=== PATIENT | male | born 1960 | race Caucasian/White ===

== ENCOUNTER → 2017-02-23 14:35 | Outpatient (POV) | payer BC, SELFPAY | PROVIDERS: Family Provider Nurse Practitioner Family; PCP Internal Medicine Adolescent Medicine; Referring Provider Nurse Practitioner Family | DX: Z00.00 Encounter for general adult medical examination without abnormal findings (principal) ==

== ENCOUNTER → 2017-03-12 10:58 | Outpatient (CLI) | payer BC, SELFPAY ==
--- NOTE | 2017-03-12 | XR_ITS ---
XR knee LT 3V HISTORY: Pain following injury ITS.REASON: INJURY OF LEFT KNEE, INITIAL ENCOUNTER, MEDIAL KNEE PAIN ORDERING PHYSICIAN: Clayton Garcia MD PATIENT AGE: 57 years COMPARISON: None FINDINGS: There is a moderate size suprapatellar effusion. This continuity is noted involving the anterior aspect of the mid patella consistent with patellar fracture. There is minimal distraction of the fracture fragments. IMPRESSION: Mildly distracted patellar fracture with moderate sized knee joint effusion. The fragments are distracted x 7 mm anteriorly.
== END ==
PROVIDERS: PCP Internal Medicine Adolescent Medicine; Visit Provider Internal Medicine Adolescent Medicine
DX: S89.92XA Unspecified injury of left lower leg, initial encounter (principal); M25.562 Pain in left knee
CPT/HCPCS: 73562

== ENCOUNTER → 2017-03-16 15:24 | Outpatient (CLI) | payer BC, SELFPAY ==
[2017-03-16 15:38] LABS: Basophils # 0.1 K/mm3 (0-0.2); Basophils % 0.5 % (0.1-2.0); Eosinophils # 0.2 K/mm3 (0.0-0.4); Eosinophils % 1.3 % (0.1-12.0); Hemoglobin 13.1 g/dL (14.1-18.0); Lymphocytes # 3.4 K/mm3 (0.7-4.5); Lymphocytes % 27.2 K/mm3 (10-50); Mean Corpuscular HGB Conc 33.4 g/dL (31.8-35.4); Mean Corpuscular Hemoglobin 31.2 pg (27.0-31.2); Mean Corpuscular Volume 93.2 fl (80-94); Mean Platelet Volume 9.8 fl (7.4-10.4); Monocytes # 0.8 K/mm3 (0.1-1.0); Neutrophils # 8.1 K/mm3 (1.8-7.8); Neutrophils % 65.1 % (37.0-80.0); Platelet Count 152 K/mm3 (142-424); Red Blood Count 4.19 M/mm3 (4.60-6.20); Red Cell Distribution Width 12.7 % (11.5-17.5); White Blood Count 12.5 K/mm3 (4.8-10.8)
[2017-03-16 17:49] LABS: Anion Gap 10.6 mEq/L (5-15); Blood Urea Nitrogen 14 mg/dL (7-18); Carbon Dioxide 32 mmol/L (21.0-32.0); Chloride 108 mmol/L (98-107); Estimated Glomerular Filt Rate 99 ml/min (>60); GFR (African American) 120 ML/MIN (>60); Glucose 155 mg/dL (74-106); Potassium 4.6 mmoL/L (3.5-5.1); Sodium 146 mmol/L (136-145)
== END ==
PROVIDERS: PCP Nurse Practitioner Family; Visit Provider Orthopaedic Surgery
DX: S82.002A Unspecified fracture of left patella, initial encounter for closed fracture (principal); S89.92XA Unspecified injury of left lower leg, initial encounter; Z01.818 Encounter for other preprocedural examination
CPT/HCPCS: 36415; 80048; 85025

== ENCOUNTER 2017-03-16 15:38 | Outpatient (RCR) | payer BC, SELFPAY | END 2017-03-16 15:45 | disposition home or self-care (01) | LOC: PT 15:38 | PROVIDERS: Family Provider Nurse Practitioner Family; PCP Nurse Practitioner Family; Visit Provider Orthopaedic Surgery | DX: S82.002A Unspecified fracture of left patella, initial encounter for closed fracture (principal) | CPT/HCPCS: 97760 ==

== ENCOUNTER 2017-03-21 07:42 | Observation (INO) | payer BC, SELFPAY ==
[2017-03-18 13:28] VITALS: BMI 24.2
[2017-03-21] VITALS (20 sets, daily range): BP systolic 128–162; BP diastolic 67–85; PULSE 77–93; RESP 12–20; TEMP 36.2–43; O2SAT 93–100; BMI 26.6
--- NOTE | 2017-03-21 08:18 | HMH.ANESCL ---
[facility] Anesthesia Checklist - Patient Identification Patient Identification: Arm Band - Structural Data Admitted From: Home Planned Operative Procedure/s: left patella fx Consent for Planned Operative Procedure(s) Verified: Yes Verified Documents: Surgical Consent, History and Physical - NPO Status Verified Time NPO: 00:00 - Additional verifications Anesthesia Reactions: No - Airway Assessment C-Spine Mobility Assessed: Yes TMJ Mobility Assessed: Yes Dentition: Edentulous - Neurological Assessment Level of Consciousness: Awake, Alert - Anesthesia Plan Anesthesia Risk discussed: Yes Anesthesia Plan: Verified ASA Class: III Anesthesia Type: MAC - Preoperative Comments Pre-Operative Comments: with fem/sciatic block [facility] Anesthesia HX Medical History: Reports:: Anxiety, Coronary Artery Disease, Diabetes Mellitus Type 2, Hyperlipidemia, Hypertension Denies:: Cancer, Diabetes Mellitus Type 1, Internal Pacemaker, MRSA Comment: faina Laterality Cases: Bilateral: Other Other Surgeries: Yes: Coronary Stent, Other. No: Pacemaker Amputation: No Fractures: Yes Comment: cabg, left elbow, spinal cord stimulator *Family Hx:: Coronary Artery Disease, Cancer, Anemia, Diabetes, Heart Attack, Hypertension, Stroke
[2017-03-21 08:49] LABS: POC Glucose,Bedside 187 mg/dL
--- NOTE | 2017-03-21 11:30 | HMH.ANESI ---
[facility] Anesthesia Record Part I Intake, IV Amount: 1,200 Estimated blood loss (mL): 50 Urine output (mL): 0 Blood Pressure: 147/79 SaO2: 95 Pulse Rate: 87 Respiratory Rate: 12 Temperature: 97.4 F Patient is:: Awake, Stable Stable to PACU at:: 11:30
--- NOTE | 2017-03-21 11:31 | HMH.ANESII ---
[facility] Anesthesia Record Part II Discharge Time: 12:00 Destination: floor PACU nurse assessment reviewed?: Yes Patient Condition:: Good Anesthesia Complications:: None
--- NOTE | 2017-03-21 11:48 | XR_ITS ---
XR knee LT 2V HISTORY: Follow-up surgery/ORIF patella ITS.REASON: ORIF Patella ORDERING PHYSICIAN: Tay Tapia MD PATIENT AGE: 57 years COMPARISON: 03/12/2017 FINDINGS: 2 images are submitted following ORIF of the patella. There are TWO longitudinal screws transversing through both segments of the patella along with a cerclage wire with good alignment of the bony fracture fragments and reduced distraction of the fracture fragments. Artifact is present from overlying cast. Soft tissue gas is also present. IMPRESSION: Status post ORIF patellar fracture with good alignment
--- NOTE | 2017-03-21 12:22 | XR_ITS ---
XR patella LT 2V CLINICAL INDICATION: ITS.REASON: LT PATELLA ORIF ORDERING PHYSICIAN: Tay Tapia MD PATIENT AGE: 57 years Fluoroscopy time: 1 minute and 31 seconds COMPARISON: Radiograph of 03/12/2017 FINDINGS: Fluoroscopy utilized along with multiple images from the C-arm showing interval ORIF of patellar fracture with placement of 2 screws and cerclage wire with good alignment of the fracture fragments and decreased distraction. IMPRESSION: Status post ORIF patellar fracture with good alignment
--- NOTE | 2017-03-21 13:31 | PC.NURSE ---
1130-REPORT RECEIVED FROM RAMAN BAHENA & CUCA LOCKHART
--- NOTE | 2017-03-21 13:36 | PC.NURSE ---
1140-PT ATTEMPTING TO VOID PER URINAL AT THIS TIME. PT DRINKING ICE WATER WITHOUT DIFFICULTY. IPC TO RLE.
--- NOTE | 2017-03-21 13:42 | PC.NURSE ---
1150-PT CONTINUES TO ATTEMPT TO VOID PER URINAL W/OUT SUCCESS. PT REPORTS HISTORY OF DIFFICULTY VOIDING. PT CONTINUES TO DRINK ICE WATER W/OUT DIFFICULTY. RADIOLOGY AT BEDSIDE.
--- NOTE | 2017-03-21 13:45 | PC.NURSE ---
1200-PT UNABLE TO VOID PER URINAL AT THIS TIME
--- NOTE | 2017-03-21 13:48 | PC.NURSE ---
1210-AWAITING MD TO PLACE 2ND FLOOR ADMISSION ORDERS AT THIS TIME
--- NOTE | 2017-03-21 13:51 | PC.NURSE ---
1212-DETAILED REPORT CALLED TO RAMAN CRUZ. PT UNABLE TO VOID PER URINAL BUT CONTINUES TO REPORT URGE. PT CONTINUES TO DRINK ICE WATER W/OUT DIFFICULTY. DENIES PAIN OR NAUSEA. BRISK CAP REFILL NOTED TO LLE W/GOOD PEDAL PULSES. PT STABLE. 1216-PT TRANSPORTED TO 2ND FLOOR ROOM 206 [facility] BED PER RAMAN DANIELS & ACOSTA,SOUND RECORDIST W/RAILS UP. PT LEFT IN CARE OF RAMAN CRUZ WITH BED LOCKED IN LOWEST POSITION. VSS. PT STABLE UPON DISCHARGE FROM PACU.
[2017-03-22] VITALS (7 sets, daily range): BP systolic 123–174; BP diastolic 72–86; PULSE 80–97; RESP 18–20; TEMP 36.7–37; O2SAT 92–99
--- NOTE | 2017-03-22 04:32 | PC.NURSE ---
PT HAS BEEN AWAKE MOST OF NIGHT. PT GIVEN DILAUDID TWICE AND 2 PERCOCETS TIMES 2. PT STATES PAIN MORE TOLERABLE THIS AM. PT VOIDING WITHOUT DIFFICULTY. LEFT LEG WITH BRACE IN PLACE.
--- NOTE | 2017-03-22 16:25 | HMH.ORTHPN ---
Subjective Date: 03/22/17 Time: 10:00 Interval history: Postop day #1. Patient seen approximately 10 AM and also again at approximately 1330. Initially, he had difficulties with pain control once the block wore off. Following Toradol and IV morphine, the patient's pain was markedly reduced. He initially voices desire to go home but after discussion with his , feels it would be best to wait another day he is still requiring some level of morphine for pain control. PN: Obj Ex Vital signs: Temp Pulse Resp BP Pulse Ox 98.5 F 80 18 161/82 98 03/22/17 15:39 03/22/17 15:39 03/22/17 15:39 03/22/17 15:39 03/22/17 15:39 - Additional findings Additional findings: Neurovascular status grossly intact both lower extremities. Bandages removed and wound inspected. It is clean and dry. No evidence DVT, cellulitis, other complications noted. Postoperative x-rays show components to be in good position and fracture reduction appropriate. Progress Note: A&P (1) Left patella fracture Status: Acute Assessment and plan: We will try to transition the patient to oral pain medications. Physical therapy will see this afternoon for gait training and use of the leg strap training. Anticipate discharge tomorrow morning. Current Visit: Yes
--- NOTE | 2017-03-22 16:44 | HMH.PTEV ---
Physical Therapy Evaluation Rehab PT IP Evaluation Start: 03/22/17 09:00 Freq: .once Status: Active Protocol: Document 03/22/17 16:39 PHORNE (Rec: 03/22/17 16:44 PHORNE [id number]) Subjective/History History History 57 yom adm to [facility] s/p left pat fx repair. Subjective Subjective Pt reports c/o discomfort in left LE Rehab PT IP Eval Objective Appearance Patient Behavior Appropriate Patient Orientation Person Place Time Difficulty following instructions none Speech Pattern Clear Appropriate Ambulation Patient Able to Ambulate Yes Ambulation Observation IP General Gait Pattern Observation Antalgic Gait Decrease Weight Bear (L) Decrease Stride Lngth (L) Ambulation Distance (feet) 3 Ambulation Assistive Device Rolling Walker Balance Ability to Arise Able, uses arms to help Sitting Balance Steady, safe Standing Balance Narrow stance w/o support Dynamic Sitting Balance Ability Good Dynamic Standing Balance Ability Good Transfers Bed Transfer Ability Supervision/Stand by Chair Transfer Ability Supervision/Stand by Sit to Stand Bed Transfer Ability Supervision/Stand by Sit to Stand Chair Transfer Ability Supervision/Stand by Pain Left Knee Pain Intensity 5 ROM LLE Abnormal ROM Comment not tested due t-scope locked in ext MMT LLE Abnormal MMT Grade not tested due to precautions after surgery Rehab PT IP prob,goals,plan Problems Date of Evaluation: 03/22/17 Rehab Potential Rehab Potential Good Discharge Plan PT Discharge Plan Pt is appropriate to return home once medically stable. G -code Required Yes Eval Complexity Eval Charge Codes 11819 - Moderate Complexity G Codes PT Current Status Mobility PT Current Status Modifier CJ-At least 20% but less than 40% impaired, limited or restricted PT Goal Status Mobility PT Goal Status Modifer CJ-At least 20% but less than 40% impaired, limited or restricted PHYSICIAN CERTIFICATION: I certify the specified therapy services for Darryn Ching are required, authorized, and reviewed every 30 days.
--- NOTE | 2017-03-22 20:35 | PC.NURSE ---
scud pump off at this time. family putting back on at this time
[2017-03-23] VITALS: BP 165/89; PULSE 81; RESP 20; TEMP 37.1; O2SAT 96
[2017-03-23 04:00] VITALS: BP 153/79; PULSE 79; RESP 17; TEMP 36.7; O2SAT 95
--- NOTE | 2017-03-23 04:26 | PC.NURSE ---
Pt has C/O pain in his left knee r/y previous surgical procedure, medicated per APR. Pt incisions CDI with no s/s of infection noted, no edema noted. Pt able to wiggle toes, toes and foot are pink and warm, cap refill >3, 2+ palpable tibial and pedal pulses. Lung sounds clear t/o auscultation, BS active in all 4 qauds, states he has not had BM since surgery but is passing flatus. Family at bedside. SCUD noted to rt leg. No acute distress noted. Will continue to monitor.
--- NOTE | 2017-03-23 07:34 | PC.NURSE ---
REPORT GIVEN TO Pedrito FERNANDEZ RN
[2017-03-23 08:00] VITALS: BP 163/95; PULSE 73; RESP 17; TEMP 36.6; O2SAT 96
--- NOTE | 2017-03-23 09:03 | P.OP_ITS ---
Date of procedure: 03/21/17 Pre-op Diagnosis:: Left patella fracture Post-op diagnosis:: same Procedure performed:: Open reduction internal fixation left patella fracture Surgeon:: Tay Tapia MD CLINICAL NURSING INTERN:: Other Anesthesia: regional Estimated blood loss (mL): 50 (This is an estimate based estimate based on hematoma evacuation) Operative findings:: The patient is a 57-year-old gentleman who has fallen and incurred a transverse comminuted fracture of his patella. There is mild to moderate displacement based on radiographs. Open reduction internal fixation is indicated to stabilize the patella and prevent further displacement. Is also indicated to improve functional outcome. Patient was taken to the operating room placed in supine position. Due to significant cardiac issues and the presence of an abdominal aortic aneurysm, anesthesia elected to proceed with original block. The patient received a femoral sciatic block initially and this was augmented by local anesthesia at the end of the case. Limb was exsanguinated and the tourniquet inflated to 325 torr. See anesthesia sheet for tourniquet time. Incision was made in the extensor mechanism and patella identified. We then made a medial parapatellar arthrotomy to allow a finger to be inserted in and palpate the fracture site. Comminution at the inferior pole was noted. We gently reduce this as best possible and held it with a tenaculum clamp. We then made 2 parallel splitting incisions in the quadriceps tendon to allow placement of guidewires. Threaded guidewires were placed and C-arm used to confirm optimal reduction of the fracture. Third wire was placed for stabilization. We then overdrilled 1 wire and measured and placed a 4.5 mm partially threaded cannulated screw. We then perform this on the second wire as well again placing a cannulated screw. We advanced the screws as far as possible. They appeared to be engaged in bone with the head and would advance no further. C arm was used to check and although it looked like we could perhaps advance another millimeter or so, the fact that we were getting good purchase and the screws were noted advance to not attempt further advancement and thus prevent screw stripping. We then placed a 20-gauge wire through the cannulated screws in a figure of 8 technique. We had ensured that the tips of the screw distally did not protrude through the patella to optimize the biomechanical construct. We then tightened the wire sequentially to further augment the construct. We again checked with C arm and found the reduction to be satisfactory. Digital palpation showed the articular cartilage to be essentially congruent. Slight comminution buckling were noted where the fracture disrupted the articular cartilage distally but this was not felt to be of major significance. We were able to flex and extend the knee to 45?, the limits of the test, without the fracture opening. I should mention that strict AO technique was used during this case to minimize soft tissue disruption. We had already evacuated the hematoma, irrigated again, and closed the extensor mechanism with Vicryl followed by closure of the splits in the tendon and closure of the subcutaneous fat. The skin itself was closed with Monocryl suture, Dermabond, Steri-Strips, and dressings were applied. The patient was placed in the knee immobilizer locked in extension and taken to the PACU in good condition. Condition: stable Disposition: PACU Complications:: None
--- NOTE | 2017-03-23 11:28 | HMH.DCTXFX ---
Discharge/Transfer - Discharge Disposition: Home, Self-Care Condition: Good - Plan of Care Resident has been informed of condition and prognosis?: Yes Mobility Status: other Goal of treatment:: Progressive wound healing Rehab Potential: Good I concur with the most recent H & P: Yes Date of most recent H & P: 03/21/17 Certification: I have reviewed and agree with this resident's plan of care.
--- NOTE | 2017-03-23 11:30 | HMH.DCSUM ---
General - General Admission date: 03/21/17 Discharge date: 03/23/17 Objective Vital signs: Temp Pulse Resp BP Pulse Ox 97.9 F 73 17 163/95 96 03/23/17 08:00 03/23/17 08:00 03/23/17 08:00 03/23/17 08:00 03/23/17 08:00 DS: Diagnosis - Discharge Diagnosis (1) Left patella fracture Status: Acute Meds Home Medications Medication Instructions Recorded Confirmed Type atorvastatin 40 mg tablet 40 mg PO QDAY 03/16/17 03/18/17 History clonazepam 0.5 mg tablet 0.5 mg PO BID tab 03/16/17 03/18/17 History clopidogrel 75 mg tablet 75 mg PO ONCE 03/16/17 03/21/17 History metoprolol succinate ER 100 mg 100 mg PO ONCE tab 03/16/17 03/18/17 History tablet,extended release 24 hr oxycodone-acetaminophen 10 mg-325 1 tab PO Q4-6H PRN 03/16/17 03/18/17 History mg tablet ramipril 10 mg capsule 10 mg PO QDAY 03/16/17 03/18/17 History sitagliptin 100 mg-metformin ER 1 tab PO QDAY 03/16/17 03/18/17 History 1,000 mg tablet,extended [id number] Aspirin [Adult Low Dose Aspirin EC] 81 mg PO DAILY 03/18/17 03/18/17 History Allergies Allergy/AdvReac Type Severity Reaction Status Date / Time propoxyphene Allergy Intermediate Verified 03/18/17 13:20 hydrocodone [From LORTAB] AdvReac Mild NA-NAUSEA/V Verified 03/18/17 13:20 OMITING Discharge Plan - Patient Discharge Instructions ACTIVITY: Limited activity, Other DIET: advance to your usual diet Additional Instructions: Use strap to assist in moving left leg. Keep brace ON and LOCKED when walking. Wear brace when sleeping. Do not wet wound until Tuesday. Call our office at [phone] if ANY questions or concerns Patient Instructions: DI for Patella Fracture, DI for Surgical Site Infection - Follow up Plan Disposition: Home, Self-Custodial Medications: Home Medications Medication Instructions Recorded Confirmed Type atorvastatin 40 mg tablet 40 mg PO QDAY 03/16/17 03/18/17 History clonazepam 0.5 mg tablet 0.5 mg PO BID tab 03/16/17 03/18/17 History clopidogrel 75 mg tablet 75 mg PO ONCE 03/16/17 03/21/17 History metoprolol succinate ER 100 mg 100 mg PO ONCE tab 03/16/17 03/18/17 History tablet,extended release 24 hr oxycodone-acetaminophen 10 mg-325 1 tab PO Q4-6H PRN 03/16/17 03/18/17 History mg tablet ramipril 10 mg capsule 10 mg PO QDAY 03/16/17 03/18/17 History sitagliptin 100 mg-metformin ER 1 tab PO QDAY 03/16/17 03/18/17 History 1,000 mg tablet,extended [id number] Aspirin [Adult Low Dose Aspirin EC] 81 mg PO DAILY 03/18/17 03/18/17 History Prescriptions/Medication Reconciliation: No Action atorvastatin 40 mg tablet 40 mg PO QDAY clopidogrel 75 mg tablet 75 mg PO ONCE clonazepam 0.5 mg tablet 0.5 mg PO BID tab oxycodone-acetaminophen 10 mg-325 mg tablet 1 tab PO Q4-6H PRN PRN Reason: pain metoprolol succinate ER 100 mg tablet,extended release 24 hr 100 mg PO ONCE tab sitagliptin 100 mg-metformin ER 1,000 mg tablet,extended [id number] 1 tab PO QDAY ramipril 10 mg capsule 10 mg PO QDAY Aspirin [Adult Low Dose Aspirin EC] 81 mg PO DAILY
--- NOTE | 2017-03-23 11:31 | HMH.ORTHPN ---
Subjective Date: 03/23/17 Time: 10:20 Principal diagnosis: Left patella fracture Interval history: Patient underwent open reduction internal fixation 21 March. He experienced some difficulty pain control initially but was transitioned to oral Percocet at time of discharge with excellent pain control. He was seen by physical therapy and instructed on use of the brace, use of the assistance of strap, and weightbearing as tolerated techniques in the locking brace. He was also instructed on avoiding quadriceps contraction during gait. We have given him instructions on how he may wet the wound this Tuesday in the shower. He is to wear the brace at night but may take it off during the day with the leg extended. He may be weightbearing as tolerated but should wear the brace AT ALL TIMES when he is ambulating. We have recommended continuing to optimize control of his diabetes and congratulated him on his smoking cessation. Plan on seeing him back in approximately 2 weeks with x-rays out of the brace. He is to continue his regular home medications and in addition we have given him a prescription for Percocet 1-2 p.o. every 4 hours as needed pain, #20, dose is 5/325 mg PN: Obj Ex Vital signs: Temp Pulse Resp BP Pulse Ox 97.9 F 73 17 163/95 96 03/23/17 08:00 03/23/17 08:00 03/23/17 08:00 03/23/17 08:00 03/23/17 08:00 - Additional findings Additional findings: Incision is clean and dry no evident cellulitis. 2+ effusion Progress Note: A&P (1) Left patella fracture Status: Acute Assessment and plan: Stable status post ORIF left patella. Home today with above directions Current Visit: Yes
== END 2017-03-23 11:35 | disposition home or self-care (01) ==
PROVIDERS: Admitting Provider Orthopaedic Surgery; Family Provider Nurse Practitioner Family; PCP Nurse Practitioner Family; Visit Provider Orthopaedic Surgery
PROC: (CPT 27524; principal; 2017-03-21 09:00)
DX: S82.035A Nondisplaced transverse fracture of left patella, initial encounter for closed fracture (principal); W19.XXXA Unspecified fall, initial encounter; E11.42 Type 2 diabetes mellitus with diabetic polyneuropathy; I10 Essential (primary) hypertension; Z95.5 Presence of coronary angioplasty implant and graft; I25.10 Atherosclerotic heart disease of native coronary artery without angina pectoris
CPT/HCPCS: 27524; 73560; 76001; 82962; 97162; C1713; C1769; G0378; J2270; J2704

== ENCOUNTER → 2017-04-05 13:43 | Outpatient (CLI) | payer BC, SELFPAY ==
--- NOTE | 2017-04-05 13:51 | XR_ITS ---
XR knee LT 2V HISTORY: Follow-up surgery ITS.REASON: post op ORIF LT patella ORDERING PHYSICIAN: Tay Tapia MD PATIENT AGE: 57 years COMPARISON: 03 21 17 FINDINGS: Remains good alignment of the patellar fracture with 2 Vertical screws within the patella and cerclage wire. The fracture line is still visible. There is mild soft tissue swelling in the infrapatellar region. Soft tissue gas has resolved IMPRESSION: Good alignment status post ORIF patellar fracture
== END ==
PROVIDERS: PCP Nurse Practitioner Family; Visit Provider Orthopaedic Surgery
DX: Z47.89 Encounter for other orthopedic aftercare (principal)
CPT/HCPCS: 73560

== ENCOUNTER → 2017-04-27 12:40 | Outpatient (CLI) | payer BC, SELFPAY ==
--- NOTE | 2017-04-27 12:44 | XR_ITS ---
XR knee LT 2V HISTORY: Follow-up knee surgery ITS.REASON: Post op LT knee ORIF ORDERING PHYSICIAN: Tay Tapia MD PATIENT AGE: 57 years COMPARISON: 04/05/2017 FINDINGS: No change status post ORIF patellar fracture with good alignment of the patellar fragments. 2. Longitudinal screws and a cerclage wire remain in place with good alignment of the fracture fragments. Fracture line is somewhat less visible consistent with healing. The remaining soft tissue swelling in the suprapatellar region IMPRESSION: Good alignment status post ORIF healing patellar fracture
== END ==
PROVIDERS: PCP Nurse Practitioner Family; Visit Provider Orthopaedic Surgery
DX: Z48.89 Encounter for other specified surgical aftercare (principal)
CPT/HCPCS: 73560

== ENCOUNTER → 2017-06-09 13:02 | Outpatient (CLI) | payer BC, SELFPAY ==
--- NOTE | 2017-06-09 13:07 | XR_ITS ---
XR knee LT 2V HISTORY: ITS.REASON: S/P LT PATELLA ORIF ORDERING PHYSICIAN: Tay Tapia MD PATIENT AGE: 57 years COMPARISON: 04/27/2017 FINDINGS: Status post ORIF patellar fracture with 2. Longitudinal screws and 2 cerclage wires present with good alignment of the fracture fragments and slight increased sclerosis of the fracture site suggesting healing. Soft tissue swelling is present along the suprapatellar region. IMPRESSION: Good alignment status post ORIF healing patellar fracture
== END ==
PROVIDERS: PCP Nurse Practitioner Family; Visit Provider Orthopaedic Surgery
DX: Z47.89 Encounter for other orthopedic aftercare (principal)
CPT/HCPCS: 73560

== ENCOUNTER → 2017-07-14 13:39 | Outpatient (CLI) | payer BC, SELFPAY ==
--- NOTE | 2017-07-14 13:49 | US_ITS ---
US Arterial Ankle Brachial Ind History: Leg pain, claudication, current smoker, rest pain ORDERING PHYSICIAN: Mitzi Mast PATIENT AGE: 57 years TECHNIQUE: Segmental pressures obtained of both right and left leg. These are compared to brachial blood pressure to yield index at each level sampled including summary PEPE. The data sheets from the procedure are available in PACS FINDINGS Rest study only performed today No prior studies available for comparison. Blood pressures reported are in millimeters mercury. RIGHT LEG PEPE = .9. RIGHT LEG TBI=.7 Brachial BP: 158 Thigh BP: 130 Calf BP: 139 Ankle PT: 147 Ankle DP : 166 Digit =116 LEFT LEG PEPE = 1.0 LEFT LEG TBI= 1.0 Brachial BPD: 152 Thigh BP: 149 Calf BP: 159 Ankle PT:154 Ankle DP: 153 Digit = 159 Pulses and waveforms: Normal IMPRESSION: The ABIs as reported above are within normal limits. Waveforms and pulses are also unremarkable. Right TBI is slightly low which may indicate small vessel disease
--- NOTE | 2017-07-14 14:12 | XR_ITS ---
EXAM: XR cervical spine 3V HISTORY: ITS.REASON: NECK PAIN ORDERING PHYSICIAN: Mitzi Mast PATIENT AGE: 57 years COMPARISON: None FINDINGS: There is slight reversal of the mid cervical lordosis which may be due to patient positioning or muscle spasm. Mild degenerative disc disease is present at C6-C7. Incidental carotid calcifications. IMPRESSION: Degenerative disc disease C6-C7 with reversal of lordosis which may be due to patient positioning or muscle spasm
== END ==
PROVIDERS: Family Provider Nurse Practitioner Family; PCP Nurse Practitioner Family; Visit Provider Nurse Practitioner Family
DX: M54.2 Cervicalgia (principal); I70.212 Atherosclerosis of native arteries of extremities with intermittent claudication, left leg
CPT/HCPCS: 72040; 93922

== ENCOUNTER → 2017-07-21 08:54 | Outpatient (CLI) | payer BC, SELFPAY ==
--- NOTE | 2017-07-21 08:57 | XR_ITS ---
XR knee LT 2V HISTORY: Follow-up surgery/patellar fracture ITS.REASON: S/P LT patella ORIF ORDERING PHYSICIAN: Tay Tapia MD PATIENT AGE: 57 years COMPARISON: 06/09/2017 FINDINGS: Status post ORIF patellar fracture. There are 2. Longitudinal screws and cerclage wire remains in place. Fracture line is less apparent consistent with healing. There remains good alignment. IMPRESSION: Good alignment status post ORIF healing patellar fracture
== END ==
PROVIDERS: PCP Nurse Practitioner Family; Visit Provider Orthopaedic Surgery
DX: Z47.89 Encounter for other orthopedic aftercare (principal)
CPT/HCPCS: 73560

== ENCOUNTER → 2018-01-20 09:08 | Outpatient (CLI) | payer BC, SELFPAY ==
--- NOTE | 2018-01-20 09:11 | XR_ITS ---
XR knee LT 2V HISTORY: Follow-up ORIF/fracture ITS.REASON: ap lateral ORDERING PHYSICIAN: Axel Alas MD PATIENT AGE: 57 years COMPARISON: 07/21/2017 FINDINGS: 2 Longitudinal screws remain in place within the patella with a cerclage wire also present. Patellar fracture line not readily apparent. There is minimal cortical offset of the posterior aspect of the fracture as before. IMPRESSION: No change in alignment status post ORIF patellar fracture
== END ==
PROVIDERS: PCP Nurse Practitioner Family; Visit Provider Orthopaedic Surgery
DX: Z47.89 Encounter for other orthopedic aftercare (principal)
CPT/HCPCS: 73560

== ENCOUNTER → 2018-02-02 10:40 | Outpatient (CLI) | payer BC, SELFPAY ==
--- NOTE | 2018-02-02 10:42 | XR_ITS ---
XR foot wt bearing LT 3V HISTORY: Left foot pain ITS.REASON: pain ORDERING PHYSICIAN: Kristen Khalil DPM PATIENT AGE: 57 years COMPARISON: None FINDINGS: No fracture or dislocation. No lytic or blastic change. There is normal mineralization.. The joint spaces are well-preserved. No significant degenerative/arthritic changes. No erosive changes evident. IMPRESSION: Negative, no acute finding
--- NOTE | 2018-02-02 10:42 | XR_ITS ---
XR foot wt bearing RT 3V HISTORY: Right foot pain ITS.REASON: pain ORDERING PHYSICIAN: Kristen Khalil DPM PATIENT AGE: 57 years COMPARISON: None FINDINGS: No fracture or dislocation. No lytic or blastic change. There is normal mineralization.. The joint spaces are well-preserved. No significant degenerative/arthritic changes. No erosive changes evident. IMPRESSION: Negative, no acute finding
== END ==
PROVIDERS: PCP Nurse Practitioner Family; Visit Provider Podiatrist
DX: M79.673 Pain in unspecified foot (principal)
CPT/HCPCS: 73630

== ENCOUNTER → 2018-09-26 14:57 | Outpatient (CLI) | payer BC, SELFPAY ==
--- NOTE | 2018-09-26 15:03 | XR_ITS ---
PROCEDURE: XR TIBIA FIBULA LT 2V CLINICAL INDICATION: BILAT LOW LEG PAIN COMPARISON: No exams were available for comparison TECHNIQUE: AP and lateral FINDINGS: There has been prior ORIF of the patella with screws and cerclage wire within the patella. The tibia and fibula have an unremarkable appearance. No fracture or dislocation. No abnormal angulation IMPRESSION: Negative left tib-fib Dictated by: Stephen Rios MD 09/26/2018 16:22 Signed by: <Electronically signed by Stephen Rios MD in [place]> 09/26/2018 16:22
--- NOTE | 2018-09-26 15:03 | XR_ITS ---
PROCEDURE: XR TIBIA FIBULA RT 2V CLINICAL INDICATION: BILAT LOW LEG PAIN COMPARISON: No exams were available for comparison TECHNIQUE: AP and lateral FINDINGS: No bony or joint abnormalities. Surgical clips are present at the proximal tibia medially IMPRESSION: Negative right tib fib Dictated by: Stephen Rios MD 09/26/2018 16:22 Signed by: <Electronically signed by Stephen Rios MD in [place]> 09/26/2018 16:22
== END ==
PROVIDERS: PCP Nurse Practitioner Family; Visit Provider Nurse Practitioner Family
DX: M79.662 Pain in left lower leg (principal); M79.661 Pain in right lower leg
CPT/HCPCS: 73590

== ENCOUNTER 2018-10-26 10:12 | Observation (INO) ==
--- NOTE | 2018-10-26 10:43 | Emergency Department Note ---
ED Disposition Clinical Impression: Cellulitis in diabetic foot, Lymphangitis, Diabetes mellitus Disposition: Admitted as Observation Condition on Discharge: Fair Instructions: DI for Skin Abscess Referrals: Sabiha Mendez APRN [Primary Care Provider] - Time of Disposition: 11:43 - Critical Care Critical Care Time: No Attestation: On 10/26/18, the high probability of a clinically significant, sudden or life threatening deterioration of the following system(s) required my full and direct attention, intervention and personal management. The time I documented below is in addition to time spent performing reported procedures but includes the follow ing listed in this critical care notation. Medical Decision Making - Medical Records Medical records reviewed: Yes: I reviewed the patient's medical records. - Sagar Inquiry Pt receiving controlled substance: No Sagar was queried for this patient: No Vital Signs: 10/26/18 10:20 10/26/18 11:06 Temperature 97.6 F Temperature Source Oral Pulse Rate [Right Brachial] 112 H 98 H Respiratory Rate 18 20 Blood Pressure [Right Arm] 150/91 H 146/87 H Blood Pressure Mean [Right Arm] 110 106 Blood Pressure Source [Right Arm] Automatic Cuff Automatic Cuff Blood Pressure Position [Right Arm] Sitting Sitting 02 Sat by Pulse Oximetry 98 97 Oxygen Delivery Method Room Air Room Air - Lab Data Lab results reviewed: Yes: I reviewed the patient's lab results. Lab Results 10/26/18 10:57: Sodium 140, Potassium 3.9, Chloride 101, Carbon Dioxide 30, Anion Gap 12.9, BUN 7, Creatinine 0.81, Estimated Creat Clear 114, Estimated GFR 97, Est GFR ( Amer) 118, Glucose 255 H, Calcium 9.4, Total Bilirubin 0.5, AST 19, ALT 39, Alkaline Phosphatase 149 H, C-Reactive Protein 1.8 H, Total Protein 7.7, Albumin 3.9, Globulin 3.8 H, Albumin/Globulin Ratio 1.0 L 10/26/18 11:08: WBC 10.5, RBC 4.73, Hgb 15.2, Hct 44.4, MCV 93.8, MCH 32.1 H, MCHC 34.2, RDW 12.8, Plt Count 104 L, MPV 8.3, Neut % (Auto) 72.4, Lymph % (Auto) 20.8, [place] % (Auto) 6.1, Eos % (Auto) 0.4, Baso % (Auto) 0.3, Neut # (Auto) 7.6, Lymph # (Auto) 2.2, [place] # (Auto) 0.6, Eos # (Auto) 0.1, Baso # (Auto) 0.0 Result diagrams: 10/26/18 11:08 10/26/18 10:57 Orders (Tests/Meds): ORDERS Category Date Time Status Foot XR right minimum 3 views [XR foot RT min 3V] Stat Exams 10/26/18 10:30 Taken XR foot LT min 3V Stat Exams 10/26/18 10:30 Taken Erythrocyte Sedimentation Rate Stat Lab 10/26/18 10:57 Received Lactic Acid Stat Lab 10/26/18 10:57 Received Blood Culture Stat Micro 10/26/18 11:16 Ordered - Physician Consults Physician Consulted: kori Reason -: Pt condition, Orthopedic Eval/Care Comment/Response: podiatry care Additional Consult: elias Reason -: Admission, Orthopedic Eval/Care Skin/Abscess/FB HPI - General Chief complaint: Skin/Abscess/Foreign Body Stated complaint: Water blisters on feet Time Seen by Provider: 10/26/18 10:40 Mode of Arrival: Family Vehicle Source of Information: Patient, Relative Limitations: No Limitations Description of Symptoms (Recalled from ER Triage Doc. by RN): c/o blisters on both feet x [address] Khalil to come to ED - History of Present Illness HPI narrative: sent from Dr. Khalil's office for likely admission. He 's got blisters to great toe on right foot, he's got a grossly swollen left great toe with epidermis absent/'dried blood. clear blisters to 2,3,4,5 toes distally. Lymphangitis noted to left leg. diabetes x 8 years, no particular trauma to cause this foot problem, his first of this kind. - Related Data Home Medications Medication Instructions Recorded Confirmed clonazepam 0.5 mg tablet 0.5 mg PO BID tab 03/16/17 10/26/18 clopidogrel 75 mg tablet 75 mg PO ONCE 03/16/17 10/26/18 metoprolol succinate ER 100 mg 100 mg PO ONCE tab 03/16/17 10/26/18 tablet,extended release 24 hr oxycodone-acetaminophen 10 mg-325 1 tab PO Q4-6H PRN 03/16/17 10/26/18 mg tablet ramipril 10 mg capsule 10 mg PO QDAY 03/16/17 10/26/18 sitagliptin 100 mg-metformin ER 1 tab PO QDAY 03/16/17 10/26/18 1,000 mg tablet,extended [id number] Aspirin [Adult Low Dose Aspirin EC] 81 mg PO DAILY 03/18/17 10/26/18 gabapentin 800 mg tablet 800 mg PO TID 02/02/18 10/26/18 Amitriptyline HCl [Elavil 25mg 25 mg PO HS 10/26/18 10/26/18 tablet] Pioglitazone HCl 30 mg PO DAILY 10/26/18 10/26/18 Quetiapine Fumarate 100 mg PO DAILY 10/26/18 10/26/18 Allergies Allergy/AdvReac Type Severity Reaction Status Date / Time propoxyphene Allergy Intermediate Verified 05/10/18 14:57 hydrocodone [From LORTAB] AdvReac Mild NA-NAUSEA/V Verified 05/10/18 14:57 OMITING [facility] History - Hepatitis A Screen Drug use history?: No High risk sexual behaviors?: No History of sexually transmitted infection?: No Currently employed?: No Childcare worker?: No Do you have indoor plumbing?: Yes Do you have electricity?: Yes Attestation statement:: This patient has been screened for Hepatitis A risk factors. I have reviewed the patient's past medical history: Yes Medical History: Reports:: Anxiety, Coronary Artery Disease, Diabetes Mellitus Type 2, Hyperlipidemia, Hypertension Denies:: Cancer, Diabetes Mellitus Type 1, Internal Pacemaker, Lung Disease, MRSA, Seizures Comment: faina Laterality Cases: Left: Arthroscopy Knee, Bilateral: Other Other Surgeries: Yes: Coronary Stent, Other. No: Pacemaker Amputation: No Fractures: Yes Comment: cabg, left elbow, spinal cord stimulator - Social History Smoking Status: Current every day smoker Tobacco Type: cigarettes # Packs/Day (cigarettes): 2 Alcohol Intake: never Alcohol Intake Frequency:: other Substance Use Type: denies use Occupational Status: employed Housing: house Household Members: spouse - Psychiatric History Pschychiatric History:: Reports:: Anxiety Family Hx:: Coronary Artery Disease, Cancer, Anemia, Diabetes, Heart Attack, Hypertension, Stroke ROS Obtained: Yes All systems reviewed & no additional complaints - Constitutional Constitutional: Denies fever(s) - ENT Ears, Nose, Mouth, and Throat: Denies sinus pain, Denies throat swelling - Cardiovascular Cardiovascular: Denies chest pain, Denies chest pain at rest, Denies dyspnea - Respiratory Respiratory: No chest congestion, No cough, No dyspnea, No dyspnea on exertion - Gastrointestinal Gastrointestingal: Denies: abdominal pain - Musculoskeletal Musculoskeletal: Reports joint stiffness, Reports joint swelling, Reports limited range of motion - Integumentary/Breasts Skin/Breast: Reports lesions, Reports skin pain, Reports skin swelling, Reports wounds, Reports breast skin changes - Neurologic Neurologic: Reports sensory deficit - Hematologic/Lymphatic Henatologic/Lymphatic: Denies easy bleeding, Denies easy bruising Physical Exam - General General appearance: alert, in distress, other (pain) - Head Head exam: atraumatic, normocephalic, normal inspection - Eye Eye exam: Present: normal appearance, PERRL, EOMI - ENT ENT exam: Present: normal exam, normal oropharynx, mucous membranes moist, TM's normal bilaterally, normal external ear exam - Neck Neck exam: Present: normal inspection, full ROM, trachea midline. Absent: meningismus, lymphadenopathy - Chest Chest inspection: Present: normal inspection, symmetric chest wall rise. Absent: tenderness - Respiratory Respiratory exam: Present: normal lung sounds bilaterally. Absent: respiratory distress - Cardiovascular Cardiovascular exam: Present: regular rate, normal rhythm. Absent: JVD - Extremities Exam Extremities exam: Present: tenderness, other (blistering and eschar, obvious cellulitis/lymphangiitis). Absent: normal capillary refill, calf tenderness - Neurological Exam Neurological exam: Present: alert, oriented X3, CN II-XII intact - Psychiatric Psychiatric exam: Present: normal affect, normal mood - Skin Skin exam: Present: warm, dry, erythema. Absent: intact, normal color
[2018-10-26 11:19] LABS: Basophils % 0.3 % (0.1-2.0); Eosinophils # 0.1 K/mm3 (0.0-0.4); Eosinophils % 0.4 % (0.1-12.0); Hematocrit 44.4 % (42.0-52.0); Hemoglobin 15.2 g/dL (14.1-18.0); Lymphocytes # 2.2 K/mm3 (0.7-4.5); Lymphocytes % 20.8 % (10-50); Mean Corpuscular HGB Conc 34.2 g/dL (31.8-35.4); Mean Corpuscular Volume 93.8 fl (80-94); Mean Platelet Volume 8.3 fl (7.4-10.4); Monocytes # 0.6 K/mm3 (0.1-1.0); Monocytes % 6.1 % (1.7-9.3); Neutrophils # 7.6 K/mm3 (1.8-7.8); Neutrophils % 72.4 % (37.0-80.0); Platelet Count 104 K/mm3 (142-424); Red Blood Count 4.73 M/mm3 (4.60-6.20); Red Cell Distribution Width 12.8 % (11.5-17.5); White Blood Count 10.5 K/mm3 (4.8-10.8)
[2018-10-26 11:26] LABS: Albumin Level 3.9 gm/dL (3.4-5.0); Anion Gap 12.9 mEq/L (5-15); Bilirubin,Total 0.5 mg/dL (0.2-1.0); C-Reactive Protein 1.8 mg/dL (0.0-0.9); Calcium 9.4 mg/dL (8.5-10.1); Globulin 3.8 gm/dl (1.3-3.2); Total Protein,Serum 7.7 gm/dL (6.4-8.2)
--- NOTE | 2018-10-26 12:38 | History & Physical Report ---
*Admission Date: 10/26/18 <Naty Yanez 10/26/18 12:42> *Chief complaint: foot ulcer, swollen, painful <Naty Yanez 10/26/18 12:42> *History of present illness: Mr. Ching is a 58-year-old male with a history of type 2 diabetes, hypertension, and coronary artery disease with CABG x3. He was a patient of Sabiha Mendez. He states 2 nights ago he went to a field day and when he got home and took off his shoes, he noticed that a scab fell off of his left great toe. He also noticed that he had blisters along all 4 of his other left toes and they were swollen. He also had a blister on his right great toe. He called and got an appt with Dr. Khalil for Tuesday. His left great toe became erythematous on the bottom of the toe and turned black, therefore he called Dr. Khalil's office. She advised him to go to the emergency room. He was seen in the ER and was admitted and Dr. Khalil was consulted. He will be started on antibiotics. <Naty Yanez 10/26/18 12:42> [facility] History I have reviewed the patient's past medical history: Yes <Naty Yanez 10/26/18 12:42> Medical History: Reports:: Anxiety, Coronary Artery Disease, Diabetes Mellitus Type 2, Hyperlipidemia, Hypertension Denies:: Cancer, Diabetes Mellitus Type 1, Internal Pacemaker, Lung Disease, MRSA, Seizures <Naty Yanez 10/26/18 12:42> *Have you ever received a pneumonia vaccine?: No <Naty Yanez 10/26/18 12:42> *Have you received a flu vaccine this season?: No <Naty Yanez 10/26/18 12:42> Laterality Cases: Left: Arthroscopy Knee, Bilateral: Other <Naty Yanez 10/26/18 12:42> Other Surgeries: Yes: CABG (x3), Coronary Stent, Other (back stimulator). No: Pacemaker <Naty Yanez 10/26/18 12:42> Amputation: No <Naty Yanez 10/26/18 12:42> Fractures: Yes <Naty Yanez 10/26/18 12:42> - *Social History Smoking Status: Current every day smoker <Joel Yaneza 10/26/18 12:42> Tobacco Type: cigarettes <Joel Yaneza 10/26/18 12:42> # Packs/Day (cigarettes): 2 <Joel Yaneza 10/26/18 12:42> Alcohol Intake: never <Naty Yanez 10/26/18 12:42> Alcohol Intake Frequency:: other <Naty Yanez 10/26/18 12:42> Substance Use Type: denies use <Joel Yaneza 10/26/18 12:42> *Occupational Status:: employed <Naty Yanez 10/26/18 12:42> Housing: house <Naty Yanez 10/26/18 12:42> Household Members: spouse <Naty Yanez 10/26/18 12:42> *Travel in the last 8 weeks: None <Naty Yanez 10/26/18 12:42> - Psychiatric History Pschychiatric History:: Reports:: Anxiety <Joel Yaneza 10/26/18 12:42> Family Hx:: Coronary Artery Disease, Cancer, Anemia, Diabetes, Heart Attack, Hypertension, Stroke <Naty Yanez 10/26/18 12:42> Review of Systems - Constitutional Denies chills, Denies fever(s), Denies weakness <Naty Yanez 10/26/18 12:42> - Eyes Denies blurry vision, Denies double vision <Naty Yanez 10/26/18 12:42> - ENT Denies nasal congestion, Denies sore throat, Denies dizziness <Naty Yanez 10/26/18 12:42> - *Cardiovascular Denies chest pain, Denies shortness of breath <Naty Yanez 10/26/18 12:42> - *Respiratory Denies chest congestion, Denies cough <Naty Yanez 10/26/18 12:42> - *Gastrointestinal Denies abdominal pain, Denies loose stools, Denies nausea, Denies vomiting <Naty Castaneda 10/26/18 12:42> - *Genitourinary Denies difficulty urinating, Denies painful urination <Naty Yanez - 10/26/18 12:42> - *Musculoskeletal Reports joint pain (left foot) <Naty Yanez - 10/26/18 12:42> - *Neurologic Denies headache(s), Denies dizziness, Denies weakness <Naty Yanez - 10/26/18 12:42> Meds Home Medications Medication Instructions Recorded Confirmed Type clonazepam 0.5 mg tablet 0.5 mg PO BID tab 03/16/17 10/26/18 History clopidogrel 75 mg tablet 75 mg PO ONCE 03/16/17 10/26/18 History metoprolol succinate ER 100 mg 100 mg PO ONCE tab 03/16/17 10/26/18 History tablet,extended release 24 hr oxycodone-acetaminophen 10 mg-325 1 tab PO Q4-6H PRN 03/16/17 10/26/18 History mg tablet ramipril 10 mg capsule 10 mg PO QDAY 03/16/17 10/26/18 History sitagliptin 100 mg-metformin ER 1 tab PO QDAY 03/16/17 10/26/18 History 1,000 mg tablet,extended [id number] Aspirin [Adult Low Dose Aspirin EC] 81 mg PO DAILY 03/18/17 10/26/18 History gabapentin 800 mg tablet 800 mg PO TID 02/02/18 10/26/18 History Amitriptyline HCl [Elavil 25mg 25 mg PO HS 10/26/18 10/26/18 History tablet] Pioglitazone HCl 30 mg PO DAILY 10/26/18 10/26/18 History Quetiapine Fumarate 100 mg PO DAILY 10/26/18 10/26/18 History <Erin Pickens - 10/26/18 14:54> Allergies Allergy/AdvReac Type Severity Reaction Status Date / Time propoxyphene Allergy Intermediate Verified 05/10/18 14:57 hydrocodone [From LORTAB] AdvReac Mild NA-NAUSEA/V Verified 05/10/18 14:57 OMITING <Erin Pickens - 10/26/18 14:54> Exam Vital signs and Labs for Last 24 Hours: Temp Pulse Resp BP Pulse Ox 98.4 F 110 H 21 140/90 99 10/26/18 13:52 10/26/18 13:52 10/26/18 13:52 10/26/18 13:52 10/26/18 14:05 Laboratory Results - last 24 hr 10/26/18 10:57: ESR 16 10/26/18 10:57: Sodium 140, Potassium 3.9, Chloride 101, Carbon Dioxide 30, Anion Gap 12.9, BUN 7, Creatinine 0.81, Estimated Creat Clear 114, Estimated GFR 97, Est GFR ( Amer) 118, Glucose 255 H, Calcium 9.4, Total Bilirubin 0.5, AST 19, ALT 39, Alkaline Phosphatase 149 H, C-Reactive Protein 1.8 H, Total Pro tein 7.7, Albumin 3.9, Globulin 3.8 H, Albumin/Globulin Ratio 1.0 L 10/26/18 10:57: Lactate 2.7 H 10/26/18 11:08: WBC 10.5, RBC 4.73, Hgb 15.2, Hct 44.4, MCV 93.8, MCH 32.1 H, MCHC 34.2, RDW 12.8, Plt Count 104 L, MPV 8.3, Neut % (Auto) 72.4, Lymph % (Auto) 20.8, [place] % (Auto) 6.1, Eos % (Auto) 0.4, Baso % (Auto) 0.3, Neut # (Auto) 7.6, Lymph # (Auto) 2.2, [place] # (Auto) 0.6, Eos # (Auto) 0.1, Baso # (Auto) 0.0 <Erin Pickens - 10/26/18 14:54> Temp Pulse Resp BP Pulse Ox 97.6 F 98 H 20 146/87 H 97 10/26/18 10:20 10/26/18 11:06 10/26/18 11:06 10/26/18 11:06 10/26/18 11:06 Laboratory Results - last 24 hr 10/26/18 10:57: ESR 16 10/26/18 10:57: Sodium 140, Potassium 3.9, Chloride 101, Carbon Dioxide 30, Anion Gap 12.9, BUN 7, Creatinine 0.81, Estimated Creat Clear 114, Estimated GFR 97, Est GFR ( Amer) 118, Glucose 255 H, Calcium 9.4, Total Bilirubin 0.5, AST 19, ALT 39, Alkaline Phosphatase 149 H, C-Reactive Protein 1.8 H, Total Protein 7.7, Albumin 3.9, Globulin 3.8 H, Albumin/Globulin Ratio 1.0 L 10/26/18 10:57: Lactate 2.7 H 10/26/18 11:08: WBC 10.5, RBC 4.73, Hgb 15.2, Hct 44.4, MCV 93.8, MCH 32.1 H, MCHC 34.2, RDW 12.8, Plt Count 104 L, MPV 8.3, Neut % (Auto) 72.4, Lymph % (Auto) 20.8, [place] % (Auto) 6.1, Eos % (Auto) 0.4, Baso % (Auto) 0.3, Neut # (Auto) 7.6, Lymph # (Auto) 2.2, [place] # (Auto) 0.6, Eos # (Auto) 0.1, Baso # (Auto) 0.0 <Naty Yanez 10/26/18 12:42> I & O for Last 24 hours: Intake & Output 10/24/18 10/25/18 10/26/18 10/27/18 11:59 11:59 11:59 11:59 Weight 184 lb 168 lb 2 oz <Erin Pickens 10/26/18 14:54> Intake & Output 10/24/18 10/25/18 10/26/18 10/27/18 11:59 11:59 11:59 11:59 Weight 184 lb <Naty Yanez 10/26/18 12:42> - Constitutional no acute distress <Naty Yanez 10/26/18 12:42> - *Routine HEENT Exam Head: Present: normocephalic <Naty Yanez 10/26/18 12:42> Eye: Present: EOMI, PERRL <Naty Yanez 10/26/18 12:42> ENT: Present: mucous membranes dry <Naty Yanez 10/26/18 12:42> - *Routine Neck Exam Present: supple. Absent: lymphadenopathy <Naty Yanez 10/26/18 12:42> - *Routine Respiratory Exam Present: CTA bilaterally <Naty Yanez 10/26/18 12:42> - *Routine Cardiovascular Exam Present: RRR <Naty Yanez 10/26/18 12:42> - *Routine Abdominal Exam Present: soft, normoactive bowel sounds. Absent: tenderness <Naty Yanez 10/26/18 12:42> - *Routine Extremities Exam Absent: cyanosis, clubbing, edema <Naty Yanez 10/26/18 12:42> - *Routine Skin Exam Absent: rash <Naty Yanez 10/26/18 12:42> Comments: left great toe with erythema and edema, the bottom of the toe is black, there are blisters on all of the other toes on the left foot and they are swollen as well, the right great toe is blistered and swollen, all toes are tender and painful to move <Naty Yanez 10/26/18 12:42> - *Routine Neurological Exam Present: alert, oriented X3 <Naty Yanez 10/26/18 12:42> - Detailed Eye Exam Eyelids: Left normal inspection <Naty Yanez 10/26/18 12:42> H&P: Result - Impressions X-rays of the feet - nothing acute <Naty Yanez 10/26/18 12:42> Assessment and Plan (1) Cellulitis in diabetic foot Current visit: Yes Status: Acute Category: Medical Code(s): E11.628 - Type 2 diabetes mellitus with other skin complications; L03.119 - Cellulitis of unspecified part of limb (2) Hypertension Current visit: Yes Status: Chronic Category: Medical Code(s): I10 - Essential (primary) hypertension (3) Hyperlipidemia Current visit: Yes Status: Chronic Category: Medical Code(s): E78.5 - Hyperlipidemia, unspecified (4) Coronary artery disease Current visit: Yes Status: Chronic Category: Medical Code(s): I25.10 - Atherosclerotic heart disease of [place] coronary artery without angina pectoris (5) Diabetes mellitus Current visit: Yes Status: Acute Category: Medical Code(s): E11.9 - Type 2 diabetes mellitus without complications (6) Elevated lactic acid level Current visit: Yes Status: Acute Category: Medical Code(s): R79.89 - Other specified abnormal findings of blood chemistry <Naty Yanez 10/26/18 12:34> (1) Cellulitis in diabetic foot Current visit: Yes Status: Acute Category: Medical Code(s): E11.628 - Type 2 diabetes mellitus with other skin complications; L03.119 - Cellulitis of unspecified part of limb (2) Hypertension Current visit: Yes Status: Chronic Category: Medical Code(s): I10 - Essential (primary) hypertension (3) Hyperlipidemia Current visit: Yes Status: Chronic Category: Medical Code(s): E78.5 - Hyperlipidemia, unspecified (4) Coronary artery disease Current visit: Yes Status: Chronic Category: Medical Code(s): I25.10 - Atherosclerotic heart disease of [place] coronary artery without angina pectoris (5) Diabetes mellitus Current visit: Yes Status: Acute Category: Medical Code(s): E11.9 - Type 2 diabetes mellitus without complications (6) Elevated lactic acid level Current visit: Yes Status: Acute Category: Medical Code(s): R79.89 - Other specified abnormal findings of blood chemistry (7) Blister of toe of left foot with infection Current visit: Yes Status: Acute Category: Medical Code(s): S90.425A - Blister (nonthermal), left lesser toe(s), initial encounter; L08.9 - Local infection of the skin and subcutaneous tissue, unspecified (8) Blister of toe of right foot with infection Current visit: Yes Status: Acute Category: Medical Code(s): S90.424A - Blister (nonthermal), right lesser toe(s), initial encounter; L08.9 - Local infection of the skin and subcutaneous tissue, unspecified (9) Ulcer of left great toe due to diabetes mellitus Current visit: Yes Status: Acute Category: Medical Code(s): E11.621 - Type 2 diabetes mellitus with foot ulcer; L97.529 - Non-pressure chronic ulcer of other part of left foot with unspecified severity <Erin Pickens - 10/26/18 14:54> - Assessment and plan all Dx Assessment and Plan for all problems:: Agree with above. On IV abx and will monitor overnight. Possible dc tomorrow. <Erin Pickens - 10/26/18 14:54> Patient will be admitted and started on antibiotics. Dr. Khalil has been consulted. <Naty Yanez - 10/26/18 12:42>
--- NOTE | 2018-10-26 13:01 | Consult Report ---
*Admission Date: 10/26/18 *Reason for consult:: B/L cellulitis, blisters *History of present illness: Mr. Ching is a 58-year-old male with a history of type 2 diabetes, hypertension, and coronary artery disease with CABG x3. He was a patient of Sabiha Mendez. He states 2 nights ago he went to a field day and when he got home and took off his shoes, he noticed that a scab fell off of his left great toe. He also noticed that he had blisters along all 4 of his other left toes and they were swollen. He also had a blister on his right great toe. Patient denies any history of ulceration, amputation or blistering. He denies wearing any different shoes just "did more activity than normal". He reports some pain to the great toes. Patient states when the scab fell off Tuesday he did not notice any drainage or purulence. Patient was scheduled 10/30/2018 outpatient to see me in the office but his called today concerned of worsening infection. Advised patient to go to the emergency room. He was seen and evaluated bedside in the ED as above. Patient denies nausea/vomiting, fever/chills, shortness of breath or chest pain. Review of Systems - Review of Systems Review of systems:: pertinent systems reviewed and negative unless documented below - Constitutional Denies chills, Denies fever(s) - Eyes Denies blurry vision - ENT Denies dizziness - *Cardiovascular Denies chest pain - *Respiratory Denies cough, Denies shortness of breath - *Gastrointestinal Denies abdominal pain, Denies nausea, Denies vomiting - *Genitourinary Denies difficulty urinating - *Musculoskeletal Denies limited joint movement - Integumentary/Breasts Reports skin ulcer, Reports wounds - *Neurologic Reports sensory deficit, Denies headache(s), Denies dizziness, Denies weakness [facility] History I have reviewed the patient's past medical history: Yes Medical History: Reports:: Anxiety, Coronary Artery Disease, Diabetes Mellitus Type 2, Hyperlipidemia, Hypertension Denies:: Cancer, Diabetes Mellitus Type 1, Internal Pacemaker, Lung Disease, MRSA, Seizures *Have you ever received a pneumonia vaccine?: No *Have you received a flu vaccine this season?: No Laterality Cases: Left: Arthroscopy Knee, Bilateral: Other Other Surgeries: Yes: CABG (x3), Coronary Stent, Other (back stimulator). No: Pacemaker Amputation: No Fractures: Yes - *Social History Smoking Status: Current every day smoker Tobacco Type: cigarettes # Packs/Day (cigarettes): 2 Alcohol Intake: never Alcohol Intake Frequency:: other Substance Use Type: denies use *Occupational Status:: employed Housing: house Household Members: spouse *Travel in the last 8 weeks: None - Psychiatric History Pschychiatric History:: Reports:: Anxiety Family Hx:: Coronary Artery Disease, Cancer, Anemia, Diabetes, Heart Attack, Hypertension, Stroke Meds Home Medications Medication Instructions Recorded Confirmed Type clonazepam 0.5 mg tablet 0.5 mg PO BID tab 03/16/17 10/26/18 History clopidogrel 75 mg tablet 75 mg PO ONCE 03/16/17 10/26/18 History metoprolol succinate ER 100 mg 100 mg PO ONCE tab 03/16/17 10/26/18 History tablet,extended release 24 hr oxycodone-acetaminophen 10 mg-325 1 tab PO Q4-6H PRN 03/16/17 10/26/18 History mg tablet ramipril 10 mg capsule 10 mg PO QDAY 03/16/17 10/26/18 History sitagliptin 100 mg-metformin ER 1 tab PO QDAY 03/16/17 10/26/18 History 1,000 mg tablet,extended [id number] Aspirin [Adult Low Dose Aspirin EC] 81 mg PO DAILY 03/18/17 10/26/18 History gabapentin 800 mg tablet 800 mg PO TID 02/02/18 10/26/18 History Amitriptyline HCl [Elavil 25mg 25 mg PO HS 10/26/18 10/26/18 History tablet] Pioglitazone HCl 30 mg PO DAILY 10/26/18 10/26/18 History Quetiapine Fumarate 100 mg PO DAILY 10/26/18 10/26/18 History Allergies Allergy/AdvReac Type Severity Reaction Status Date / Time propoxyphene Allergy Intermediate Verified 05/10/18 14:57 hydrocodone [From LORTAB] AdvReac Mild NA-NAUSEA/V Verified 05/10/18 14:57 OMITING Exam Vital signs and Labs for Last 24 Hours: Temp Pulse Resp BP Pulse Ox 97.6 F 98 H 20 146/87 H 97 10/26/18 10:20 10/26/18 11:06 10/26/18 11:06 10/26/18 11:06 10/26/18 11:06 Laboratory Results - last 24 hr 10/26/18 10:57: ESR 16 10/26/18 10:57: Sodium 140, Potassium 3.9, Chloride 101, Carbon Dioxide 30, Anion Gap 12.9, BUN 7, Creatinine 0.81, Estimated Creat Clear 114, Estimated GFR 97, Est GFR ( Amer) 118, Glucose 255 H, Calcium 9.4, Total Bilirubin 0.5, AST 19, ALT 39, Alkaline Phosphatase 149 H, C-Reactive Protein 1.8 H, Total Protein 7.7, Albumin 3.9, Globulin 3.8 H, Albumin/Globulin Ratio 1.0 L 10/26/18 10:57: Lactate 2.7 H 10/26/18 11:08: WBC 10.5, RBC 4.73, Hgb 15.2, Hct 44.4, MCV 93.8, MCH 32.1 H, MCHC 34.2, RDW 12.8, Plt Count 104 L, MPV 8.3, Neut % (Auto) 72.4, Lymph % (Auto) 20.8, [place] % (Auto) 6.1, Eos % (Auto) 0.4, Baso % (Auto) 0.3, Neut # (Aut o) 7.6, Lymph # (Auto) 2.2, [place] # (Auto) 0.6, Eos # (Auto) 0.1, Baso # (Auto) 0.0 I & O for Last 24 hours: Intake & Output 10/24/18 10/25/18 10/26/18 10/27/18 11:59 11:59 11:59 11:59 Weight 184 lb - Constitutional no acute distress - *Routine HEENT Exam Head: Present: normocephalic Eye: Present: PERRL - *Routine Neck Exam Present: supple - *Routine Respiratory Exam Absent: respiratory distress - *Routine Cardiovascular Exam Present: RRR - *Routine Abdominal Exam Present: soft. Absent: guarding - *Routine Rectal Exam Patient deferred: visual exam - *Routine Exam Patient deferred: penile exam - *Routine Extremities Exam Present: pulses intact. Absent: calf tenderness, amputation - *Routine Skin Exam Present: dry, wounds - *Routine Neurological Exam Present: alert, moving all extremities - Detailed Lower Extremity Exam Comments: Palpable pedal pulses. Capillary fill time difficult to discern secondary to blisters. No distal pedal hair growth noted. No calf or thigh pain noted. Motor function and strength within normal limits. Right foot: Blister noted to the tip of the right great toe. Post debridement with a 15 blade the blister was popped wound culture taken and blister was deroofed. Area was sharply debrided through skin and subcutaneous tissue. No deep opening or deep signs of infection noted. Periwound cellulitis localized. Post debridement wound base 100% granular and measured approximately 3.1 x 2.6 x 0.1 cm. Left foot: Blister noted to the tips of digits 25 and at the ball of the foot. 15 blade was used to pop all the blisters. Wound culture taken. All blisters were removed. The area was sharply debrided with a 15 blade through skin into subcutaneous tissue. No deep opening or deep signs of infection noted. P eriwound cellulitis with some ascending cellulitis noted striking up the dorsal foot to left ankle. The left great toe had a distal tip toe wound. No blister or fluid noted from the left great toe. Wound base 25% eschar with fibrotic slough covering the wound. Area was sharply brought up a 15 blade and curette through skin. Bio film and slough sharply debrided. Post debridement the left great toe measured approximately 3.4 x 2.8 x 0.2 cm, wound base 25% eschar intact, 75% dark red granular tissue. Post debridement with 15 blade the blisters were also removed and for localized to the tips of the toes. The ball of the foot blister measured approximately 3 x 2 x 0.2 cm. No opening to bone noted. Results - Labs Result Diagrams: 10/26/18 11:08 10/26/18 10:57 Labs: Abnormal lab results 10/26/18 10/26/18 10/26/18 Range/Units 10:57 10:57 11:08 MCH 32.1 H (27.0-31.2) pg Plt Count 104 L (142-424) K/mm3 Glucose 255 H (74-106) mg/dL Lactate 2.7 H (0.4-2.0) mmol/L Alkaline Phosphatase 149 H (46-116) U/L C-Reactive Protein 1.8 H (0.0-0.9) mg/dL Globulin 3.8 H (1.3-3.2) gm/dl Albumin/Globulin Ratio 1.0 L (1.1-1.8) H & H 10/26/18 Range/Units 11:08 Hgb 15.2 (14.1-18.0) g/dL Hct 44.4 (42.0-52.0) % All other labs normal. Assessment and Plan (1) Cellulitis in diabetic foot Current visit: Yes Status: Acute Category: Medical Code(s): E11.628 - Type 2 diabetes mellitus with other skin complications; L03.119 - Cellulitis of unspecified part of limb (2) Hypertension Current visit: Yes Status: Chronic Category: Medical Code(s): I10 - Essential (primary) hypertension (3) Hyperlipidemia Current visit: Yes Status: Chronic Category: Medical Code(s): E78.5 - Hyperlipidemia, unspecified (4) Coronary artery disease Current visit: Yes Status: Chronic Category: Medical Code(s): I25.10 - Atherosclerotic heart disease of [place] coronary artery without angina pectoris (5) Diabetes mellitus Current visit: Yes Status: Acute Category: Medical Code(s): E11.9 - Type 2 diabetes mellitus without complications (6) Elevated lactic acid level Current visit: Yes Status: Acute Category: Medical Code(s): R79.89 - Other specified abnormal findings of blood chemistry (7) Blister of toe of left foot with infection Current visit: Yes Status: Acute Category: Medical Code(s): S90.425A - Blister (nonthermal), left lesser toe(s), initial encounter; L08.9 - Local infection of the skin and subcutaneous tissue, unspecified (8) Blister of toe of right foot with infection Current visit: Yes Status: Acute Category: Medical Code(s): S90.424A - Blister (nonthermal), right lesser toe(s), initial encounter; L08.9 - Local infection of the skin and subcutaneous tissue, unspecified (9) Ulcer of left great toe due to diabetes mellitus Current visit: Yes Status: Acute Category: Medical Code(s): E11.621 - Type 2 diabetes mellitus with foot ulcer; L97.529 - Non-pressure chronic ulcer of other part of left foot with unspecified severity - Assessment and plan all Dx Assessment and Plan for all problems:: Infected Wound: right hallux, left 2-5 and left sub metatarsal blisters; left great toe DM ulcer: I discussed with the patient the importance of proper hygiene and maintaining a clean healthy wound bed to avoid the infection spreading. The wound was cleansed with betadine. Utilizing a 15 blade and currette, the wounds were sharply e xcisionally debrided through skin into sub q layer. Biofilm and fibrotic slough were debrided. The wound did not probe thru deep fascia and into the bone. There was positive serous blister drainage but no purulence noted. Wound culture obtained x 2 (bilaterally). Latasha-wound cellulitis noted. Non-palpable popliteal lymph nodes. Post-debridement: see physical exam section. Bilateral foot x-rays ordered 10/26/2018. X-rays evaluated by myself. Report noted. X-rays show no evidence of osteomyelitis or gas infection. 1. Dressing applied: betadine dry sterile dressing 2. Wound care instructions given: change dressing daily 3. PWB in post op shoe with DME assistance, avoid pressure to toes 4. Order infection panel: CBC, ESR, CRP, wound culture x 2. 5. IV antibiotics: Vanco, Zosyn 6. Called and discussed plan of care with Dr. Pastora walker, admitting physician. Recommend IV antibiotics today and tomorrow. Likely discharge home tomorrow on oral antibiotics if wounds appear stable. Currently no signs of deep infection or osteomyelitis that would warrant surgical intervention. The wounds x7 were debrided bedside as above, see physical exam and above). 7. If patient is discharged home tomorrow he will need dressing waste/materials exchange specialist the weekend with Betadine dry sterile dressing, will show patient tomorrow how to do dressing changes. He has a follow-up appointment outpatient with podiatry 10/30/2018 at 820. 8. Will need DME: post op shoe x2, walker 9. Plan to see patient tomorrow for dressing change prior to discharge
--- NOTE | 2018-10-26 14:46 | Pharmacy Consult Notes ---
- Pharmacy Consult Date: 10/26/18 Time: 14:44 Referring provider: DR. PLUNKETT Reason for Consult:: VANCOMYCIN DOSING Allergies and ADEs:: Allergies Allergy/AdvReac Type Severity Reaction Status Date / Time propoxyphene Allergy Intermediate Verified 05/10/18 14:57 hydrocodone [From LORTAB] AdvReac Mild NA-NAUSEA/V Verified 05/10/18 14:57 OMITING Home Medications:: Home Medications Medication Instructions Recorded Confirmed Type clonazepam 0.5 mg tablet 0.5 mg PO BID tab 03/16/17 10/26/18 History clopidogrel 75 mg tablet 75 mg PO ONCE 03/16/17 10/26/18 History metoprolol succinate ER 100 mg 100 mg PO ONCE tab 03/16/17 10/26/18 History tablet,extended release 24 hr oxycodone-acetaminophen 10 mg-325 1 tab PO Q4-6H PRN 03/16/17 10/26/18 History mg tablet ramipril 10 mg capsule 10 mg PO QDAY 03/16/17 10/26/18 History sitagliptin 100 mg-metformin ER 1 tab PO QDAY 03/16/17 10/26/18 History 1,000 mg tablet,extended [id number] Aspirin [Adult Low Dose Aspirin EC] 81 mg PO DAILY 03/18/17 10/26/18 History gabapentin 800 mg tablet 800 mg PO TID 02/02/18 10/26/18 History Amitriptyline HCl [Elavil 25mg 25 mg PO HS 10/26/18 10/26/18 History tablet] Pioglitazone HCl 30 mg PO DAILY 10/26/18 10/26/18 History Quetiapine Fumarate 100 mg PO DAILY 10/26/18 10/26/18 History Height: 1.75 m Weight: 76.26 kg Laboratory Results:: Laboratory Results - last 24 hr 10/26/18 10:57: ESR 16 10/26/18 10:57: Sodium 140, Potassium 3.9, Chloride 101, Carbon Dioxide 30, Anion Gap 12.9, BUN 7, Creatinine 0.81, Estimated Creat Clear 114, Estimated GFR 97, Est GFR ( Amer) 118, Glucose 255 H, Calcium 9.4, Total Bilirubin 0.5, AST 19, ALT 39, Alkaline Phosphatase 149 H, C-Reactive Protein 1.8 H, Total Protein 7.7, Albumin 3.9, Globulin 3.8 H, Albumin/Globulin Ratio 1.0 L 10/26/18 10:57: Lactate 2.7 H 10/26/18 11:08: WBC 10.5, RBC 4.73, Hgb 15.2, Hct 44.4, MCV 93.8, MCH 32.1 H, MCHC 34.2, RDW 12.8, Plt Count 104 L, MPV 8.3, Neut % (Auto) 72.4, Lymph % (Auto) 20.8, Power % (Auto) 6.1, Eos % (Auto) 0.4, Baso % (Auto) 0.3, Neut # (Auto) 7.6, Lymph # (Auto) 2.2, Power # (Auto) 0.6, Eos # (Auto) 0.1, Baso # (Auto) 0.0 Medical History: Reports:: Anxiety, Coronary Artery Disease, Diabetes Mellitus Type 2, Hyperlipidemia, Hypertension Denies:: Cancer, Diabetes Mellitus Type 1, Internal Pacemaker, Lung Disease, MRSA, Seizures Assessment and Plan (1) Cellulitis in diabetic foot Current visit: Yes Status: Acute Category: Medical Code(s): E11.628 - Type 2 diabetes mellitus with other skin complications; L03.119 - Cellulitis of unspecified part of limb (2) Hypertension Current visit: Yes Status: Chronic Category: Medical Code(s): I10 - Essential (primary) hypertension (3) Hyperlipidemia Current visit: Yes Status: Chronic Category: Medical Code(s): E78.5 - Hyperlipidemia, unspecified (4) Coronary artery disease Current visit: Yes Status: Chronic Category: Medical Code(s): I25.10 - Atherosclerotic heart disease of [place] coronary artery without angina pectoris (5) Diabetes mellitus Current visit: Yes Status: Acute Category: Medical Code(s): E11.9 - Type 2 diabetes mellitus without complications (6) Elevated lactic acid level Current visit: Yes Status: Acute Category: Medical Code(s): R79.89 - Other specified abnormal findings of blood chemistry (7) Blister of toe of left foot with infection Current visit: Yes Status: Acute Category: Medical Code(s): S90.425A - Blister (nonthermal), left lesser toe(s), initial encounter; L08.9 - Local infection of the skin and subcutaneous tissue, unspecified (8) Blister of toe of right foot with infection Current visit: Yes Status: Acute Category: Medical Code(s): S90.424A - Blister (nonthermal), right lesser toe(s), initial encounter; L08.9 - Local infection of the skin and subcutaneous tissue, unspecified (9) Ulcer of left great toe due to diabetes mellitus Current visit: Yes Status: Acute Category: Medical Code(s): E11.621 - Type 2 diabetes mellitus with foot ulcer; L97.529 - Non-pressure chronic ulcer of other part of left foot with unspecified severity - Assessment and plan all Dx Assessment and Plan for all problems:: BASED ON PATIENT'S FACTORS, RECOMMEND CONTINUING WITH VANCOMYCIN 1250 MG Q12H AT THIS TIME. PHARMACY WILL FOLLOW DAILY AND ADJUST APPROPRIATE.
--- NOTE | 2018-10-26 14:57 | Pharmacy Consult Notes ---
[facility] Pharmacy VTE Monitoring - Patient Demographics Admission date: 10/26/18 Report Date: 10/26/18 Time: 14:57 Allergies/Adverse Reactions: Patient Allergies propoxyphene Allergy (Intermediate, Verified 05/10/18 14:57) hydrocodone [From LORTAB] Adverse Reaction (Mild, Verified 05/10/18 14:57) NA-NAUSEA/VOMITING Height: 1.75 m Weight: 76.26 kg Patient Problems: Current Active Problems Cellulitis in diabetic foot (Acute) Lymphangitis (Acute) Diabetes mellitus (Acute) Hypertension (Chronic) Hyperlipidemia (Chronic) Coronary artery disease (Chronic) Elevated lactic acid level (Acute) Blister of toe of left foot with infection (Acute) Blister of toe of right foot with infection (Acute) Ulcer of left great toe due to diabetes mellitus (Acute) - VTE Risk Labs: VTE Related Lab Results Hgb 15.2 g/dL (14.1-18.0) 10/26/18 11:08 Hct 44.4 % (42.0-52.0) 10/26/18 11:08 Plt Count 104 K/mm3 (142-424) L 10/26/18 11:08 BUN 7 mg/dL (7-18) 10/26/18 10:57 Creatinine 0.81 mg/dL (0.70-1.30) 10/26/18 10:57 Estimated Creat Clear 114 mL/min (50-200) 10/26/18 10:57 Was VTE Risk Assessment Performed: Yes VTE Score: 2 VTE Risk Level: Very Low Risk Clinical Trial Participant: No - Prophylaxis VTE Prophylaxis Ordered?: Yes Types of VTE Prophylaxis: TEDS Knee High
[2018-10-27 06:45] LABS: Basophils % 0.2 % (0.1-2.0); Eosinophils # 0.1 K/mm3 (0.0-0.4); Hematocrit 38.8 % (42.0-52.0); Lymphocytes # 2.5 K/mm3 (0.7-4.5); Lymphocytes % 30.1 % (10-50); Mean Corpuscular HGB Conc 33.3 g/dL (31.8-35.4); Mean Platelet Volume 9.2 fl (7.4-10.4); Monocytes # 0.5 K/mm3 (0.1-1.0); Neutrophils # 5.1 K/mm3 (1.8-7.8); Neutrophils % 62.6 % (37.0-80.0); Platelet Count 80 K/mm3 (142-424); Red Blood Count 4.08 M/mm3 (4.60-6.20); Red Cell Distribution Width 12.7 % (11.5-17.5); White Blood Count 8.1 K/mm3 (4.8-10.8)
[2018-10-27 06:54] LABS: Anion Gap 10.9 mEq/L (5-15); Calcium 8.8 mg/dL (8.5-10.1)
[2018-10-27 07:08] LABS: Hemoglobin 13.1 g/dL (14.1-18.0)
--- NOTE | 2018-10-27 08:34 | Progress Note ---
<Naty Yanez - Last Filed: 10/27/18 08:31> Internal Medicine - PN: Subj *Date: 10/27/18 *Time: 08:31 Interval history: Patient states he did not rest well last night due to pain in his feet. They are still wrapped this morning. He denies any other pain and is tolerating breakfast. Exam Vital signs and Labs for Last 24 Hours: Temp Pulse Resp BP Pulse Ox 97.8 F 79 16 111/65 95 10/27/18 04:00 10/27/18 04:00 10/27/18 04:00 10/27/18 04:00 10/27/18 04:00 Laboratory Results - last 24 hr 10/26/18 10:57: ESR 16 10/26/18 10:57: Sodium 140, Potassium 3.9, Chloride 101, Carbon Dioxide 30, Anion Gap 12.9, BUN 7, Creatinine 0.81, Estimated Creat Clear 114, Estimated GFR 97, Est GFR ( Amer) 118, Glucose 255 H, Calcium 9.4, Total Bilirubin 0.5, AST 19, ALT 39, Alkaline Phosphatase 149 H, C-Reactive Protein 1.8 H, Total Protein 7.7, Albumin 3.9, Globulin 3.8 H, Albumin/Globulin Ratio 1.0 L 10/26/18 10:57: Lactate 2.7 H 10/26/18 11:08: WBC 10.5, RBC 4.73, Hgb 15.2, Hct 44.4, MCV 93.8, MCH 32.1 H, MCHC 34.2, RDW 12.8, Plt Count 104 L, MPV 8.3, Neut % (Auto) 72.4, Lymph % (Auto) 20.8, [place] % (Auto) 6.1, Eos % (Auto) 0.4, Baso % (Auto) 0.3, Neut # (Auto) 7.6, Lymph # (Auto) 2.2, [place] # (Auto) 0.6, Eos # (Auto) 0.1, Baso # (Auto) 0.0 10/26/18 15:21: Lactate 1.8 10/26/18 16:51: POC Glucose 290 H 10/26/18 20:22: POC Glucose 233 H 10/27/18 06:05: POC Glucose 235 H 10/27/18 06:30: WBC 8.1, RBC 4.08 L, Hgb 13.1 L D, Hct 38.8 L, MCV 95.0 H, MCH 31.7 H, MCHC 33.3, RDW 12.7, Plt Count 80 L, MPV 9.2, Neut % (Auto) 62.6, Lymph % (Auto) 30.1, [place] % (Auto) 6.0, Eos % (Auto) 1.0, Baso % (Auto) 0.2, Neut # (Auto) 5.1, Lymph # (Auto) 2.5, [place] # (Auto) 0.5, Eos # (Auto) 0.1, Baso # (Auto) 0.0 10/27/18 06:30: Sodium 142, Potassium 3.9, Chloride 106, Carbon Dioxide 29, Anion Gap 10.9, BUN 6 L, Creatinine 0.67 L, Estimated Creat Clear 126, Estimated GFR 121, Est GFR ( Amer) 146 D, Glucose 230 H, Calcium 8.8 I & O for Last 24 hours: Intake & Output 10/24/18 10/25/18 10/26/18 10/27/18 11:59 11:59 11:59 11:59 Intake Total 3733 / 3733 Balance 3733 / 3733 Weight 184 lb 167 lb 9 oz Microbiology Reports for the Last 24 Hours: Microbiology 10/26/18 13:00 Foot,Left - Wound Gram Stain - Final 10/26/18 13:00 Foot,Right - Wound Gram Stain - Final - Constitutional no acute distress - *Routine Respiratory Exam Present: CTA bilaterally - *Routine Cardiovascular Exam Present: RRR - *Routine Abdominal Exam Present: soft, normoactive bowel sounds. Absent: tenderness - *Routine Extremities Exam Absent: cyanosis, clubbing, edema - *Routine Skin Exam Present: warm. Absent: rash Comments: left foot wrapped, right toe with a debrided blister, breading machine tender to palpation - *Routine Neurological Exam Present: alert, oriented X3 Assessment and Plan (1) Cellulitis in diabetic foot Current visit: Yes Status: Acute Category: Medical Code(s): E11.628 - Type 2 diabetes mellitus with other skin complications; L03.119 - Cellulitis of unspecified part of limb (2) Hypertension Current visit: Yes Status: Chronic Category: Medical Code(s): I10 - Essential (primary) hypertension (3) Hyperlipidemia Current visit: Yes Status: Chronic Category: Medical Code(s): E78.5 - Hyperlipidemia, unspecified (4) Coronary artery disease Current visit: Yes Status: Chronic Category: Medical Code(s): I25.10 - Atherosclerotic heart disease of [place] coronary artery without angina pectoris (5) Diabetes mellitus Current visit: Yes Status: Acute Category: Medical Code(s): E11.9 - Type 2 diabetes mellitus without complications (6) Elevated lactic acid level Current visit: Yes Status: Acute Category: Medical Code(s): R79.89 - Other specified abnormal findings of blood chemistry (7) Blister of toe of left foot with infection Current visit: Yes Status: Acute Category: Medical Code(s): S90.425A - Blister (nonthermal), left lesser toe(s), initial encounter; L08.9 - Local infection of the skin and subcutaneous tissue, unspecified (8) Blister of toe of right foot with infection Current visit: Yes Status: Acute Category: Medical Code(s): S90.424A - Blister (nonthermal), right lesser toe(s), initial encounter; L08.9 - Local infection of the skin and subcutaneous tissue, unspecified (9) Ulcer of left great toe due to diabetes mellitus Current visit: Yes Status: Acute Category: Medical Code(s): E11.621 - Type 2 diabetes mellitus with foot ulcer; L97.529 - Non-pressure chronic ulcer of other part of left foot with unspecified severity - Assessment and plan all Dx Assessment and Plan for all problems:: Dr. Khalil to follow. Awaiting culture results. <Erin Pickens - Last Filed: 10/27/18 09:34> Internal Medicine - PN: Subj *Date: 10/27/18 *Time: 09:33 Exam Vital signs and Labs for Last 24 Hours: Temp Pulse Resp BP Pulse Ox 97.8 F 79 16 111/65 95 10/27/18 04:00 10/27/18 04:00 10/27/18 04:00 10/27/18 04:00 10/27/18 04:00 Laboratory Results - last 24 hr 10/26/18 10:57: ESR 16 10/26/18 10:57: Sodium 140, Potassium 3.9, Chloride 101, Carbon Dioxide 30, Anion Gap 12.9, BUN 7, Creatinine 0.81, Estimated Creat Clear 114, Estimated GFR 97, Est GFR ( Amer) 118, Glucose 255 H, Calcium 9.4, Total Bilirubin 0.5, AST 19, ALT 39, Alkaline Phosphatase 149 H, C-Reactive Protein 1.8 H, Total Protein 7.7, Albumin 3.9, Globulin 3.8 H, Albumin/Globulin Ratio 1.0 L 10/26/18 10:57: Lactate 2.7 H 10/26/18 11:08: WBC 10.5, RBC 4.73, Hgb 15.2, Hct 44.4, MCV 93.8, MCH 32.1 H, MCHC 34.2, RDW 12.8, Plt Count 104 L, MPV 8.3, Neut % (Auto) 72.4, Lymph % (Auto) 20.8, [place] % (Auto) 6.1, Eos % (Auto) 0.4, Baso % (Auto) 0.3, Neut # (Auto) 7.6, Lymph # (Auto) 2.2, [place] # (Auto) 0.6, Eos # (Auto) 0.1, Baso # (Auto) 0.0 10/26/18 15:21: Lactate 1.8 10/26/18 16:51: POC Glucose 290 H 10/26/18 20:22: POC Glucose 233 H 10/27/18 06:05: POC Glucose 235 H 10/27/18 06:30: WBC 8.1, RBC 4.08 L, Hgb 13.1 L D, Hct 38.8 L, MCV 95.0 H, MCH 31.7 H, MCHC 33.3, RDW 12.7, Plt Count 80 L, MPV 9.2, Neut % (Auto) 62.6, Lymph % (Auto) 30.1, [place] % (Auto) 6.0, Eos % (Auto) 1.0, Baso % (Auto) 0.2, Neut # (Auto) 5.1, Lymph # (Auto) 2.5, [place] # (Auto) 0.5, Eos # (Auto) 0.1, Baso # (Auto) 0.0 10/27/18 06:30: Sodium 142, Potassium 3.9, Chloride 106, Carbon Dioxide 29, Anion Gap 10.9, BUN 6 L, Creatinine 0.67 L, Estimated Creat Clear 126, Estimated GFR 121, Est GFR ( Amer) 146 D, Glucose 230 H, Calcium 8.8 I & O for Last 24 hours: Intake & Output 10/24/18 10/25/18 10/26/18 10/27/18 11:59 11:59 11:59 11:59 Intake Total 3733 / 3733 Balance 3733 / 3733 Weight 184 lb 167 lb 9 oz Microbiology Reports for the Last 24 Hours: Microbiology 10/26/18 13:00 Foot,Right - Wound Gram Stain - Final 10/26/18 13:00 Foot,Right - Wound Wound Culture - Preliminary 10/26/18 13:00 Foot,Left - Wound Gram Stain - Final Assessment and Plan (1) Cellulitis in diabetic foot Current visit: Yes Status: Acute Category: Medical Code(s): E11.628 - Type 2 diabetes mellitus with other skin complications; L03.119 - Cellulitis of unspecified part of limb (2) Hypertension Current visit: Yes Status: Chronic Category: Medical Code(s): I10 - Essential (primary) hypertension (3) Hyperlipidemia Current visit: Yes Status: Chronic Category: Medical Code(s): E78.5 - Hyperlipidemia, unspecified (4) Coronary artery disease Current visit: Yes Status: Chronic Category: Medical Code(s): I25.10 - Atherosclerotic heart disease of [place] coronary artery without angina pectoris (5) Diabetes mellitus Current visit: Yes Status: Acute Category: Medical Code(s): E11.9 - Type 2 diabetes mellitus without complications (6) Elevated lactic acid level Current visit: Yes Status: Acute Category: Medical Code(s): R79.89 - Other specified abnormal findings of blood chemistry (7) Blister of toe of left foot with infection Current visit: Yes Status: Acute Category: Medical Code(s): S90.425A - Blister (nonthermal), left lesser toe(s), initial encounter; L08.9 - Local infection of the skin and subcutaneous tissue, unspecified (8) Blister of toe of right foot with infection Current visit: Yes Status: Acute Category: Medical Code(s): S90.424A - Blister (nonthermal), right lesser toe(s), initial encounter; L08.9 - Local infection of the skin and subcutaneous tissue, unspecified (9) Ulcer of left great toe due to diabetes mellitus Current visit: Yes Status: Acute Category: Medical Code(s): E11.621 - Type 2 diabetes mellitus with foot ulcer; L97.529 - Non-pressure chronic ulcer of other part of left foot with unspecified severity - Assessment and plan all Dx Assessment and Plan for all problems:: wound culture negative, will f/u with blood cultures outpatient. Will dc today with Po clindamycin.
--- NOTE | 2018-10-27 10:11 | Consult Report ---
*Admission Date: 10/26/18 *Reason for consult:: consultation B/L cellulitis blisters *History of present illness: Mr. Ching is a 58-year-old male with a history of type 2 diabetes, hypertension, and coronary artery disease with CABG x3. He was a patient of Sabiha Mendez. He states 2 nights ago he went to a field day and when he got home and took off his shoes, he noticed that a scab fell off of his left great toe. He also noticed that he had blisters along all 4 of his other left toes and they were swollen. He also had a blister on his right great toe. Patient denies any history of ulceration, amputation or blistering. He denies wearing any different shoes just "did more activity than normal". He reports some pain to the great toes. Patient states when the scab fell off Tuesday night he did not notice any drainage or purulence. Patient was scheduled 10/30/2018 outpatient to see me in the office but his called today concerned of worsening infection. Advised patient to go to the emergency room. He was seen and evaluated bedside in the ED as above. Patient denies nausea/vomiting, fever/chills, shortness of breath or chest pain. Review of Systems - Review of Systems Review of systems:: pertinent systems reviewed and negative unless documented below - Integumentary/Breasts Comments: The paients has B/L cellulits blisters to BL great toes, and 2-5th toes and the ball of the left foot, blisters was deroofed yesterday and the skin underneath looks beefy red in color and no additional drainage was noted on the betadine dressing this am, the left great toe remains to be a more darker red in color with the skin intact, no drainage noted. New dressing was reapplied (betadine soaked 4x4, covered with dry 4x4 gauze, kerlix to cover and coban to secure the dressings) patient tolerated this well. The patient will also be called into his pharmacy Santyl or candida for the left great toe. - *Neurologic Denies dizziness, Denies weakness - Allergic/Immunologic Comments: The patient was resting upon entering the room, stating he had a rough night with the pain from his feet, the nurse was able to call and get his pain meds worked out that he could get them a little closer and was more comfortable after that. Patient's labs were much improved from yesterday's and has remained afebrile. The patient will also be called into his pharmacy Santyl or Silvadene cream to apply to the left great toe and just follow through with soaked betadine 4x4 gauze dressings on the other areas that we discussed. The Patient will go home some time today on oral antibiotics that his PCP will prescirbe and with post op shoes x 2 to wear while his feet is healing. He has follow up appointment with podiatry on Tuesday at 0820. [facility] History Medical History: Reports:: Anxiety, Coronary Artery Disease, Diabetes Mellitus Type 2, Hyperlipidemia, Hypertension Denies:: Cancer, Diabetes Mellitus Type 1, Internal Pacemaker, Lung Disease, MRSA, Seizures *Have you ever received a pneumonia vaccine?: No *Have you received a flu vaccine this season?: No Laterality Cases: Left: Arthroscopy Knee, Bilateral: Other Other Surgeries: Yes: CABG (x3), Coronary Stent, Other (back stimulator). No: Pacemaker Amputation: No Fractures: Yes - *Social History Educational Level: Attended High School Smoking Status: Current every day smoker Tobacco Type: cigarettes # Packs/Day (cigarettes): 30 Alcohol Intake: never Alcohol Intake Frequency:: other Substance Use Type: denies use *Occupational Status:: employed Housing: house Household Members: spouse *Travel in the last 8 weeks: None - Psychiatric History Pschychiatric History:: Reports:: Anxiety Family Hx:: Coronary Artery Disease, Cancer, Anemia, Diabetes, Heart Attack, Hypertension, Stroke Meds Home Medications Medication Instructions Recorded Confirmed Type clonazepam 0.5 mg tablet 0.5 mg PO BID tab 03/16/17 10/26/18 History clopidogrel 75 mg tablet 75 mg PO DAILY 03/16/17 10/26/18 History metoprolol succinate ER 100 mg 100 mg PO DAILY tab 03/16/17 10/26/18 History tablet,extended release 24 hr oxycodone-acetaminophen 10 mg-325 1 tab PO Q4-6H PRN 03/16/17 10/26/18 History mg tablet ramipril 10 mg capsule 10 mg PO DAILY 03/16/17 10/26/18 History sitagliptin 100 mg-metformin ER 1 tab PO DAILY 03/16/17 10/26/18 History 1,000 mg tablet,extended [id number] Aspirin [Adult Low Dose Aspirin EC] 81 mg PO DAILY 03/18/17 10/26/18 History Amitriptyline HCl [Elavil 25mg 25 mg PO HS 10/26/18 10/26/18 History tablet] Amlodipine Besylate [Amlodipine 5 mg PO DAILY 10/26/18 10/26/18 History 5mg tab] Gabapentin 800 mg PO QID 10/26/18 10/26/18 History Oxycodone HCl 10 mg PO Q6HP PRN 10/26/18 10/26/18 History Pioglitazone HCl 30 mg PO DAILY 10/26/18 10/26/18 History Quetiapine Fumarate 100 mg PO HS 10/26/18 10/26/18 History Acetaminophen [Tylenol 500mg 500 mg PO TID PRN #30 tab 10/27/18 Rx tablet] Clindamycin HCl [Clindamycin HCl 300 mg PO Q8 14 Days #52 cap 10/27/18 Rx 300mg Cap] Allergies Allergy/AdvReac Type Severity Reaction Status Date / Time propoxyphene Allergy Intermediate Verified 05/10/18 14:57 hydrocodone [From LORTAB] AdvReac Mild NA-NAUSEA/V Verified 05/10/18 14:57 OMITING Exam Vital signs and Labs for Last 24 Hours: Temp Pulse Resp BP Pulse Ox 97.8 F 79 16 111/65 95 10/27/18 04:00 10/27/18 04:00 10/27/18 04:00 10/27/18 04:00 10/27/18 04:00 Laboratory Results - last 24 hr 10/26/18 10:57: ESR 16 10/26/18 10:57: Sodium 140, Potassium 3.9, Chloride 101, Carbon Dioxide 30, Anion Gap 12.9, BUN 7, Creatinine 0.81, Estimated Creat Clear 114, Estimated GFR 97, Est GFR ( Amer) 118, Glucose 255 H, Calcium 9.4, Total Bilirubin 0.5, AST 19, ALT 39, Alkaline Phosphatase 149 H, C-Reactive Protein 1.8 H, Total Protein 7.7, Albumin 3.9, Globulin 3.8 H, Albumin/Globulin Ratio 1.0 L 10/26/18 10:57: Lactate 2.7 H 10/26/18 11:08: WBC 10.5, RBC 4.73, Hgb 15.2, Hct 44.4, MCV 93.8, MCH 32.1 H, MCHC 34.2, RDW 12.8, Plt Count 104 L, MPV 8.3, Neut % (Auto) 72.4, Lymph % (Auto) 20.8, [place] % (Auto) 6.1, Eos % (Auto) 0.4, Baso % (Auto) 0.3, Neut # (Auto) 7.6, Lymph # (Auto) 2.2, [place] # (Auto) 0.6, Eos # (Auto) 0.1, Baso # (Auto) 0.0 10/26/18 15:21: Lactate 1.8 10/26/18 16:51: POC Glucose 290 H 10/26/18 20:22: POC Glucose 233 H 10/27/18 06:05: POC Glucose 235 H 10/27/18 06:30: WBC 8.1, RBC 4.08 L, Hgb 13.1 L D, Hct 38.8 L, MCV 95.0 H, MCH 31.7 H, MCHC 33.3, RDW 12.7, Plt Count 80 L, MPV 9.2, Neut % (Auto) 62.6, Lymph % (Auto) 30.1, [place] % (Auto) 6.0, Eos % (Auto) 1.0, Baso % (Auto) 0.2, Neut # (Auto) 5.1, Lymph # (Auto) 2.5, [place] # (Auto) 0.5, Eos # (Auto) 0.1, Baso # (Auto) 0.0 10/27/18 06:30: Sodium 142, Potassium 3.9, Chloride 106, Carbon Dioxide 29, Anion Gap 10.9, BUN 6 L, Creatinine 0.67 L, Estimated Creat Clear 126, Estimated GFR 121, Est GFR ( Amer) 146 D, Glucose 230 H, Calcium 8.8 I & O for Last 24 hours: Intake & Output 10/24/18 10/25/18 10/26/18 10/27/18 23:59 23:59 23:59 23:59 Intake Total 1420 / 1420 2313 / 2313 Balance 1420 / 1420 3 / 2313 Weight 168 lb 2 oz 167 lb 9 oz Microbiology Reports for the Last 24 Hours: Microbiology 10/26/18 13:00 Foot,Right - Wound Gram Stain - Final 10/26/18 13:00 Foot,Right - Wound Wound Culture - Preliminary 10/26/18 13:00 Foot,Left - Wound Gram Stain - Final Results - Labs Result Diagrams: 10/27/18 06:30 10/27/18 06:30 Labs: Abnormal lab results 10/26/18 10/26/18 10/26/18 Range/Units 10:57 10:57 11:08 RBC (4.60-6.20) M/mm3 Hgb (14.1-18.0) g/dL Hct (42.0-52.0) % MCV (80-94) fl MCH 32.1 H (27.0-31.2) pg Plt Count 104 L (142-424) K/mm3 BUN (7-18) mg/dL Creatinine (0.70-1.30) mg/dL Glucose 255 H (74-106) mg/dL POC Glucose (70-110) Lactate 2.7 H (0.4-2.0) mmol/L Alkaline Phosphatase 149 H (46-116) U/L C-Reactive Protein 1.8 H (0.0-0.9) mg/dL Globulin 3.8 H (1.3-3.2) gm/dl Albumin/Globulin Ratio 1.0 L (1.1-1.8) 10/26/18 10/26/18 10/27/18 Range/Units 16:51 20:22 06:05 RBC (4.60-6.20) M/mm3 Hgb (14.1-18.0) g/dL Hct (42.0-52.0) % MCV (80-94) fl MCH (27.0-31.2) pg Plt Count (142-424) K/mm3 BUN (7-18) mg/dL Creatinine (0.70-1.30) mg/dL Glucose (74-106) mg/dL POC Glucose 290 H 233 H 235 H (70-110) Lactate (0.4-2.0) mmol/L Alkaline Phosphatase (46-116) U/L C-Reactive Protein (0.0-0.9) mg/dL Globulin (1.3-3.2) gm/dl Albumin/Globulin Ratio (1.1-1.8) 10/27/18 10/27/18 Range/Units 06:30 06:30 RBC 4.08 L (4.60-6.20) M/mm3 Hgb 13.1 L D (14.1-18.0) g/dL Hct 38.8 L (42.0-52.0) % MCV 95.0 H (80-94) fl MCH 31.7 H (27.0-31.2) pg Plt Count 80 L (142-424) K/mm3 BUN 6 L (7-18) mg/dL Creatinine 0.67 L (0.70-1.30) mg/dL Glucose 230 H (74-106) mg/dL POC Glucose (70-110) Lactate (0.4-2.0) mmol/L Alkaline Phosphatase (46-116) U/L C-Reactive Protein (0.0-0.9) mg/dL Globulin (1.3-3.2) gm/dl Albumin/Globulin Ratio (1.1-1.8) H & H 10/26/18 10/27/18 Range/Units 11:08 06:30 Hgb 15.2 13.1 L D (14.1-18.0) g/dL Hct 44.4 38.8 L (42.0-52.0) % All other labs normal. Assessment and Plan (1) Cellulitis in diabetic foot Current visit: Yes Status: Acute Category: Medical Code(s): E11.628 - Type 2 diabetes mellitus with other skin complications; L03.119 - Cellulitis of unspecified part of limb (2) Hypertension Current visit: Yes Status: Chronic Category: Medical Code(s): I10 - Essential (primary) hypertension (3) Hyperlipidemia Current visit: Yes Status: Chronic Category: Medical Code(s): E78.5 - Hyperlipidemia, unspecified (4) Coronary artery disease Current visit: Yes Status: Chronic Category: Medical Code(s): I25.10 - Atherosclerotic heart disease of [place] coronary artery without angina pectoris (5) Diabetes mellitus Current visit: Yes Status: Acute Category: Medical Code(s): E11.9 - Type 2 diabetes mellitus without complications (6) Elevated lactic acid level Current visit: Yes Status: Acute Category: Medical Code(s): R79.89 - Other specified abnormal findings of blood chemistry (7) Blister of toe of left foot with infection Current visit: Yes Status: Acute Category: Medical Code(s): S90.425A - Blister (nonthermal), left lesser toe(s), initial encounter; L08.9 - Local inf ection of the skin and subcutaneous tissue, unspecified (8) Blister of toe of right foot with infection Current visit: Yes Status: Acute Category: Medical Code(s): S90.424A - Bl ister (nonthermal), right lesser toe(s), initial encounter; L08.9 - Local infection of the skin and subcutaneous tissue, unspecified (9) Ulcer of left great toe due to diabetes mellitus Current visit: Yes Status: Acute Category: Medical Code(s): E11.621 - Type 2 diabetes mellitus with foot ulcer; L97.529 - Non-pressure chronic ulcer of other part of left foot with unspecified severity
--- NOTE | 2018-10-30 14:30 | Discharge Summary ---
General - General Admission date:: 10/26/18 Discharge date: 10/27/18 HPI HPI: Mr. Ching is a 58-year-old male with a history of type 2 diabetes, hypertension, and coronary artery disease with CABG x3. He was a patient of Sabiha Mendez. He states 2 nights ago he went to a field day and when he got home and took off his shoes, he noticed that a scab fell off of his left great toe. He also noticed that he had blisters along all 4 of his other left toes and they were swollen. He also had a blister on his right great toe. He called and got an appt with Dr. Khalil for Tuesday. His left great toe became erythematous on the bottom of the toe and turned black, therefore he called Dr. Khalil's office. She advised him to go to the emergency room. He was seen in the ER and was admitted and Dr. Khalil was consulted. He will be started on antibiotics. Hospital Course Hospital Course: The patient had x-rays of his feet showing nothing acute. He was admitted and Dr. Khalil was consulted. He was started on IV antibiotics. Dr. Khalil saw the patient and debrided the wounds. She applied a dressing and wound care instructions were given to the patient. He was to remain partial weightbearing in a postop shoe with DME assistance and avoid pressure on the toes. Dr. Khalil felt he would need IV antibiotics for a few days and then could be discharged on oral antibiotics. The patient did well on antibiotics. He continued with pain in both feet. His right foot wound cultures grew Staphylococcus sciuri and baciluus megaterium and his left foot wound culture grew pantoea agglomerans. His blood cultures showed no growth. He was discharged home on p.o. clindamycin and will follow-up with Dr. Khalil on Tuesday. Objective Vital signs: Temp Pulse Resp BP Pulse Ox 97.7 F 81 18 131/70 99 10/27/18 08:00 10/27/18 08:00 10/27/18 08:00 10/27/18 08:00 10/27/18 08:00 Narrative: - Constitutional no acute distress - *Routine HEENT Exam Head: Present: normocephalic Eye: Present: EOMI, PERRL ENT: Present: mucous membranes dry - *Routine Neck Exam Present: supple. Absent: lymphadenopathy - *Routine Respiratory Exam Present: CTA bilaterally - *Routine Cardiovascular Exam Present: RRR - *Routine Abdominal Exam Present: soft, normoactive bowel sounds. Absent: tenderness - *Routine Extremities Exam Absent: cyanosis, clubbing, edema - *Routine Skin Exam Absent: rash Comments: left great toe with erythema and edema, the bottom of the toe is black, there are blisters on all of the other toes on the left foot and they are swollen as well, the right great toe is blistered and swollen, all toes are tender and painful to move - *Routine Neurological Exam Present: alert, oriented X3 - Detailed Eye Exam Eyelids: Left normal inspection Results Labs on day of discharge: Preliminary micro results at discharge 10/26/18 13:00 Wound Culture - Preliminary Foot,Right - Wound Staphylococcus sciuri Baciluus megaterium 10/26/18 11:54 Blood Culture - Preliminary Blood NO GROWTH AFTER 48 HOURS 10/26/18 10:32 Blood Culture - Preliminary Blood NO GROWTH AFTER 48 HOURS DS: Diagnosis - Discharge Diagnosis (1) Cellulitis in diabetic foot Status: Acute (2) Hypertension Status: Chronic (3) Hyperlipidemia Status: Chronic (4) Coronary artery disease Status: Chronic (5) Diabetes mellitus Status: Acute (6) Elevated lactic acid level Status: Acute (7) Blister of toe of left foot with infection Status: Acute (8) Blister of toe of right foot with infection Status: Acute (9) Ulcer of left great toe due to diabetes mellitus Status: Acute Discharge Plan - Patient Discharge Instructions ACTIVITY: Ambulate as tolerated (with protective boots given to him at dischar ), Limited activity, No heavy lifting, Bed rest DIET: continue same diet Additional Instructions: advised to do wound care for both feet; instructions and teaching done by Dr. Khalil team and patient is in understanding of his wound care; will give him supplies prior to discharge. Patient Instructions: Diabetic Foot Ulcer, DI for Diabetic Foot Ulcer - Follow up Plan Follow up with: Kristen Khalil DPM [Staff Physician] - (already has appt with her on Tuesday at 840 am; encouraged to see her at this time) Erin Pickens MD [Staff Physician] - 2 days Disposition: Home, Self-Correction Medications: Home Medications Medication Instructions Recorded Confirmed Type clonazepam 0.5 mg tablet 0.5 mg PO BID tab 01/31/18 09/16/19 History clopidogrel 75 mg tablet 75 mg PO DAILY 03/16/17 10/30/18 History metoprolol succinate ER 100 mg 100 mg PO DAILY tab 03/16/17 10/30/18 History tablet,extended release 24 hr oxycodone-acetaminophen 10 mg-325 1 tab PO Q4-6H PRN 03/16/17 10/30/18 History mg tablet ramipril 10 mg capsule 10 mg PO DAILY 03/16/17 10/30/18 History sitagliptin 100 mg-metformin ER 1 tab PO DAILY 03/16/17 10/30/18 History 1,000 mg tablet,extended [id number] Aspirin [Adult Low Dose Aspirin EC] 81 mg PO DAILY 03/18/17 10/30/18 History Amitriptyline HCl [Elavil 25mg 25 mg PO HS 10/26/18 10/30/18 History tablet] Amlodipine Besylate [Amlodipine 5 mg PO DAILY 10/26/18 10/30/18 History 5mg tab] Gabapentin 800 mg PO QID 10/26/18 10/30/18 History Oxycodone HCl 10 mg PO Q6HP PRN 10/26/18 10/30/18 History Pioglitazone HCl 30 mg PO DAILY 10/26/18 10/30/18 History Quetiapine Fumarate 100 mg PO HS 10/26/18 10/30/18 History Acetaminophen [Tylenol 500mg 500 mg PO TID PRN #30 tab 10/27/18 10/30/18 Rx tablet] Clindamycin HCl [Clindamycin HCl 300 mg PO Q8 14 Days #52 cap 10/27/18 10/30/18 Rx 300mg Cap] collagenase clostridium 1 applic TOPICAL DAILY #90 g 10/30/18 10/30/18 Rx histolyticum 250 unit/gram topical ointment doxycycline monohydrate 100 mg 100 mg PO BID 14 Days #28 tab 10/30/18 10/30/18 Rx tablet Prescriptions/Medication Reconciliation: New Clindamycin HCl [Clindamycin HCl 300mg Cap] 300 mg PO Q8 14 Days #52 cap Acetaminophen [Tylenol 500mg tablet] 500 mg PO TID PRN #30 tab PRN Reason: Moderate To Severe Pain Continued clopidogrel 75 mg tablet 75 mg PO DAILY clonazepam 0.5 mg tablet 0.5 mg PO BID tab oxycodone-acetaminophen 10 mg-325 mg tablet 1 tab PO Q4-6H PRN PRN Reason: pain metoprolol succinate ER 100 mg tablet,extended release 24 hr 100 mg PO DAILY tab sitagliptin 100 mg-metformin ER 1,000 mg tablet,extended [id number] mp 1 tab PO DAILY ramipril 10 mg capsule 10 mg PO DAILY Amitriptyline HCl [Elavil 25mg tablet] 25 mg PO HS Pioglitazone HCl 30 mg PO DAILY Amlodipine Besylate [Amlodipine 5mg tab] 5 mg PO DAILY Oxycodone HCl 10 mg PO Q6HP PRN PRN Reason: PAIN Gabapentin 800 mg PO QID Aspirin [Adult Low Dose Aspirin EC] 81 mg PO DAILY Quetiapine Fumarate 100 mg PO HS No Action collagenase clostridium histolyticum 250 unit/gram topical ointment 1 applic TOPICAL DAILY #90 g doxycycline monohydrate 100 mg tablet 100 mg PO BID 14 Days #28 tab - Problem Reconciliation Problems Reviewed?: Yes
== END 2018-10-27 12:43 | disposition home or self-care (01) ==
LOC: 2ND 10:12 → ER 10:12 → 2ND 13:40
PROVIDERS: ADMIT Emergency Medicine; ATTEND Emergency Medicine
CPT/HCPCS: 11042; 36415; 73630; 80048; 80053; 82962; 83605; 85025; 85651; 86140; 87040; 87070; 87077; 87186; 87205; 90714; 96365; 96367; 99284; G0378; J2405; J2543; J3370

== ENCOUNTER → 2018-11-15 07:52 | Outpatient (CLI) | payer BC, SELFPAY ==
--- NOTE | 2018-11-15 07:54 | US_ITS ---
APPROVED REPORT Exam Type: Lower Extremity Segmental Pressures Psychiatric Aide Instructor: Vonnie Freitas RVT Indications Claudication: Bilaterally Non-healing Ulcer: Bilaterally Rest Pain: Bilaterally Current Smoker CAD Risk Factors Hypertension CAD Hyperlipidemia Cardiac Disease Diabetes Current Smoker Pressures/Indices Right Indices Left Indices Brachial 112.00 mmHg Brachial 113.00 mmHg Low Thigh 116.00 mmHg 1.03 Low Thigh 90.00 mmHg 0.80 Calf 102.00 mmHg 0.90 Calf 99.00 mmHg 0.88 Ankle(PT) 119.00 mmHg 1.05 Ankle(PT) 112.00 mmHg 0.99 Ankle(DP) 124.00 mmHg 1.10 Ankle(DP) 90.00 mmHg 0.80 Findings RT PEPE:1.05 LT EPPE:0.99 TOE PRESSURES WERE NOT OBTAINED BECAUSE PT HAS DRAINING BLISTERS ON TOES WITH DRESSINGS INTACT. NORMAL PULSES BILATERAL NORMAL WAVEFORMS BILATERAL Conclusion Normal appearing resting noninvasive lower extremity arterial study. Electronically signed by : Stephen Rios MD 11/20/2018 19:26:16
== END ==
PROVIDERS: PCP Emergency Medicine; Visit Provider Podiatrist
DX: R09.89 Other specified symptoms and signs involving the circulatory and respiratory systems (principal)
CPT/HCPCS: 93923

== ENCOUNTER 2019-01-10 09:30 | Outpatient (RCR) | payer BC, SELFPAY ==
--- NOTE | 2018-11-20 10:11 | HMH.PTOPWND ---
Rehab Outpt Wound Evaluation Rehab OP Wound Evaluation Start: 11/20/18 08:00 Freq: Status: Active Protocol: Document 11/20/18 09:54 ANGI (Rec: 11/20/18 10:11 PHOASHLI [id number]) Electronically Signed By Andrés Jon, PT 11/20/18 09:54 Subjective/History History History Pt is 58 yowm who presents with mutiple B foot ulcers due to cellulitis and DM-II x ~ 1 mo with insdious onset of symptoms. Left foot is considerably worse than right. He does reports he used a CBD cream ~ 2 days prior to the appearance of his ulcers, but he is unsure if this was the underlying cause. He was briefly hospitalized due to infection and is continuing oral abx. He reports his DM is being better controlled now and he continues to smoke, but has decreased his smoking frequency. He has PMH of Anxiety, CAD, DM-II, HL, HTN. 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 His has been dressing his wounds well per MD orders. Wound Eval Wound Left Lateral Distal Foot Wound Type Diabetic Foot Ulcer Wound Length (cm) 1.7 Wound Width (cm) 2.1 Wound Bed Appearance Beefy Red,Yellow Percentage Granulated (%) 80 Percentage of Slough (%) 20 Wound Margins Description Well Defined Surrounding Tissue Appearance [place] Drainage Amount Scant Wound Topical Solution/Irrigant Antibiotic Irrigant Primary Dressing Gauze Pad Comment betadine and gauze Wound Secondary Dressing Type Gauze Roll/Wrap,Adhering Gauze Roll Wound Debridement Method Sharps,Forceps,Gauze Wound Debridement Amount of Tissue Minimal Removed Dressing Change Patient Tolerance Tolerated Well Left Toe - 5th Digit Wound Type Diabetic Foot Ulcer Wound Length (cm) 1.0 Wound Width (cm) 1.0 Wound Bed Appearance Beefy Red,Yellow Percentage Granulated (%) 90 Percentage of Slough (%) 10 Wound Margins Description
--- NOTE | 2018-12-28 09:06 | HMH.RHREAS ---
Rehab Reassessment Rehab OP Re-assessment Start: 12/28/18 08:58 Freq: Status: Active Protocol: Document 12/28/18 09:04 ANGI (Rec: 12/28/18 09:06 ANGI [id number]) Electronically Signed By Andrés Jon, PT 12/28/18 09:04 Rehab Re-assessment Subjective Subjective Pt reports he feels good about his progress with the wounds on his feet. Objective Objective Notes Left great toe wound: L= 2.3 cm, W= 2.5 cm. Left plantar 5th MT wound: L= 0.5 cm, W= 0.5 cm Assessment Progress Assessment Progressing as Expected Assessment Notes All other left foot and right great toe wounds present fully healed this date. Patient goals met ST,2 Goals Not Met LT,2,3,4 Revised Goals none Plan Plan Continue per initial POC Frequency of Therapy 1 x/wk Duration of therapy 8 wks Time and Billing Re-Eval Time 15 Re-Eval Billing Units 1 PHYSICIAN CERTIFICATION: I certify the specified therapy services for Darryn Ching are required, authorized, and reviewed every 30 days.
== END 2019-01-10 09:35 | disposition home or self-care (01) ==
LOC: PT 09:30
PROVIDERS: PCP Emergency Medicine; Visit Provider Podiatrist
DX: L97.522 Non-pressure chronic ulcer of other part of left foot with fat layer exposed (principal); S90.424D Blister (nonthermal), right lesser toe(s), subsequent encounter; S90.425D Blister (nonthermal), left lesser toe(s), subsequent encounter; E11.621 Type 2 diabetes mellitus with foot ulcer
CPT/HCPCS: 97163; 97164; 97597; 97598

== ENCOUNTER → 2019-02-01 09:58 | Outpatient (CLI) | payer BC, SELFPAY ==
--- NOTE | 2019-02-01 10:09 | XR_ITS ---
PROCEDURE: XR FOOT WT BEARING LT 3V CLINICAL INDICATION: Great [place] Ulcer Soft tissue ulcer, diabetes COMPARISON: [id number] XR foot wt bearing RT 3V from 02/02/2018 [id number] XR foot wt bearing LT 3V from 02/02/2018 XR FOOT LT MIN 3V from 10/26/2018 XR FOOT RT MIN 3V from 10/26/2018 FINDINGS: There is overlying bandage artifact obscuring fine detail of the great toe. No obvious bony destructive process is evident. There is generalized osteopenia. There may be an old fracture of the distal aspect of the proximal phalanx of the great toe. Other findings:None. IMPRESSION: Generalized osteopenia. No obvious bony erosive process evident Dictated by: Stephen Rios MD 02/02/2019 05:15 Electronically signed by Stephen Rios MD in [place] 02/02/2019 05:15
[2019-02-01 10:43] LABS: Basophils # 0.1 K/mm3 (0-0.2); Basophils % 0.3 % (0.1-2.0); Eosinophils # 0.2 K/mm3 (0.0-0.4); Hematocrit 48.7 % (42.0-52.0); Hemoglobin 16.4 g/dL (14.1-18.0); Lymphocytes # 2.5 K/mm3 (0.7-4.5); Lymphocytes % 17.3 % (10-50); Mean Corpuscular HGB Conc 33.7 g/dL (31.8-35.4); Mean Corpuscular Hemoglobin 31.9 pg (27.0-31.2); Mean Corpuscular Volume 94.6 fl (80-94); Mean Platelet Volume 9.2 fl (7.4-10.4); Monocytes # 0.7 K/mm3 (0.1-1.0); Monocytes % 4.8 % (1.7-9.3); Neutrophils % 76.5 % (37.0-80.0); Platelet Count 147 K/mm3 (142-424); Red Blood Count 5.14 M/mm3 (4.60-6.20); Red Cell Distribution Width 12.8 % (11.5-17.5); White Blood Count 14.4 K/mm3 (4.8-10.8)
[2019-02-01 11:16] LABS: Erythrocyte Sedimentation Rate 11 mm/hr (0-20)
[2019-02-01 12:17] LABS: Alanine Aminotransferase 20 U/L (12-78); Albumin Level 4.1 gm/dL (3.4-5.0); Albumin/Globulin Ratio 1.1 (1.1-1.8); Alkaline Phosphatase 114 U/L (46-116); Anion Gap 13.3 mEq/L (5-15); Aspartate Amino Transferase 11 U/L (15-37); Bilirubin,Total 0.3 mg/dL (0.2-1.0); Blood Urea Nitrogen 15 mg/dL (7-18); Calcium 9.5 mg/dL (8.5-10.1); Carbon Dioxide 30 mmol/L (21.0-32.0); Chloride 103 mmol/L (98-107); Estimated Glomerular Filt Rate 99 ml/min (>60); GFR (African American) 119 ML/MIN (>60); Globulin 3.6 gm/dl (1.3-3.2); Glucose 125 mg/dL (74-106); Potassium 4.3 mmoL/L (3.5-5.1); Sodium 142 mmol/L (136-145); Total Protein,Serum 7.7 gm/dL (6.4-8.2)
[2019-02-01 12:25] LABS: C-Reactive Protein < 0.2 mg/dL (0.0-0.9)
[2019-02-01 12:27] LABS: Hemoglobin A1C 5.9 % (0.0-7.0)
== END ==
PROVIDERS: PCP Family Medicine; Visit Provider Podiatrist
DX: E11.621 Type 2 diabetes mellitus with foot ulcer (principal); L97.529 Non-pressure chronic ulcer of other part of left foot with unspecified severity; Z98.890 Other specified postprocedural states; Z79.84 Long term (current) use of oral hypoglycemic drugs
CPT/HCPCS: 36415; 73630; 80053; 83036; 85025; 85651; 86140

== ENCOUNTER 2020-01-08 14:59 | Observation (INO) | payer BC, MEDICARE, SELFPAY ==
[2020-01-08] VITALS (16 sets, daily range): BP systolic 94–129; BP diastolic 59–81; PULSE 69–82; RESP 12–18; TEMP 36.4–36.7; O2SAT 92–98; BMI 25.1
--- NOTE | 2020-01-08 | IR_ITS ---
APPROVED REPORT Patient Location: Emergent Clerk Of Works: ERIKA Antony RT (R) PROCEDURES Left heart catheterization Left ventriculogram Selective coronary angiogram Selective engagement of the left internal mammary artery Selective engagement of the saphenous vein graft to the right coronary artery Selective engagement of the saphenous vein graft to the dominant circumflex artery Drug-eluting stent deployment to the saphenous vein graft supplying the circumflex artery INDICATION Acute inferolateral ST elevation myocardial infarction, Coronary artery disease, History of coronary bypass surgery Informed consent was obtained prior to the procedure. COMPLICATIONS NONE Estimated Blood Loss: LESS THAN 10 MLS TECHNIQUE One percent lidocaine used to anesthetize the right groin. The right femoral artery was accessed via the Seldinger technique and a 5 [place] sheath was placed in the right femoral artery. A JL 4, JR4 catheter were used to perform left heart catheterization, left ventriculogram selective coronary angiography as well as selective engagement of 2 saphenous vein grafts the left internal mammary artery. At the end of the diagnostic procedure therapeutic heparin was administered giving a therapeutic ACT. An LCB guide catheter was placed in the acutely occluded saphenous vein graft supplying the circumflex artery. A Choice PT wire was placed distally and a 2.5 x 12 mm resolute sumanth stent was deployed at 24 shawn reducing the occlusion to 0%. MAR-3 flow was restored down the vein graft. After achieving excellent angiographic results an EBU guide catheter was then placed in the left main artery where additional angiographic pictures were taken. After additional pictures were taken it was decided to proceed with medical management therefore the apparatus was removed the groin was reprepped gloves were changed sheath was removed good hemostasis was achieved using Perclose device patient was transferred to the postop holding area in stable condition ANGIOGRAPHIC RESULTS The left main artery Has an ostial 30% and a distal 30% stenosis The left anterior descending artery Is widely patent as proximal segment and then occluded after a large multibranching septal heater operator system. A small to moderate sized first diagonal artery is patent with an ostial 30% stenosis The circumflex artery Is a dominant vessel and has proximal 50% stenosis which then supplies a moderate sized first obtuse marginal artery which has proximal 30% stenosis. Distal to the first obtuse marginal artery the circumflex artery is subtotally occluded The right coronary artery Ostially occluded The RENTERIA ventriculogram reveals Not performed The left ventricular end-diastolic pressure Not measured The left internal mammary artery is widely patent to the LAD The saphenous vein graft to the right coronary is ostially thrombosed The saphenous vein graft supplying the large circumflex artery was initially occluded however after the stent the vein graft was wide open with excellent MAR-3 flow down the graft into the [place] vessel. The [place] vessel filled the distal right coronary artery via [id number] collaterals IMPRESSION Acute ST elevation myocardial infarction as described above Successful stenting of the saphenous vein graft to the circumflex artery 100% occlusion reduced to 0% with 1 drug-eluting stent Patent TANNER to the LAD Thrombosed saphenous vein graft to the right coronary artery which appears chronic PLAN 1. Dual antiplatelet therapy 2. Standard therapy for ischemic heart disease 3. Monitor patient overnight and if hemodynamically stable he should be able to be discharged tomorrow morning 4. Cardiac rehabilit
[2020-01-08 14:45] LABS: Basophils # 0.2 K/mm3 (0-0.2); Basophils % 1.3 % (0.1-2.0); Eosinophils # 0.3 K/mm3 (0.0-0.4); Eosinophils % 2.5 % (0.1-12.0); Hematocrit 47.2 % (42.0-52.0); Hemoglobin 16.1 g/dL (14.1-18.0); Lymphocytes # 3.1 K/mm3 (0.7-4.5); Lymphocytes % 23.8 % (10-50); Mean Platelet Volume 10.7 fl (7.4-10.4); Monocytes # 0.7 K/mm3 (0.1-1.0); Monocytes % 5.3 % (1.7-9.3); Neutrophils # 8.8 K/mm3 (1.8-7.8); Platelet Count 108 K/mm3 (142-424); Red Blood Count 5.02 M/mm3 (4.60-6.20); Red Cell Distribution Width 15.8 % (11.5-17.5); White Blood Count 13.1 K/mm3 (4.8-10.8)
[2020-01-08 14:48] LABS: Chloride 100 mmol/L (98-107)
[2020-01-08 14:49] LABS: Potassium 3.9 mmoL/L (3.5-5.1); Sodium 140 mmol/L (136-145)
[2020-01-08 14:51] LABS: Blood Urea Nitrogen 13 mg/dl (9-20); Creatinine Clearance Estimated 85 mL/min (50-200); Estimated Glomerular Filt Rate 115 ml/min (>60); GFR (African American) 139 ML/MIN (>60)
[2020-01-08 14:52] LABS: Anion Gap 11.9 mEq/L (5-15); Calcium 9.5 mg/dl (8.4-10.2); Carbon Dioxide 32 mmol/L (22.0-30.0); Glucose 124 mg/dl (74-100)
[2020-01-08 15:08] LABS: Coronavirus 19 IgG Antibody Negative (Negative); Coronavirus 19 IgM Antibody Negative (Negative)
[2020-01-08 15:23] LABS: CATHL Activated Clotting Time 305 SEC (74-125)
--- NOTE | 2020-01-08 15:55 | HMH.PNCARD ---
Subjective Date: 01/08/20 Time: 15:56 Principal diagnosis: STEMI Interval history: 59-year-old white male with history of coronary bypass, diabetes mellitus and tobacco use presented to the office as a new patient to establish care. Patient relates recurrent intermittent exertional jaw pain that resolves with rest. Patient brought a lab value troponin from yesterday that was elevated. In light of the symptoms, abnormal EKG suggestive of inferolateral ST elevation [place] and abnormal troponin, patient was sent for urgent cardiac catheterization. He did have drug-eluting stent placement to the saphenous vein graft to the circumflex artery. Exam Vital signs and Labs for Last 24 Hours: Pulse Resp BP Pulse Ox 78 17 118/68 93 L 01/08/20 15:32 01/08/20 15:32 01/08/20 15:32 01/08/20 15:32 Laboratory Results - last 24 hr 01/08/20 14:35: WBC 13.1 H, RBC 5.02, Hgb 16.1, Hct 47.2, MCV 94.0, MCH 32.0 H, MCHC 34.0, RDW 15.8, Plt Count 108 L, MPV 10.7 H, Neut % (Auto) 67.0, Lymph % (Auto) 23.8, [place] % (Auto) 5.3, Eos % (Auto) 2.5, Baso % (Auto) 1.3, Neut # (Auto) 8.8 H, Lymph # (Auto) 3.1, [place] # (Auto) 0.7, Eos # (Auto) 0.3, Baso # (Auto) 0.2 01/08/20 14:35: Sodium 140, Potassium 3.9, Chloride 100, Carbon Dioxide 32 H, Anion Gap 11.9, BUN 13, Creatinine 0.70, Estimated Creat Clear 85, Estimated GFR 115, Est GFR ( Amer) 139, Glucose 124 H, Calcium 9.5 01/08/20 14:35: SARS-CoV-2 IgG Ab (Rapid) Negative, SARS-CoV-2 IgM Ab (Rapid) Negative 01/08/20 15:57: Activated Clotting Time 305 H* I & O for Last 24 hours: Intake & Output 01/06/20 01/07/20 01/08/20 01/09/20 11:59 11:59 11:59 11:59 Weight 170 lb - Constitutional no acute distress - *Routine HEENT Exam Head: Present: normocephalic Eye: Present: EOMI, PERRL ENT: Present: mucous membranes moist - *Routine Neck Exam Present: supple. Absent: lymphadenopathy - *Routine Respiratory Exam Present: CTA bilaterally - *Routine Cardiovascular Exam Present: RRR - *Routine Abdominal Exam Present: soft, normoactive bowel sounds. Absent: tenderness - *Routine Extremities Exam Absent: cyanosis, clubbing, edema - *Routine Skin Exam Present: warm. Absent: rash - *Routine Neurological Exam Present: alert, oriented X3 Progress Note: A&P (1) STEMI (ST elevation myocardial infarction) Status: Acute (2) Diabetes mellitus Status: Acute (3) Coronary artery disease Status: Chronic (4) Hyperlipidemia Status: Chronic (5) Hypertension Status: Chronic Assessment and Plan for All Diagnoses:: 1. Admit to Dr. Valenzuela and to monitor for arrhythmias. 2. Continue home meds including DAPT with ASA and plavix. Hold metformin. 3. Echo in AM. 4. Possibly home tomorrow if stable.
--- NOTE | 2020-01-08 16:43 | HMH.HP ---
*Admission Date: 01/08/20 <Saba Wright - 01/08/20 17:07> *Chief complaint: jaw pain; STEMI <Saba Wright - 01/08/20 17:07> *History of present illness: Mr. Ching is a 59-year-old male patient with a history of hypertension, hyperlipidemia, diabetes mellitus, ASCVD, chronic back pain, and GERD who presented to the office of Dr. Jaquez, cardiology, after experiencing bilateral jaw pain. The following is documented by JOSÉ MANUEL Duggan cardiology: 59-year-old white male with history of coronary bypass, diabetes mellitus and tobacco use presented to the office as a new patient to establish care. Patient relates recurrent intermittent exertional jaw pain that resolves with rest. Patient brought a lab value troponin from yesterday that was elevated. In light of the symptoms, abnormal EKG suggestive of inferolateral ST elevation AR and abnormal troponin, patient was sent for urgent cardiac catheterization. He did have drug-eluting stent placement to the saphenous vein graft to the circumflex artery. Patient relates that he did see cardiology in [facility] and was not pleased with the results. Thus he presented to Dr. Jaquez's office the following day for a second opinion. He describes having jaw pain after climbing stairs and bilateral jaw pain sometimes awakening him from sleep. He denies being short of breath, palpitations, and nausea. With this assessment patient has returned from the [employer] and is somewhat drowsy. He continues to deny chest pain and his jaws do not hurt at present. He states his breathing is fine. The following are the cath results with plan of care: IMPRESSION Acute ST elevation myocardial infarction as described above Successful stenting of the saphenous vein graft to the circumflex artery 100% occlusion reduced to 0% with 1 drug-eluting stent Patent TANNER to the LAD Thrombosed saphenous vein graft to the right coronary artery which appears chronic PLAN 1. Dual antiplatelet therapy 2. Standard therapy for ischemic heart disease 3. Monitor patient overnight and if hemodynamically stable he should be able to be discharged tomorrow morning 4. Cardiac rehabilitation 5. Echocardiogram in the morning <Saba Wright - 01/08/20 17:07> [facility] History Medical History: Reports:: Anxiety, Coronary Artery Disease, Diabetes Mellitus Type 2, Gastroesophageal Reflux Disease(GERD), Hyperlipidemia, Hypertension, Myocardial Infarction Denies:: Cancer, Diabetes Mellitus Type 1, Internal Pacemaker, Lung Disease, MRSA, Seizures <Saba Wright 01/08/20 17:07> *Have you ever received a pneumonia vaccine?: No <Saba Wright 01/08/20 17:07> *Have you received a flu vaccine this season?: No <Saba Wright 01/08/20 17:07> Other Medical History: Reports: Arthritis <Saba Wright 01/08/20 17:07> Comment:: He has severe diabetic cardiomyopathy for which he takes gabapentin. He does continue to smoke about a pack a day. He states his blood sugars have been good with his current medications of metformin, Farxiga, and Trulicity. <Saba Wright 01/08/20 17:07> Laterality Cases: Left: Arthroscopy Knee, Bilateral: Other <Saba Wright 01/08/20 17:07> Other Surgeries: Yes: CABG (x3), Coronary Stent, Other. No: Pacemaker <Saba Wright 01/08/20 17:07> Amputation: No <Saba Wright 01/08/20 17:07> Fractures: Yes <Saba Wright 01/08/20 17:07> - *Social History Smoking Status: Current every day smoker <Saba Wright 01/08/20 17:07> Tobacco Type: cigarettes <Saba Wright 01/08/20 17:07> # Packs/Day (cigarettes): 1 <Saba Wright 01/08/20 17:07> Alcohol Intake: never <Saba Wright 01/08/20 17:07> Alcohol Intake Frequency:: other <Saba Wright 01/08/20 17:07> Substance Use Type: denies use <Saba Wright 01/08/20 17:07> *Occupational Status:: employed <Saba Wright 01/08/20 17:07> Housing: house <AdrianaSaba 01/08/20 17:07> Household Members: spouse <Wright,Saba 01/08/20 17
[2020-01-08 18:37] LABS: POC Glucose,Bedside 101 (70-110)
--- NOTE | 2020-01-08 20:43 | PC.NURSE ---
Pt up to floor from medical lab technologist @ 1545. Remains on room air. No complaints voiced. (R) fem cath site w/ tegaderm and gauze in place, no drainage noted, soft to palpation. +2 pulses noted to extremities. Pt able to get up @ 1715. Was ambulated w/ standby assist of staff, pt tolerated well. Voided w/o difficulty. present at bedside. Call morgan w/in reach.
[2020-01-08 20:46] LABS: POC Glucose,Bedside 208 (70-110)
[2020-01-09] VITALS: BP 92/53; PULSE 80; PULSE 83; RESP 16; TEMP 37.2; O2SAT 92
[2020-01-09 02:00] VITALS: BP 95/55; PULSE 79; RESP 18; O2SAT 90
[2020-01-09 04:00] VITALS: BP 95/55; PULSE 70; PULSE 79; RESP 16; TEMP 36.8; O2SAT 94
--- NOTE | 2020-01-09 04:20 | PC.NURSE ---
Pt has rested well this shift. Denies any soa or CP. (R) femoral cath site, C/D/I. No hematoma noted. BP and HR has remained stable. Pt is NSR on telemetry. Pt was placed on O2 2L while sleeping due to desatting in mid to upper 80s. Pt is currently 94% on 2L O2 NC. Pt asked if he has ever been diagnosed with sleep apnea. Pt responded, no . Medication administered per apr. Call light within reach. Will continue to monitor.
[2020-01-09 05:00] VITALS: BMI 25.2
[2020-01-09 05:55] VITALS: BP 107/64; PULSE 73; RESP 16; O2SAT 94
[2020-01-09 06:09] LABS: POC Glucose,Bedside 125 (70-110)
--- NOTE | 2020-01-09 07:27 | P.CONPHA_ITS ---
[facility] Pharmacy VTE Monitoring - Patient Demographics Admission date: 01/08/20 Report Date: 01/09/20 Time: 07:27 Allergies/Adverse Reactions: Patient Allergies propoxyphene Allergy (Intermediate, Verified 01/08/20 13:46) hydrocodone [From LORTAB] Adverse Reaction (Mild, Verified 01/08/20 13:46) NA-NAUSEA/VOMITING Height: 1.75 m Weight: 77.309 kg Patient Problems: Current Active Problems Diabetes mellitus (Acute) Hypertension (Chronic) Hyperlipidemia (Chronic) Coronary artery disease (Chronic) Tobacco use disorder (Chronic) GERD (gastroesophageal reflux disease) (Chronic) Chronic back pain (Chronic) Anxiety disorder (Acute) History of abdominal aortic aneurysm (AAA) (Acute) Hx of solitary pulmonary nodule (Acute) STEMI (ST elevation myocardial infarction) (Acute) - VTE Risk Labs: VTE Related Lab Results Hgb 16.1 g/dL (14.1-18.0) 01/08/20 14:35 Hct 47.2 % (42.0-52.0) 01/08/20 14:35 Plt Count 108 K/mm3 (142-424) L 01/08/20 14:35 BUN 13 mg/dl (9-20) 01/08/20 14:35 Creatinine 0.70 mg/dl (0.66-1.25) 01/08/20 14:35 Estimated Creat Clear 85 mL/min (50-200) 01/08/20 14:35 Was VTE Risk Assessment Performed: Yes VTE Score: 3 VTE Risk Level: Low Risk Clinical Trial Participant: No - Prophylaxis VTE Prophylaxis Ordered?: Yes Types of VTE Prophylaxis: TEDS Knee High
[2020-01-09 08:00] VITALS: BP 106/68; PULSE 70; PULSE 72; RESP 18; TEMP 36.9; O2SAT 93
--- NOTE | 2020-01-09 08:05 | HMH.PHAINT ---
Medication reconciliation completed using pharmacy claims data and patient/spouse interview.
--- NOTE | 2020-01-09 08:13 | HMH.ACPN2 ---
<Trinidad Colindres - Last Filed: 01/09/20 08:13> Internal Medicine - PN: Subj *Date: 01/09/20 *Time: 08:13 Interval history: Patient has rested well overnight. He denies any pain, chest pain, jaw pain, or SOB this morning. Exam Vital signs and Labs for Last 24 Hours: Temp Pulse Resp BP Pulse Ox 98.2 F 73 16 107/64 L 94 L 01/09/20 04:00 01/09/20 05:55 01/09/20 05:55 01/09/20 05:55 01/09/20 05:55 Laboratory Results - last 24 hr 01/08/20 14:35: WBC 13.1 H, RBC 5.02, Hgb 16.1, Hct 47.2, MCV 94.0, MCH 32.0 H, MCHC 34.0, RDW 15.8, Plt Count 108 L, MPV 10.7 H, Neut % (Auto) 67.0, Lymph % (Auto) 23.8, [place] % (Auto) 5.3, Eos % (Auto) 2.5, Baso % (Auto) 1.3, Neut # (Auto) 8.8 H, Lymph # (Auto) 3.1, [place] # (Auto) 0.7, Eos # (Auto) 0.3, Baso # (Auto) 0.2 01/08/20 14:35: Sodium 140, Potassium 3.9, Chloride 100, Carbon Dioxide 32 H, Anion Gap 11.9, BUN 13, Creatinine 0.70, Estimated Creat Clear 85, Estimated GFR 115, Est GFR ( Amer) 139, Glucose 124 H, Calcium 9.5 01/08/20 14:35: SARS-CoV-2 IgG Ab (Rapid) Negative, SARS-CoV-2 IgM Ab (Rapid) Negative 01/08/20 15:57: Activated Clotting Time 305 H* 01/08/20 17:41: POC Glucose 101 01/08/20 20:14: POC Glucose 208 H 01/09/20 05:54: POC Glucose 125 H I & O for Last 24 hours: Intake & Output 01/06/20 01/07/20 01/08/20 01/09/20 11:59 11:59 11:59 11:59 Intake Total 480 / 480 Output Total 350 / 350 Balance 130 / 130 Weight 170 lb 7 oz - Constitutional no acute distress Comments: arouses easily from sleep - *Routine HEENT Exam Head: Present: normocephalic, atraumatic ENT: Present: mucous membranes moist - *Routine Respiratory Exam Present: CTA bilaterally. Absent: rhonchi, wheezes - *Routine Cardiovascular Exam Present: RRR - *Routine Abdominal Exam Present: soft, normoactive bowel sounds. Absent: tenderness, distended, guarding, rigid, mass - *Routine Extremities Exam Present: full ROM, pulses intact. Absent: edema, calf tenderness - *Routine Neurological Exam Present: alert, oriented X3, moving all extremities, normal speech Assessment and Plan (1) STEMI (ST elevation myocardial infarction) Status: Acute Qualifiers: Involved coronary artery: unspecified coronary artery Qualified Code(s): I21.3 - ST elevation (STEMI) myocardial infarction of unspecified site Category: Medical Code(s): I21.3 - ST elevation (STEMI) myocardial infarction of unspecified site (2) Diabetes mellitus Status: Acute Qualifiers: Diabetes mellitus type: type 2 Diabetes mellitus correction insulin use: without termite exterminator helper use Diabetes mellitus complication status: with neurologic complications Diabetes mellitus complication detail: with polyneuropathy Qualified Code(s): E11.42 - Type 2 diabetes mellitus with diabetic polyneuropathy Category: Medical Code(s): E11.9 - Type 2 diabetes mellitus without complications (3) Coronary artery disease Status: Chronic Qualifiers: Coronary Disease-Associated Artery/Lesion type: [place] artery [place] vs. transplanted heart: [place] heart Associated angina: with other forms of angina Qualified Code(s): I25.118 - Atherosclerotic heart disease of [place] coronary artery with other forms of angina pectoris Category: Medical Code(s): I25.10 - Atherosclerotic heart disease of [place] coronary artery without angina pectoris (4) Hyperlipidemia Status: Chronic Qualifiers: Hyperlipidemia type: unspecified Qualified Code(s): E78.5 - Hyperlipidemia, unspecified Category: Medical Code(s): E78.5 - Hyperlipidemia, unspecified (5) Hypertension Status: Chronic Qualifiers: Hypertension type: essential hypertension Qualified Code(s): I10 - Essential (primary) hypertension Category: Medical Code(s): I10 - Essential (primary) hypertension (6) Tobacco use disorder Status: Chronic Category: Medical Code(s): F17.200 - Nicotine dependence, unspecified, uncompl
--- NOTE | 2020-01-09 09:12 | HMH.PNCARD ---
Subjective Date: 01/09/20 Time: 09:00 Principal diagnosis: STEMI Interval history: This is a 59-year-old white gentleman who presented to cardiology office yesterday and was having exertional jaw pain. He did have an elevated troponin and an EKG suggestive of an inferior lateral ST elevation myocardial infarction. He was taken to the cardiac catheterization laboratory and underwent stent placement to the saphenous vein graft to the circumflex artery. He tolerated the procedure well. This morning he denies any chest pain, pressure, shortness of breath or edema. He denies any fever, chills, nausea, vomiting, diarrhea, PND or orthopnea. He states that he is feeling much better. Exam Vital signs and Labs for Last 24 Hours: Temp Pulse Resp BP Pulse Ox 98.2 F 73 16 107/64 L 94 L 01/09/20 04:00 01/09/20 05:55 01/09/20 05:55 01/09/20 05:55 01/09/20 05:55 Laboratory Results - last 24 hr 01/08/20 14:35: WBC 13.1 H, RBC 5.02, Hgb 16.1, Hct 47.2, MCV 94.0, MCH 32.0 H, MCHC 34.0, RDW 15.8, Plt Count 108 L, MPV 10.7 H, Neut % (Auto) 67.0, Lymph % (Auto) 23.8, [place] % (Auto) 5.3, Eos % (Auto) 2.5, Baso % (Auto) 1.3, Neut # (Auto) 8.8 H, Lymph # (Auto) 3.1, [place] # (Auto) 0.7, Eos # (Auto) 0.3, Baso # (Auto) 0.2 01/08/20 14:35: Sodium 140, Potassium 3.9, Chloride 100, Carbon Dioxide 32 H, Anion Gap 11.9, BUN 13, Creatinine 0.70, Estimated Creat Clear 85, Estimated GFR 115, Est GFR ( Amer) 139, Glucose 124 H, Calcium 9.5 01/08/20 14:35: SARS-CoV-2 IgG Ab (Rapid) Negative, SARS-CoV-2 IgM Ab (Rapid) Negative 01/08/20 15:57: Activated Clotting Time 305 H* 01/08/20 17:41: POC Glucose 101 01/08/20 20:14: POC Glucose 208 H 01/09/20 05:54: POC Glucose 125 H I & O for Last 24 hours: Intake & Output 01/06/20 01/07/20 01/08/20 01/09/20 23:59 23:59 23:59 23:59 Intake Total 480 / 480 Output Total 350 / 350 Balance 130 / 130 Weight 170 lb 5 oz 170 lb 7 oz Narrative: Telemetry strip is sinus rhythm with a rate of 76. Preliminary echocardiogram shows a normal ejection fraction with mild to moderate MR. - Constitutional no acute distress, average body habitus - *Routine HEENT Exam Head: Present: normocephalic, atraumatic Eye: Present: EOMI, PERRL ENT: Present: mucous membranes moist - *Routine Neck Exam Present: supple, full ROM. Absent: JVD, carotid bruit, lymphadenopathy - *Routine Respiratory Exam Present: CTA bilaterally - *Routine Cardiovascular Exam Present: RRR, Normal S1, Normal S2. Absent: murmur - *Routine Abdominal Exam Present: soft, normoactive bowel sounds. Absent: tenderness, distended - *Routine Extremities Exam Present: full ROM, pulses intact, normal capillary refill. Absent: cyanosis, clubbing, edema - *Routine Skin Exam Present: intact, warm. Absent: erythema, rash - *Routine Neurological Exam Present: alert, oriented X3, CN II-XII intact. Absent: sensory deficit, motor deficit Progress Note: A&P (1) STEMI (ST elevation myocardial infarction) Status: Acute (2) Diabetes mellitus Status: Acute (3) Coronary artery disease Status: Chronic (4) Hyperlipidemia Status: Chronic (5) Hypertension Status: Chronic (6) Tobacco use disorder Status: Chronic (7) GERD (gastroesophageal reflux disease) Status: Chronic (8) Chronic back pain Status: Chronic (9) Anxiety disorder Status: Acute (10) History of abdominal aortic aneurysm (AAA) Status: Acute (11) Hx of solitary pulmonary nodule Status: Acute Assessment and Plan for All Diagnoses:: Plan: 1. The patient was admitted to the hospital from the cardiology clinic secondary to an inferior lateral ST elevation myocardial infarction. The patient underwent stenting to the saphenous vein graft to the circumflex artery. He tolerated the procedure well. He will be on Plavix and aspirin for dual antiplatelet therapy. 2. Blood pressure is well controlled. 3. LDL goal is less than
--- NOTE | 2020-01-09 09:26 | PC.NURSE ---
Pt and educated on cost of medications as he is admitted medicare obs. Both want to proceed with taking all meds adn verbalized understanding of cost.
[2020-01-09 10:00] VITALS: BP 115/66; PULSE 74; RESP 16; O2SAT 91
--- NOTE | 2020-01-09 10:18 | HMH.PHACLD ---
Darryn Ching has received discharge medication counseling on the following medications: NEW MEDICATIONS: CRESTJ LUIS CONTINUE MEDICATIONS: ASPIRIN, PLAVIX, METOPROLOL, RAMIPRIL
--- NOTE | 2020-01-09 20:18 | HMH.DCSUM ---
General - General Admission date:: 01/08/20 <Cesar Valenzuela - 01/27/20 10:31> 01/08/20 <Saba Wright - 01/09/20 20:37> Discharge date: 01/09/20 <Saba Wright - 01/09/20 20:37> HPI HPI: Mr. Ching is a 59-year-old male patient with a history of hypertension, hyperlipidemia, diabetes mellitus, ASCVD, chronic back pain, and GERD who presented to the office of Dr. Jaquez, cardiology, after experiencing bilateral jaw pain. The following was documented by JOSÉ MANUEL Duggan cardiology: 59-year-old white male with history of coronary bypass, diabetes mellitus and tobacco use presented to the office as a new patient to establish care. Patient related recurrent intermittent exertional jaw pain that resolved with rest. Patient brought a lab value troponin from yesterday that was elevated. In light of the symptoms, abnormal EKG suggestive of inferolateral ST elevation [place] and abnormal troponin, patient was sent for urgent cardiac catheterization. He did have drug-eluting stent placement to the saphenous vein graft to the circumflex artery. Patient related that he did see cardiology in [facility] and was not pleased with the results. Thus he presented to Dr. Jaquez's office the following day for a second opinion. He described having jaw pain after climbing stairs and bilateral jaw pain sometimes awakening him from sleep. He denied being short of breath, palpitations, and nausea. With this assessment patient had returned from the [employer] and was somewhat drowsy. He continued to deny chest pain and his jaws did not hurt. He stated his breathing is fine. The following were the cath results with plan of care: IMPRESSION Acute ST elevation myocardial infarction as described above Successful stenting of the saphenous vein graft to the circumflex artery 100% occlusion reduced to 0% with 1 drug-eluting stent Patent TANNER to the LAD Thrombosed saphenous vein graft to the right coronary artery which appears chronic PLAN 1. Dual antiplatelet therapy 2. Standard therapy for ischemic heart disease 3. Monitor patient overnight and if hemodynamically stable he should be able to be discharged tomorrow morning 4. Cardiac rehabilitation 5. Echocardiogram in the morning <Saba Wright - 01/09/20 20:37> Hospital Course Hospital Course: The patient was admitted to the hospital from the cardiology clinic secondary to an inferior lateral ST elevation myocardial infarction. The patient underwent stenting to the saphenous vein graft to the circumflex artery. He tolerated the procedure well. He was started on dual antiplatelet therapy with Plavix and ASA. He was also on Metoproo and ramipril. He was on siding scalin insulin and other home meds. Cardioogy followed the patient with the following plan: 1.. Blood pressure to be well controlled. 2. LDL goal less than 55. To be started on Crestor 5 mg daily as he was not on a statin. 3. The patient was on appropriate post TX medications with metoprolol and ramipril. 4. The patient is diabetic and will need aggressive control of his diabetes. Will defer management of this to his primary care provider. 5. Tobacco cessation was highly advised and counseled. 6. Preliminary ejection fraction was greater than 55% on echocardiogram with mild to moderate MR. The official read was pending at discharge. 7. The patient was stable for discharge home today 01/09/2020 from a cardiac standpoint. He will need to follow-up in outpatient cardiology clinic in 1 week. The patient denied chest and jaw pain, and SOB. He was discharged on 01/09/2020. Meds as per reconciliation sheet. He was to followup with Dr. Valenzuela on 01/22/2020 <Saba Wright - 01/09/20 20:37> Objective Vital signs: Temp Pulse Resp BP Pulse Ox 98.4 F 74 16 115/66 91 L 01/09/20 08:00 01/09/20 10:00 01/09/20 10:00 01/09/20 10:00 01/09/20 10:00 <Cesar Valenzuela - 01/27/20 10:31> Tem
== END 2020-01-09 10:45 | disposition home or self-care (01) ==
LOC: 2ND 15:00
PROVIDERS: Internal Medicine; Admitting Provider Family Medicine; PCP Family Medicine; Visit Provider Family Medicine
DX: I21.19 ST elevation (STEMI) myocardial infarction involving other coronary artery of inferior wall (principal); I25.118 Atherosclerotic heart disease of native coronary artery with other forms of angina pectoris; E11.42 Type 2 diabetes mellitus with diabetic polyneuropathy; Z95.5 Presence of coronary angioplasty implant and graft; Z95.1 Presence of aortocoronary bypass graft; I42.8 Other cardiomyopathies; I10 Essential (primary) hypertension; I25.2 Old myocardial infarction; Z79.82 Long term (current) use of aspirin; Z79.01 Long term (current) use of anticoagulants; Z79.84 Long term (current) use of oral hypoglycemic drugs; Z72.0 Tobacco use
CPT/HCPCS: 80048; 82962; 85025; 85347; 86328; 92937; 93306; 93459; 99152; 99153; C1725; C1760; C1769; C1876; C1894; C9604; G0378; J1644; J2405; Q9967

== ENCOUNTER → 2020-01-15 14:04 | Outpatient (CLI) | payer BC, MEDICARE, SELFPAY ==
[2020-01-15 14:43] LABS: Hematocrit 50.6 % (42.0-52.0); Hemoglobin 17.4 g/dL (14.1-18.0)
[2020-01-15 15:31] LABS: Troponin I < 0.01 ng/ml (0.00-0.034)
[2020-01-15 15:56] LABS: Blood Urea Nitrogen 14 mg/dl (9-20); Estimated Glomerular Filt Rate 115 ml/min (>60); GFR (African American) 139 ML/MIN (>60)
== END ==
PROVIDERS: Visit Provider Physician Assistant
DX: R07.9 Chest pain, unspecified (principal)
CPT/HCPCS: 36415; 82565; 84484; 84520; 85014; 85018

== ENCOUNTER → 2020-02-26 07:10 | Outpatient (CLI) | payer BC, SELFPAY ==
--- NOTE | 2020-02-26 07:15 | US_ITS ---
PROCEDURE: US ABD. AORTA SCREENING CLINICAL INDICATION: AAA Follow-up aneurysm COMPARISON: CT ABDPELW/O CT ABD PELVIS W/O CONTRAST from 03/09/2016 FINDINGS: There is mild fusiform dilatation of the mid abdominal aorta measuring to 2.9 cm in AP dimension. Atheromatous plaque is present within the abdominal aorta. This the proximal common iliacs are approximately 1 cm. IMPRESSION: Mild fusiform dilatation of the abdominal aorta at 2.9 cm with moderate amount of atheromatous plaque Dictated by: Stephen Rios MD 02/26/2020 20:12 Stephen Rios MD in [place] 02/26/2020 20:12
--- NOTE | 2020-02-26 07:15 | CT_ITS ---
PROCEDURE: CT LUNG SCREENING CLINICAL INDICATION: H/O NICOTINE DEPENDENCE current smoker 40 pack year smoking history cad no prior ldls COMPARISON: CT CHW CT CHEST W/ CONTRAST from 12/30/2015 TECHNIQUE: The exam was performed on a GE Light Speed [address] scanner using 2.90 mGy CTDI. A low dose helical CT CHEST was performed on a multi-detector scanner. All CT scans at the facility use one or more dose reduction, viz: automated exposure control, ma/kV adjustment per patient size (including targeted exams where dose is matched to indication, i.e. head), or iterative reconstruction technique. The LDCT was performed in a facility that meets the criteria for the screening program. Data regarding this exam was submitted to ACR which is an approved registry. The order for this exam indicates that it came as a result of a lung cancer screening counseling shard decision-making visit that included all the elements required of such a visit including smoking cessation. The radiologist interpreting this exam meets the CMS criteria for the LDCT lung cancer screening program. The exam is reported using the Lung-RADS classification scale and reported to the ACR registry. NOTE: This study was performed for the specific purposes of lung cancer screening and is not an alternative to diagnostic chest CT. RADIATION DOSE: CTDI vol(CT dose Index-volume) = 2.90mG DLP (Dose Length Product) = 115.94 mGcm FINDINGS: COPD changes with paraseptal emphysema. There are 2 stable nodular densities in the right upper lobe posteriorly at 4 and mm. No new nodules are evident. OTHER FINDINGS: Coronary artery disease with coronary artery calcification and/or stents. Stable left adrenal nodule. There is a epidural stimulator device in the upper lumbar region IMPRESSION: Lung-RADS Category 2 Benign Appearance or Behavior Follow-up: Continue annual screening with LDCT in 12 months Dictated by: Stephen Rios MD 03/02/2020 08:02 Stephen Rios MD in [place] 03/02/2020 08:02
== END ==
PROVIDERS: PCP Family Medicine; Visit Provider Family Medicine
DX: I71.4 Abdominal aortic aneurysm, without rupture (principal); Z87.891 Personal history of nicotine dependence; Z12.2 Encounter for screening for malignant neoplasm of respiratory organs
CPT/HCPCS: 71271; 76705

== ENCOUNTER → 2020-03-03 12:20 | Outpatient (CLI) | payer BC, SELFPAY ==
[2020-03-03 12:52] LABS: Basophils # 0.1 K/mm3 (0-0.2); Basophils % 1.1 % (0.1-2.0); Eosinophils # 0.3 K/mm3 (0.0-0.4); Eosinophils % 2.5 % (0.1-12.0); Hematocrit 52.7 % (42.0-52.0); Hemoglobin 17.2 g/dL (14.1-18.0); Lymphocytes # 3.9 K/mm3 (0.7-4.5); Lymphocytes % 31.1 % (10-50); Mean Corpuscular HGB Conc 32.7 g/dL (31.8-35.4); Mean Corpuscular Hemoglobin 32.2 pg (27.0-31.2); Mean Corpuscular Volume 98.6 fl (80-94); Mean Platelet Volume 12.4 fl (7.4-10.4); Monocytes # 0.7 K/mm3 (0.1-1.0); Monocytes % 5.4 % (1.7-9.3); Neutrophils # 7.5 K/mm3 (1.8-7.8); Platelet Count 102 K/mm3 (142-424); Red Blood Count 5.34 M/mm3 (4.60-6.20); Red Cell Distribution Width 13.7 % (11.5-17.5); White Blood Count 12.5 K/mm3 (4.8-10.8)
[2020-03-03 13:23] LABS: Alanine Aminotransferase 8 U/L (12-78); Albumin Level 5.1 g/dl (3.5-5.0); Albumin/Globulin Ratio 1.6 (1.1-1.8); Alkaline Phosphatase 99 U/L (38-126); Anion Gap 15.6 mEq/L (5-15); Aspartate Amino Transferase 17 U/L (17-59); Bilirubin,Total 0.4 mg/dl (0.2-1.3); Blood Urea Nitrogen 12 mg/dl (9-20); Calcium 10.4 mg/dl (8.4-10.2); Carbon Dioxide 32 mmol/L (22.0-30.0); Chloride 99 mmol/L (98-107); Estimated Glomerular Filt Rate 98 ml/min (>60); GFR (African American) 119 ML/MIN (>60); Globulin 3.2 g/dL (1.3-3.2); Glucose 111 mg/dl (74-100); Potassium 4.6 mmoL/L (3.5-5.1); Sodium 142 mmol/L (136-145); Total Protein,Serum 8.3 g/dl (6.3-8.2)
[2020-03-03 13:55] LABS: Thyroid Stimulating Hormone 1.41 uIU/mL (0.465-4.68)
[2020-03-03 14:19] LABS: Ferritin 33.7 ng/ml (17.9-464)
[2020-03-03 15:42] LABS: Erythrocyte Sedimentation Rate 13 mm/hr (0-20)
[2020-03-05 13:33] LABS: Sjogren's Anti-SS-A <0.2 AI (0.0-0.9); Sjogren's Anti-SS-B <0.2 AI (0.0-0.9)
[2020-03-05 17:01] LABS: Angiotensin Converting Enzyme 22 U/L (14-82)
== END ==
PROVIDERS: Visit Provider Specialist
DX: G62.9 Polyneuropathy, unspecified (principal)
CPT/HCPCS: 36415; 80053; 82164; 82390; 82728; 82746; 84443; 85025; 85651; 86235

== ENCOUNTER → 2020-04-07 09:54 | Outpatient (CLI) | payer BC, SELFPAY ==
[2020-04-07 11:37] LABS: Vitamin B12 983 pg/mL (239-931)
== END ==
PROVIDERS: Visit Provider Nurse Practitioner Family
DX: G62.9 Polyneuropathy, unspecified (principal)
CPT/HCPCS: 36415; 82607

== ENCOUNTER → 2020-04-10 10:17 | Outpatient (CLI) | payer BC, SELFPAY ==
[2020-04-10 10:46] LABS: Hemoglobin A1C 5.5 % (4.0-6.0)
[2020-04-11 18:28] LABS: Albumin 3.7 g/dL (2.9-4.4); Alpha-1-Globulin 0.2 g/dL (0.0-0.4); Gamma Globulin 0.8 g/dL (0.4-1.8); Protein, Total 6.9 g/dL (6.0-8.5)
== END ==
PROVIDERS: Visit Provider Nurse Practitioner Family
DX: R73.9 Hyperglycemia, unspecified (principal); G62.9 Polyneuropathy, unspecified; M54.9 Dorsalgia, unspecified; G89.29 Other chronic pain
CPT/HCPCS: 36415; 83036; 84155; 84165; 86334

== ENCOUNTER → 2020-05-19 11:01 | Outpatient (POV) | payer BC, SELFPAY ==
[2020-05-19 11:21] VITALS: BP 141/78; PULSE 74; RESP 18; O2SAT 98; BMI 25.2
--- NOTE | 2020-05-19 12:47 | HMH.PMCON ---
Assessment and Plan (1) Peripheral neuropathy Status: Chronic Category: Medical Code(s): G62.9 - Polyneuropathy, unspecified (2) Chronic back pain Status: Chronic Qualifiers: Back pain location: back pain in unspecified location Back pain laterality: unspecified Qualified Code(s): M54.9 - Dorsalgia, unspecified; G89.29 - Other chronic pain Category: Medical Code(s): M54.9 - Dorsalgia, unspecified; G89.29 - Other chronic pain - Assessment and plan all Dx Assessment and Plan for all problems:: Patient tried and failed most modalities of treatment that I can provide including medications, neuro stimulation, nerve blocks. Patient and I discussed utilizing an external TNS/IFC unit I will have him met by the patient service representative here so he can try this prior to deciding if it is something that would be beneficial for him. I will follow-up with him after this reassess his symptoms at that time. Dr. Quan has reviewed this note and agrees with this plan of care. This note was dictated using voice recognition software and may contain errors or omissions HPI - Data of Consult Consult date: 05/19/20 Requesting Physician: Mechelle Killian APRN Primary Care Provider: Cesar Valenzuela MD - Consult Narrative Reason for consult: Bilateral foot neuropathy History of present illness: Mr. Ching is a 60 year old male who presents today for consultation. Patient was seen in our office back in 2016 and sent for a surgical consultation by Dr. Blankenship however he did not follow-up afterwards. Patient did receive injection therapy from our office with no relief. Since then he was seen by Dr. Hernandez at the pain center. He was given oxycodone and gabapentin he states that this was not beneficial. He was discharged due to marijuana use. Patient had a neurostimulator placed by Dr. Owen. Patient states that it does not work he states that even during the trial it was not beneficial for him. He has not been reprogrammed for a year and is uninterested in being reprogrammed at this time. Patient is tried and failed most medications including gabapentin, Lyrica, narcotic medications, antidepressants. Patient has also tried and failed compounding cream. CC: Mechelle Killian APRN [facility] History I have reviewed the patient's past medical history: Yes Medical History: Reports:: Anxiety, Cardiomyopathy, Coronary Artery Disease, Diabetes Mellitus Type 2, Gastroesophageal Reflux Disease(GERD), Hyperlipidemia, Hypertension, Kidney Stones, Myocardial Infarction, Ulcer Denies:: Cancer, Diabetes Mellitus Type 1, Internal Pacemaker, Lung Disease, MRSA, Seizures *Have you ever received a pneumonia vaccine?: Yes *Have you received a flu vaccine this season?: Yes Other Medical History: Reports: Arthritis Laterality Cases: Left: Arthroscopy Knee, Bilateral: Other Other Surgeries: Yes: CABG, Cardiac Catheterization, Cardiac Surgery, Coronary Stent, Other. No: Pacemaker Amputation: No Fractures: Yes - *Social History Smoking Status: Current every day smoker Tobacco Type: cigarettes # Packs/Day (cigarettes): 1 Alcohol Intake: never Alcohol Intake Frequency:: other Substance Use Type: denies use *Occupational Status:: retired Housing: house Household Members: other *Travel in the last 8 weeks: None - Psychiatric History Pschychiatric History:: Reports:: Anxiety Family Hx:: Unable to obtain Review of Systems - Review of Systems ROS General: no recent weight change, no fever, no sleep disturbances Respiratory: no cough, no shortness of air, no recurring pulmonary infections Cardiovascular/Peripheral Vascular: No chest pain, No palpitations, no edema, no shortness of breath. Gastrointestinal: no new onset incontinence, normal bowel movements reported Genitourinary: no new onset incontinence Musculoskeletal: Back pain foot pain Psychiatric: normal mood/ affect, Neurological: [denies new onset weakness in extremities], [denies n
== END ==
PROVIDERS: PCP Family Medicine; Visit Provider Clinical Nurse Specialist Family Health
DX: G62.9 Polyneuropathy, unspecified (principal); M54.9 Dorsalgia, unspecified
CPT/HCPCS: 99202; G0463

== ENCOUNTER → 2020-05-30 10:57 | Outpatient (CLI) | payer BC, SELFPAY ==
--- NOTE | 2020-05-30 11:02 | XR_ITS ---
PROCEDURE: XR RIBS RT MIN 3V W CXR1V CLINICAL INDICATION: CHEST PAIN Right rib pain COMPARISON: CR CXR CHEST(2 VIEWS-NOT PORTABLE) from 02/11/[address] CHEST W/ CONTRAST from 12/30/2015 CR CXR CHEST(2 VIEWS-NOT PORTABLE) from 03/09/2016 FINDINGS: Frontal view of the chest shows no acute finding. There is some hyperinflation with areas of vascular attenuation suspicious for COPD. No acute rib fracture apparent. Old fractures noted of the left 7th and 8th rib. No evidence of pneumothorax. There is an epidural stimulator device present with the cephalad portion of the leads at the L1 level. There has been a prior CABG. IMPRESSION: No acute findings. Dictated by: Stephen Rios MD 05/30/2020 11:54 Stephen Rios MD in [place] 05/30/2020 11:54
== END ==
PROVIDERS: PCP Family Medicine; Visit Provider Family Medicine
DX: R07.89 Other chest pain (principal)
CPT/HCPCS: 71101

== ENCOUNTER → 2020-07-29 12:47 | Outpatient (CLI) | payer BC, SELFPAY ==
[2020-07-29 14:25] LABS: Chloride 101 mmol/L (98-107); Potassium 4.6 mmoL/L (3.5-5.1); Sodium 142 mmol/L (136-145)
[2020-07-29 14:28] LABS: Blood Urea Nitrogen 12 mg/dl (9-20); Estimated Glomerular Filt Rate 114 ml/min (>60); GFR (African American) 138 ML/MIN (>60)
[2020-07-29 14:29] LABS: Anion Gap 15.6 mEq/L (5-15); Calcium 9.7 mg/dl (8.4-10.2); Carbon Dioxide 30 mmol/L (22.0-30.0); Glucose 108 mg/dl (74-100)
== END ==
PROVIDERS: Visit Provider Nurse Practitioner Family
DX: R10.11 Right upper quadrant pain (principal)
CPT/HCPCS: 36415; 80048

== ENCOUNTER → 2020-11-25 13:48 | Outpatient (CLI) | payer BC, SELFPAY ==
[2020-11-25 14:18] LABS: Basophils # 0.1 K/mm3 (0-0.2); Basophils % 0.8 % (0.1-2.0); Eosinophils # 0.2 K/mm3 (0.0-0.4); Hematocrit 47.5 % (42.0-52.0); Hemoglobin 16.2 g/dL (14.1-18.0); Lymphocytes # 3.4 K/mm3 (0.7-4.5); Lymphocytes % 29.9 % (10-50); Mean Corpuscular HGB Conc 34.1 g/dL (31.8-35.4); Mean Corpuscular Hemoglobin 32.7 pg (27.0-31.2); Mean Corpuscular Volume 95.8 fl (80-94); Mean Platelet Volume 8.8 fl (7.4-10.4); Monocytes # 0.8 K/mm3 (0.1-1.0); Monocytes % 6.5 % (1.7-9.3); Neutrophils % 60.7 % (37.0-80.0); Platelet Count 158 K/mm3 (142-424); Red Blood Count 4.96 M/mm3 (4.60-6.20); Red Cell Distribution Width 12.6 % (11.5-17.5); White Blood Count 11.5 K/mm3 (4.8-10.8)
[2020-11-25 23:39] LABS: Anion Gap 14.9 mEq/L (5-15); Blood Urea Nitrogen 10 mg/dl (9-20); Calcium 9.6 mg/dl (8.4-10.2); Carbon Dioxide 29 mmol/L (22.0-30.0); Chloride 100 mmol/L (98-107); Estimated Glomerular Filt Rate 137 ml/min (>60); GFR (African American) 165 ML/MIN (>60); Glucose 175 mg/dl (74-100); Potassium 4.9 mmoL/L (3.5-5.1); Sodium 139 mmol/L (136-145)
== END ==
PROVIDERS: Visit Provider Urology
DX: Z01.812 Encounter for preprocedural laboratory examination (principal); Z11.52 Encounter for screening for COVID-19; I20.8 Other forms of angina pectoris; I10 Essential (primary) hypertension; E11.9 Type 2 diabetes mellitus without complications; E78.5 Hyperlipidemia, unspecified; R91.1 Solitary pulmonary nodule; F17.200 Nicotine dependence, unspecified, uncomplicated; Z95.1 Presence of aortocoronary bypass graft; Z79.84 Long term (current) use of oral hypoglycemic drugs
CPT/HCPCS: 80048; 85025; C9803; U0003; U0005

== ENCOUNTER 2020-11-26 08:57 | Day surgery (SDC) | payer BC, SELFPAY ==
[2020-11-26] VITALS (14 sets, daily range): BP systolic 117–160; BP diastolic 53–93; PULSE 56–65; RESP 16–20; O2SAT 95–98; BMI 23.3
--- NOTE | 2020-11-26 07:16 | IR_ITS ---
APPROVED REPORT Patient Location: Outpatient PROCEDURES Left heart catheterization Left ventriculogram Selective coronary angiogram Selective engagement of the left internal mammary artery to the LAD Selective engagement of saphenous vein graft to the distal circumflex artery Drug-eluting stent deployment to the ostial saphenous vein graft supplying the distal circumflex artery INDICATION Coronary disease, Accelerated angina pectoris, History of coronary bypass surgery, Informed consent was obtained prior to the procedure. COMPLICATIONS NONE Estimated Blood Loss: LESS THAN 10 ML TECHNIQUE One percent lidocaine used to anesthetize the right groin. The right femoral artery was accessed via the Seldinger technique and a 5 [place] sheath was placed in the right femoral artery. A JL 4, JR4 catheter were used to perform left heart catheterization, left ventriculogram selective coronary angiography as well as selective engagement of the 1 vein graft. The saphenous vein graft to the right coronary was noted to be ostially occluded from a previous diagnostic catheterization therefore the patient was not subjected to additional contrast and radiation. At the end the diagnostic angiogram therapeutic heparin was administered giving a therapeutic ACT and the 5 [place] sheath was exchanged for a 6 [place] sheath. An LCB guide catheter was placed in the saphenous vein graft and a Choice PT extra-support wire was placed distally. A 3 mm x 12 mm resolute [place] stent was deployed at 24 shawn reducing the severe stenosis to 0%. MAR-3 flow was present before and after the procedure. At the end of the procedure the apparatus was removed the groin was reprepped gloves were changed sheath was removed and hemostasis was achieved using Perclose device patient was transferred to the postop holding area stable condition ANGIOGRAPHIC RESULTS The left main artery Has an ostial 30% stenosis The left anterior descending artery Is proximally patent and then occluded at mid segment. The circumflex artery Appears to be a dominant vessel and has proximal 50% stenosis which supplies a small to moderate sized obtuse marginal artery. Distal to the obtuse marginal artery the circumflex artery is occluded The right coronary artery Ostially occluded The RENTERIA ventriculogram reveals Preserved ejection fraction of 50% with mild inferior wall hypokinesis The left ventricular end-diastolic pressure 10 mmHg Left internal mammary artery is widely patent to the LAD Saphenous vein graft to the circumflex artery has an ostial 70% stenosis with proximally patent stents with mild atheromatous and in-stent restenosis plaque nothing greater than 20%. Distally a 30 to 40% stenosis is present in the vein graft prior to the anastomosis with the sokaogon circumflex artery. IMPRESSION Coronary disease as described above Successful stenting of the saphenous vein graft to the circumflex artery severe disease reduced to 0% with 1 drug-eluting stent Ejection fraction 50% with regional wall motion abnormality Normal left ventricular end-diastolic pressure PLAN 1. Dual antiplatelet therapy 2. LDL less than 55 3. Cardiac rehabilitation 4. Avoidance of tobacco products Electronically signed by : Mo Jaquez MD 11/26/2020 12:26:37
[2020-11-26 13:16] LABS: CATHL Activated Clotting Time 325 SEC (74-125)
--- NOTE | 2020-11-26 14:22 | HMH.PHACLD ---
Darryn Ching has received discharge medication counseling on the following medications: -PLAVIX -ASA -METOPROLOL -RAMIPRIL -METFORMIN - HOLD UNTIL TUESDAY. PATIENT ALSO ASKED ME ABOUT ATORVASTATIN. I STATED THAT HE DISCUSSED WITH HIS PROVIDERS THAT HE COULDN'T TOLERATE IT DUE TO 'FRANCES HORSES IN MY CALVES . I TOLD PT THAT THIS WAS NOT RESTARTED.
== END 2020-11-26 15:11 ==
PROVIDERS: PCP Family Medicine; Visit Provider Internal Medicine
DX: I25.110 Atherosclerotic heart disease of native coronary artery with unstable angina pectoris (principal); I10 Essential (primary) hypertension; E11.9 Type 2 diabetes mellitus without complications; I25.82 Chronic total occlusion of coronary artery; I42.9 Cardiomyopathy, unspecified; I25.2 Old myocardial infarction; Z95.1 Presence of aortocoronary bypass graft; I25.83 Coronary atherosclerosis due to lipid rich plaque; F17.210 Nicotine dependence, cigarettes, uncomplicated; R91.1 Solitary pulmonary nodule; Z79.01 Long term (current) use of anticoagulants; E78.5 Hyperlipidemia, unspecified; Z79.899 Other long term (current) drug therapy; Z79.84 Long term (current) use of oral hypoglycemic drugs
CPT/HCPCS: 85347; 92937; 93459; 99152; C1725; C1760; C1769; C1876; C1894; C9604; J1644; Q9967

== ENCOUNTER → 2020-12-02 09:56 | Outpatient (CLI) | payer BC, SELFPAY ==
[2020-12-02 11:01] LABS: Alanine Aminotransferase 11 U/L (12-78); Albumin Level 4.1 g/dl (3.5-5.0); Alkaline Phosphatase 81 U/L (38-126); Aspartate Amino Transferase 17 U/L (17-59); Bilirubin,Direct 0.3 mg/dl (0.0-0.4); Bilirubin,Total 0.3 mg/dl (0.2-1.3); Chol/HDL Ratio 6.9 (1-3.5); Cholesterol 158 mg/dl (140-200); HDL Cholesterol 23 mg/dl (40-60); Total Protein,Serum 6.8 g/dl (6.3-8.2); Triglycerides 175 mg/dl (30-150); VLDL Cholesterol 35 mg/dL (0-40)
[2020-12-02 11:12] LABS: Direct LDL Cholesterol 105.46 mg/dL (100-129)
== END ==
PROVIDERS: Visit Provider Physician Assistant
DX: I10 Essential (primary) hypertension (principal); E78.5 Hyperlipidemia, unspecified
CPT/HCPCS: 36415; 80061; 80076

== ENCOUNTER 2021-05-22 12:12 | Inpatient (IN) | payer BC, MEDICARE, SELFPAY ==
[2021-05-22] VITALS (23 sets, daily range): BP systolic 109–153; BP diastolic 62–85; PULSE 70–90; RESP 13–20; TEMP 36.5–36.8; O2SAT 94–98; BMI 23.6; BMI 226.0
--- NOTE | 2021-05-22 12:11 | ECG_ITS ---
APPROVED REPORT Exam: Resting ECG HR:86 bpm ECG Measurements Heart Rate 86 AXES OR 188 P 76 QRSd 92 QRS 81 QT 354 T 79 QTc 397 Conclusion SINUS RHYTHM MODERATE ST DEPRESSION [0.05+ mV ST DEPRESSION] ABNORMAL ECG UNCONFIRMED REPORT Electronically signed by : Clayton Garcia MD 05/22/2021 14:49:24
--- NOTE | 2021-05-22 12:14 | PC.NURSE ---
STEMI ALERT CALLED
--- NOTE | 2021-05-22 12:18 | XR_ITS ---
FINAL REPORT TECHNIQUE: Single view chest CLINICAL HISTORY: CHEST PAIN FINDINGS: A single view of the chest was obtained. The heart and mediastinum are within normal limits. Patient is status post median sternotomy. The lungs are clear. There is no pneumothorax. Osseous structures are unremarkable. IMPRESSION: No acute cardiopulmonary process. Reviewed, Interpreted and Dictated by Davon Root III, MD Transcribed by Lis Billy Authenticated by Davon Root III, MD on 05/22/2021 12:46:35 PM [facility]
--- NOTE | 2021-05-22 12:20 | HMH.EDCP ---
ED Disposition Clinical Impression: Chest pain Qualifiers: Chest pain type: chest pain due to myocardial ischemia STEMI (ST elevation myocardial infarction) Qualifiers: Involved coronary artery: other inferior wall coronary artery Qualified Code(s): I21.19 - ST elevation (STEMI) myocardial infarction involving other coronary artery of inferior wall Disposition: Admitted as Observation Condition on Discharge: Serious - Critical Care Critical Care Time: No Attestation: On , the high probability of a clinically significant, sudden or life threatening deterioration of the following system(s) required my full and direct attention, intervention and personal management. The time I documented below is in addition to time spent performing reported procedures but includes the following listed in this critical care notation. Medical Decision Making - Medical Records Medical records reviewed: Yes: I reviewed the patient's medical records. - Sagar Inquiry Pt receiving controlled substance: No Vital Signs: 05/22/21 12:16 05/22/21 12:40 05/22/21 12:55 Temperature 98 F Temperature Source Oral Pulse Rate 87 Pulse Rate [Radial] 85 70 79 Respiratory Rate 16 18 18 Blood Pressure 116/73 Blood Pressure [Right Arm] 146/70 H 143/70 H 148/75 H Blood Pressure Mean 89 Blood Pressure Mean [Right Arm] 95 94 99 Blood Pressure Source [Right Arm] Automatic Cuff Automatic Cuff Blood Pressure Position [Right Arm] Sitting Sitting Sitting 02 Sat by Pulse Oximetry 98 98 98 Oxygen Delivery Method Room Air Room Air Room Air 05/22/21 13:09 Temperature 98 F Temperature Source Oral Pulse Rate 71 Pulse Rate [Radial] Respiratory Rate 16 Blood Pressure 116/73 Blood Pressure [Right Arm] Blood Pressure Mean Blood Pressure Mean [Right Arm] Blood Pressure Source [Right Arm] Blood Pressure Position [Right Arm] 02 Sat by Pulse Oximetry Oxygen Delivery Method Room Air - Lab Data Lab results reviewed: Yes: I reviewed the patient's lab results. Lab Results 05/22/21 12:16: WBC 13.2 H, RBC 4.94, Hgb 16.4, Hct 47.3, MCV 95.7 H, MCH 33.1 H, MCHC 34.6, RDW 13.2, Plt Count 101 L, MPV 9.3, Neut % (Auto) 73.6, Lymph % (Auto) 17.6, [place] % (Auto) 6.3, Eos % (Auto) 1.0, Baso % (Auto) 1.6, Neut # (Auto) 9.7 H, Lymph # (Auto) 2.3, [place] # (Auto) 0.8, Eos # (Auto) 0.1, Baso # (Auto) 0.2 05/22/21 12:16: Sodium 140, Potassium 4.5, Chloride 101, Carbon Dioxide 31 H, Anion Gap 12.5, BUN 15, Creatinine 0.80, Estimated Creat Clear 78, Estimated GFR 98, Est GFR ( Amer) 118, Glucose 121 H, Calcium 9.5, Troponin I < 0.01 Result diagrams: 05/22/21 12:16 05/22/21 12:16 Orders (Tests/Meds): ED MEDICATIONS Generic Name Dose Route Start Last Admin Trade Name Freq PRN Reason Stop Dose Admin Aspirin 81 mg 05/23/21 09:00 Aspirin 81mg Chewable Tablet PO 06/22/21 08:59 DAILY CHANTE Clopidogrel Bisulfate 75 mg 05/22/21 09:00 05/22/21 13:28 Clopidogrel 75mg Tab PO 06/21/21 08:59 75 mg DAILY CHANTE Administration Fentanyl Citrate 25 mcg 05/22/21 12:23 Fentanyl 250mcg/5ml Vial IV 05/23/21 12:23 Q3MINP PRN Moderate to Severe Pain Fentanyl Citrate 50 mcg 05/22/21 12:23 Fentanyl 250mcg/5ml Vial IV 05/23/21 12:23 Q3MINP PRN Moderate to Severe Pain Fentanyl Citrate 25 mcg 05/22/21 12:23 05/22/21 13:16 Fentanyl 100mcg/2ml Vial IV 05/23/21 12:23 125 mcg Q3MINP PRN Administration Moderate to Severe Pain Fentanyl Citrate 50 mcg 05/22/21 12:23 Fentanyl 100mcg/2ml Vial IV 05/23/21 12:23 Q3MINP PRN Moderate to Severe Pain Flumazenil 0.2 mg 05/22/21 12:23 Flumazenil 0.1mg/Ml 5ml Vial IV 05/22/21 23:00 NEEDED PRN Sedation Heparin Sodium (Porcine) 10,000 unit 05/22/21 12:23 05/22/21 13:16 Heparin 1,000 Units/Ml 10ml Vial (Slope Hoist Operator) IV 05/22/21 16:23 7,000 unit NEEDED PRN Administration Emergency Box Master Barber Sodium Chloride 1,000 mls
[2021-05-22 12:25] LABS: Basophils # 0.2 K/mm3 (0-0.2); Basophils % 1.6 % (0.1-2.0); Eosinophils # 0.1 K/mm3 (0.0-0.4); Hematocrit 47.3 % (42.0-52.0); Hemoglobin 16.4 g/dL (14.1-18.0); Lymphocytes # 2.3 K/mm3 (0.7-4.5); Lymphocytes % 17.6 % (10-50); Mean Corpuscular HGB Conc 34.6 g/dL (31.8-35.4); Mean Corpuscular Hemoglobin 33.1 pg (27.0-31.2); Mean Corpuscular Volume 95.7 fl (80-94); Mean Platelet Volume 9.3 fl (7.4-10.4); Monocytes # 0.8 K/mm3 (0.1-1.0); Monocytes % 6.3 % (1.7-9.3); Neutrophils # 9.7 K/mm3 (1.8-7.8); Neutrophils % 73.6 % (37.0-80.0); Platelet Count 101 K/mm3 (142-424); Red Blood Count 4.94 M/mm3 (4.60-6.20); Red Cell Distribution Width 13.2 % (11.5-17.5); White Blood Count 13.2 K/mm3 (4.8-10.8)
--- NOTE | 2021-05-22 12:27 | PC.NURSE ---
Spoke with PattiRN in dental laboratory technician apprentice. She advised they had someone on the table at this time stenting them and would call us when they were ready for the patient to come up. Pt is prepped and ready for dental laboratory technician apprentice at this time. Clothing removed, consent signed, STEMI report filled out, groin prepped, 18G in the left AC established per myself. Pt has pads placed and on zoll monitor at this time.
[2021-05-22 12:35] LABS: Anion Gap 12.5 mEq/L (5-15); Blood Urea Nitrogen 15 mg/dl (9-20); Calcium 9.5 mg/dl (8.4-10.2); Carbon Dioxide 31 mmol/L (22.0-30.0); Chloride 101 mmol/L (98-107); Creatinine Clearance Estimated 78 mL/min (50-200); Estimated Glomerular Filt Rate 98 ml/min (>60); GFR (African American) 118 ML/MIN (>60); Glucose 121 mg/dl (74-100); Potassium 4.5 mmoL/L (3.5-5.1); Sodium 140 mmol/L (136-145)
--- NOTE | 2021-05-22 12:35 | PC.NURSE ---
speaking with Dr. Valenzuela
--- NOTE | 2021-05-22 12:36 | PC.NURSE ---
on the phone with
--- NOTE | 2021-05-22 12:47 | PC.NURSE ---
TO PROPOSITION PLAYER PER STRETCHER
[2021-05-22 12:53] LABS: Troponin I < 0.01 ng/ml (0.00-0.034)
--- NOTE | 2021-05-22 12:57 | PC.NURSE ---
notified care management of pt, spoke with balwinder
--- NOTE | 2021-05-22 13:00 | PC.NURSE ---
1256 bed assignment requested, room 213. all staff notified
--- NOTE | 2021-05-22 13:44 | HMH.PHAVTE ---
[facility] Pharmacy VTE Monitoring - Patient Demographics Admission date: 05/22/21 Report Date: 05/22/21 Time: 13:44 Allergies/Adverse Reactions: Patient Allergies propoxyphene Allergy (Intermediate, Verified 05/22/21 11:27) atorvastatin [From Lipitor] Adverse Reaction (Severe, Verified 05/22/21 11:27) rosuvastatin [From Crestor] Adverse Reaction (Severe, Verified 05/22/21 11:27) hydrocodone [From LORTAB] Adverse Reaction (Mild, Verified 05/22/21 11:27) NA-NAUSEA/VOMITING Height: 1.75 m Weight: 72.575 kg Patient Problems: Current Active Problems Chest pain (Acute) STEMI (ST elevation myocardial infarction) (Acute) - VTE Risk Labs: VTE Related Lab Results Hgb 16.4 g/dL (14.1-18.0) 05/22/21 12:16 Hct 47.3 % (42.0-52.0) 05/22/21 12:16 Plt Count 101 K/mm3 (142-424) L 05/22/21 12:16 BUN 15 mg/dl (9-20) 05/22/21 12:16 Creatinine 0.80 mg/dl (0.66-1.25) 05/22/21 12:16 Estimated Creat Clear 78 mL/min (50-200) 05/22/21 12:16 - Prophylaxis VTE Prophylaxis Ordered?: Yes Types of VTE Prophylaxis: TEDS Knee High Location of Applied Device: Bilateral Lower Extremeties
--- NOTE | 2021-05-22 13:49 | HMH.PHAINT ---
MEDICATION RECONCILIATION COMPLETED ON PATIENT USING EXTERNAL FILL HISTORY FROM PHARMACY AND LIST FORM CARDIOLOGY OFFICE. -JANINE AAMYAD
--- NOTE | 2021-05-22 14:19 | HMH.PNCARD ---
Subjective Date: 05/22/21 Time: 14:19 Principal diagnosis: STEMI Interval history: Patient was seen in the office today. Office note as noted below: 3 mo fu, having chest pain. Having cp & pressure with activity & at rest, currently having pain right now. SOB with activity Denies dizziness & lightheadedness Swelling in feet Denies numbness Denies fatigue Characteristics of symptom or complaint:?cp Location:?upper rt side of chest Duration:?15-20 min off and on since last night Intensity:?8/10 Radiation:?No Aggravating or associated factors:?none Relieving factors:?none Associated Symptoms:?none CAD is present. VISHNU to?saphenous vein graft to the circumflex, 03/2020. Hx of CABG in 2007. VISHNU in 2016. STEMI and VISHNU to SVG to Cx 12/2019. DAPT with ASA and Plavix. HTN-BP elevate. Pt wt up 2 lbs ECHO in 12/2019 showed EF of 55%. HLD-LDL goal is < 55. Managed by PCP. On Repatha injections. DM is present. controlled per PCP. Tobacco user. Tobacco cessation advised and counseled. Lung nodules present. Repeat CT due 02/2021. Managed by PCP. EKG changes, with ST elevation inferior leads compared to old ECG. Continues to have anginal symptoms while in office today these started last night. Would recommend cardiac catheterization today suspect non-STEMI/STEMI. Plan: Transfer to emergency room for evaluation of angina This document was scribed by Viviane Lopez RN for Vinh Noe MD. Exam Vital signs and Labs for Last 24 Hours: Temp Pulse Resp BP Pulse Ox 98 F 78 18 123/74 95 05/22/21 13:09 05/22/21 13:55 05/22/21 13:55 05/22/21 13:55 05/22/21 13:55 Laboratory Results - last 24 hr 05/22/21 12:16: WBC 13.2 H, RBC 4.94, Hgb 16.4, Hct 47.3, MCV 95.7 H, MCH 33.1 H, MCHC 34.6, RDW 13.2, Plt Count 101 L, MPV 9.3, Neut % (Auto) 73.6, Lymph % (Auto) 17.6, [place] % (Auto) 6.3, Eos % (Auto) 1.0, Baso % (Auto) 1.6, Neut # (Auto) 9.7 H, Lymph # (Auto) 2.3, [place] # (Auto) 0.8, Eos # (Auto) 0.1, Baso # (Auto) 0.2 05/22/21 12:16: Sodium 140, Potassium 4.5, Chloride 101, Carbon Dioxide 31 H, Anion Gap 12.5, BUN 15, Creatinine 0.80, Estimated Creat Clear 78, Estimated GFR 98, Est GFR ( Amer) 118, Glucose 121 H, Calcium 9.5, Troponin I < 0.01 I & O for Last 24 hours: Intake & Output 05/20/21 05/21/21 05/22/21 05/23/21 11:59 11:59 11:59 11:59 Weight 160 lb - Constitutional no acute distress - *Routine Respiratory Exam Present: CTA bilaterally - *Routine Cardiovascular Exam Present: RRR - *Routine Extremities Exam Absent: cyanosis, clubbing, edema - *Routine Neurological Exam Present: alert, oriented X3 Progress Note: A&P (1) Acute ST elevation myocardial infarction (STEMI) of inferior wall Status: Acute (2) History of abdominal aortic aneurysm (AAA) Status: Chronic (3) Hx of CABG Status: Chronic (4) Hyperlipidemia Status: Chronic (5) Hypertension Status: Chronic (6) Tobacco use disorder Status: Chronic Assessment and Plan for All Diagnoses:: 1. Patient was taken from the ER to the Filling Machine Set Up Mechanic with further evaluation recommendations pending.
[2021-05-22 14:29] LABS: CATHL Activated Clotting Time 373 SEC (74-125)
--- NOTE | 2021-05-22 16:00 | PC.NURSE ---
1600 noted dressing to right groin with blood soaked guaze, dressing changed, pharmacy laboratory technician aware and sandbag applied, no hematoma noted. pt resting with eyes closed.
--- NOTE | 2021-05-22 16:30 | PC.NURSE ---
1630 marcin mcgee on floor making rounds and was informed that pt dressing changed as previous dressing was saturated, sandbag placed, and pt complaints of chest and back pain, everardo at pt's bedside and assessed groin site, spoke to family at bedside, everardo stated he will put orders in for morphine.
--- NOTE | 2021-05-22 16:36 | HMH.HP ---
*Admission Date: 05/22/21 <Naty Yanez 05/22/21 16:44> *Chief complaint: chest pain <Naty Yanez 05/22/21 16:44> *History of present illness: The patient presented to the emergency department complaining of right-sided chest pain that began 11:00 last night. It has been constant. He was seen by his administrative services manager in the office today and underwent an ECG. The ECG showed ST elevations inferiorly consistent with myocardial infarction. The patient was immediately sent to the emergency department where repeat EKG was performed. It also showed ST elevations inferiorly without any reciprocal changes. Mr. Do, the cardiology physician assistant softball coach, was in the emergency department at this time. He activated the Licensed Master Social Worker and the patient has already gone to cardiac catheterization. After the patient has left the emergency department, his troponin came back undetectable. Over the last the patient is undergoing cardiac catheterization at this time. Will be admitted to Dr. Valenzuela service. (above as per ER physician) The patient does continue with pain across his chest. It is not as bad as it was this am. <Naty Yanez 05/22/21 16:44> [facility] History I have reviewed the patient's past medical history: Yes <Naty Yanez 05/22/21 16:44> Medical History: Reports:: Anxiety, Cardiomyopathy, Coronary Artery Disease, Diabetes Mellitus Type 2, Gastroesophageal Reflux Disease(GERD), Hyperlipidemia, Hypertension, Kidney Stones, MRSA, Myocardial Infarction, Ulcer Denies:: Cancer, Diabetes Mellitus Type 1, Internal Pacemaker, Lung Disease, Seizures <Naty Yanez 05/22/21 16:44> *Have you ever received a pneumonia vaccine?: No <Naty Yanez 05/22/21 16:44> *Have you received a flu vaccine this season?: No <Naty Yanez 05/22/21 16:44> Other Medical History: Reports: Arthritis <Naty Yanez 05/22/21 16:44> Laterality Cases: Left: Arthroscopy Knee, Bilateral: Other <Naty Yanez 05/22/21 16:44> Other Surgeries: Yes: CABG, Cardiac Catheterization, Cardiac Surgery, Coronary Stent, Other. No: Pacemaker <Naty Yanez 05/22/21 16:44> Amputation: No <Naty Yanez 05/22/21 16:44> Fractures: Yes <SylvainzaneNaty 05/22/21 16:44> - *Social History Last grade of school completed: GED <BeauNaty 05/22/21 16:44> Smoking Status: Current every day smoker <Naty Yanez 05/22/21 16:44> Tobacco Type: cigarettes <Naty Yanez 05/22/21 16:44> # Packs/Day (cigarettes): 1 <Naty Yanez 05/22/21 16:44> Alcohol Intake: never <Naty Yanez 05/22/21 16:44> Alcohol Intake Frequency:: other <Naty Yanez 05/22/21 16:44> Substance Use Type: denies use <Naty Yanez 05/22/21 16:44> *Occupational Status:: employed <Naty Yanez 05/22/21 16:44> Housing: house <Naty Yanez 05/22/21 16:44> Household Members: spouse <SylvainzaneNaty 05/22/21 16:44> *Travel in the last 8 weeks: None <Naty Yanez 05/22/21 16:44> - Psychiatric History Pschychiatric History:: Reports:: Anxiety <Naty Yanez 05/22/21 16:44> Family Hx:: Cancer, Coronary Artery Disease <Naty Yanez 05/22/21 16:44> Review of Systems - Constitutional Denies chills, Denies fever(s) <Naty Yanez 05/22/21 16:44> - Eyes Denies blurry vision, Denies double vision <Naty Yanez 05/22/21 16:44> - ENT Denies nasal congestion, Denies sore throat <Naty Yanez 05/22/21 16:44> - *Cardiovascular Reports chest pain, Reports shortness of breath, Denies leg swelling <Naty Yanez 05/22/21 16:44> - *Respiratory Denies chest congestion, Denies cough <Naty Yanez 05/22/21 16:44> - *Gastrointestinal Denies abdominal pain, Denies loose stools, Denies nausea, Denies vomiting <Naty Yanez 05/22/21 16:44> - *Genitourinary Denies difficulty urinating, Denies painful urination <Naty Yanez 05/22/21 16:44> - *Musculoskeletal Reports back pain, Denies joint pain <Naty Yanez 05/22/21 16:44> - *Neur
[2021-05-23] VITALS: BP 109/69; PULSE 84; PULSE 90; RESP 16; TEMP 36.9; O2SAT 96
[2021-05-23 04:00] VITALS: BP 117/68; PULSE 80; PULSE 81; RESP 18; TEMP 36.6; O2SAT 94
[2021-05-23 05:00] VITALS: BMI 22.7
[2021-05-23 08:00] VITALS: BP 113/71; PULSE 76; RESP 16; TEMP 36.7; O2SAT 92
--- NOTE | 2021-05-23 09:01 | HMH.ACPN2 ---
Internal Medicine - PN: Subj *Date: 05/23/21 *Time: 09:01 Interval history: Rested well last night. No complaints of chest pain this morning. He is eager to go home. Exam Vital signs and Labs for Last 24 Hours: Temp Pulse Resp BP Pulse Ox 98.1 F 76 16 113/71 92 L 05/23/21 08:00 05/23/21 08:00 05/23/21 08:00 05/23/21 08:00 05/23/21 08:00 Laboratory Results - last 24 hr 05/22/21 12:16: WBC 13.2 H, RBC 4.94, Hgb 16.4, Hct 47.3, MCV 95.7 H, MCH 33.1 H, MCHC 34.6, RDW 13.2, Plt Count 101 L, MPV 9.3, Neut % (Auto) 73.6, Lymph % (Auto) 17.6, [place] % (Auto) 6.3, Eos % (Auto) 1.0, Baso % (Auto) 1.6, Neut # (Auto) 9.7 H, Lymph # (Auto) 2.3, [place] # (Auto) 0.8, Eos # (Auto) 0.1, Baso # (Auto) 0.2 05/22/21 12:16: Sodium 140, Potassium 4.5, Chloride 101, Carbon Dioxide 31 H, Anion Gap 12.5, BUN 15, Creatinine 0.80, Estimated Creat Clear 78, Estimated GFR 98, Est GFR ( Amer) 118, Glucose 121 H, Calcium 9.5, Troponin I < 0.01 05/22/21 13:03: Activated Clotting Time 373 H* I & O for Last 24 hours: Intake & Output 05/20/21 05/21/21 05/22/21 05/23/21 11:59 11:59 11:59 11:59 Intake Total 480 / 480 Output Total 750 / 750 Balance -270 / -270 Weight 153 lb 12.8 oz Narrative: He is sitting up in bed and is alert and oriented. Color is normal. Lungs are clear to auscultation. Heart is regular with no ectopy. Extremities show no edema. library monitor shows normal sinus rhythm. Assessment and Plan (1) Acute ST elevation myocardial infarction (STEMI) of inferior wall Status: Acute Category: Medical Code(s): I21.19 - ST elevation (STEMI) myocardial infarction involving other coronary artery of inferior wall (2) History of abdominal aortic aneurysm (AAA) Status: Chronic Category: Medical Code(s): Z86.79 - Personal history of other diseases of the circulatory system (3) Hx of CABG Status: Chronic Category: Surgical Code(s): Z95.1 - Presence of aortocoronary bypass graft (4) Hyperlipidemia Status: Chronic Qualifiers: Hyperlipidemia type: mixed hyperlipidemia Qualified Code(s): E78.2 - Mixed hyperlipidemia Category: Medical Code(s): E78.5 - Hyperlipidemia, unspecified (5) Hypertension Status: Chronic Qualifiers: Hypertension type: essential hypertension Qualified Code(s): I10 - Essential (primary) hypertension Category: Medical Code(s): I10 - Essential (primary) hypertension (6) Tobacco use disorder Status: Chronic Category: Medical Code(s): F17.200 - Nicotine dependence, unspecified, uncomplicated (7) Anxiety disorder Status: Chronic Category: Medical Code(s): F41.9 - Anxiety disorder, unspecified (8) Coronary artery disease Status: Chronic Qualifiers: Coronary Disease-Associated Artery/Lesion type: [place] artery [place] vs. transplanted heart: [place] heart Associated angina: without angina Qualified Code(s): I25.10 - Atherosclerotic heart disease of [place] coronary artery without angina pectoris Category: Medical Code(s): I25.10 - Atherosclerotic heart disease of [place] coronary artery without angina pectoris (9) Diabetes mellitus Status: Chronic Qualifiers: Diabetes mellitus type: type 2 Diabetes mellitus adjunct faculty for medical terminology insulin use: without skilled nursing use Diabetes mellitus complication status: with neurologic complications Diabetes mellitus complication detail: with polyneuropathy Qualified Code(s): E11.42 - Type 2 diabetes mellitus with diabetic polyneuropathy Category: Medical Code(s): E11.9 - Type 2 diabetes mellitus without complications (10) GERD (gastroesophageal reflux disease) Status: Chronic Qualifiers: Esophagitis presence: esophagitis presence not specified Qualified Code(s): K21.9 - Gastro-esophageal reflux disease without esophagitis Category: Medical Code(s): K21.9 - Gastro-esophageal reflux disease without esophagitis (11) Peripheral neuropathy Status: C
--- NOTE | 2021-05-23 10:25 | HMH.PHACLD ---
Addendum entered and electronically signed by Flaco Pinto PharmD 05/23/21 10:31: DISCUSSED WITH PATIENT HOLDING METFORMIN DUE TO CONTRAST IN PROCEDURE UNTIL TUESDAY. Original Note: Darryn Ching has received discharge medication counseling on the following medications: PATIENT IS CURRENTLY TAKING ASPIRIN EC 81 MG DAILY, METOPROLOL SUCCINATE 100 MG DAILY, CLOPIDOGREL 75 MG DAILY, AND RAMIPRIL 10 MG DAILY. UNABLE TO TOLERATE MULTIPLE STATINS.
--- NOTE | 2021-05-25 13:26 | HMH.DCSUM ---
General - General Admission date:: 05/22/21 <Cesar Valenzuela - 06/02/21 08:42> 05/22/21 <Naty Yanez - 05/25/21 13:29> Discharge date: 05/23/21 <Naty Yanez - 05/25/21 13:29> HPI HPI: The patient presented to the emergency department complaining of right-sided chest pain that began 11:00 last night. It has been constant. He was seen by his frame sample and pattern supervisor in the office today and underwent an ECG. The ECG showed ST elevations inferiorly consistent with myocardial infarction. The patient was immediately sent to the emergency department where repeat EKG was performed. It also showed ST elevations inferiorly without any reciprocal changes. Mr. Do, the cardiology physician clerical dentist assistant, was in the emergency department at this time. He activated the Parts Clerk and the patient has already gone to cardiac catheterization. After the patient has left the emergency department, his troponin came back undetectable. Over the last the patient is undergoing cardiac catheterization at this time. Will be admitted to Dr. Valenzuela service. (above as per ER physician) The patient does continue with pain across his chest. It is not as bad as it was this am. <Naty Yanez - 05/25/21 13:29> Hospital Course Hospital Course: The patient was taken to the Parts Clerk and received an additional stent to the saphenous vein graft to the circumflex artery. Cardiology wanted the patient continued on home medications and monitor overnight. By 05/23/21, he had no further chest pain and was anxious to go home. He was stable for discharge and will follow up with cardiology in 1 week. <Naty Yanez - 05/25/21 13:29> Objective Vital signs: Temp Pulse Resp BP Pulse Ox 98.1 F 76 16 113/71 92 L 05/23/21 08:00 05/23/21 08:00 05/23/21 08:00 05/23/21 08:00 05/23/21 08:00 <Cesar Valenzuela - 06/02/21 08:42> Temp Pulse Resp BP Pulse Ox 98.1 F 76 16 113/71 92 L 05/23/21 08:00 05/23/21 08:00 05/23/21 08:00 05/23/21 08:00 05/23/21 08:00 <Naty Yanez - 05/25/21 13:29> Narrative: - Constitutional no acute distress - *Routine HEENT Exam Head: Present: normocephalic Eye: Present: EOMI, PERRL ENT: Present: mucous membranes moist - *Routine Neck Exam Present: supple. Absent: lymphadenopathy - *Routine Respiratory Exam Present: CTA bilaterally - *Routine Cardiovascular Exam Present: RRR Comments: scar from previous CABG, tender across entire chest to palpation - *Routine Abdominal Exam Present: soft, normoactive bowel sounds, tenderness (epigastric area) - *Routine Rectal Exam Rectal:: deferred - *Routine Genitalia Exam Genitalia:: deferred - *Routine Extremities Exam Absent: cyanosis, clubbing, edema - *Routine Skin Exam Present: warm. Absent: rash - *Routine Neurological Exam Present: alert, oriented X3 <Naty Yanez - 05/25/21 13:29> DS: Diagnosis - Discharge Diagnosis (1) Acute ST elevation myocardial infarction (STEMI) of inferior wall Status: Acute (2) History of abdominal aortic aneurysm (AAA) Status: Chronic (3) Hx of CABG Status: Chronic (4) Hyperlipidemia Status: Chronic (5) Hypertension Status: Chronic (6) Tobacco use disorder Status: Chronic (7) Anxiety disorder Status: Chronic (8) Coronary artery disease Status: Chronic (9) Diabetes mellitus Status: Chronic (10) GERD (gastroesophageal reflux disease) Status: Chronic (11) Peripheral neuropathy Status: Chronic (12) Status post coronary artery stent placement Status: Acute <Naty Yanez - 05/25/21 13:26> (1) Acute ST elevation myocardial infarction (STEMI) of inferior wall Status: Acute (2) History of abdominal aortic aneurysm (AAA) Status: Chronic (3) Hx of CABG Status: Chronic (4) Hyperlipidemia Status: Chronic (5) Hypertension Status: Chronic (6) Tobacco u
--- NOTE | 2021-05-26 16:19 | CARE MANAGER ---
Unable to reach patient via phone to discuss post discharge status.
== END 2021-05-23 09:56 | disposition home or self-care (01) | DRG 247 ==
LOC: ER 12:41 → 2ND 13:04
PROVIDERS: Internal Medicine; Admitting Provider Family Medicine; Emergency Provider Emergency Medicine; Visit Provider Family Medicine
PROC: 027035Z Dilation of Coronary Artery, One Artery with Two Drug-eluting Intraluminal Devices, Percutaneous Approach (ICD-10-PCS; principal; 2021-05-22 12:30)
DX: I21.19 ST elevation (STEMI) myocardial infarction involving other coronary artery of inferior wall (principal); I42.9 Cardiomyopathy, unspecified; Z95.5 Presence of coronary angioplasty implant and graft; Z95.1 Presence of aortocoronary bypass graft; F17.210 Nicotine dependence, cigarettes, uncomplicated; E11.42 Type 2 diabetes mellitus with diabetic polyneuropathy; F41.9 Anxiety disorder, unspecified; I25.10 Atherosclerotic heart disease of native coronary artery without angina pectoris; K21.9 Gastro-esophageal reflux disease without esophagitis; E78.5 Hyperlipidemia, unspecified; E11.69 Type 2 diabetes mellitus with other specified complication; Z79.84 Long term (current) use of oral hypoglycemic drugs; M19.90 Unspecified osteoarthritis, unspecified site; E78.2 Mixed hyperlipidemia
CPT/HCPCS: 71045; 80048; 84484; 85025; 85347; 92941; 93005; 93459; 99152; 99285; C1725; C1760; C1769; C1876; C1894; C9606; J1644; Q9967

== ENCOUNTER → 2021-06-02 08:51 | Outpatient (CLI) | payer BC, SELFPAY ==
[2021-06-02 09:51] LABS: Blood Urea Nitrogen 11 mg/dl (9-20); Estimated Glomerular Filt Rate 98 ml/min (>60); GFR (African American) 118 ML/MIN (>60)
[2021-06-02 09:58] LABS: Hematocrit 47.8 % (42.0-52.0)
== END ==
PROVIDERS: Visit Provider Family Medicine
DX: I21.19 ST elevation (STEMI) myocardial infarction involving other coronary artery of inferior wall (principal)
CPT/HCPCS: 36415; 82565; 84520; 85014; 85018

== ENCOUNTER → 2021-06-08 08:09 | Outpatient (CLI) | payer BC, SELFPAY ==
--- NOTE | 2021-06-08 | CA_ITS ---
APPROVED REPORT EXAM: Comprehensive 2D, Doppler, and color-flow Echocardiogram Jack Prizer: Tamara Hudson, RCS, RVS Ht: 5 ft 9 in Wt: 160lbs BSA: 1.88 BP: 124/74 mmHg Indications: CDA, CABG, STENT, ABN EKG, DM, HTN, HLD, SOB, RECENT NV 2D Dimensions IVSd 1.15 cm LVEF (Visual) 68.30 % PWd 1.04 cm LA Volume 23.60 mL LVDd 3.77 cm LA Volume Index 12.60 mL/m2 (M/F) 16-34 LVDs 2.37 cm Aortic Root 2.98 cm Left Atrium 2.50 cm LVOT 2.08 cm (M/F) 1.5-2.5 M-Mode Dimensions RVDd 2.46 cm (0.9-2.6) LA Diam 3.05 cm (1.9-4.0) LVDd 4.31 cm (3.5-5.7) Ao Diam 3.32 cm (2.0-3.7) LVDs 2.99 cm (3.5-5.7) IVSd 1.13 cm (0.6-1.1) PWd 1.13 cm (0.6-1.1) EF (Teich) 58.40% EPSs 1.18 cm FS 30.60% EDV (Teich) 83.50 mL TAPSE 1.32 (<1.7) ESV (Teich) 34.70 mL LV Diastology E Decel Time 283.00 (160-240 msec) E/A Ratio 0.99 MED E' 8.40 (< 7 cm/sec) MED A' 12.10 cm/s E'/MED E' Ratio 7.60 (>14) LAT E' 11.30 (<10 cm/sec) LAT A' 10.90 cm/s E/LAT E' Ratio 5.65 (>14) Aortic Valve LVOT Max 75.00 (70-110 cm/s) LVOT VTI 19.80 cm AoV Peak Norman. 98.00 (50-130 cm/s) AO Peak GR. 3.90 mmHg AO Mean GR. 1.90 (<5 mmHg) AO VTI 20.41 (18-25 cm) CURLY (VTI) 3.30 (2.5-4.5 cm2) Mitral Valve MV A Velocity 64.00 (40-130 cm/s) E/A Ratio 0.99 MV Decel. Time 283.00 (160-240 ms) Pulmonary Valve PV Peak Velocity 84.00 (50-150 cm/s) Tricuspid Valve TR P. Velocity 239.00 cm/s RAP Estimate 10.00 mmHg RVSP 32.90 mmHg Left Ventricle Left atrium is mildly enlarged, left ventricle is normal size, mild concentric left ventricular hypertrophy, estimated ejection fraction 55% with no regional wall motion abnormality, grade 1 diastolic dysfunction seen without tissue Doppler evidence of raise left atrial pressure. Right Ventricle Right atrium and right ventricle are normal size and contractility. Aortic Valve Aortic valve is minimally thickened and calcified without aortic stenosis or aortic insufficiency. Mitral Valve Mitral valve is grossly normal, there is mild mitral regurgitation. Tricuspid Valve Tricuspid grossly normal, there is mild tricuspid regurgitation, calculated right ventricular systolic pressure 31 mmHg. Pulmonic Valve Pulmonic valve is poorly visualized. Great Vessels Aortic root is normal size. Inferior vena cava is poorly visualized. Pericardium No significant pericardial effusion noted. Conclusion 1. Mildly enlarged left atrium, normal left ventricular size, mild concentric left ventricular hypertrophy, estimated ejection fraction 55% with no regional wall motion abnormality, grade 1 diastolic dysfunction seen without tissue Doppler evidence of raise left atrial pressure. 2. Mild mitral and tricuspid regurgitation. Calculated right ventricular systolic pressure is 31 mmHg. 3. No significant pericardial effusion. 4. Inferior vena cava is poorly visualized. Electronically signed by : Laz Noe MD 06/08/2021 21:01:26
== END ==
PROVIDERS: PCP Family Medicine; Visit Provider Physician Assistant
DX: I25.10 Atherosclerotic heart disease of native coronary artery without angina pectoris (principal); I10 Essential (primary) hypertension; R94.31 Abnormal electrocardiogram [ECG] [EKG]; Z95.1 Presence of aortocoronary bypass graft; R06.09 Other forms of dyspnea
CPT/HCPCS: 93306

== ENCOUNTER → 2021-09-03 09:18 | Outpatient (CLI) | payer BC, SELFPAY ==
--- NOTE | 2021-09-03 09:40 | US_ITS ---
FINAL REPORT CLINICAL HISTORY: claudication, Smoker, HTN,, CAD,DM FINDINGS: ANKLE-BRACHIAL PRESSURE INDICES Pressure indices are as follows: RIGHT LOWER EXTREMITY: Ankle-brachial pressure index: 1.0 Comments: Normal LEFT LOWER EXTREMITY: Ankle-brachial pressure index: 1.0 Comments: Normal CONCLUSION: No evidence of significant obstructive peripheral vascular disease of the lower extremities Reviewed, Interpreted and Dictated by Davon Root III, MD Transcribed by Yudy Robledo Authenticated and [facility]
== END ==
PROVIDERS: PCP Internal Medicine Cardiovascular Disease; Visit Provider Nurse Practitioner Family
DX: I70.213 Atherosclerosis of native arteries of extremities with intermittent claudication, bilateral legs (principal); I25.10 Atherosclerotic heart disease of native coronary artery without angina pectoris; I10 Essential (primary) hypertension; Z72.0 Tobacco use
CPT/HCPCS: 93923

== ENCOUNTER → 2021-09-16 13:55 | Outpatient (CLI) | payer BC, SELFPAY ==
--- NOTE | 2021-09-16 13:58 | XR_ITS ---
FINAL REPORT CLINICAL HISTORY: knee pain FINDINGS: RIGHT KNEE 4 views of the right knee obtained. There are postoperative changes of the patella with 2 screws in the wire present. There is no acute fracture or dislocation. There is mild degenerative change. There is anterior soft tissue swelling. IMPRESSION: Postoperative and degenerative change with anterior soft tissue swelling. Reviewed, Interpreted and Dictated by Davon Root III, MD Transcribed by Yudy Robledo Authenticated and [facility]
== END ==
PROVIDERS: PCP Family Medicine; Visit Provider Orthopaedic Surgery
DX: M25.562 Pain in left knee (principal)
CPT/HCPCS: 73564

== ENCOUNTER → 2022-04-05 10:12 | Outpatient (CLI) | payer BC, SELFPAY ==
[2022-04-05 11:46] LABS: Anion Gap 8.9 mEq/L (5-15); Blood Urea Nitrogen 15 mg/dl (9-20); Calcium 9.4 mg/dl (8.4-10.2); Carbon Dioxide 32 mmol/L (22.0-30.0); Chloride 104 mmol/L (98-107); Estimated Glomerular Filt Rate 97 ml/min (>60); GFR (African American) 118 ML/MIN (>60); Glucose 138 mg/dl (74-100); Potassium 4.9 mmoL/L (3.5-5.1); Sodium 140 mmol/L (136-145)
== END ==
PROVIDERS: PCP Family Medicine; Visit Provider Nurse Practitioner Family
DX: I25.10 Atherosclerotic heart disease of native coronary artery without angina pectoris (principal); I10 Essential (primary) hypertension; E78.2 Mixed hyperlipidemia; R91.1 Solitary pulmonary nodule; Z86.79 Personal history of other diseases of the circulatory system; Z87.898 Personal history of other specified conditions; Z95.1 Presence of aortocoronary bypass graft
CPT/HCPCS: 36415; 80048

== ENCOUNTER → 2022-04-09 13:05 | Outpatient (CLI) | payer BC, SELFPAY ==
--- NOTE | 2022-04-09 13:07 | CA_ITS ---
APPROVED REPORT EXAM: Comprehensive 2D, Doppler, and color-flow Echocardiogram Sales And Management Trainee: Vonnie Freitas RVT Ht: 5 ft 9 in Wt: 164lbs BSA: 1.90 BP: 140/78 mmHg Indications: SOA,EDEMA,CAD,CABG,DM,SMOKER,HTN,HLD 2D Dimensions LVOT 2.22 cm (M/F) 1.5-2.5 LA Volume 13.40 mL LA Volume Index 7.05 mL/m2 (M/F) 16-34 M-Mode Dimensions RVDd 1.88 cm (0.9-2.6) LA Diam 3.43 cm (1.9-4.0) LVDd 4.65 cm (3.5-5.7) Ao Diam 3.14 cm (2.0-3.7) LVDs 3.20 cm (3.5-5.7) IVSd 0.64 cm (0.6-1.1) PWd 0.78 cm (0.6-1.1) EF (Teich) 58.90% FS 31.20% EDV (Teich) 99.80 mL TAPSE 1.31 (<1.7) ESV (Teich) 41.00 mL LV Diastology E Decel Time 230.00 (160-240 msec) E/A Ratio 1.0 MED E' 5.00 (< 7 cm/sec) E'/MED E' Ratio 14.94 (>14) LAT E' 5.80 (<10 cm/sec) E/LAT E' Ratio 12.88 (>14) Aortic Valve AO Peak GR. 3.00 mmHg Mitral Valve MV E Max Norman. 75.00 (40-130 cm/s) MV A Velocity 73.00 (40-130 cm/s) E/A Ratio 1.03 MV Decel. Time 230.00 (160-240 ms) MV PHT 67.00 ms Pulmonary Valve PV Peak Velocity 81.00 (50-150 cm/s) Tricuspid Valve TR P. Velocity 252.00 cm/s RAP Estimate 10.00 mmHg RVSP 35.40 mmHg Left Ventricle Left atrium is mildly enlarged, left ventricle is normal size mild concentric left ventricular hypertrophy, estimated ejection fraction 50%, there is moderate hypokinesis involving the basal septum and inferior basal wall. Grade 1 diastolic dysfunction seen without tissue Doppler evidence of raise left atrial pressure. Right Ventricle Right atrium and right ventricular normal size and contractility. Aortic Valve Aortic valve is minimally thickened and fibrosed there is no aortic stenosis or aortic insufficiency. Mitral Valve Mitral valve is grossly normal, there is trace mitral regurgitation. Tricuspid Valve Tricuspid valve grossly normal, there is trace tricuspid regurgitation, tricuspid regurgitation jet plus is inadequate for calculation of the right ventricular systolic pressure. Pulmonic Valve Pulmonic valve is poorly visualized. Great Vessels Aortic root is normal size. Inferior vena cava is normal size with normal inspiratory collapse. Pericardium No significant pericardial effusion noted. Conclusion 1. Mild biatrial enlargement, normal left ventricular size, estimated ejection fraction 50% with segmental wall motion abnormality described above, grade 1 diastolic dysfunction seen without tissue Doppler evidence of raise left atrial pressure. 2. Mildly enlarged right ventricle with normal contractility. 3. Trace mitral and tricuspid regurgitation. 4. No significant pericardial effusion noted. 5. Inferior vena cava is normal size with normal inspiratory collapse. Electronically signed by : Laz Noe MD 04/09/2022 16:01:12
== END ==
PROVIDERS: PCP Family Medicine; Visit Provider Nurse Practitioner Family
DX: I25.10 Atherosclerotic heart disease of native coronary artery without angina pectoris (principal); I10 Essential (primary) hypertension; E78.2 Mixed hyperlipidemia; R91.1 Solitary pulmonary nodule; Z86.79 Personal history of other diseases of the circulatory system; Z87.898 Personal history of other specified conditions; Z95.1 Presence of aortocoronary bypass graft
CPT/HCPCS: 93306

== ENCOUNTER → 2022-05-21 12:00 | Outpatient (CLI) | payer BC, SELFPAY ==
--- NOTE | 2022-05-21 12:03 | CT_ITS ---
FINAL REPORT CLINICAL HISTORY: SCREENING Smoker x 50 yrs, 1/2 ppd. C/o tightness and occasional CP. COMPARISON: 02/26/2020 FINDINGS: Low-Dose Chest CT Axial images were obtained from the lung apex to the mid abdomen by computed tomography. Low-dose protocol was utilized. CTDI vol (mGy): 2.90 DLP (mGy-cm): 113.85 There is no axillary adenopathy. There is no hilar or mediastinal adenopathy. The heart is proper size. There are moderate vascular calcifications in the aortic arch. There is no pericardial or pleural effusion. Lung window images demonstrate a pleural based focus in the posterior right upper lobe measuring approximate 3 mm on image 22 of series 4. There is a small nodule in the posterior right upper lobe measuring approximately 4 mm on image 21 series 4, stable. There is also a stable 3 mm pleural based focus in the posterior left upper lobe. There is paraseptal and centrilobular emphysema. Limited images of the upper abdomen demonstrates a 1.7 cm low-attenuation focus in the left adrenal gland. The mean attenuation value is 2 Hounsfield units, consistent with an adenoma. IMPRESSION: Stable nodules as above. Lung RADS category 2. Recommend 12 month follow-up low-dose chest CT. Reviewed, Interpreted and Dictated by Gilberto Rod MD Transcribed by Yudy Robledo Authenticated and [facility]
== END ==
PROVIDERS: PCP Family Medicine; Visit Provider Family Medicine
DX: Z87.891 Personal history of nicotine dependence (principal); Z12.2 Encounter for screening for malignant neoplasm of respiratory organs
CPT/HCPCS: 71271

== ENCOUNTER → 2022-07-15 14:49 | Outpatient (CLI) | payer BC, SELFPAY ==
--- NOTE | 2022-07-15 14:53 | XR_ITS ---
FINAL REPORT CLINICAL HISTORY: SPNDYLOSIS WITHOUT MYELOPATHY FINDINGS: Seven views of the cervical spine were obtained. There is no acute fracture or subluxation. There is mild disc space narrowing at C6-7. There is no instability with flexion or extension. Neural foramen are adequately patent. IMPRESSION: Mild disc space narrowing at C6-7. No instability with flexion or extension. Reviewed, Interpreted and Dictated by Gilberto Rod MD Transcribed by Lis Billy Authenticated and [facility]
== END ==
PROVIDERS: PCP Family Medicine; Visit Provider Physical Medicine & Rehabilitation
DX: M47.812 Spondylosis without myelopathy or radiculopathy, cervical region (principal)
CPT/HCPCS: 72052

== ENCOUNTER 2022-07-26 13:19 | Inpatient (IN) | payer BC, MEDICARE, SELFPAY ==
[2022-07-26] VITALS (19 sets, daily range): BP systolic 105–167; BP diastolic 63–115; PULSE 78–98; RESP 16–18; TEMP 36.9; O2SAT 93–98; BMI 24.9; BMI 25.4
--- NOTE | 2022-07-26 13:17 | ECG_ITS ---
APPROVED REPORT Exam: Resting ECG HR:96 bpm ECG Measurements Heart Rate 96 AXES LA 169 P 85 QRSd 93 QRS 101 QT 340 T 55 QTc 393 Conclusion SINUS RHYTHM RIGHT AXIS DEVIATION [QRS AXIS > 100] POSSIBLE INFERIOR MYOCARDIAL INFARCTION , PROBABLY OLD [30 ms Q WAVE IN II/aVF] ABNORMAL ECG UNCONFIRMED REPORT Electronically signed by : Clayton Garcia MD 07/27/2022 20:11:06
--- NOTE | 2022-07-26 13:27 | XR_ITS ---
FINAL REPORT CLINICAL HISTORY: JAW AND LEFT ARM PAIN COMPARISON: 05/22/2021 FINDINGS: A single portable view of the chest was obtained. The heart size and pulmonary vascularity are within normal limits. There are postoperative changes from median sternotomy. No acute pulmonary abnormality is identified. The bony thorax is intact. IMPRESSION: No active cardiopulmonary disease. Reviewed, Interpreted and Dictated by Davon Root III, MD Transcribed by Eloisa Hernández Authenticated and [facility]
[2022-07-26 13:41] LABS: Basophils # 0.1 K/mm3 (0-0.2); Basophils % 0.4 % (0.1-2.0); Eosinophils # 0.2 K/mm3 (0.0-0.4); Eosinophils % 1.7 % (0.1-12.0); Hematocrit 50.8 % (42.0-52.0); Hemoglobin 16.7 g/dL (14.1-18.0); Lymphocytes # 2.9 K/mm3 (0.7-4.5); Lymphocytes % 21.1 % (10-50); Mean Corpuscular HGB Conc 32.9 g/dL (31.8-35.4); Mean Corpuscular Hemoglobin 31.7 pg (27.0-31.2); Mean Corpuscular Volume 96.3 fl (80-94); Monocytes # 0.9 K/mm3 (0.1-1.0); Monocytes % 6.3 % (1.7-9.3); Neutrophils # 9.8 K/mm3 (1.8-7.8); Neutrophils % 70.4 % (37.0-80.0); Platelet Count 105 K/mm3 (142-424); Red Blood Count 5.28 M/mm3 (4.60-6.20); Red Cell Distribution Width 12.9 % (11.5-17.5); White Blood Count 13.9 K/mm3 (4.8-10.8)
[2022-07-26 13:51] LABS: Chloride 97 mmol/L (98-107); Potassium 4.4 mmoL/L (3.5-5.1); Sodium 140 mmol/L (136-145)
[2022-07-26 13:54] LABS: Alanine Aminotransferase 26 U/L (12-78); Albumin Level 4.8 g/dl (3.5-5.0); Albumin/Globulin Ratio 1.3 (1.1-1.8); Alkaline Phosphatase 99 U/L (38-126); Anion Gap 16.4 mEq/L (5-15); Aspartate Amino Transferase 40 U/L (17-59); Bilirubin,Total 0.5 mg/dl (0.2-1.3); Blood Urea Nitrogen 13 mg/dl (9-20); Carbon Dioxide 31 mmol/L (22.0-30.0); Creatinine Clearance Estimated 81 mL/min (50-200); Estimated Glomerular Filt Rate 97 ml/min (>60); GFR (African American) 118 ML/MIN (>60); Globulin 3.6 g/dL (1.3-3.2); Total Protein,Serum 8.4 g/dl (6.3-8.2)
[2022-07-26 13:55] LABS: Calcium 9.6 mg/dl (8.4-10.2); Glucose 168 mg/dl (74-100)
[2022-07-26 14:10] LABS: Troponin I 1.75 ng/ml (0.00-0.034)
--- NOTE | 2022-07-26 14:11 | PC.NURSE ---
notified ER of critical troponin
--- NOTE | 2022-07-26 14:12 | PC.NURSE ---
PT AND FAMILY UPDATED AT THIS TIME. PT C/O JAW PAIN
--- NOTE | 2022-07-26 14:16 | PC.NURSE ---
spoke with marcin clinton cardiology gave verbal orders for metoprolol tartrate 25 mg po and 1/2 nitro paste
--- NOTE | 2022-07-26 14:17 | PC.NURSE ---
ED MD AT BEDSIDE
--- NOTE | 2022-07-26 14:20 | IR_ITS ---
APPROVED REPORT Patient Location: Inpatient Mule Packer: ERIKA Antony RT (R) PROCEDURES Left heart catheterization Left ventriculogram Selective coronary angiogram Left internal mammary angiography Selective engagement of saphenous vein graft circumflex artery Drug-eluting stent deployment to the saphenous vein graft supplying the circumflex artery INDICATION Acute non-ST elevation myocardial infarction, Coronary artery disease, History of coronary bypass surgery Informed consent was obtained prior to the procedure. COMPLICATIONS NONE Estimated Blood Loss: LESS THAN 10 ML TECHNIQUE One percent lidocaine used to anesthetize the right groin. The right femoral artery was accessed via the Seldinger technique and a 5 Khmer sheath was placed in the right femoral artery. A JL 4, JR4 catheter were used to perform left heart catheterization, left ventriculogram selective coronary angiography as well as selective engagement of the solitary vein graft and the left internal mammary artery. At the end the procedure the 5 Khmer sheath was exchanged for 6 Khmer sheath and therapeutic heparin was administered giving a therapeutic ACT. An LCB catheter was used to intubate the saphenous vein graft to the circumflex artery and a Choice PT extra-support wire was placed distally. A 3 mm x 22 mm Law[place] frontier stent was deployed at 18 shawn reducing the critical stenosis to 0%. MAR I flow improved to MAR-3 flow immediately. There was an additional proximal stenosis therefore 3 mm x 38 mm Law[place] frontier stent was placed proximal to this and was not overlapping the stent and then deployed at 18 shawn. Excellent angiograph results were obtained. At the end of the procedure the apparatus was removed the groin was reprepped closure change sheath was removed and hemostasis was achieved using Perclose device patient was transferred to the postop putting in stable condition ANGIOGRAPHIC RESULTS The left main artery Normal The left anterior descending artery Has a proximal 10 to 20% stenosis and then occluded after a massively large multiple bifurcating septal collar sewer. The circumflex artery Is a large dominant vessel and has proximal 70 to 80% stenosis and then gives rise to a moderate first obtuse marginal artery which has a proximal 70 to 80% stenosis. The circumflex artery is then occluded distal to the first obtuse marginal artery The right coronary artery Nondominant proximally clear The RENTERIA ventriculogram reveals Normal 65% The left ventricular end-diastolic pressure 10 mmHg TANNER to LAD widely patent Saphenous vein graft to circumflex artery is subtotally occluded with a large thrombus in the distal portion. Following stenting there was excellent inline flow to the large trifurcating dominant circumflex artery IMPRESSION Acute non-ST elevation myocardial infarction involving a large subtotally occluded saphenous vein graft supplying a large dominant trifurcating circumflex artery system Successful stenting of the mid and distal saphenous vein graft supplying the circumflex artery critical disease reduced to 0% with 2 noncontiguous drug-eluting stents Patent TANNER to LAD Normal ejection fraction Normal left ventricular end-diastolic pressure PLAN 1. Dual antiplatelet therapy 2. Avoidance of tobacco product 3. Risk factor modification 4. Cardiac rehabilitation 5. LDL less than 55 to be achieved with high intensity statin Electronically signed by : Mo Jaquez MD 07/26/2022 15:49:03
--- NOTE | 2022-07-26 14:22 | PC.NURSE ---
per marcin clinton states has notified medical lab technologist of pt, states they will come get pt as soon as they are available.
--- NOTE | 2022-07-26 14:25 | PC.NURSE ---
MARKIE AT BEDSIDE
[2022-07-26 14:40] LABS: Coronavirus 19, PCR Not Detected (NotDetected); Influenza A, PCR Not Detected (NotDetected); Influenza B, PCR Not Detected (NotDetected)
--- NOTE | 2022-07-26 14:48 | EXP.CARD.CON ---
History of Present Illness History of Present Illness Consult date: 07/26/22 Consult reason: chest pain Chief complaint: Jaw and left arm pain Additional Medical History:: 1. CAD A. CABG, 2003 B. Last left heart catheterization, 05/22/2021 secondary to STEMI with subsequent VISHNU to SVG to dominant circumflex. Patent TANNER to LAD with preserved LV EF and normal LVEDP ANGIOGRAPHIC RESULTS The left main artery Normal The left anterior descending artery Has proximal 20% stenosis and then occluded at mid segment. The circumflex artery Is a dominant vessel and has a proximal eccentric 60 to 70% stenosis which supplies a first obtuse marginal artery which has 50 to 60% proximal stenosis.? Distal to the first obtuse marginal artery the dominant circumflex artery is subtotally occluded The right coronary artery Nondominant and ostially occluded.? The distal segment fills via [id number] collaterals The RENTERIA ventriculogram reveals Preserved 60% The left ventricular end-diastolic pressure 10 mmHg TANNER graft to LAD is widely patent Saphenous vein graft to the dominant circumflex artery has an ostial 99% stenosis.? The saphenous vein graft anastomoses into a second obtuse marginal artery and backfills to additional OM vessels IMPRESSION Acute ST elevation myocardial infarction with successful stenting of a critically diseased saphenous vein graft supplying the dominant circumflex artery Patent TANNER to LAD Preserved ejection fraction Normal left ventricular end-diastolic pressure PLAN 1. Dual antiplatelet therapy 2. Cardiac rehabilitation 3. LDL less than 55 achieved with high intensity statin 4. Supportive care for next 48 hours 5. Standard therapy for ischemic heart disease Electronically signed by : Mo Jaquez MD? 05/22/2021 13:19:37 2. Continued tobacco use 3. Diabetes mellitus 4. Hyperlipidemia 5. Hypertension History of present illness: 62-year-old white male with history of coronary bypass in 2003 and subsequent stenting since then presented to the emergency department with 2 to 3-day history of intermittent left jaw and arm pain. Symptoms began this morning and would not mio. Came to the emergency department for evaluation and noted to have elevated troponin consistent with NSTEMI. He continues to take aspirin and Plavix and did take his metoprolol routine dose last evening. Patient rates his discomfort at about a 7 out of 10. I have given him nitroglycerin ointment along with 5 mg IV metoprolol and oral metoprolol 25 mg x 1. He does continue to smoke Diabetes is noted with recent hemoglobin A1c less than 6 per [facility] Disclaimer: The information contained in this section may have been updated after the patient was seen, as this information can be updated by other users. Medical History Anxiety disorder Coronary artery disease Diabetes mellitus Edema Elevated troponin GERD (gastroesophageal reflux disease) History of abdominal aortic aneurysm (AAA) Hx of solitary pulmonary nodule Hyperlipidemia Hypertension Ischemic ulcer of toe of left foot with fat layer exposed Jaw pain Lung nodule Osteoarthritis of feet, bilateral Peripheral neuropathy Recent ST elevation myocardial infarction (STEMI) STEMI (ST elevation myocardial infarction) Tobacco use disorder Surgical History Hx of CABG Status post coronary artery stent placement Family History Coronary artery disease Cancer Social History (Updated 07/26/22 @ 16:42 by Sandy Blum, RN) Smoking Status: Current every day smoker tobacco type: cigarettes packs per day: 1 second hand exposure: Yes alcohol intake: never substance use type: denies use current occupational status: employed Travel in the last 8 weeks: Inside the [place] household members: spouse housing: house current o
--- NOTE | 2022-07-26 14:52 | HMH.EDGENADL ---
Discharge Plan Disposition Patient Disposition: Admitted Condition: Fair Chief Complaint: Chest Pain Prescriptions Prescriptions: No Action clonazepam 0.5 mg tablet 0.5 mg PO DAILY dulaglutide 0.75 mg/0.5 mL pen injector 0.75 mg SQ WEEKLY Qty: 2 dapagliflozin propanediol 10 mg tablet 10 mg PO DAILY Qty: 30 famotidine 40 mg tablet 40 mg PO DAILY Label Comments: TAKE 1 TABLET 1 TIME EACH DAY gabapentin 400 mg capsule 400 mg PO TID oxycodone-acetaminophen 7.5-325 mg tablet 1 tab PO Q8H PRN Label Comments: TAKE 1 TABLET EVERY 8 HOURS NEEDED hydrochlorothiazide 12.5 mg tablet 12.5 mg PO DAILY PRN (Reason: edema) Qty: 30 5RF cholecalciferol (vitamin D3) 50 mcg (2,000 unit) capsule 50 mcg PO DAILY Centrum Silver Men 300-600-300 mcg tablet 1 tab PO DAILY metoprolol succinate 100 mg tablet extended release 24 hr 100 mg PO DAILY Qty: 90 2RF ramipril 10 mg capsule 10 mg PO DAILY Qty: 90 4RF clopidogrel 75 mg tablet 75 mg PO DAILY Qty: 90 3RF aspirin 81 MG tablet,delayed release (DR/EC) 81 mg PO DAILY quetiapine 100 MG tablet 100 mg PO HS metformin 1,000 MG tablet 1,000 mg PO BIDWMEAL Referrals Follow up/Referrals: Cesar Valenzuela MD [Primary Care Provider] - See instructions Discharge ED Provider: Huber Cowan General Adult HPI General Chief complaint: Chest Pain Stated complaint: CP Time Seen by Provider: 07/26/22 14:00 Mode of Arrival: Ambulatory Limitations: No Limitations Description of Symptoms (Recalled from ER Triage Doc. by RN): PT WITH 3-4 DAY C/O INTERMITTENT JAW PAIN THAT RADIATES TO LEFT ARM. PT REPORTS INCREASED SHORTNESS OF BREATH History of Present Illness HPI narrative: This is a 62-year-old male with a history of prior PCI with stent who presents emergency room with 3 days of intermittent left jaw pain that radiates down the left arm. Pain is described as pressure heaviness accompanied by shortness of breath there is no nausea vomiting or diaphoresis. Patient says the pain is similar to what he had prior to his [facility]. Patient did not take any medications at home for the pain. Related Data Home Medications Medication Instructions Recorded Confirmed clonazepam 0.5 mg tablet 0.5 mg PO DAILY Anxiety 03/16/17 07/15/22 aspirin 81 mg tablet,delayed 81 mg PO DAILY HEART HEALTH 03/18/17 07/15/22 release dapagliflozin propanediol 10 mg 10 mg PO DAILY Diabetes #30 tabs 11/06/18 07/15/22 tablet dulaglutide 0.75 mg/0.5 mL 0.75 mg SQ WEEKLY Diabetes #2 mL 11/06/18 07/15/22 subcutaneous pen injector famotidine 40 mg tablet 40 mg PO DAILY GERD 04/09/19 07/15/22 cholecalciferol (vitamin D3) 50 50 mcg PO DAILY Supplement 03/03/21 07/15/22 mcg (2,000 unit) capsule fyilrdzu-nxw-occwe acid 300 1 tab PO DAILY Supplement 03/03/21 07/15/22 mcg-lycopene 600 mcg-lutein 300 mcg tablet (Centrum Silver Men) metformin 1,000 mg tablet 1,000 mg PO BIDWMEAL Diabetes 05/22/21 07/15/22 quetiapine 100 mg tablet 100 mg PO HS MOOD 05/22/21 07/15/22 gabapentin 400 mg capsule 400 mg PO TID 07/15/22 07/15/22 oxycodone-acetaminophen 7.5 mg-325 1 tab PO Q8H PRN 07/15/22 07/15/22 mg tablet Previous Rx's Medication Instructions Recorded metoprolol succinate 100 mg 100 mg PO DAILY Hypertension #90 04/01/22 tablet,extended release 24 hr tabs clopidogrel 75 mg tablet 75 mg PO DAILY [facility] 05/05/22 #90 tabs ramipril 10 mg capsule 10 mg PO DAILY #90 caps 05/05/22 hydrochlorothiazide 12.5 mg tablet 12.5 mg PO DAILY PRN edema #30 tabs 07/15/22 Allergies Allergy/AdvReac Type Severity Reaction Status Date / Time propoxyphene Allergy Intermediate Verified 07/15/22 14:20 atorvastatin [From Lipitor] AdvReac Severe Verified 07/15/22 14:20 rosuvastatin [From Crestor] AdvReac Severe Verified 07/15/22 14:20 hydrocodone [From LORTAB] AdvReac Mild NA-NAUSEA/V Verified 07/15/22 14:20 OMITING
--- NOTE | 2022-07-26 14:57 | ECG_ITS ---
APPROVED REPORT Exam: Resting ECG HR:89 bpm ECG Measurements Heart Rate 89 AXES PA 156 P 90 QRSd 98 QRS 104 QT 368 T 58 QTc 415 Conclusion SINUS RHYTHM RIGHT AXIS DEVIATION [QRS AXIS > 100] PROBABLE INFERIOR MYOCARDIAL INFARCTION , PROBABLY OLD [35 ms Q WAVE IN II/aVF] ABNORMAL ECG UNCONFIRMED REPORT Electronically signed by : Clayton Garcia MD 07/27/2022 20:10:30
[2022-07-26 16:00] LABS: CATHL Activated Clotting Time 280 SEC (74-125)
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
[2022-07-26 20:34] LABS: POC Glucose,Bedside 170 (70-110)
[2022-07-27] VITALS: PULSE 80
[2022-07-27 04:00] VITALS: BP 110/71; PULSE 82; RESP 20; TEMP 36.6; O2SAT 95; BMI 25.5
[2022-07-27 06:04] LABS: POC Glucose,Bedside 165 (70-110)
[2022-07-27 08:00] VITALS: BP 123/67; PULSE 84; PULSE 89; RESP 20; TEMP 36.7; O2SAT 97
--- NOTE | 2022-07-27 09:01 | EXP.ACUTE.PN ---
Subjective *Date: 07/27/22 *Time: 09:01 Interval history: Patient feels better this morning, no chest pain. Just had Echo. Medical Exam Vital signs and Labs for Last 24 Hours: Vital Signs Temp Pulse Pulse Resp BP BP Pulse Ox 07/27/22 08:00 98.1 F 89 20 123/67 97 07/27/22 04:00 97.8 F 82 20 110/71 95 07/27/22 00:00 80 07/26/22 20:00 80 07/26/22 23:00 80 18 119/67 96 07/26/22 22:00 86 16 124/77 95 07/26/22 21:00 83 16 135/71 95 07/26/22 20:00 82 18 139/77 96 07/26/22 19:00 80 18 127/73 95 07/26/22 18:30 82 18 105/68 L 97 07/26/22 18:00 81 18 118/63 93 L 07/26/22 17:30 83 18 125/73 96 07/26/22 17:00 78 18 118/67 94 L 07/26/22 16:45 85 18 118/72 94 L 07/26/22 16:30 84 18 157/84 H 95 07/26/22 16:00 92 H 18 157/81 H 98 07/26/22 15:55 94 H 18 157/91 H 98 07/26/22 16:15 86 18 138/75 95 07/26/22 15:50 88 18 167/106 H 98 07/26/22 15:45 87 92 H 18 161/100 H 98 07/26/22 14:31 92 H 18 138/115 H 07/26/22 14:00 88 145/74 H 95 07/26/22 13:20 98.4 F 98 H 18 149/98 H 97 Intake and Output 07/26/22 07/27/22 07/27/22 23:59 07:59 15:59 Output Total 900 / 900 300 / 300 Balance -900 / -900 -300 / -300 Output: Output, Urine Amount 900 / 900 300 / 300 Other: Number of Unmeasured Voids 1 0 Weight 171 lb 6 oz 172 lb 8 oz Patient Weight 07/27/22 23:59 Weight 172 lb 8 oz Laboratory Results - last 24 hr 07/26/22 13:20: WBC 13.9 H, RBC 5.28, Hgb 16.7, Hct 50.8, MCV 96.3 H, MCH 31.7 H, MCHC 32.9, RDW 12.9, Plt Count 105 L, MPV 9.0, Neut % (Auto) 70.4, Lymph % (Auto) 21.1, [place] % (Auto) 6.3, Eos % (Auto) 1.7, Baso % (Auto) 0.4, Neut # (Auto) 9.8 H, Lymph # (Auto) 2.9, [place] # (Auto) 0.9, Eos # (Auto) 0.2, Baso # (Auto) 0.1 07/26/22 13:20: Sodium 140, Potassium 4.4, Chloride 97 L, Carbon Dioxide 31 H, Anion Gap 16.4 H, BUN 13, Creatinine 0.80, Estimated Creat Clear 81, Estimated GFR 97, Est GFR ( Amer) 118, Glucose 168 H, Calcium 9.6, Total Bilirubin 0.5, AST 40, ALT 26, Alkaline Phosphatase 99, Troponin I 1.75 H, Total Protein 8.4 H, Albumin 4.8, Globulin 3.6 H, Albumin/Globulin Ratio 1.3 07/26/22 14:35: SARS-CoV-2 (PCR) Not detected, Influenza A Untype (PCR) Not detected, Influenza Type B (PCR) Not detected 07/26/22 15:21: Activated Clotting Time 280 H* 07/26/22 20:26: POC Glucose 170 H 07/27/22 05:53: POC Glucose 165 H I & O for Labs for Last 24 Hours: Intake & Output 07/24/22 07/25/22 07/26/22 07/27/22 23:59 23:59 23:59 23:59 Output Total 900 / 900 300 / 300 Balance -900 / -900 -300 / -300 Weight 171 lb 6 oz 172 lb 8 oz Constitutional: Present no acute distress Respiratory: Present normal respiratory effort Cardiac: Present Reg Rate and Rhythm GI: Present normal bowel sounds; Absent tenderness Extremities: Present normal inspection and full ROM Skin: Present intact; Absent erythema Neuro: Present Grossly Intact and moves all extremities Assessment and Plan *Assessment and plan (1) NSTEMI (non-ST elevated myocardial infarction): Status: Acute Category: Medical Code(s): I21.4 - Non-ST elevation (NSTEMI) myocardial infarction (2) Diabetes mellitus: Status: Chronic Qualifiers: Diabetes mellitus complication detail: with polyneuropathy Diabetes mellitus complication status: with neurologic complications Diabetes mellitus technician terminal and repeater insulin use: without technician terminal and repeater use Diabetes mellitus type: type 2 Qualified Code(s): E11.42 - Type 2 diabetes mellitus with diabetic polyneuropathy Category: Medical Code(s): E11.9 - Type 2 diabetes mellitus without complications (3) Tobacco use disorder: Status: Chronic Category: Medical Code(s): F17.200 - Nicotine dependence, unspecified, uncomplicated (4) Hypertension: Status: Chronic Qualifiers:
--- NOTE | 2022-07-27 09:08 | HMH.PHAINT1 ---
Pharmacy Intervention Comments: MEDICATION RECONCILIATION COMPLETED ON PATIENT USING EXTERNAL FILL HISTORY FROM PHARMACY AND SREE REPORT. -BRANDEN IVEY, JANINED
--- NOTE | 2022-07-27 09:48 | EXP.CARD.PN ---
Subjective Subjective Date: 07/27/22 Time: 09:00 Principal diagnosis: angina, CAD, non-STEMI Interval history: This is a 62-year-old white gentleman who presented to the emergency department with complaints of jaw pain and left arm pain. The patient was found to have an elevated troponin consistent with a non-STEMI. He underwent left cardiac catheterization yesterday and had 2 stents placed to the saphenous vein graft to the circumflex artery. The patient tolerated the procedure well and will be on Plavix and aspirin for dual antiplatelet therapy. This morning he denies any chest pain or pressure. He denies any shortness of breath or edema. He denies any fever, chills, nausea, vomiting, diarrhea, PND or orthopnea. Exam Data for Last 24 hours Vital signs and Labs for Last 24 Hours: Temp Pulse Resp BP Pulse Ox 98.1 F 89 20 123/67 97 07/27/22 08:00 07/27/22 08:00 07/27/22 08:00 07/27/22 08:00 07/27/22 08:00 Laboratory Results - last 24 hr 07/26/22 13:20: WBC 13.9 H, RBC 5.28, Hgb 16.7, Hct 50.8, MCV 96.3 H, MCH 31.7 H, MCHC 32.9, RDW 12.9, Plt Count 105 L, MPV 9.0, Neut % (Auto) 70.4, Lymph % (Auto) 21.1, [place] % (Auto) 6.3, Eos % (Auto) 1.7, Baso % (Auto) 0.4, Neut # (Auto) 9.8 H, Lymph # (Auto) 2.9, [place] # (Auto) 0.9, Eos # (Auto) 0.2, Baso # (Auto) 0.1 07/26/22 13:20: Sodium 140, Potassium 4.4, Chloride 97 L, Carbon Dioxide 31 H, Anion Gap 16.4 H, BUN 13, Creatinine 0.80, Estimated Creat Clear 81, Estimated GFR 97, Est GFR ( Amer) 118, Glucose 168 H, Calcium 9.6, Total Bilirubin 0.5, AST 40, ALT 26, Alkaline Phosphatase 99, Troponin I 1.75 H, Total Protein 8.4 H, Albumin 4.8, Globulin 3.6 H, Albumin/Globulin Ratio 1.3 07/26/22 14:35: SARS-CoV-2 (PCR) Not detected, Influenza A Untype (PCR) Not detected, Influenza Type B (PCR) Not detected 07/26/22 15:21: Activated Clotting Time 280 H* 07/26/22 20:26: POC Glucose 170 H 07/27/22 05:53: POC Glucose 165 H I & O for Last 24 hours: Intake & Output 07/24/22 07/25/22 07/26/22 07/27/22 23:59 23:59 23:59 23:59 Output Total 900 / 900 300 / 300 Balance -900 / -900 -300 / -300 Weight 171 lb 6 oz 172 lb 8 oz Constitutional Constitutional: no acute distress and average body habitus *Routine HEENT Exam Head: Present normocephalic and atraumatic ENT: Present mucous membranes moist *Routine Neck Exam Neck: Present supple, full ROM and normal carotid upstroke; Absent JVD, carotid bruit or lymphadenopathy *Routine Respiratory Exam Respiratory: Present CTA bilaterally, normal respiratory effort, able to speak in complete sentences and symmetric chest movement *Routine Cardiovascular Exam Cardiovascular: Present RRR, Normal S1 and Normal S2; Absent murmur or gallop *Routine Abdominal Exam Abdominal: Present soft and normoactive bowel sounds; Absent tenderness, distended or organomegaly *Routine Extremities Exam Extremities: Present full ROM, pulses intact and normal capillary refill; Absent cyanosis, clubbing or edema *Routine Skin Exam Skin: Present intact and warm; Absent erythema *Routine Neurological Exam Neurological: Present alert, oriented X3 and CN II-XII intact; Absent sensory deficit or motor deficit Routine Psychiatric Exam Psychiatric: Present normal affect Progress Note: A&P Assessment and plan (1) NSTEMI (non-ST elevated myocardial infarction): Status: Acute (2) Coronary artery disease: Status: Chronic (3) Diabetes mellitus: Status: Chronic (4) Tobacco use disorder: Status: Chronic (5) Hypertension: Status: Chronic (6) Hyperlipidemia: Status: Chronic (7) Status post coronary artery stent placement: Status: Acute (8) Hx of CABG: Status: Chronic (9) Jaw pain: Status: Acute (10) Type 2 diabetes mellitus: Status: Acute Assessment and Plan Assessment and Plan for All Diagnoses:: Plan: 1. This is a 58-year-old gentleman who presented to the emergency department with jaw pain and ar
[2022-07-27 11:13] LABS: POC Glucose,Bedside 185 (70-110)
[2022-07-27 12:00] VITALS: BP 130/68; PULSE 83; RESP 18; TEMP 36.8; O2SAT 94
--- NOTE | 2022-07-27 13:47 | HMH.PHAINT1 ---
Pharmacy Intervention Comments: Discharge medication counseling completed. Patient was starting ezetimibe 10mg once daily. Said GI related side effects like stomach upset and/or diarrhea were possible. Verified that [facility]. Patient verbalized understanding and had no questions.
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
--- NOTE | 2022-07-28 14:57 | CARE MANAGER ---
Called and spoke with patient's today regarding patient's recent discharge. She stated that patient is doing well, has started new medication and they are aware of scheduled f/u appts.
--- NOTE | 2022-07-29 14:20 | P.CONPHA_ITS ---
[facility] [employer] [facility] Discharge Med Pollution Control Technician: Darryn Ching has received discharge medication counseling on the following medications: ASPIRIN 81 MG DAILY CLOPIDOGREL 75 MG DAILY ZETIA 10 MG DAILY (ALLERGY TO STATINS) METOPROLOL SUCCINATE 100 MG DAILY RAMIPRIL 10 MG DAILY
== END 2022-07-27 15:22 | disposition home or self-care (01) | DRG 247 ==
LOC: ER 14:49 → CATHLAB 15:10 → 2ND 16:27
PROVIDERS: Internal Medicine; Admitting Provider Family Medicine; Emergency Provider Emergency Medicine; PCP Family Medicine; Visit Provider Family Medicine
PROC: 027034Z Dilation of Coronary Artery, One Artery with Drug-eluting Intraluminal Device, Percutaneous Approach (ICD-10-PCS; principal; 2022-07-26 15:00)
DX: I21.4 Non-ST elevation (NSTEMI) myocardial infarction (principal); Z79.84 Long term (current) use of oral hypoglycemic drugs; Z95.5 Presence of coronary angioplasty implant and graft; I25.10 Atherosclerotic heart disease of native coronary artery without angina pectoris; I10 Essential (primary) hypertension; M19.072 Primary osteoarthritis, left ankle and foot; M19.071 Primary osteoarthritis, right ankle and foot; E78.5 Hyperlipidemia, unspecified; M54.9 Dorsalgia, unspecified; G89.29 Other chronic pain; I25.2 Old myocardial infarction; Z95.1 Presence of aortocoronary bypass graft; F17.210 Nicotine dependence, cigarettes, uncomplicated; E11.42 Type 2 diabetes mellitus with diabetic polyneuropathy
CPT/HCPCS: 71045; 80053; 82962; 84484; 85025; 85347; 87636; 93005; 93306; 99152; 99285; C1725; C1760; C1769; C1874; C1876; C1894; C9803; J1644; Q9967; U0003; U0005

== ENCOUNTER → 2022-08-04 10:33 | Outpatient (CLI) | payer BC, MEDICARE, SELFPAY ==
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
== END ==
PROVIDERS: PCP Family Medicine; Visit Provider Internal Medicine
DX: I97.630 Postprocedural hematoma of a circulatory system organ or structure following a cardiac catheterization (principal)
CPT/HCPCS: 93926

== ENCOUNTER 2023-05-19 09:41 | Outpatient (CLI) | payer BC, MEDICARE, SELFPAY ==
--- NOTE | 2023-05-19 09:44 | XR_ITS ---
FINAL REPORT CLINICAL HISTORY: RT ANKLE PAIN COMPARISON: None FINDINGS: RIGHT ANKLE: Three views of the right ankle were obtained. There is no acute fracture or dislocation. There is mild degenerative change. There is no soft tissue abnormality. IMPRESSION: Mild degenerative change without acute bony abnormality. Reviewed, Interpreted and Dictated by Davon Root III, MD Transcribed by Eloisa Hernández Authenticated and [facility]
--- NOTE | 2023-05-19 09:44 | XR_ITS ---
FINAL REPORT CLINICAL HISTORY: LT ANKLE PAIN COMPARISON: None FINDINGS: LEFT ANKLE: Three views of the left ankle were obtained. There is no acute fracture or dislocation. There is mild degenerative change. There is no soft tissue abnormality. IMPRESSION: Mild degenerative change without acute bony abnormality. Reviewed, Interpreted and Dictated by Davon Root III, MD Transcribed by Eloisa Hernández Authenticated and [facility]
== END 2023-05-19 23:59 ==
LOC: RAD 09:42
PROVIDERS: PCP Family Medicine; Visit Provider Family Medicine
DX: M25.572 Pain in left ankle and joints of left foot (principal); M25.571 Pain in right ankle and joints of right foot
CPT/HCPCS: 73610

== ENCOUNTER 2023-06-04 21:01 | Inpatient (IN) | payer BC, MEDICARE, SELFPAY ==
[2023-06-04 21:02] VITALS: BP 162/92; PULSE 99; RESP 16; TEMP 36.8; O2SAT 98; BMI 25.5
--- NOTE | 2023-06-04 21:29 | PC.NURSE ---
patricia babin at bedside for blood cx
--- NOTE | 2023-06-04 21:34 | CT_ITS ---
PROCEDURE INFORMATION: Exam: CT Right Lower Extremity With Contrast, Foot Exam date and time: 06/04/2023 10:07 PM Age: 63 years old Clinical indication: Pain; Swelling, leg or foot; Toes; Right; Additional info: Concern for osteomyelitis R great toe TECHNIQUE: Imaging protocol: CT of the right lower extremity with intravenous contrast was performed. Exam focused on the foot. Radiation optimization: All CT scans at this facility use at least one of these dose optimization techniques: automated exposure control; mA and/or kV adjustment per patient size (includes targeted exams where dose is matched to clinical indication); or iterative reconstruction. Contrast material: ISOVUE; Contrast volume: 120 ml; Contrast route: IV; COMPARISON: 1. CR XR FOOT RT MIN 3V 10/26/2018 10:32 AM 2. CR [id number] XR foot wt bearing RT 3V 02/02/2018 10:46 AM 3. CR XR ANKLE RT MIN 3V 05/19/2023 9:47 AM FINDINGS: Bones/joints: There is diffuse osseous demineralization. Mild soft tissue swelling is noted about the 1st interphalangeal joint without CT evidence for active osteomyelitis. There is diffuse degenerative disease of the visualized osseous structures. Soft tissues: See Bones/joints finding. IMPRESSION: 1. Mild soft tissue swelling is noted about the 1st interphalangeal joint without CT evidence for active osteomyelitis. 2. If clinical concern persists, MRI would be suggested.
[2023-06-04 21:35] LABS: Basophils # 0.2 K/mm3 (0-0.2); Basophils % 0.8 % (0.1-2.0); Eosinophils # 0.1 K/mm3 (0.0-0.4); Eosinophils % 0.5 % (0.1-12.0); Hematocrit 49.5 % (42.0-52.0); Hemoglobin 16.1 g/dL (14.1-18.0); Lymphocytes # 1.9 K/mm3 (0.7-4.5); Lymphocytes % 10.1 % (10-50); Mean Corpuscular HGB Conc 32.6 g/dL (31.8-35.4); Mean Corpuscular Hemoglobin 32.1 pg (27.0-31.2); Mean Corpuscular Volume 98.7 fl (80-94); Mean Platelet Volume 9.3 fl (7.4-10.4); Monocytes # 0.8 K/mm3 (0.1-1.0); Monocytes % 4.2 % (1.7-9.3); Neutrophils # 16.2 K/mm3 (1.8-7.8); Neutrophils % 84.4 % (37.0-80.0); Platelet Count 111 K/mm3 (142-424); Red Blood Count 5.02 M/mm3 (4.60-6.20); Red Cell Distribution Width 13.4 % (11.5-17.5); White Blood Count 19.1 K/mm3 (4.8-10.8)
[2023-06-04 21:36] LABS: MANUAL DIFFERENTIAL MANUAL DIFFERENTIAL (MANUAL DIFF)
[2023-06-04 21:37] LABS: Chloride 99 mmol/L (98-107); Potassium 4.1 mmoL/L (3.5-5.1); Sodium 139 mmol/L (136-145)
[2023-06-04 21:39] LABS: Alanine Aminotransferase 42 U/L (12-78); Aspartate Amino Transferase 38 U/L (17-59); Blood Urea Nitrogen 13 mg/dl (9-20); Creatinine Clearance Estimated 82 mL/min (50-200); Estimated Glomerular Filt Rate 85 ml/min (>60); GFR (African American) 102 ML/MIN (>60)
[2023-06-04 21:40] LABS: Albumin Level 4.5 g/dl (3.5-5.0); Albumin/Globulin Ratio 1.6 (1.1-1.8); Alkaline Phosphatase 113 U/L (38-126); Anion Gap 14.1 mEq/L (5-15); Bilirubin,Total 0.8 mg/dl (0.2-1.3); Calcium 9.9 mg/dl (8.4-10.2); Carbon Dioxide 30 mmol/L (22.0-30.0); Globulin 2.9 g/dL (1.3-3.2); Glucose 213 mg/dl (74-100); Total Protein,Serum 7.4 g/dl (6.3-8.2)
[2023-06-04 21:41] LABS: Lactic Acid 2.5 mmol/L (0.7-2.1)
[2023-06-04 21:45] VITALS: BP 135/75; PULSE 98; O2SAT 97
[2023-06-04 21:45] LABS: C-Reactive Protein 38.2 mg/L (0-4)
--- NOTE | 2023-06-04 21:51 | PC.NURSE ---
2 sets blood cultures drawn and sent to lab.
[2023-06-04 21:52] LABS: Lymphocytes % 16 % (10-50); Monocytes % 1 % (2-9); Neutrophils % 83 % (42-76); Platelet Estimate Slight Decrease; Total Cells Counted 100
[2023-06-04 21:53] LABS: RBC Morphology Normal
[2023-06-04] MEDS: VANCOMYCIN CONSULT REQUEST 1 EACH NOTAPPLIC ×2 (21:55→23:46)
[2023-06-04] MEDS: PIPERACILLIN/TAZO 4.5 GM in 0.9 % SODIUM CHLORIDE 100 ML IV (21:55)
[2023-06-04 22:00] VITALS: BP 145/77; PULSE 94; O2SAT 97
--- NOTE | 2023-06-04 22:07 | ED_ITS ---
Discharge Plan Disposition Patient Disposition: Admitted Chief Complaint: Skin/Abscess/Foreign Body Prescriptions Prescriptions: No Action clonazepam 0.5 mg tablet 0.5 mg PO DAILY Rx Instructions: TAKE 1 TABLET IN THE MORNING AND 2 TABLETS IN THE EVENING dulaglutide 0.75 mg/0.5 mL pen injector 1.5 mg SQ WEEKLY Qty: 2 dapagliflozin propanediol 10 mg tablet 10 mg PO DAILY Qty: 30 famotidine 40 mg tablet 40 mg PO DAILY Patient Comments: TAKE 1 TABLET 1 TIME EACH DAY cholecalciferol (vitamin D3) 50 mcg (2,000 unit) capsule 50 mcg PO DAILY Centrum Silver Men 300-600-300 mcg tablet 1 tab PO DAILY metoprolol succinate 100 mg tablet extended release 24 hr 100 mg PO DAILY Qty: 90 2RF clopidogrel 75 mg tablet 75 mg PO DAILY Qty: 90 0RF aspirin 81 MG tablet,delayed release (DR/EC) 81 mg PO DAILY ramipril 10 mg capsule 10 mg PO DAILY clonazepam 0.5 mg tablet 1 mg PO HS Patient Comments: TAKE 1 TABLET IN THE MORNING, AND TAKE 2 TABLETS IN THE EVENING. gabapentin 800 mg tablet 800 mg PO BID Patient Comments: TAKE 1 TABLET 3 TIMES EACH DAY oxycodone 10 mg tablet 10 mg PO Q6HP PRN (Reason: Moderate Pain (Scale Score 5-6)) Patient Comments: TAKE 1 TABLET EVERY 6 HOURS NEEDED ezetimibe [Zetia] 10 mg tablet 10 mg PO DAILY Qty: 30 0RF quetiapine 100 MG tablet 100 mg PO HS metformin 1,000 MG tablet 1,000 mg PO DAILY Referrals Follow up/Referrals: Cesar Valenzuela MD [Primary Care Provider] - See instructions Clinical Impressions Clinical Impression: Diabetic foot ulcer, Diabetic foot infection Instructions Patient Instructions: DI for Skin Abscess Discharge ED Provider: Tee Hughes General Adult HPI General Chief complaint: Skin/Abscess/Foreign Body Stated complaint: foot ulcer, red streaks Time Seen by Provider: 06/04/23 21:03 Mode of Arrival: Ambulatory Source of Information: Patient Limitations: No Limitations Description of Symptoms (Recalled from ER Triage Doc. by RN): Pt reports on tuesday blister pop up on rt great toe. pt has diabetes and history of bilateral foot uclers History of Present Illness HPI narrative: 63-year-old male history of diabetes, hypertension, hyperlipidemia, COPD presenting with swelling and pain right great toe. Started yesterday, has gotten progressively worse. No fevers or chills, nausea or vomiting, or any other concerns. Moderately painful, throbbing, does not radiate. Had history of diabetic wounds on his bilateral feet previously, has never needed amputations. Please note that above description of symptoms, in this electronic medical record under categorization of recalled from ER triage doctor by RN are reflective of an initial nursing assessment, however, is not reflective of my full history and physical exam that was personally taken and clarified. Consequentially, this preceding description of symptoms, which may include the patient's categorized chief complaint in the EMR, do not reflect my personal clinical impression, and the ultimate description of history of present illness and patient stated complaints should be deferred to this section of the note. Unless stated otherwise or congruent with this section of the note, additional signs, symptoms, or incongruence should be interpreted as inaccurate with my clinical impression. Related Data Home Medications Medication Instructions Recorded Confirmed clonazepam 0.5 mg tablet 0.5 mg PO DAILY Anxiety 03/16/17 06/04/23 aspirin 81 mg tablet,delayed 81 mg PO DAILY HEART HEALTH 03/18/17 06/04/23 release dapagliflozin propanediol 10 mg 10 mg PO DAILY Diabetes #30 tabs 11/06/18 06/04/23 tablet dulaglutide 0.75 mg/0.5 mL 1.5 mg SQ WEEKLY Diabetes #2 mL 11/06/18 06/04/23 subcutaneous pen injector famotidine 40 mg tablet 40 mg PO DAILY Acid reflux 04/09/19 06/04/23 cholecalciferol (vitamin D3) 50 50 mcg PO DAILY Supplement 03/03/21 06/04/23 mcg (2,000 unit) capsule [id number] 300 mcg-K 60 1 tab PO DAILY Supplement 03/03/21 06/04/23 mcg-lycop 600 mcg-lutein 300 mcg tablet (Centrum Silver Men) metformin 1,000 mg tablet 1,000 mg PO DAILY Diabetes 05/22/21 06/04/23 quetiapine 100 mg tablet 100 mg PO HS MOOD 05/22/21 06/04/23 ramipril 10 mg capsule 10 mg PO DAILY Hypertension 07/26/22 06/04/23 clonazepam 0.5 mg tablet 1 mg PO HS Anxiety 07/27/22 06/04/23 gabapentin 800 mg tablet 800 mg PO BID Pain 07/27/22 06/04/23 oxycodone 10 mg tablet 10 mg PO Q6HP PRN Moderate Pain 07/27/22 06/04/23 (Scale Score 5-6) Previous Rx's Medication Instructions Recorded ezetimibe 10 mg tablet (Zetia) 10 mg PO DAILY #30 tabs 07/27/22 metoprolol succinate 100 mg 100 mg PO DAILY Hypertension #90 01/11/23 tablet,extended release 24 hr tabs clopidogrel 75 mg tablet 75 mg PO DAILY PLATELET INHIBITOR 05/04/23 #90 tabs Allergies Allergy/AdvReac Type Severity Reaction Status Date / Time propoxyphene Allergy Intermediate Verified 05/19/23 08:56 atorvastatin [From Lipitor] AdvReac Severe Verified 05/19/23 08:56 rosuvastatin [From Crestor] AdvReac Severe Verified 05/19/23 08:56 hydrocodone [From LORTAB] AdvReac Mild NA-NAUSEA/V Verified 05/19/23 08:56 OMITING PFSH PFSH Disclaimer: The information contained in this section may have been updated after the patient was seen, as this information can be updated by other users. Medical History Ulcer of right second toe Skin ulcer of right great toe Callus of foot Edema Dizziness Claudication Edema Diabetic foot Callus of foot Acute ST elevation myocardial infarction (STEMI) of inferior wall STEMI (ST elevation myocardial infarction) Chest pain Peripheral neuropathy Recent ST elevation myocardial infarction (STEMI) Hx of solitary pulmonary nodule History of abdominal aortic aneurysm (AAA) Anxiety disorder Chronic back pain GERD (gastroesophageal reflux disease) Tobacco use disorder Unstable angina STEMI (ST elevation myocardial infarction) Lung nodule Jaw pain Elevated troponin Overweight (BMI 25.0-29.9) Burn of multiple fingers Foot pain Acquired hammertoes of both feet Pre-ulcerative calluses Small vessel arterial disease due to type 2 diabetes mellitus Osteoarthritis of feet, bilateral Ischemic ulcer of toe of left foot with fat layer exposed Onychodystrophy Ulcer of left great toe due to diabetes mellitus Blister of toe of right foot with infection Blister of toe of left foot with infection Elevated lactic acid level Coronary artery disease Hyperlipidemia Hypertension Diabetes mellitus Lymphangitis Cellulitis in diabetic foot Left patella fracture Knee Injury Surgical History Status post coronary artery stent placement Hx of CABG Family History Other Cancer Coronary artery disease Social History Smoking Status: Current every day smoker tobacco type: cigarettes packs per day: 1 second hand exposure: Yes alcohol intake: never substance use type: denies use current occupational status: employed Travel in the last 8 weeks: Inside the [place] household members: spouse housing: house current occupation: self employed current occupational exposures/hazards: No caffeine: Yes ROS Obtained: Yes All systems reviewed & no additional complaints except as documented Physical Exam General General appearance: alert and in no apparent distress Head Head exam: atraumatic and normocephalic Eye Eye exam: Present normal appearance, PERRL and EOMI ENT ENT exam: Present mucous membranes moist Neck Neck exam: Present normal inspection, full ROM and trachea midline Respiratory Respiratory exam: Absent respiratory distress, wheezes, stridor, accessory muscle use or prolonged expiratory phase Cardiovascular Cardiovascular exam: Present normal rhythm Abdominal Exam Abdominal exam: Present soft; Absent distention, tenderness, guarding, rebound or rigidity Extremities Exam Extremities exam: Present other (Tenderness, edema, purulence and fluctuance about right great toe concerning for abscess, cellulitis, osteomyelitis, etc.); Absent edema Neurological Exam Neurological exam: Present alert, oriented X3, CN II-XII intact and normal gait; Absent motor sensory deficit Skin Skin exam: Present warm and dry; Absent diaphoresis or erythema Medical Decision Making Medical Records Medical records reviewed: Yes I reviewed the patient's medical records. Sagar Inquiry Pt receiving controlled substance: No Sagar was queried for this patient: No Vital Signs: 06/04/23 21:02 06/04/23 21:45 Temperature 98.3 F Temperature Source Oral Pulse Rate 98 H Pulse Rate [Right] 99 H Respiratory Rate 16 Blood Pressure 135/75 Blood Pressure [Right Arm] 162/92 H Blood Pressure Mean 98 Blood Pressure Mean [Right Arm] 115 02 Sat by Pulse Oximetry 98 97 Lab Data Lab Results 06/04/23 21:21: WBC 19.1 H, RBC 5.02, Hgb 16.1, Hct 49.5, MCV 98.7 H, MCH 32.1 H , MCHC 32.6, RDW 13.4, Plt Count 111 L, MPV 9.3, Neut % (Auto) 84.4 H, Lymph % (Auto) 10.1, [place] % (Auto) 4.2, Eos % (Auto) 0.5, Baso % (Auto) 0.8, Neut # (Auto) 16.2 H, Lymph # (Auto) 1.9, [place] # (Auto) 0.8, Eos # (Auto) 0.1, Baso # (Auto) 0.2, Total Counted 100, Neutrophils % (Manual) 83 H, Lymphocytes % (Manual) 16, Monocytes % (Manual) 1 L, Platelet Estimate Slight decrease, RBC Morphology Normal, ESR 11, Sodium 139, Potassium 4.1, Chloride 99, Carbon Dioxide 30, Anion Gap 14.1, BUN 13, Creatinine 0.90, Estimated Creat Clear 82, Estimated GFR 85, Est GFR ( Amer) 102, Glucose 213 H, Lactate 2.5 H, Calcium 9.9, Total Bilirubin 0.8, AST 38, ALT 42, Alkaline Phosphatase 113, C- Reactive Protein 38.2 H, Total Protein 7.4, Albumin 4.5, Globulin 2.9, Albumin/Globulin Ratio 1.6 06/04/23 21:21 06/04/23 21:21 Orders (Tests/Meds): ED MEDICATIONS Generic Name Dose Route Start Last Admin Trade Name Freq PRN Reason Stop Dose Admin Piperacillin Sod/Tazobactam 100 mls @ 200 mls/hr 06/04/23 22:00 06/04/23 21:55 Sod 4.5 gm/ Sodium Chloride IV 06/14/23 21:59 200 mls/hr Q6H CHANTE Administration Vancomycin HCl 2,000 mg/ 250 mls @ 125 mls/hr 06/04/23 22:00 06/04/23 22:14 Sodium Chloride IV 06/04/23 23:59 125 mls/hr ONCE ONE Administration Miscellaneous 1 each 06/04/23 22:00 06/04/23 21:55 Vancomycin Consult Request NOTAPPLIC 07/04/23 21:59 1 each CONSULT PHARMACY CHANTE Administration Sodium Chloride 10 ml 06/04/23 22:23 06/04/23 22:26 Sodium Chloride 0.9% 10ml Syr (Rad Only) IV 07/04/23 22:22 10 ml NEEDED PRN Administration Maintain IV Site Discontinued Medications Generic Name Dose Route Start Last Admin Trade Name Freq PRN Reason Stop Dose Admin Iopamidol 120 ml 06/04/23 22:23 06/04/23 22:26 Iopamidol-370 (76%);100ml Bottle IV 06/04/23 22:24 120 ml ONCE ONE Administration Sodium Chloride 50 ml 06/04/23 22:23 06/04/23 22:26 0.9 % Sodium Chloride 50 Ml Vial IV 06/04/23 22:24 50 ml ONCE ONE Administration ORDERS Category Date Time Status CT foot RT w con Stat Cat Scan 06/04/23 21:34 Completed CRP [C-Reactive Protein] Stat Lab 06/04/23 21:21 Completed Complete Blood Count Auto Diff Stat Lab 06/04/23 21:21 Completed Comprehensive Metabolic Panel Stat Lab 06/04/23 21:21 Completed ESR [Erythrocyte Sedimentation Rate] Stat Lab 06/04/23 21:21 Completed Lactic Acid Stat Lab 06/04/23 21:21 Completed Blood Culture Stat Micro 06/04/23 21:45 Received Wound Culture and Gram Stain Stat Micro 06/04/23 21:21 Received Medical Decision Narrative: 63-year-old male history of diabetes, hypertension, hyperlipidemia, COPD presenting with swelling and pain right great toe. Started yesterday, has gotten progressively worse. No fevers or chills, nausea or vomiting, or any other concerns. Moderately painful, throbbing, does not radiate. Had history of diabetic wounds on his bilateral feet previously, has never needed amputations. History was obtained via conversation with patient and with family. On arrival, patient hemodynamically stable, alert, oriented x4, appropriate, GCS 15, moving all extremities spontaneously, pupils equal and reactive to light. Full physical exam performed and significant for necrotic appearing medial aspect right great toe. Blistered, appears necrotic, purulent with surrounding erythema. Differential includes cellulitis, abscess, osteomyelitis, deep space infection, among others. Patient was given vancomycin, Zosyn for symptomatic management and correction of underlying abnormalities. Workup independently interpreted and significant for leukocytosis 19,000 with neutrophilia. Patient has nonactionable chemistry. Lactate 2.5, CRP elevated at 38.2. CT of the foot with contrast demonstrated no obvious osteomyelitis, but he does have soft tissue swelling. see radiology read for full review of final results. Given patient presentation, workup, history, this most likely represents diabetic foot wound with rapid worsening. Dr. Montelongo was contacted and case was discussed at length, patient be admitted for antibiotics, possible podiatry consultation. Because patient high risk for clinical decompensation, deemed appropriate for inpatient admission. Results were relayed to patient who voiced understanding and patient was agreeable to inpatient admission and management. Patient was admitted to the hospital for further definitive management. Critical Care Critical Care Time Critical Care Time: No
--- NOTE | 2023-06-04 22:11 | PC.NURSE ---
pt to radiology
[2023-06-04] MEDS: VANCOMYCIN HCL 2,000 MG in 0.9 % SODIUM CHLORIDE 250 ML 125 MG IV (22:14)
--- NOTE | 2023-06-04 22:20 | PC.NURSE ---
back from radiology
[2023-06-04] MEDS: SODIUM CHLORIDE 0.9% 10ML SYR (RAD ONLY) 10 ML IV (22:26)
[2023-06-04] MEDS: IOPAMIDOL-370 (76%);100ML BOTTLE 120 ML IV (22:26)
[2023-06-04] MEDS: 0.9 % SODIUM CHLORIDE 50 ML VIAL IV (22:26)
[2023-06-04 22:29] LABS: Erythrocyte Sedimentation Rate 11 mm/hr (0-20)
[2023-06-04 22:30] VITALS: BP 128/62; PULSE 95; O2SAT 95
[2023-06-04 23:00] VITALS: BP 125/63; PULSE 85; O2SAT 95
--- NOTE | 2023-06-04 23:18 | PC.NURSE ---
Dr. Reginald patricio for ED doc
--- NOTE | 2023-06-04 23:22 | PC.NURSE ---
ED doctor on phone with Dr. Montelongo
--- NOTE | 2023-06-04 23:24 | PC.NURSE ---
notified visiting housekeeper of admission
[2023-06-04 23:30] VITALS: BP 126/64; PULSE 95; RESP 16; TEMP 36.8; O2SAT 97
--- NOTE | 2023-06-04 23:31 | PC.NURSE ---
rounded on pt at this time, pt voices no needs. at bedside.
[2023-06-05] MEDS: humaLOG 100 UNITS/ML 3ML VIAL (SSI) SQ ×3 (00:27→20:29)
[2023-06-05 00:30] VITALS: BP 126/64; PULSE 85; RESP 18; TEMP 37; O2SAT 99; BMI 24.6
--- NOTE | 2023-06-05 00:46 | PC.NURSE ---
diabetic foot ulcer visualized to the right great toe (weeping serosanguineous fluid), left sole of 5th toe, and wound to the left great toe - all wound areas are outlined.
[2023-06-05 00:52] LABS: POC Glucose,Bedside 246 (70-110)
[2023-06-05 01:31] LABS: Reflex Lactic Add Lactic Reflex
[2023-06-05] MEDS: TRAMADOL 50MG TABLET 50 MG PO ×3 (01:48→20:24)
[2023-06-05] MEDS: ACETAMINOPHEN 325MG TAB 650 MG PO (01:48)
[2023-06-05 02:01] LABS: Lactic Acid Follow Up (RFLX 1) 3.3 mmol/L (0.7-2.1)
[2023-06-05 03:52] LABS: Reflex Lactic (2 hrs) Add Lactic Reflex
[2023-06-05 04:00] VITALS: BP 99/52; PULSE 65; RESP 16; TEMP 36.5; O2SAT 94; BMI 24.6
[2023-06-05 04:33] LABS: Lactic Acid Follow up (RFLX 2) 1.9 mmol/L (0.7-2.1)
[2023-06-05] MEDS: PIPERACILLIN/TAZO 4.5 GM in 0.9 % SODIUM CHLORIDE 100 ML IV ×4 (05:04→22:51)
[2023-06-05 06:19] LABS: POC Glucose,Bedside 114 (70-110)
[2023-06-05 07:35] VITALS: BP 120/65; PULSE 69; RESP 16; TEMP 36.4; O2SAT 95
--- NOTE | 2023-06-05 08:14 | P.CONPHA_ITS ---
Pharmacy Consult Date: 06/05/23 Time: 08:14 Referring provider: DR MARTINS Reason for Consult:: VANCOMYCIN DOSING CONSULT Allergies Allergy/AdvReac Type Severity Reaction Status Date / Time propoxyphene Allergy Intermediate Verified 05/19/23 08:56 atorvastatin [From Lipitor] AdvReac Severe Verified 05/19/23 08:56 rosuvastatin [From Crestor] AdvReac Severe Verified 05/19/23 08:56 hydrocodone [From LORTAB] AdvReac Mild NA-NAUSEA/V Verified 05/19/23 08:56 OMITING Home Medications Medication Instructions Recorded Confirmed Type clonazepam 0.5 mg tablet 0.5 mg PO DAILY Anxiety 03/16/17 06/04/23 History aspirin 81 mg tablet,delayed 81 mg PO DAILY HEART HEALTH 03/18/17 06/04/23 History release dapagliflozin propanediol 10 mg 10 mg PO DAILY Diabetes #30 tabs 11/06/18 06/04/23 History tablet dulaglutide 0.75 mg/0.5 mL 1.5 mg SQ WEEKLY Diabetes #2 mL 11/06/18 06/04/23 History subcutaneous pen injector famotidine 40 mg tablet 40 mg PO DAILY Acid reflux 04/09/19 06/04/23 History cholecalciferol (vitamin D3) 50 50 mcg PO DAILY Supplement 03/03/21 06/04/23 History mcg (2,000 unit) capsule [id number] 300 mcg-K 60 1 tab PO DAILY Supplement 03/03/21 06/04/23 History mcg-lycop 600 mcg-lutein 300 mcg tablet (Centrum Silver Men) metformin 1,000 mg tablet 1,000 mg PO DAILY Diabetes 05/22/21 06/04/23 History quetiapine 100 mg tablet 100 mg PO HS MOOD 05/22/21 06/04/23 History ramipril 10 mg capsule 10 mg PO DAILY Hypertension 07/26/22 06/04/23 History clonazepam 0.5 mg tablet 1 mg PO HS Anxiety 07/27/22 06/04/23 History ezetimibe 10 mg tablet (Zetia) 10 mg PO DAILY #30 tabs 07/27/22 06/04/23 Rx gabapentin 800 mg tablet 800 mg PO BID Pain 07/27/22 06/04/23 History oxycodone 10 mg tablet 10 mg PO Q6HP PRN Moderate Pain 07/27/22 06/04/23 History (Scale Score 5-6) metoprolol succinate 100 mg 100 mg PO DAILY Hypertension #90 01/11/23 06/04/23 Rx tablet,extended release 24 hr tabs clopidogrel 75 mg tablet 75 mg PO DAILY PLATELET INHIBITOR 05/04/23 06/04/23 Rx #90 tabs New Prescriptions to Start Prescriptions: Height: 1.75 m Weight: 75.568 kg Laboratory Results:: Laboratory Results - last 24 hr 06/04/23 21:21: WBC 19.1 H, RBC 5.02, Hgb 16.1, Hct 49.5, MCV 98.7 H, MCH 32.1 H , MCHC 32.6, RDW 13.4, Plt Count 111 L, MPV 9.3, Neut % (Auto) 84.4 H, Lymph % (Auto) 10.1, [place] % (Auto) 4.2, Eos % (Auto) 0.5, Baso % (Auto) 0.8, Neut # (Auto) 16.2 H, Lymph # (Auto) 1.9, [place] # (Auto) 0.8, Eos # (Auto) 0.1, Baso # (Auto) 0.2, Total Counted 100, Neutrophils % (Manual) 83 H, Lymphocytes % (Manual) 16, Monocytes % (Manual) 1 L, Platelet Estimate Slight decrease, RBC Morphology Normal, ESR 11, Sodium 139, Potassium 4.1, Chloride 99, Carbon Dioxide 30, Anion Gap 14.1, BUN 13, Creatinine 0.90, Estimated Creat Clear 82, Estimated GFR 85, Est GFR ( Amer) 102, Glucose 213 H, Lactate 2.5 H, Calcium 9.9, Total Bilirubin 0.8, AST 38, ALT 42, Alkaline Phosphatase 113, C- Reactive Protein 38.2 H, Total Protein 7.4, Albumin 4.5, Globulin 2.9, Albumin/Globulin Ratio 1.6 06/05/23 00:19: POC Glucose 246 H 06/05/23 01:45: Lactate 3.3 H 06/05/23 04:15: Lactate 1.9 06/05/23 05:04: POC Glucose 114 H Medical History: Medical History (Updated 06/04/23 @ 23:33 by Tee Hughes MD) Ulcer of right second toe Skin ulcer of right great toe Callus of foot Edema Dizziness Claudication Edema Diabetic foot Callus of foot Acute ST elevation myocardial infarction (STEMI) of inferior wall STEMI (ST elevation myocardial infarction) Chest pain Peripheral neuropathy Recent ST elevation myocardial infarction (STEMI) Hx of solitary pulmonary nodule History of abdominal aortic aneurysm (AAA) Anxiety disorder Chronic back pain GERD (gastroesophageal reflux disease) Tobacco use disorder Unstable angina STEMI (ST elevation myocardial infarction) Lung nodule Jaw pain Elevated troponin Overweight (BMI 25.0-29.9) Burn of multiple fingers Foot pain Acquired hammertoes of both feet Pre-ulcerative calluses Small vessel arterial disease due to type 2 diabetes mellitus Osteoarthritis of feet, bilateral Ischemic ulcer of toe of left foot with fat layer exposed Onychodystrophy Ulcer of left great toe due to diabetes mellitus Blister of toe of right foot with infection Blister of toe of left foot with infection Elevated lactic acid level Coronary artery disease Hyperlipidemia Hypertension Diabetes mellitus Lymphangitis Cellulitis in diabetic foot Left patella fracture Knee Injury Assessment and Plan Assessment and plan all Dx Assessment and Plan for all problems:: Pharmacokinetic dosing service Objective: Age: 63 yo Serum creatinine: 0.9 mg/dL Height: 68.9 Inches Weight (kg): 75.568 Diagnosis: DIABETIC FOOT ULCER/INFECTION Assessment: IBW (kg): 70.47 Dosing wt(kg): 75.568 Estimated Creatinine clearance (ml/min): 81.6 CRCL method: Cockcroft and Gault using ibw(default). Drug selected: Vancomycin Loading dose (mg): 2000 MG Vd (liters): 52.9 (factor used: 0.7 L/kg) Jostin (hr-1): 0.072 Half life (hrs): 9.63 CLvanco=?? 3.809 L/hr Recommended dose: 1500 mg Interval: 18 hrs Infusion time (hrs): 2.0 Predicted peak (mcg/mL): 36.4 Predicted trough (mcg/mL): 11.50 Total body weight is being used for vancomycin dosing. Recommendations: Give Vancomycin 1500 mg q 18 hrs with an expected Cpeak of 36.4 mcg/ml and an expected Ctrough of 11.50 mcg/ml TO START 06/05/23 AT 16:00, LOADING DOSE OF VANCOMYCIN 2000 MG IV GIVEN IN THE ED 06/04/23 AT 22:14. AUC 0-24 /[place] Data: [place] 0.5 mcg/mL:?? AUC/[place]:? 1050.1 [place] 1.0 mcg/mL:?? AUC/[place]:? 525.1 --------- [place] 1.5 mcg/mL:?? AUC/[place]:? 350.0 [place] 2.0 mcg/mL:?? AUC/[place]:? 262.5 Thank you for the consult
--- NOTE | 2023-06-05 08:28 | HMH.PHAINT1 ---
Pharmacy Intervention Comments: MEDICATION RECONCILIATION COMPLETE USING LIST FROM MOST RECENT MD OFFICE VISIT, EXTERNAL PHARMACY FILL HISTORY AND SREE REPORT.
--- NOTE | 2023-06-05 09:15 | EXP.HP ---
History of Present Illness *Admission Date: 06/05/23 *Reason for visit:: infected toe *History of present illness: 63-year-old white male with diabetes, cardiovascular disease, peripheral vascular disease. He presented in the emergency room with complaints of infection in his right great toe which became apparent Bon[place], 2 days ago. He is a patient Dr. Cruz and saw him 2 weeks ago. He has also seen Dr. Khalil recently. She follows him for his diabetic foot problems. He has had ulcerations calluses and onychogryphosis. In the ER he did not complain of fever, nausea or vomiting, or any other concerns. He described his toe as moderately painful, throbbing. Had history of diabetic wounds on his bilateral feet previously, has not required amputations. In the emergency room the patient was hemodynamically stable, alert, oriented x4, appropriate, GCS 15, moving all extremities spontaneously, pupils equal and reactive to light. Full physical exam performed and significant for necrotic appearing medial aspect right great toe. Blistered, appears necrotic, purulent with surrounding erythema. Differential includes osteomyelitis but it did not appear on evaluation to be the case. Patient was given vancomycin, Zosyn for symptomatic management and correction of underlying abnormalities. Workup significant for leukocytosis 19,000 with neutrophilia. Patient has nonactionable chemistry. Lactate 2.5, CRP elevated at 38.2. CT of the foot with contrast demonstrated no obvious osteomyelitis, but he does have soft tissue swelling. see radiology read for full review of final results. Given patient presentation, workup, history, this most likely represents diabetic foot wound with rapid worsening. Patient was admitted to the hospital for further definitive management. [facility] Disclaimer: The information contained in this section may have been updated after the patient was seen, as this information can be updated by other users. Medical History Ulcer of right second toe Skin ulcer of right great toe Callus of foot Edema Dizziness Claudication Edema Diabetic foot Callus of foot Acute ST elevation myocardial infarction (STEMI) of inferior wall STEMI (ST elevation myocardial infarction) Chest pain Peripheral neuropathy Recent ST elevation myocardial infarction (STEMI) Hx of solitary pulmonary nodule History of abdominal aortic aneurysm (AAA) Anxiety disorder Chronic back pain GERD (gastroesophageal reflux disease) Tobacco use disorder Unstable angina STEMI (ST elevation myocardial infarction) Lung nodule Jaw pain Elevated troponin Overweight (BMI 25.0-29.9) Burn of multiple fingers Foot pain Acquired hammertoes of both feet Pre-ulcerative calluses Small vessel arterial disease due to type 2 diabetes mellitus Osteoarthritis of feet, bilateral Ischemic ulcer of toe of left foot with fat layer exposed Onychodystrophy Ulcer of left great toe due to diabetes mellitus Blister of toe of right foot with infection Blister of toe of left foot with infection Elevated lactic acid level Coronary artery disease Hyperlipidemia Hypertension Diabetes mellitus Lymphangitis Cellulitis in diabetic foot Left patella fracture Knee Injury Surgical History Status post coronary artery stent placement Hx of CABG Family History Other Cancer Coronary artery disease Social History (Updated 06/05/23 @ 00:37 by Roney Powell RN) Smoking Status: Current every day smoker tobacco type: cigarettes packs per day: 1 second hand exposure: Yes alcohol intake: never substance use type: denies use current occupational status: employed Travel in the last 8 weeks: Inside the [place] household members: spouse housing: house current occupation: self employed current occupational exposures/hazards: No caffeine: Yes Review of Systems Review of Systems Review of systems:: pertinent systems reviewed and negative unless documented below Constitutional Constitutional: Reports system reviewed and no additional complaints, except as documented and Denies fever(s) Eyes Eyes: Reports system reviewed and no additional complaints, except as documented ENT Ears, Nose, Mouth, and Throat: Reports system reviewed and no additional complaints, except as documented *Cardiovascular Cardiovascular: Reports system reviewed and no additional complaints, except as documented (History of coronary artery bypass graft at age 46), Denies chest pain with activity, Denies claudication, Denies dyspnea and Denies leg edema *Respiratory Respiratory: Reports system reviewed and no additional complaints, except as documented, Denies chest congestion, Denies cough and Denies dyspnea *Gastrointestinal Gastrointestinal: Reports system reviewed and no additional complaints, except as documented, Denies abdominal pain and Denies change in bowel habits *Genitourinary Genitourinary: Reports system reviewed and no additional complaints, except as documented *Musculoskeletal Musculoskeletal: Reports system reviewed and no additional complaints, except as documented Integumentary/Breasts Skin/Breast: Reports system reviewed and no additional complaints, except as documented, Reports as per HPI, Reports skin ulcer and Reports sores (Also of the left foot: great toe and fifth toe) *Neurologic Neurologic: Reports system reviewed and no additional complaints, except as documented Psychiatric Psychiatric: Reports system reviewed and no additional complaints, except as documented Endocrine Endocrine: Reports as per HPI Hematologic/Lymphatic Hematologic/Lymphatic: Reports system reviewed and no additional complaints, except as documented Allergic/Immunologic Allergic/Immunologic: Reports system reviewed and no additional complaints, except as documented Meds Home Medications and Allergies Home Medications Medication Instructions Recorded Confirmed Type clonazepam 0.5 mg tablet 0.5 mg PO DAILY 03/16/17 06/04/23 History aspirin 81 mg tablet,delayed 81 mg PO DAILY 03/18/17 06/04/23 History release dapagliflozin propanediol 10 mg 10 mg PO DAILY #30 tabs 11/06/18 06/04/23 History tablet dulaglutide 0.75 mg/0.5 mL 0.75 mg SQ WEEKLY Diabetes #2 mL 11/06/18 06/05/23 History subcutaneous pen injector famotidine 40 mg tablet 40 mg PO DAILY 04/09/19 06/04/23 History cholecalciferol (vitamin D3) 50 50 mcg PO DAILY 03/03/21 06/04/23 History mcg (2,000 unit) capsule [id number] 300 mcg-K 60 1 tab PO DAILY 03/03/21 06/04/23 History mcg-lycop 600 mcg-lutein 300 mcg tablet (Centrum Silver Men) metformin 1,000 mg tablet 1,000 mg PO BIDWMEAL Diabetes 05/22/21 06/05/23 History quetiapine 100 mg tablet 100 mg PO HS 05/22/21 06/04/23 History ramipril 10 mg capsule 10 mg PO DAILY 07/26/22 06/04/23 History clonazepam 0.5 mg tablet 1 mg PO HS 07/27/22 06/04/23 History oxycodone 10 mg tablet 10 mg PO Q8H Moderate Pain (Scale 07/27/22 06/05/23 History Score 5-6) clopidogrel 75 mg tablet 75 mg PO DAILY 06/05/23 06/04/23 History gabapentin 600 mg tablet 600 mg PO Q8H 06/05/23 06/05/23 History metoprolol succinate 100 mg 100 mg PO DAILY 06/05/23 06/04/23 History tablet,extended release 24 hr New Prescriptions to Start Prescriptions: Allergies Allergy/AdvReac Type Severity Reaction Status Date / Time propoxyphene Allergy Intermediate Verified 05/19/23 08:56 atorvastatin [From Lipitor] AdvReac Severe Verified 05/19/23 08:56 rosuvastatin [From Crestor] AdvReac Severe Verified 05/19/23 08:56 hydrocodone [From LORTAB] AdvReac Mild NA-NAUSEA/V Verified 05/19/23 08:56 OMITING Exam Data for Last 24 hours Vital signs and Labs for Last 24 Hours: Temp Pulse Resp BP Pulse Ox O2 Del Method 97.6 F 69 16 120/65 95 Room Air 06/05/23 07:35 06/05/23 07:35 06/05/23 07:35 06/05/23 07:35 06/05/23 07:35 06/05/23 07:35 Laboratory Results - last 24 hr 06/04/23 21:21: WBC 19.1 H, RBC 5.02, Hgb 16.1, Hct 49.5, MCV 98.7 H, MCH 32.1 H, MCHC 32.6, RDW 13.4, Plt Count 111 L, MPV 9.3, Neut % (Auto) 84.4 H, Lymph % (Auto) 10.1, [place] % (Auto) 4.2, Eos % (Auto) 0.5, Baso % (Auto) 0.8, Neut # (Auto) 16.2 H, Lymph # (Auto) 1.9, [place] # (Auto) 0.8, Eos # (Auto) 0.1, Baso # (Auto) 0.2, Total Counted 100, Neutrophils % (Manual) 83 H, Lymphocytes % (Manual) 16, Monocytes % (Manual) 1 L, Platelet Estimate Slight decrease, RBC Morphology Normal, ESR 11, Sodium 139, Potassium 4.1, Chloride 99, Carbon Dioxide 30, Anion Gap 14.1, BUN 13, Creatinine 0.90, Estimated Creat Clear 82, Estimated GFR 85, Est GFR ( Amer) 102, Glucose 213 H, Lactate 2.5 H, Calcium 9.9, Total Bilirubin 0.8, AST 38, ALT 42, Alkaline Phosphatase 113, C-Reactive Protein 38.2 H, Total Protein 7.4, Albumin 4.5, Globulin 2.9, Albumin/Globulin Ratio 1.6 06/05/23 00:19: POC Glucose 246 H 06/05/23 01:45: Lactate 3.3 H 06/05/23 04:15: Lactate 1.9 06/05/23 05:04: POC Glucose 114 H I & O for Last 24 hours: Intake & Output 06/02/23 06/03/23 06/04/23 06/05/23 11:59 11:59 11:59 11:59 Intake Total 960 / 960 Output Total 0 / 0 Balance 960 / 960 Weight 166 lb 9.6 oz Constitutional Constitutional: no acute distress *Routine HEENT Exam Head: Present normocephalic and atraumatic Eye: Present EOMI and normal accommodation; Absent conjunctival icterus, scleral injection, nystagmus or exophthalmos ENT: Present mucous membranes moist *Routine Neck Exam Neck: Present full ROM; Absent JVD Routine Chest/Breast/Axilla Exam Chest wall: Absent tenderness *Routine Respiratory Exam Respiratory: Present CTA bilaterally; Absent accessory muscle use or respiratory distress *Routine Cardiovascular Exam Cardiovascular: Present RRR and S4 *Routine Abdominal Exam Abdominal: Present soft and normoactive bowel sounds; Absent tenderness, distended or guarding *Routine Rectal Exam Rectal:: deferred *Routine Genitalia Exam Genitalia:: deferred *Routine Extremities Exam Extremities: Absent cyanosis or edema Comments: Extensive blister of the medial aspect of the right great toe. See photographs. This area needs to be roughing. Apparently the erythema which was present on admission has subsided significantly with IV antibiotics. There is a small blister just greater than 1 cm on the lateral aspect of the left great toe and on the fifth toe on the left foot there is a 1 cm area of blistering. Routine Back/Spine/Pelvis Exam Back/Spine: Absent CVA tenderness or paraspinal tenderness *Routine Skin Exam Skin: Present wounds (See description under extremities) *Routine Neurological Exam Neurological: Present alert and oriented X3; Absent sensory deficit or motor deficit Routine Psychiatric Exam Psychiatric: Present normal affect and normal thought process Assessment and Plan *Assessment and plan (1) Diabetic foot infection: Status: Acute Category: Medical Code(s): E11.628 - Type 2 diabetes mellitus with other skin complications; L08.9 - Local infection of the skin and subcutaneous tissue, unspecified (2) Diabetic foot ulcer: Status: Acute Category: Medical Code(s): E11.621 - Type 2 diabetes mellitus with foot ulcer; L97.509 - Non-pressure chronic ulcer of other part of unspecified foot with unspecified severity (3) Diabetic foot: Status: Acute Category: Medical Code(s): E11.8 - Type 2 diabetes mellitus with unspecified complications (4) Onychodystrophy: Status: Acute Category: Medical Code(s): L60.3 - Nail dystrophy (5) Type 2 diabetes mellitus: Status: Acute Qualifiers: Diabetes mellitus jail insulin use: without intermission coordinator use Diabetes mellitus complication status: with other specified complication Qualified Code(s): E11.69 - Type 2 diabetes mellitus with other specified complication Category: Medical Code(s): E11.9 - Type 2 diabetes mellitus without complications (6) Peripheral neuropathy: Status: Chronic Qualifiers: Qualified Code(s): G62.9 - Polyneuropathy, unspecified Category: Medical Code(s): G62.9 - Polyneuropathy, unspecified (7) Hypertension: Status: Chronic Qualifiers: Hypertension type: essential hypertension Qualified Code(s): I10 - Essential (primary) hypertension Category: Medical Code(s): I10 - Essential (primary) hypertension (8) Hyperlipidemia: Status: Chronic Qualifiers: Hyperlipidemia type: mixed hyperlipidemia Qualified Code(s): E78.2 - Mixed hyperlipidemia Category: Medical Code(s): E78.5 - Hyperlipidemia, unspecified (9) Coronary artery disease: Status: Chronic Qualifiers: Coronary Disease-Associated Artery/Lesion type: [place] artery [place] vs. transplanted heart: [place] heart Associated angina: without angina Qualified Code(s): I25.10 - Atherosclerotic heart disease of [place] coronary artery without angina pectoris Category: Medical Code(s): I25.10 - Atherosclerotic heart disease of [place] coronary artery without angina pectoris (10) Status post coronary artery stent placement: Status: Acute Category: Surgical Code(s): Z95.5 - Presence of coronary angioplasty implant and graft Plan The wound needs deroofing. IV antibiotics will be continued. Pain will be managed. It is noted that he takes oxycodone chronically.
[2023-06-05 16:00] VITALS: BP 124/67; PULSE 65; RESP 19; TEMP 36.7; O2SAT 96
[2023-06-05 16:33] LABS: POC Glucose,Bedside 171 (70-110)
[2023-06-05] MEDS: VANCOMYCIN/WATER FOR INJ (PEG) 1.5 GM/300 ML PIGGYBACK IV (17:02)
--- NOTE | 2023-06-05 17:48 | PC.NURSE ---
Patient a&ox4 and vss. Patient is tolerationg IV abx. Pt has no c/o pain this shift.
--- NOTE | 2023-06-05 18:17 | PC.WOUNDNOTE ---
SMALL OPEN AREA TO TOP OF BIG TOE ON LEFT FOOT SORE TO BOTTOM OF PINKY TOE ON LEFT FOOT AREA PRESENT TO TOP OF BIG TOE ON RIGHT FOOT
[2023-06-05 20:00] VITALS: BP 135/69; PULSE 70; RESP 18; TEMP 36.7; O2SAT 95
[2023-06-05 20:43] LABS: POC Glucose,Bedside 168 (70-110)
[2023-06-06 02:44] LABS: POC Glucose,Bedside 137 (70-110)
[2023-06-06] MEDS: PIPERACILLIN/TAZO 4.5 GM in 0.9 % SODIUM CHLORIDE 100 ML IV ×4 (03:02→22:09)
[2023-06-06 04:00] VITALS: BP 153/70; PULSE 63; RESP 18; TEMP 36.8; O2SAT 97; BMI 25.0
[2023-06-06 05:33] LABS: POC Glucose,Bedside 117 (70-110)
--- NOTE | 2023-06-06 05:46 | PC.NURSE ---
pt is alert and oriented x4 and currently tolerating RA well. Pt has tolerated IV antibiotic therapy well. Pt IV was leaking and new Iv to Left thumb was placed. Pt wound to right great toe remains uncovered, redness has seemed to spread further out nurse marked area with black marker. wound to left small toe remains the same with no changes. Pt is pleasant and has no complaints. Pt denies needs and pain at this time
[2023-06-06 06:43] LABS: MANUAL DIFFERENTIAL MANUAL DIFFERENTIAL (MANUAL DIFF)
[2023-06-06 07:02] LABS: Basophils # 0.1 K/mm3 (0-0.2); Basophils % 0.5 % (0.1-2.0); Eosinophils # 0.1 K/mm3 (0.0-0.4); Eosinophils % 0.9 % (0.1-12.0); Hematocrit 44.4 % (42.0-52.0); Hemoglobin 14.7 g/dL (14.1-18.0); Lymphocytes # 2.3 K/mm3 (0.7-4.5); Lymphocytes % 21.6 % (10-50); Mean Corpuscular HGB Conc 33.1 g/dL (31.8-35.4); Mean Corpuscular Hemoglobin 31.8 pg (27.0-31.2); Mean Corpuscular Volume 95.8 fl (80-94); Mean Platelet Volume 9.6 fl (7.4-10.4); Monocytes # 0.6 K/mm3 (0.1-1.0); Monocytes % 6.1 % (1.7-9.3); Neutrophils # 7.5 K/mm3 (1.8-7.8); Neutrophils % 70.9 % (37.0-80.0); Platelet Count 91 K/mm3 (142-424); Red Blood Count 4.63 M/mm3 (4.60-6.20); Red Cell Distribution Width 13.5 % (11.5-17.5); White Blood Count 10.5 K/mm3 (4.8-10.8)
[2023-06-06 07:07] LABS: Chloride 107 mmol/L (98-107); Sodium 138 mmol/L (136-145)
[2023-06-06 07:08] LABS: Potassium 4.1 mmoL/L (3.5-5.1)
[2023-06-06 07:10] LABS: Blood Urea Nitrogen 10 mg/dl (9-20); Creatinine Clearance Estimated 80 mL/min (50-200); Estimated Glomerular Filt Rate 97 ml/min (>60); GFR (African American) 117 ML/MIN (>60)
[2023-06-06 07:11] LABS: Anion Gap 6.1 mEq/L (5-15); Calcium 9.1 mg/dl (8.4-10.2); Carbon Dioxide 29 mmol/L (22.0-30.0); Glucose 121 mg/dl (74-100)
--- NOTE | 2023-06-06 07:52 | EXP.ACUTE.PN ---
Subjective *Date: 06/06/23 *Time: 07:52 Interval history: Patient did not sleep last night. He states that all he has is bilateral foot pain. He is able to eat without any problems. He has been up to the bathroom. Bowels have not moved. He denies chest pain and shortness of breath. White blood cell count has decreased to normal at 10,500. Blood chemistries show normal electrolytes with normal BUN and creatinine as well. Foot CT of 06/05/2023 showed the following: FINDINGS: Bones/joints: There is diffuse osseous demineralization. Mild soft tissue swelling is noted about the 1st interphalangeal joint without CT evidence for active osteomyelitis. There is diffuse degenerative disease of the visualized osseous structures. Soft tissues: See Bones/joints finding. IMPRESSION: 1. Mild soft tissue swelling is noted about the 1st interphalangeal joint without CT evidence for active osteomyelitis. 2. If clinical concern persists, MRI would be suggested. Medical Exam Vital signs and Labs for Last 24 Hours: Vital Signs Temp Pulse Resp BP Pulse Ox O2 Del Method 06/06/23 06:55 Room Air 06/06/23 05:00 Room Air 06/06/23 04:00 98.2 F 63 18 153/70 H 97 Room Air 06/06/23 02:48 Room Air 06/06/23 01:00 Room Air 06/05/23 23:00 Room Air 06/05/23 21:00 Room Air 06/05/23 20:00 98.0 F 70 18 135/69 95 Room Air 06/05/23 20:00 Room Air 06/05/23 16:00 98.1 F 65 19 124/67 96 Room Air 06/05/23 13:00 Room Air 06/05/23 11:00 Room Air 06/05/23 09:00 Room Air 06/05/23 08:00 Room Air Intake and Output 06/05/23 06/06/23 06/06/23 19:59 03:59 11:59 Intake Total 360 / 360 340 / 700 Output Total 0 / 0 0 / 0 0 / 0 Balance 360 / 360 340 / 700 0 / 700 Intake: Intake, Oral Amount 360 / 360 240 / 600 Intake, Total IV Amount 100 / 100 Piperacillin/Tazo 4.5 gm In 0.9 100 / 100 % Sodium Chloride 100 ml @ 200 mls/hr IV Q6H [facility] Rx#:[id number] Output: Output, Urine Amount 0 / 0 0 / 0 0 / 0 Other: Number of Voids 0 Number of Unmeasured Voids 1 2 2 Weight 168 lb 9 oz Patient Weight 06/06/23 11:59 Weight 168 lb 9 oz Laboratory Results - last 24 hr 06/05/23 11:33: POC Glucose 137 H 06/05/23 16:22: POC Glucose 171 H 06/05/23 20:23: POC Glucose 168 H 06/06/23 05:25: POC Glucose 117 H 06/06/23 06:08: WBC 10.5 D, RBC 4.63, Hgb 14.7, Hct 44.4, MCV 95.8 H, MCH 31.8 H, MCHC 33.1, RDW 13.5, Plt Count 91 L, MPV 9.6, Neut % (Auto) 70.9, Lymph % (Auto) 21.6, [place] % (Auto) 6.1, Eos % (Auto) 0.9, Baso % (Auto) 0.5, Neut # (Auto) 7.5, Lymph # (Auto) 2.3, [place] # (Auto) 0.6, Eos # (Auto) 0.1, Baso # (Auto) 0.1, Sodium 138, Potassium 4.1, Chloride 107, Carbon Dioxide 29, Anion Gap 6.1, BUN 10, Creatinine 0.80, Estimated Creat Clear 80, Estimated GFR 97, Est GFR ( Amer) 117, Glucose 121 H, Calcium 9.1 I & O for Labs for Last 24 Hours: Intake & Output 06/03/23 06/04/23 06/05/23 06/06/23 11:59 11:59 11:59 11:59 Intake Total 960 / 960 700 / 700 Output Total 0 / 0 0 / 0 Balance 960 / 960 700 / 700 Weight 166 lb 9.6 oz 168 lb 9 oz Constitutional: Present no acute distress Respiratory: Present CTA bilaterally (Anteriorly and posteriorly) Cardiac: Present Reg Rate and Rhythm (70s) GI: Present soft and normal bowel sounds; Absent distention or tenderness Extremities: Absent edema Comment:: Right great toe with surrounding erythema and blister. Please see photo. Erythema is marked. Left foot with 2 toes with black areas. Neuro: Present alert and oriented x 3 Assessment and Plan *Assessment and plan (1) Diabetic foot infection: Status: Acute Category: Medical Code(s): E11.628 - Type 2 diabetes mellitus with other skin complications; L08.9 - Local infection of the skin and subcutaneous tissue, unspecified (2) Diabetic foot ulcer: Status: Acute Category: Medical Code(s): E11.621 - Type 2 diabetes mellitus with foot ulcer; L97.509 - Non-pressure chronic ulcer of other part of unspecified foot with unspecified severity (3) Diabetic foot: Status: Acute Category: Medical Code(s): E11.8 - Type 2 diabetes mellitus with unspecified complications (4) Onychodystrophy: Status: Acute Category: Medical Code(s): L60.3 - Nail dystrophy (5) Type 2 diabetes mellitus: Status: Acute Qualifiers: Diabetes mellitus penitentiary insulin use: without penitentiary use Diabetes mellitus complication status: with other specified complication Qualified Code(s): E11.69 - Type 2 diabetes mellitus with other specified complication Category: Medical Code(s): E11.9 - Type 2 diabetes mellitus without complications (6) Peripheral neuropathy: Status: Chronic Qualifiers: Qualified Code(s): G62.9 - Polyneuropathy, unspecified Category: Medical Code(s): G62.9 - Polyneuropathy, unspecified (7) Hypertension: Status: Chronic Qualifiers: Hypertension type: essential hypertension Qualified Code(s): I10 - Essential (primary) hypertension Category: Medical Code(s): I10 - Essential (primary) hypertension (8) Hyperlipidemia: Status: Chronic Qualifiers: Hyperlipidemia type: mixed hyperlipidemia Qualified Code(s): E78.2 - Mixed hyperlipidemia Category: Medical Code(s): E78.5 - Hyperlipidemia, unspecified (9) Coronary artery disease: Status: Chronic Qualifiers: Coronary Disease-Associated Artery/Lesion type: [place] artery [place] vs. transplanted heart: [place] heart Associated angina: without angina Qualified Code(s): I25.10 - Atherosclerotic heart disease of [place] coronary artery without angina pectoris Category: Medical Code(s): I25.10 - Atherosclerotic heart disease of [place] coronary artery without angina pectoris (10) Status post coronary artery stent placement: Status: Acute Category: Surgical Code(s): Z95.5 - Presence of coronary angioplasty implant and graft Plan Will restart metformin. As per Dr. Reginald, great toe will need debridement. Continue with IV Vanco and Zosyn for now. All culture results are pending
[2023-06-06 08:00] VITALS: BP 123/54; PULSE 70; RESP 18; TEMP 36.6; O2SAT 97
[2023-06-06 08:16] LABS: Lymphocytes % 24 % (10-50); Monocytes % 4 % (2-9); Neutrophils % 72 % (42-76); Platelet Estimate Slight Decrease; RBC Morphology Normal; Total Cells Counted 100
[2023-06-06] MEDS: METOPROLOL SUCCINATE XL 100MG TABLET 100 MG PO (08:55)
--- NOTE | 2023-06-06 09:35 | XR_ITS ---
FINAL REPORT CLINICAL HISTORY: DFU COMPARISON: 02/01/2019 FINDINGS: 3 images of the left foot were obtained. There is no evidence of fracture or dislocation. Diffuse osteopenia is present. The joint spaces are intact. There is no soft tissue abnormality identified. IMPRESSION: No acute bony abnormality. Diffuse osteopenia. Reviewed, Interpreted and Dictated by Gilberto Rod MD Transcribed by Shannen Woods Authenticated and [facility][1]
--- NOTE | 2023-06-06 09:35 | XR_ITS ---
FINAL REPORT CLINICAL HISTORY: cellulitis, DFU COMPARISON: 10/26/2018 FINDINGS: 3 images of the right foot were obtained. There is no evidence of fracture or dislocation. Diffuse osteopenia is present. The joint spaces are intact. There is no soft tissue abnormality identified. IMPRESSION: No acute bony abnormality. Osteopenia. Reviewed, Interpreted and Dictated by Gilberto Rod MD Transcribed by Shannen Woods Authenticated and [facility]
--- NOTE | 2023-06-06 09:36 | US_ITS ---
FINAL REPORT CLINICAL HISTORY: DFU, PVD, current smoker, HTN, DM, previous PEPE (09/03/21) RT PEPE=1.0 LT PEPE=1.0., History of CABG, infection right great toe, HLD, PVD. COMPARISON: None FINDINGS: ANKLE-BRACHIAL PRESSURE INDICES Pressure indices are as follows: RIGHT LOWER EXTREMITY: Ankle-brachial pressure index: 1.0 Comments: Normal LEFT LOWER EXTREMITY: Ankle-brachial pressure index: 0.9 Comments: Mildly depressed IMPRESSION: No evidence of significant obstructive peripheral vascular disease of the lower extremities. Reviewed, Interpreted and Dictated by Gilberto Rod MD Transcribed by Eloisa Hernández Authenticated and [facility]
[2023-06-06] MEDS: GABAPENTIN 600MG TABLET 600 MG PO ×3 (10:03→21:59)
[2023-06-06] MEDS: clonazePAM 0.5MG TABLET 0.5 MG PO (10:03)
[2023-06-06] MEDS: DAPAGLIFLOZIN PROPANEDIOL 10 MG TABLET PO (10:03)
[2023-06-06] MEDS: RAMIPRIL 10MG CAPSULE 10 MG PO (10:04)
[2023-06-06] MEDS: FAMOTIDINE 20MG TABLET 40 MG PO (10:05)
--- NOTE | 2023-06-06 10:08 | HMH.PTWOUND ---
Rehab Inpt Wound Evaluation Rehab IP Wound Evaluation Start: 06/05/23 00:56 Freq: ONCE Status: Active Protocol: Document 06/06/23 10:02 ANGI (Rec: 06/06/23 10:08 ANGI [id number]) Rehab PT Wound Assessment Subjective Subjective 63 yowm adm to [facility] with DFU and possibe cellulitis. He has PMH of DM, CAD, PVD, STEMI, CABG, HTN. He presented to ED with large R great toe blister with R foot redness and several much smaller L foot areas of concern. He is A&O x 4 this am. debrided loose skin from R great toe wound this am and podiatry is following as well. Wound Right Medial Great Toe Wound Type Diabetic Foot Ulcer Is This a Chronic Wound No Wound Length (cm) 6.3 Wound Width (cm) 3.1 Wound Depth (cm) 0.1 Wound Bed Appearance Beefy Red Percentage Granulated (%) 100 Wound Margins Description Well Defined Surrounding Tissue Appearance Ong Wound Drainage Description Serosanguineous Drainage Amount Scant Primary Dressing Non-Adherent Gauze Pad Comment betadine Wound Secondary Dressing Type Adhering Gauze Roll Dressing Change Patient Tolerance Tolerated Well Plan/Recommendation Comment Nsg appropriate to change dressing as needed once per day. Podiatry foillowing and agree with their recommendations. No need for further debridement current. Eval Complexity Eval Charge Codes 94811 - High Complexity Arnold-Dubose Wound Assessment Tool Assessment Wound size 3= Length x Width 16.1--<36 sq cm Wound depth 2=Partial thickness skin loss involving epidermis &/or dermis Wound edges 2=Distinct, outline clearly visible, attached, even with wound base Wound undermining 1=None present Necrotic tissue type 1=Non visible Necrotic tissue amount 1=None visible Exudate type 3=Serosanguineous: thin, watery, pale red/pink Exudate amount 2=Scant, wound moist but no observable exudate Skin color surrounding wound 1=Ong or normal for ethnic group Peripheral tissue edema 1=No swelling or edema Peripheral tissue induration 1=None present Granulation tissue 1=Skin intact or partial thickness wound Epithelialization 2=75% to < 100% wound covered &/or epithelial tissue extends > 0.5cm Wound assessment total score 21 PHYSICIAN CERTIFICATION: I certify the specified therapy services for Darryn Ching are required, authorized, and reviewed every 30 days.
[2023-06-06] MEDS: VANCOMYCIN/WATER FOR INJ (PEG) 1.5 GM/300 ML PIGGYBACK IV (10:42)
[2023-06-06] MEDS: ASPIRIN EC 81MG TABLET 81 MG PO (10:42)
[2023-06-06] MEDS: CLOPIDOGREL 75MG TAB 75 MG PO (10:42)
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
[2023-06-06] MEDS: OXYCODONE 7.5MG W/APAP 325MG TABLET 1 EACH PO ×2 (11:13→22:57)
[2023-06-06] MEDS: humaLOG 100 UNITS/ML 3ML VIAL (SSI) SQ ×2 (11:24→22:30)
[2023-06-06 11:27] LABS: POC Glucose,Bedside 156 (70-110)
[2023-06-06 11:30] VITALS: BMI 25.0
[2023-06-06 16:00] VITALS: BP 133/74; PULSE 59; RESP 20; TEMP 36.6; O2SAT 98
[2023-06-06] MEDS: METFORMIN 500MG TABLET 1000 MG PO (17:04)
[2023-06-06 17:12] LABS: POC Glucose,Bedside 126 (70-110)
--- NOTE | 2023-06-06 17:14 | PC.NURSE ---
Patient alert and oriented x4, VSS. on RA. Wound cultures sent this morning, pt c/o of pain post-wound debridement, treated per APR. No complaints otherwise. Pt has tolerated all of his meals during my shift. is at bedside. call light in reach.
[2023-06-06 20:00] VITALS: BP 110/56; PULSE 75; RESP 16; TEMP 36.4; O2SAT 98
[2023-06-06] MEDS: clonazePAM 1MG TABLET 1 MG PO (21:59)
[2023-06-06] MEDS: QUETIAPINE 100MG TABLET 100 MG PO (21:59)
[2023-06-06 22:24] LABS: POC Glucose,Bedside 154 (70-110)
[2023-06-07 03:41] LABS: Vancomycin,Trough 12.9 ug/mL (5.0-10.0)
[2023-06-07] MEDS: PIPERACILLIN/TAZO 4.5 GM in 0.9 % SODIUM CHLORIDE 100 ML IV (03:55)
[2023-06-07 04:00] VITALS: BP 102/53; PULSE 91; RESP 16; TEMP 36.6; O2SAT 100; BMI 25.0
[2023-06-07] MEDS: VANCOMYCIN/WATER FOR INJ (PEG) 1.5 GM/300 ML PIGGYBACK IV (04:30)
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
[2023-06-07] MEDS: METFORMIN 500MG TABLET 1000 MG PO (06:49)
[2023-06-07 07:02] LABS: POC Glucose,Bedside 147 (70-110)
[2023-06-07 07:38] VITALS: BP 142/74; PULSE 69; RESP 20; TEMP 36.5; O2SAT 98
--- NOTE | 2023-06-07 07:53 | EXP.ACUTE.PN ---
Subjective *Date: 06/07/23 *Time: 07:53 Interval history: Patient states he is feeling much better today. He did sleep during the night. He ate without difficulty. He has been up to the bathroom. He denies any chest pain and shortness of breath. Pain in the feet is better. Dr. Montelongo did debride the blister on the right great toe. Dr. Khalil also saw patient and will follow today as well. Extremity arterial study 06/06/2023 FINDINGS: ANKLE-BRACHIAL PRESSURE INDICES Pressure indices are as follows: RIGHT LOWER EXTREMITY: Ankle-brachial pressure index: 1.0 Comments: Normal LEFT LOWER EXTREMITY: Ankle-brachial pressure index: 0.9 Comments: Mildly depressed IMPRESSION: No evidence of significant obstructive peripheral vascular disease of the lower extremities. Medical Exam Vital signs and Labs for Last 24 Hours: Vital Signs Temp Pulse Resp BP Pulse Ox O2 Del Method 06/07/23 07:38 97.7 F 69 20 142/74 H 98 Room Air 06/07/23 05:00 Room Air 06/07/23 04:00 97.9 F 91 H 16 102/53 L 100 06/07/23 03:00 Room Air 06/07/23 01:00 Room Air 06/06/23 23:00 Room Air 06/06/23 21:00 Room Air 06/06/23 20:00 97.6 F 75 16 110/56 L 98 Room Air 06/06/23 18:26 Room Air 06/06/23 17:00 Room Air 06/06/23 16:00 97.9 F 59 L 20 133/74 98 Room Air 06/06/23 15:00 Room Air 06/06/23 13:00 Room Air 06/06/23 11:00 Room Air 06/06/23 09:00 Room Air 06/06/23 08:00 97.8 F 70 18 123/54 L 97 Room Air 06/06/23 08:00 97 Room Air Intake and Output 06/06/23 06/07/23 06/07/23 19:59 03:59 11:59 Intake Total 770 / 770 340 / 1110 480 / 1590 Output Total 0 / 0 Balance 770 / 770 340 / 1110 480 / 1590 Intake: Intake, Oral Amount 770 / 770 240 / 1010 480 / 1490 Intake, Total IV Amount 100 / 100 Piperacillin/Tazo 4.5 gm In 0.9 100 / 100 % Sodium Chloride 100 ml @ 200 mls/hr IV Q6H [facility] Rx#:[id number] Output: Output, Urine Amount 0 / 0 Other: Number of Voids 2 Number of Unmeasured Voids 1 2 Number of Bowel Movements 2 Weight 168 lb 8.694 oz Patient Weight 06/07/23 11:59 Weight 168 lb 8.694 oz Laboratory Results - last 24 hr 06/06/23 06:08: Total Counted 100, Neutrophils % (Manual) 72, Lymphocytes % (Manual) 24, Monocytes % (Manual) 4, Platelet Estimate Slight decrease, RBC Morphology Normal 06/06/23 11:16: POC Glucose 156 H 06/06/23 16:58: POC Glucose 126 H 06/06/23 22:15: POC Glucose 154 H 06/07/23 03:10: Vancomycin Trough 12.9 H 06/07/23 06:53: POC Glucose 147 H I & O for Labs for Last 24 Hours: Intake & Output 06/04/23 06/05/23 06/06/23 06/07/23 11:59 11:59 11:59 11:59 Intake Total 960 / 960 1060 / 1060 1590 / 1590 Output Total 0 / 0 0 / 0 0 / 0 Balance 960 / 960 1060 / 1060 1590 / 1590 Weight 166 lb 9.6 oz 168 lb 8.694 oz 168 lb 8.694 oz Constitutional: Present no acute distress Comment:: Lying in bed and appears comfortable Respiratory: Present CTA bilaterally Cardiac: Present Reg Rate and Rhythm GI: Present soft and normal bowel sounds; Absent distention, tenderness or guarding Extremities: Absent edema Comment:: Right toe/foot with dressing which is clean and dry. No edema of the right foot. No erythema at top of foot. Left foot with dressing around toes clean and dry. No erythema or edema of the left foot. Assessment and Plan *Assessment and plan (1) Ulcer of right great toe due to diabetes mellitus: Status: Acute Category: Medical Code(s): E11.621 - Type 2 diabetes mellitus with foot ulcer; L97.519 - Non-pressure chronic ulcer of other part of right foot with unspecified severity (2) Ulcer of left great toe due to diabetes mellitus: Status: Inactive Category: Medical Code(s): E11.621 - Type 2 diabetes mellitus with foot ulcer; L97.529 - Non-pressure chronic ulcer of other part of left foot with unspecified severity (3) Diabetic ulcer of left fifth toe: Status: Acute Category: Medical Code(s): E11.621 - Type 2 diabetes mellitus with foot ulcer; L97.529 - Non-pressure chronic ulcer of other part of left foot with unspecified severity (4) Diabetic foot ulcer: Status: Acute Qualifiers: Diabetic foot ulcer location: toe Diabetes mellitus type: type 2 Laterality: right Non-pressure ulcer stage: with fat layer exposed Qualified Code(s): E11.621 - Type 2 diabetes mellitus with foot ulcer; L97.512 - Non-pressure chronic ulcer of other part of right foot with fat layer exposed Category: Medical Code(s): E11.621 - Type 2 diabetes mellitus with foot ulcer; L97.509 - Non-pressure chronic ulcer of other part of unspecified foot with unspecified severity (5) Cellulitis in diabetic foot: Status: Inactive Category: Medical Code(s): E11.628 - Type 2 diabetes mellitus with other skin complications; L03.119 - Cellulitis of unspecified part of limb (6) Diabetic foot infection: Status: Acute Category: Medical Code(s): E11.628 - Type 2 diabetes mellitus with other skin complications; L08.9 - Local infection of the skin and subcutaneous tissue, unspecified (7) Diabetic foot: Status: Acute Category: Medical Code(s): E11.8 - Type 2 diabetes mellitus with unspecified complications (8) Onychodystrophy: Status: Acute Category: Medical Code(s): L60.3 - Nail dystrophy (9) Type 2 diabetes mellitus: Status: Acute Qualifiers: Diabetes mellitus tank terminal gauger insulin use: without tank terminal gauger use Diabetes mellitus complication status: with other specified complication Qualified Code(s): E11.69 - Type 2 diabetes mellitus with other specified complication Category: Medical Code(s): E11.9 - Type 2 diabetes mellitus without complications (10) Peripheral neuropathy: Status: Chronic Qualifiers: Qualified Code(s): G62.9 - Polyneuropathy, unspecified Category: Medical Code(s): G62.9 - Polyneuropathy, unspecified (11) Hyperlipidemia: Status: Chronic Qualifiers: Hyperlipidemia type: mixed hyperlipidemia Qualified Code(s): E78.2 - Mixed hyperlipidemia Category: Medical Code(s): E78.5 - Hyperlipidemia, unspecified (12) Coronary artery disease: Status: Chronic Qualifiers: Coronary Disease-Associated Artery/Lesion type: [place] artery [place] vs. transplanted heart: [place] heart Associated angina: without angina Qualified Code(s): I25.10 - Atherosclerotic heart disease of [place] coronary artery without angina pectoris Category: Medical Code(s): I25.10 - Atherosclerotic heart disease of [place] coronary artery without angina pectoris (13) Status post coronary artery stent placement: Status: Acute Category: Surgical Code(s): Z95.5 - Presence of coronary angioplasty implant and graft Plan Culture results are still pending. Continue with IV antibiotics and as per podiatry with notes as follows: Podiatry consult 06/07/23 Date of Service: 06/04/23, CT foot RT w con, Clinical indication: Pain; Swelling, leg or foot; Toes; Right; Concern for osteomyelitis R great toe COMPARISON: 1. CR XR FOOT RT MIN 3V 10/26/2018 10:32 AM 2. CR [id number] XR foot wt bearing RT 3V 02/02/2018 10:46 AM 3. CR XR ANKLE RT MIN 3V 05/19/2023 9:47 AM FINDINGS: Bones/joints: There is diffuse osseous demineralization. Mild soft tissue swelling is noted about the 1st interphalangeal joint without CT evidence for active osteomyelitis. There is diffuse degenerative disease of the visualized osseous structures. Soft tissues: See Bones joints finding. IMPRESSION: 1. Mild soft tissue swelling is noted about the 1st interphalangeal joint without CT evidence for active osteomyelitis. 2. If clinical concern persists, MRI would be suggested. PEPE's Date of Service: 06/06/23 Procedure(s): US Arterial Lower Ext Rest, CLINICAL HISTORY: DFU, PVD, current smoker, HTN, DM, previous PEPE (09/03/21) RT PEPE=1.0? LT PEPE=1.0., History of CABG, infection right great toe, HLD, PVD. COMPARISON:None FINDINGS: ANKLE-BRACHIAL PRESSURE INDICES?Pressure indices are as follows:?RIGHT? LOWER EXTREMITY:??Ankle-brachial pressure index: 1.0?Comments:?Normal?LEFT LOWER EXTREMITY:?Ankle-brachial pressure index: 0.9??Comments:Mildly depressed IMPRESSION: No evidence of significant obstructive peripheral vascular disease of the lower extremities. Diabetic foot care: -Patient was seen in Podiatry office for DFC and nail trim and callus care on 05/19/23 -Patient to continue to follow us for his DFC again in 3 months. 06/07/23: SLANT BACK, Left Hallux lateral border: No signs of infection noted to the toenail. Great toes incurvated on lateral side. Slant back procedure performed on lateral border utilizing nail nippers the big toe the nail were cut at an angle to remove the ingrown. A partial nail avulsion or total nail avulsion were not warranted at this time. Soak if the area is sore. Recommend routine nail care. -Patient doing well this morning with no complaints of pain. -Continue, Patient is currently on IV antibiotics Vancomycin and Zosyn per PCP orders -Right hallux, no drainage and no new debridement today. Wound culture pending. (See skin section for details) -Left hallux,had ingrown to lateral border and was removed by slant back and nail nippers, seemed to have some relief. -Left 5th toe, stable no drainage this morning, no debridement today, culture still pending for this site. (See skin section for details) -Right hallux, Left hallux, and left 5th toe sites were cleaned with betadine and dressed with betadine soaked gauze and coban. -PEPE's and b/L foot x-rays were done and were discussed with patient and spouse yesterday evening. -Sites/ulcers will need daily dressing changes as mentioned above by nursing starting 06/08/23 if he remains inpatient. -If he is discharged home the can resume the dressing changes. -Plan to see him after discharge in Podiatry office 1 week after discharge. Call office to make the appointment for him. -No plans for surgery at this time as far as for Podiatry's standpoint. -Thank you for allowing us to participate in the care of this patient.
[2023-06-07 08:47] LABS: Vancomycin,Peak 34.4 ug/ml (11-39)
--- NOTE | 2023-06-07 09:35 | HMH.PHAINT1 ---
Pharmacy Intervention Comments: DISCHARGE MEDICATION COUNSELING PROVIDED TO PATIENT ON AUGMENTIN FOR INDICATION, DOSE, DURATION, AND POSSIBLE SIDE EFFECTS. PATIENT VERBALIZED UNDERSTANDING AND HAD NO FURTHER QUESTIONS.
[2023-06-07] MEDS: clonazePAM 0.5MG TABLET 0.5 MG PO (09:55)
[2023-06-07] MEDS: ASPIRIN EC 81MG TABLET 81 MG PO (09:55)
[2023-06-07] MEDS: METOPROLOL SUCCINATE XL 100MG TABLET 100 MG PO (09:55)
[2023-06-07] MEDS: FAMOTIDINE 20MG TABLET 40 MG PO (09:55)
[2023-06-07] MEDS: GABAPENTIN 600MG TABLET 600 MG PO (09:55)
[2023-06-07] MEDS: RAMIPRIL 10MG CAPSULE 10 MG PO (09:55)
[2023-06-07] MEDS: CLOPIDOGREL 75MG TAB 75 MG PO (09:55)
[2023-06-07] MEDS: DAPAGLIFLOZIN PROPANEDIOL 10 MG TABLET PO (09:55)
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
--- NOTE | 2023-06-08 13:15 | CARE MANAGER ---
Spoke with patient's . She states he is doing well and they picked up medication. They are aware of follow up appointments and deny questions or concerns. RAMAN Nicholson
--- NOTE | 2023-06-12 05:49 | EXP.DC.SUM ---
General Admission date:: 06/04/23 Discharge date: 06/07/23 HPI HPI HPI: 63-year-old white male with diabetes, cardiovascular disease, peripheral vascular disease. He presented in the emergency room with complaints of infection in his right great toe which became apparent Boni, 2 days ago. He is a patient Dr. Cruz and saw him 2 weeks ago. He has also seen Dr. Khalil recently. She follows him for his diabetic foot problems. He has had ulcerations calluses and onychogryphosis. In the ER he did not complain of fever, nausea or vomiting, or any other concerns. He described his toe as moderately painful, throbbing. Had history of diabetic wounds on his bilateral feet previously, has not required amputations. In the emergency room the patient was hemodynamically stable, alert, oriented x4, appropriate, GCS 15, moving all extremities spontaneously, pupils equal and reactive to light. Full physical exam performed and significant for necrotic appearing medial aspect right great toe. Blistered, appears necrotic, purulent with surrounding erythema. Differential includes osteomyelitis but it did not appear on evaluation to be the case. Patient was given vancomycin, Zosyn for symptomatic management and correction of underlying abnormalities. Workup significant for leukocytosis 19,000 with neutrophilia. Patient has nonactionable chemistry. Lactate 2.5, CRP elevated at 38.2. CT of the foot with contrast demonstrated no obvious osteomyelitis, but he does have soft tissue swelling. see radiology read for full review of final results. Given patient presentation, workup, history, this most likely represents diabetic foot wound with rapid worsening. Patient was admitted to the hospital for further definitive management. 06/07/23: Patient resting in bed this morning, no complaints of pain, states he had a good night and hopes he gets to come home today. Dressings are clean dry and intact to B/L feet. Hospital Course Hospital Course Hospital Course: On admission white count found to be at 19,100. Lactate was at 2.5. He received IV fluids in the emergency room and was admitted and started on IV antibiotics of vancomycin and Zosyn. Dr. Montelongo debrided and de roofed the blistered area on the right great toe 06/06/2023. Patient was seen and followed by Dr. Khalil, bagel maker With the following notations: 06/07/23: SLANT BACK, Left Hallux lateral border: No signs of infection noted to the toenail. Great toes incurvated on lateral side. Slant back procedure performed on lateral border utilizing nail nippers the big toe the nail were cut at an angle to remove the ingrown. A partial nail avulsion or total nail avulsion were not warranted at this time. Soak if the area is sore. Recommend routine nail care. -Patient doing well this morning with no complaints of pain. -Continue, Patient is currently on IV antibiotics Vancomycin and Zosyn per PCP orders -Right hallux, no drainage and no new debridement today. Wound culture pending. (See skin section for details) -Left hallux,had ingrown to lateral border and was removed by slant back and nail nippers, seemed to have some relief. -Left 5th toe, stable no drainage this morning, no debridement today, culture still pending for this site. (See skin section for details) -Right hallux, Left hallux, and left 5th toe sites were cleaned with betadine and dressed with betadine soaked gauze and coban. -PEPE's and b/L foot x-rays were done and were discussed with patient and spouse yesterday evening. -Sites/ulcers will need daily dressing changes as mentioned above by nursing starting 06/08/23 if he remains inpatient. -If he is discharged home the can resume the dressing changes. -Plan to see him after discharge in Podiatry office 1 week after discharge. Call office to make the appointment for him. -No plans for surgery at this time as far as for Podiatry's standpoint. 06/07/2023 patient was feeling much better with less foot pain. White blood cell count returned to normal. He was able to eat and drink and ambulate. Cultures at time of discharge were pending. On this date he was discharged home with follow-up with podiatry and with Dr. Valenzuela. Meds as per medication reconciliation sheet and to include Augmentin. See discharge instructions. Exam Data for Last 24 hours Vital signs and Labs for Last 24 Hours: Temp Pulse Resp BP Pulse Ox O2 Del Method 97.7 F 69 20 142/74 H 98 Room Air 06/07/23 07:38 06/07/23 07:38 06/07/23 07:38 06/07/23 07:38 06/07/23 07:38 06/07/23 07:38 Narrative: Medical Exam Vital signs and Labs for Last 24 Hours: Vital Signs Temp Pulse Resp BP Pulse Ox O2 Del Method 06/07/23 07:38 97.7 F 69 20 142/74 H 98 Room Air 06/07/23 05:00 Room Air 06/07/23 04:00 97.9 F 91 H 16 102/53 L 100 06/07/23 03:00 Room Air 06/07/23 01:00 Room Air 06/06/23 23:00 Room Air 06/06/23 21:00 Room Air 06/06/23 20:00 97.6 F 75 16 110/56 L 98 Room Air 06/06/23 18:26 Room Air 06/06/23 17:00 Room Air 06/06/23 16:00 97.9 F 59 L 20 133/74 98 Room Air 06/06/23 15:00 Room Air 06/06/23 13:00 Room Air 06/06/23 11:00 Room Air 06/06/23 09:00 Room Air 06/06/23 08:00 97.8 F 70 18 123/54 L 97 Room Air 06/06/23 08:00 97 Room Air Intake and Output 06/06/23 06/07/23 06/07/23 19:59 03:59 11:59 Intake Total 770 / 770 340 / 1110 480 / 1590 Output Total 0 / 0 Balance 770 / 770 340 / 1110 480 / 1590 Intake: Intake, Oral Amount 770 / 770 240 / 1010 480 / 1490 Intake, Total IV Amount 100 / 100 Piperacillin/Tazo 4.5 gm In 0.9 100 / 100 % Sodium Chloride 100 ml @ 200 mls/hr IV Q6H [facility] Rx#:[id number] Output: Output, Urine Amount 0 / 0 Other: Number of Voids 2 Number of Unmeasured Voids 1 2 Number of Bowel Movements 2 Weight 168 lb 8.694 oz Patient Weight 06/07/23 11:59 Weight 168 lb 8.694 oz Laboratory Results - last 24 hr 06/06/23 06:08: Total Counted 100, Neutrophils % (Manual) 72, Lymphocytes % (Manual) 24, Monocytes % (Manual) 4, Platelet Estimate Slight decrease, RBC Morphology Normal 06/06/23 11:16: POC Glucose 156 H 06/06/23 16:58: POC Glucose 126 H 06/06/23 22:15: POC Glucose 154 H 06/07/23 03:10: Vancomycin Trough 12.9 H 06/07/23 06:53: POC Glucose 147 H I & O for Labs for Last 24 Hours: Intake & Output 06/04/23 06/05/23 06/06/23 06/07/23 11:59 11:59 11:59 11:59 Intake Total 960 / 960 1060 / 1060 1590 / 1590 Output Total 0 / 0 0 / 0 0 / 0 Balance 960 / 960 1060 / 1060 1590 / 1590 Weight 166 lb 9.6 oz 168 lb 8.694 oz 168 lb 8.694 oz Constitutional: Present no acute distress Comment:: Lying in bed and appears comfortable Respiratory: Present CTA bilaterally Cardiac: Present Reg Rate and Rhythm GI: Present soft and normal bowel sounds; Absent distention, tenderness or guarding Extremities: Absent edema Comment:: Right toe/foot with dressing which is clean and dry. No edema of the right foot. No erythema at top of foot. Left foot with dressing around toes clean and dry. No erythema or edema of the left foot. Results Data Completed and Pending Completed studies during hospitalization [Text1]: 06/04/2023 CT of right foot FINDINGS: Bones/joints: There is diffuse osseous demineralization. Mild soft tissue swelling is noted about the 1st interphalangeal joint without CT evidence for active osteomyelitis. There is diffuse degenerative disease of the visualized osseous structures. Soft tissues: See Bones/joints finding. IMPRESSION: 1. Mild soft tissue swelling is noted about the 1st interphalangeal joint without CT evidence for active osteomyelitis. 2. If clinical concern persists, MRI would be suggested. 06/06/2023 right foot x-ray FINDINGS: 3 images of the right foot were obtained. There is no evidence of fracture or dislocation. Diffuse osteopenia is present. The joint spaces are intact. There is no soft tissue abnormality identified. IMPRESSION: No acute bony abnormality. Osteopenia. 06/06/2023 left foot xray FINDINGS: 3 images of the left foot were obtained. There is no evidence of fracture or dislocation. Diffuse osteopenia is present. The joint spaces are intact. There is no soft tissue abnormality identified. IMPRESSION: No acute bony abnormality. Diffuse osteopenia. 06/06/2023 extremity arterial study FINDINGS: ANKLE-BRACHIAL PRESSURE INDICES Pressure indices are as follows: RIGHT LOWER EXTREMITY: Ankle-brachial pressure index: 1.0 Comments: Normal LEFT LOWER EXTREMITY: Ankle-brachial pressure index: 0.9 Comments: Mildly depressed IMPRESSION: No evidence of significant obstructive peripheral vascular disease of the lower extremities. Labs on day of discharge: Preliminary micro results at discharge 06/04/23 21:45 Blood Culture - Preliminary Blood 06/04/23 21:35 Blood Culture - Preliminary Blood DS: Diagnosis Discharge Diagnosis (1) Ulcer of right great toe due to diabetes mellitus: Status: Acute Code(s): E11.621 - Type 2 diabetes mellitus with foot ulcer; L97.519 - Non-pressure chronic ulcer of other part of right foot with unspecified severity (2) Ulcer of left great toe due to diabetes mellitus: Status: Inactive Code(s): E11.621 - Type 2 diabetes mellitus with foot ulcer; L97.529 - Non-pressure chronic ulcer of other part of left foot with unspecified severity (3) Diabetic ulcer of left fifth toe: Status: Acute Code(s): E11.621 - Type 2 diabetes mellitus with foot ulcer; L97.529 - Non-pressure chronic ulcer of other part of left foot with unspecified severity (4) Diabetic foot ulcer: Status: Acute Code(s): E11.621 - Type 2 diabetes mellitus with foot ulcer; L97.509 - Non-pressure chronic ulcer of other part of unspecified foot with unspecified severity Qualifiers: Diabetes mellitus type: type 2 Diabetic foot ulcer location: toe Laterality: right Non-pressure ulcer stage: with fat layer exposed Qualified Code(s): E11.621 - Type 2 diabetes mellitus with foot ulcer; L97.512 - Non-pressure chronic ulcer of other part of right foot with fat layer exposed (5) Cellulitis in diabetic foot: Status: Inactive Code(s): E11.628 - Type 2 diabetes mellitus with other skin complications; L03.119 - Cellulitis of unspecified part of limb (6) Diabetic foot infection: Status: Acute Code(s): E11.628 - Type 2 diabetes mellitus with other skin complications; L08.9 - Local infection of the skin and subcutaneous tissue, unspecified (7) Diabetic foot: Status: Acute Code(s): E11.8 - Type 2 diabetes mellitus with unspecified complications (8) Onychodystrophy: Status: Acute Code(s): L60.3 - Nail dystrophy (9) Type 2 diabetes mellitus: Status: Acute Code(s): E11.9 - Type 2 diabetes mellitus without complications Qualifiers: Diabetes mellitus complication status: with other specified complication Diabetes mellitus usp insulin use: without usp use Qualified Code(s): E11.69 - Type 2 diabetes mellitus with other specified complication (10) Peripheral neuropathy: Status: Chronic Code(s): G62.9 - Polyneuropathy, unspecified Qualifiers: Qualified Code(s): G62.9 - Polyneuropathy, unspecified (11) Hyperlipidemia: Status: Chronic Code(s): E78.5 - Hyperlipidemia, unspecified Qualifiers: Hyperlipidemia type: mixed hyperlipidemia Qualified Code(s): E78.2 - Mixed hyperlipidemia (12) Coronary artery disease: Status: Chronic Code(s): I25.10 - Atherosclerotic heart disease of [place] coronary artery without angina pectoris Qualifiers: Associated angina: without angina Coronary Disease-Associated Artery/Lesion type: [place] artery [place] vs. transplanted heart: [place] heart Qualified Code(s): I25.10 - Atherosclerotic heart disease of [place] coronary artery without angina pectoris (13) Status post coronary artery stent placement: Status: Acute Code(s): Z95.5 - Presence of coronary angioplasty implant and graft Meds Home Medications and Allergies Home Medications Medication Instructions Recorded Confirmed Type clonazepam 0.5 mg tablet 0.5 mg PO DAILY 03/16/17 06/04/23 History aspirin 81 mg tablet,delayed 81 mg PO DAILY 03/18/17 06/04/23 History release dapagliflozin propanediol 10 mg 10 mg PO DAILY #30 tabs 11/06/18 06/04/23 History tablet dulaglutide 0.75 mg/0.5 mL 0.75 mg SQ WEEKLY Diabetes #2 mL 11/06/18 06/05/23 History subcutaneous pen injector famotidine 40 mg tablet 40 mg PO DAILY 04/09/19 06/04/23 History cholecalciferol (vitamin D3) 50 50 mcg PO DAILY 03/03/21 06/04/23 History mcg (2,000 unit) capsule gmyfyaed-oj-ianir 300 mcg-K 60 1 tab PO DAILY 03/03/21 06/04/23 History mcg-lycop 600 mcg-lutein 300 mcg tablet (Centrum Silver Men) metformin 1,000 mg tablet 1,000 mg PO BIDWMEAL Diabetes 05/22/21 06/05/23 History quetiapine 100 mg tablet 100 mg PO HS 05/22/21 06/04/23 History ramipril 10 mg capsule 10 mg PO DAILY 07/26/22 06/04/23 History clonazepam 0.5 mg tablet 1 mg PO HS 07/27/22 06/04/23 History oxycodone 10 mg tablet 10 mg PO Q8H Moderate Pain (Scale 07/27/22 06/05/23 History Score 5-6) clopidogrel 75 mg tablet 75 mg PO DAILY 06/05/23 06/04/23 History gabapentin 600 mg tablet 600 mg PO Q8H 06/05/23 06/05/23 History metoprolol succinate 100 mg 100 mg PO DAILY 06/05/23 06/04/23 History tablet,extended release 24 hr amoxicillin 500 mg-potassium 1 tab PO TID #30 tabs 06/07/23 Rx clavulanate 125 mg tablet (Augmentin) New Prescriptions to Start Prescriptions: amoxicillin-pot clavulanate [Augmentin] Josh Montelongo Allergies Allergy/AdvReac Type Severity Reaction Status Date / Time propoxyphene Allergy Intermediate Verified 05/19/23 08:56 atorvastatin [From Lipitor] AdvReac Severe Verified 05/19/23 08:56 rosuvastatin [From Crestor] AdvReac Severe Verified 05/19/23 08:56 hydrocodone [From LORTAB] AdvReac Mild NA-NAUSEA/V Verified 05/19/23 08:56 OMITING Discharge Plan Disposition Patient Disposition: Home, Self-Care Condition: Good Discharge Order Discharge Orders: Discharge Order (Routine); Ordered 06/07/23 Ordered By: Josh Montelongo Follow up Plan Follow up with: Cesar Valenzuela MD [Primary Care Provider] - 06/14/23 11:00 am Kristen Khalil DPM [Staff Physician] - 06/14/23 10:30 am Prescriptions/Medication Reconciliation: New amoxicillin-pot clavulanate [Augmentin] 500-125 mg tablet 1 tab PO TID Qty: 30 0RF Continued clonazepam 0.5 mg tablet 0.5 mg PO DAILY dulaglutide 0.75 mg/0.5 mL pen injector 0.75 mg SQ WEEKLY Qty: 2 dapagliflozin propanediol 10 mg tablet 10 mg PO DAILY Qty: 30 famotidine 40 mg tablet 40 mg PO DAILY Patient Comments: TAKE 1 TABLET 1 TIME EACH DAY cholecalciferol (vitamin D3) 50 mcg (2,000 unit) capsule 50 mcg PO DAILY Centrum Silver Men 300-600-300 mcg tablet 1 tab PO DAILY aspirin 81 MG tablet,delayed release (DR/EC) 81 mg PO DAILY ramipril 10 mg capsule 10 mg PO DAILY clonazepam 0.5 mg tablet 1 mg PO HS Patient Comments: TAKE 1 TABLET IN THE MORNING, AND TAKE 2 TABLETS IN THE EVENING. oxycodone 10 mg tablet 10 mg PO Q8H Patient Comments: TAKE 1 TABLET EVERY 6 HOURS NEEDED quetiapine 100 MG tablet 100 mg PO HS metformin 1,000 MG tablet 1,000 mg PO BIDWMEAL gabapentin 600 mg tablet 600 mg PO Q8H metoprolol succinate 100 mg tablet extended release 24 hr 100 mg PO DAILY clopidogrel 75 mg tablet 75 mg PO DAILY Problem Reconciliation Problems Reviewed?: Yes Patient Discharge Instructions ACTIVITY: Continue current activity DIET: diabetic diet Patient Instructions: Diabetic Foot Ulcer, DI for Diabetic Foot Ulcer Providers Primary Care Provider: Cesar Valenzuela Admit Provider: Josh Montelongo Attending Provider: Josh Montelongo
== END 2023-06-07 11:47 | disposition home or self-care (01) | DRG 639 ==
LOC: ER 23:32 → 2ND 23:59
PROVIDERS: Admitting Provider Family Medicine; Emergency Provider Emergency Medicine; PCP Family Medicine; Visit Provider Family Medicine
DX: E11.628 Type 2 diabetes mellitus with other skin complications (principal); L08.9 Local infection of the skin and subcutaneous tissue, unspecified; E11.621 Type 2 diabetes mellitus with foot ulcer; L97.509 Non-pressure chronic ulcer of other part of unspecified foot with unspecified severity; E11.69 Type 2 diabetes mellitus with other specified complication; I10 Essential (primary) hypertension; E78.2 Mixed hyperlipidemia; I25.10 Atherosclerotic heart disease of native coronary artery without angina pectoris; Z95.5 Presence of coronary angioplasty implant and graft; E11.42 Type 2 diabetes mellitus with diabetic polyneuropathy; L97.512 Non-pressure chronic ulcer of other part of right foot with fat layer exposed; E11.51 Type 2 diabetes mellitus with diabetic peripheral angiopathy without gangrene; Z95.1 Presence of aortocoronary bypass graft; M19.072 Primary osteoarthritis, left ankle and foot; M19.071 Primary osteoarthritis, right ankle and foot; F17.210 Nicotine dependence, cigarettes, uncomplicated; M54.9 Dorsalgia, unspecified; Z79.84 Long term (current) use of oral hypoglycemic drugs; I25.2 Old myocardial infarction
CPT/HCPCS: 36415; 73630; 73701; 80048; 80053; 80202; 82962; 83605; 85007; 85014; 85018; 85025; 85048; 85049; 85651; 86140; 87040; 87070; 87205; 93923; 99285; J2543; J3370; Q9967

== ENCOUNTER 2023-06-14 18:00 | Outpatient (CLI) | payer BC, MEDICARE, SELFPAY | END 2023-06-14 23:59 | disposition home or self-care (01) | LOC: LAB.DROPOF 06-15 10:46 | PROVIDERS: PCP Podiatrist; Visit Provider Podiatrist | DX: E11.621 Type 2 diabetes mellitus with foot ulcer (principal); L97.529 Non-pressure chronic ulcer of other part of left foot with unspecified severity | CPT/HCPCS: 87070; 87205 ==

== ENCOUNTER 2023-06-20 08:44 | Day surgery (SDC) | payer MEDICARE, SELFPAY ==
[2023-06-20 08:52] VITALS: BMI 24.3
[2023-06-20 09:05] LABS: Basophils # 0.1 K/mm3 (0-0.2); Basophils % 0.9 % (0.1-2.0); Eosinophils # 0.2 K/mm3 (0.0-0.4); Eosinophils % 1.8 % (0.1-12.0); Hematocrit 46.4 % (42.0-52.0); Hemoglobin 15.5 g/dL (14.1-18.0); Lymphocytes # 3.5 K/mm3 (0.7-4.5); Lymphocytes % 34.3 % (10-50); Mean Corpuscular HGB Conc 33.4 g/dL (31.8-35.4); Mean Corpuscular Hemoglobin 32.3 pg (27.0-31.2); Mean Corpuscular Volume 96.7 fl (80-94); Mean Platelet Volume 8.8 fl (7.4-10.4); Monocytes # 0.5 K/mm3 (0.1-1.0); Monocytes % 4.5 % (1.7-9.3); Neutrophils # 5.9 K/mm3 (1.8-7.8); Neutrophils % 58.5 % (37.0-80.0); Platelet Count 122 K/mm3 (142-424); Red Cell Distribution Width 13.5 % (11.5-17.5); White Blood Count 10.1 K/mm3 (4.8-10.8)
[2023-06-20 09:16] LABS: Anion Gap 10.1 mEq/L (5-15); Blood Urea Nitrogen 13 mg/dl (9-20); Carbon Dioxide 33 mmol/L (22.0-30.0); Chloride 103 mmol/L (98-107); Creatinine Clearance Estimated 78 mL/min (50-200); Estimated Glomerular Filt Rate 97 ml/min (>60); GFR (African American) 117 ML/MIN (>60); Glucose 119 mg/dl (74-100); Potassium 5.1 mmoL/L (3.5-5.1); Sodium 141 mmol/L (136-145)
[2023-06-20 11:08] VITALS: BP 153/90; PULSE 82; RESP 18; TEMP 36.6; O2SAT 97
--- NOTE | 2023-06-20 11:54 | SUR.PREOP ---
Pt request to leave and reschedule his procedure, notified.
== END 2023-06-20 11:57 | disposition home or self-care (01) ==
PROVIDERS: PCP Family Medicine; Visit Provider Internal Medicine
DX: I25.10 Atherosclerotic heart disease of native coronary artery without angina pectoris (principal); I10 Essential (primary) hypertension; Z53.29 Procedure and treatment not carried out because of patient's decision for other reasons
CPT/HCPCS: 80048; 85025

== ENCOUNTER 2023-06-23 08:13 | Day surgery (SDC) | payer MEDICARE, SELFPAY ==
[2023-06-23] VITALS (11 sets, daily range): BP systolic 117–154; BP diastolic 68–90; PULSE 67–88; RESP 15–18; TEMP 36.3; O2SAT 97–100; BMI 24.3
--- NOTE | 2023-06-23 07:32 | IR_ITS ---
APPROVED REPORT Patient Location: [facility]: ERIKA Epperson RT (R) PROCEDURES Right femoral arterial access Pigtail catheter to the abdominal aorta Abdominal aortography Repositioning the catheter in the abdominal aorta Bilateral iliofemoral runoff Left femoral arterial access Balloon mounted bare-metal stent deployment to the left common iliac artery Self-expanding bare-metal stent deployment to the left external iliac artery INDICATION Julio César claudication class III, Abnormal PEPE, Left common and external iliac artery stenosis Informed consent was obtained prior to the procedure. COMPLICATIONS NONE Estimated Blood Loss: LESS THAN 10 ML TECHNIQUE 1% lidocaine used anesthetize the right groin the right femoral artery was accessed via the Salinger technique and a 5 [place] sheath was placed in the right femoral artery. The pigtail catheter was advanced to the abdominal aorta and abdominal aortography was performed. Pigtail catheter was then repositioned and bilateral iliofemoral runoff was performed. Following this 1% lidocaine was used anesthetize the left groin and the left femoral artery was accessed via the Salinger technique. A 6 [place] sheath is placed in left femoral artery. An 8 mm x 57 mm balloon mounted bare-metal stent was deployed at 14 shawn and left common iliac artery reducing the stenosis to 10%. An additional 8 mm x 80 mm self-expanding bare-metal stent was deployed distal to the stent yet still overlapping and extending down into the left external iliac artery. Following this a 9 mm x 20 mm balloon was deployed at 12 shawn throughout the left common iliac artery. An 8 mm x 40 mm balloon was then advanced into the self-expanding stent and deployed at 6 shawn. Excellent angiographic results were obtained. At the end of the procedure the apparatus was removed the left groin is reprepped closure change sheath was removed and hemostasis was achieved using Perclose device. The right groin was then sterilely prepped the apparatus was removed the sheath was removed and hemostasis was achieved using Perclose device in the right groin. Patient was transferred to the postop holding in stable addition ANGIOGRAPHIC RESULTS Left renal artery is singular and has a proximal 50% stenosis. There is poor visualization of the right renal artery. There is infrarenal atheromatous plaque with 20% stenoses in the infrarenal abdominal aorta. Right common iliac artery is moderately atheromatous with diffuse 20% stenoses. The right internal iliac artery is atheromatous but patent. The right external iliac artery has 40% atheromatous plaque but is patent. The right common femoral artery is patent. The right profunda femoris artery is patent. The right superficial femoral artery has mild diffuse atheromatous plaque. The right popliteal artery is widely patent. There is three-vessel runoff below the knee on the right side Left common iliac artery has proximal eccentric 80% stenosis followed by additional 60% stenosis. The left internal iliac artery has an ostial 80% stenosis while the external iliac artery has 70% stenosis. The left common femoral artery is widely patent. The left superficial femoral artery has mild proximal 30 and 40% stenoses with additional 40% stenoses at Andrea's canal. The left popliteal artery has 40% stenosis with three-vessel runoff below the knee on the left. Left profunda femoris artery is patent IMPRESSION Moderate left renal artery stenosis Poorly visualized right renal artery Mild nonflow limiting atheromatous plaque throughout the right iliofemoral artery as described above with three-vessel runoff below the knee on the right Severe left common and left external iliac artery stenosis with successful stenting reducing the stenoses to 0% with 2 bare-metal stents as described above Persistent severe left internal iliac artery stenosis Moderate stenosis throughout the left SFA and left popliteal artery with three-vessel runoff below the knee PLAN 1. Recommend renal duplex 2. LDL less than 55 to be achieved with high intensity statin 3. Avoidance of tobacco products 4. Risk factor modification 5. Physical therapy 6. Assessment for coronary artery disease based on severe peripheral artery disease Electronically signed by : Mo Jaquez MD 06/23/2023 14:00:11
[2023-06-23 09:34] LABS: Basophils # 0.1 K/mm3 (0-0.2); Eosinophils # 0.1 K/mm3 (0.0-0.4); Eosinophils % 1.2 % (0.1-12.0); Hematocrit 50.4 % (42.0-52.0); Hemoglobin 16.2 g/dL (14.1-18.0); Lymphocytes # 2.6 K/mm3 (0.7-4.5); Lymphocytes % 25.4 % (10-50); Mean Corpuscular HGB Conc 32.2 g/dL (31.8-35.4); Mean Corpuscular Hemoglobin 31.6 pg (27.0-31.2); Mean Corpuscular Volume 98.1 fl (80-94); Mean Platelet Volume 9.4 fl (7.4-10.4); Monocytes # 0.6 K/mm3 (0.1-1.0); Monocytes % 6.1 % (1.7-9.3); Neutrophils # 6.8 K/mm3 (1.8-7.8); Neutrophils % 66.3 % (37.0-80.0); Platelet Count 105 K/mm3 (142-424); Red Blood Count 5.14 M/mm3 (4.60-6.20); Red Cell Distribution Width 13.3 % (11.5-17.5); White Blood Count 10.3 K/mm3 (4.8-10.8)
[2023-06-23 09:48] LABS: Anion Gap 19.6 mEq/L (5-15); Blood Urea Nitrogen 14 mg/dl (9-20); Calcium 10.3 mg/dl (8.4-10.2); Carbon Dioxide 29 mmol/L (22.0-30.0); Chloride 98 mmol/L (98-107); Creatinine Clearance Estimated 78 mL/min (50-200); Estimated Glomerular Filt Rate 97 ml/min (>60); GFR (African American) 117 ML/MIN (>60); Glucose 132 mg/dl (74-100); Potassium 4.6 mmoL/L (3.5-5.1); Sodium 142 mmol/L (136-145)
[2023-06-23] MEDS: LIDOCAINE 1% 10ML MDV 20 ML IJ ×2 (13:21→13:35)
[2023-06-23] MEDS: HEPARIN 1,000 UNITS/500ML NS (CATH LAB) 3000 UNIT IV (13:21)
[2023-06-23] MEDS: 0.9 % SODIUM CHLORIDE 500 ML 25 ML IV (13:21)
[2023-06-23] MEDS: diphenhydrAMINE 50MG/ML VIAL 50 MG IV (13:21)
[2023-06-23] MEDS: FENTANYL 100MCG/2ML VIAL 50 MCG IV ×2 (13:27→13:37)
[2023-06-23] MEDS: MIDAZOLAM HCL 1MG/1ML 5ML VIAL 1 MG IV ×2 (13:27→13:36)
[2023-06-23] MEDS: HEPARIN 1,000 UNITS/ML 10ML VIAL (CATH LAB) 10000 UNIT IV (13:35)
[2023-06-23] MEDS: IOHEXOL-240 100ML BOTTLE 140 ML IV (14:23)
[2023-06-23 16:01] LABS: CATHL Activated Clotting Time 373 SEC (74-125)
--- NOTE | 2023-06-23 16:24 | SUR.PHASEII ---
Small amt of serosang drainage noted to right groin dressing- unchanged.
== END 2023-06-23 16:35 | disposition home or self-care (01) ==
PROVIDERS: PCP Family Medicine; Visit Provider Internal Medicine
DX: E11.40 Type 2 diabetes mellitus with diabetic neuropathy, unspecified; K21.9 Gastro-esophageal reflux disease without esophagitis; E11.621 Type 2 diabetes mellitus with foot ulcer; I10 Essential (primary) hypertension; I25.118 Atherosclerotic heart disease of native coronary artery with other forms of angina pectoris; E78.2 Mixed hyperlipidemia; I70.223 Atherosclerosis of native arteries of extremities with rest pain, bilateral legs; I70.1 Atherosclerosis of renal artery; I77.1 Stricture of artery; Z95.5 Presence of coronary angioplasty implant and graft; F17.210 Nicotine dependence, cigarettes, uncomplicated; Z79.899 Other long term (current) drug therapy; Z79.84 Long term (current) use of oral hypoglycemic drugs; I25.2 Old myocardial infarction; Z95.1 Presence of aortocoronary bypass graft
CPT/HCPCS: 37221; 37223; 80048; 85025; 85347; 99152; 99153; C1725; C1760; C1769; C1876; C1894; J1644; Q9966

== ENCOUNTER 2023-07-28 07:39 | Outpatient (CLI) | payer MEDICARE, SELFPAY ==
--- NOTE | 2023-07-28 07:40 | CT_ITS ---
FINAL REPORT TECHNIQUE: Pre-and postcontrast images of the abdomen through the pelvis were performed by computed tomography. Extensive 3-D reconstruction images were performed. A CTA was performed. This study was performed with techniques to keep radiation doses as low as reasonably achievable (ALARA). Individualized dose reduction techniques using automated exposure control or adjustment of mA and/or kV according to the patient's size were employed. CLINICAL HISTORY: renal artery stenosis. abd aortic plaque COMPARISON: None FINDINGS: ABDOMEN: The lung bases are clear. Precontrast images demonstrate no evidence of nephrolithiasis. There is a 21 mm left adrenal mass with a focus of fat within it consistent with myelolipoma. There is mild fatty infiltration of the liver. There is heterogeneous enhancement of the spleen of uncertain significance. It is uncertain if this represents normal heterogeneous enhancement. The pancreas is unremarkable. PELVIS: The appendix is normal there is mild nonspecific bladder wall thickening. There is no significant free fluid or adenopathy. The bony pelvis is unremarkable. CTA: There is no evidence of aneurysm or dissection. Diffuse vascular calcifications are noted. There is moderate plaque/mural thrombus of the abdominal aorta with moderate narrowing of the lumen. The celiac and SMA are patent without significant stenosis. The right renal artery is patent without evidence of stenosis. There is calcified plaque of the left renal artery origin with 50 to 60% diameter stenosis. The LUX is patent. A left iliac artery stent is present and patent. There is a 1.6 cm right common iliac artery aneurysm with moderate mural thrombus. There is calcified plaque of the iliac arteries without significant stenosis. IMPRESSION: Moderate plaque/mural thrombus abdominal aorta with moderate narrowing of the lumen. 50 to 60% stenosis right renal artery. Patent left iliac artery stent. 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 Reviewed, Interpreted and Dictated by Davon Root III, MD Transcribed by Eloisa Hernández Authenticated and [facility]
[2023-07-28 08:10] LABS: Blood Urea Nitrogen 17 mg/dl (9-20); Estimated Glomerular Filt Rate 97 ml/min (>60); GFR (African American) 117 ML/MIN (>60)
[2023-07-28] MEDS: 0.9 % SODIUM CHLORIDE 50 ML VIAL 40 ML IV (08:43)
[2023-07-28] MEDS: SODIUM CHLORIDE 0.9% 10ML SYR (RAD ONLY) 10 ML IV (08:43)
[2023-07-28] MEDS: IOPAMIDOL-370 (76%);100ML BOTTLE 100 ML IV (08:43)
== END 2023-07-28 23:59 | disposition home or self-care (01) ==
LOC: RAD 07:40
PROVIDERS: PCP Family Medicine; Visit Provider Nurse Practitioner
DX: I73.9 Peripheral vascular disease, unspecified (principal); E11.40 Type 2 diabetes mellitus with diabetic neuropathy, unspecified; I70.1 Atherosclerosis of renal artery; I10 Essential (primary) hypertension; F17.210 Nicotine dependence, cigarettes, uncomplicated; Z79.84 Long term (current) use of oral hypoglycemic drugs; Z79.85 Long-term (current) use of injectable non-insulin antidiabetic drugs
CPT/HCPCS: 36415; 74174; 82565; 84520; Q9967

== ENCOUNTER 2023-08-17 09:08 | Outpatient (CLI) | payer MEDICARE, SELFPAY ==
--- NOTE | 2023-08-17 09:16 | XR_ITS ---
FINAL REPORT CLINICAL HISTORY: non healing ulcer of right great toe COMPARISON: 06/06/2023 FINDINGS: RIGHT FOOT: Three views of the right foot were obtained. There is no acute fracture or dislocation. Mild degenerative change is present. There is no soft tissue abnormality. No bony erosions are identified. IMPRESSION: Mild degenerative change with no acute bony abnormality. Reviewed, Interpreted and Dictated by Davon Root III, MD Transcribed by Shannen Woods Authenticated and [facility]
[2023-08-17 09:54] LABS: Basophils # 0.1 K/mm3 (0-0.2); Basophils % 0.7 % (0.1-2.0); Eosinophils # 0.1 K/mm3 (0.0-0.4); Eosinophils % 1.4 % (0.1-12.0); Hematocrit 45.5 % (42.0-52.0); Hemoglobin 15.4 g/dL (14.1-18.0); Lymphocytes # 2.6 K/mm3 (0.7-4.5); Lymphocytes % 28.2 % (10-50); Mean Corpuscular HGB Conc 33.7 g/dL (31.8-35.4); Mean Corpuscular Hemoglobin 31.8 pg (27.0-31.2); Mean Corpuscular Volume 94.3 fl (80-94); Mean Platelet Volume 9.2 fl (7.4-10.4); Monocytes # 0.6 K/mm3 (0.1-1.0); Neutrophils # 5.8 K/mm3 (1.8-7.8); Neutrophils % 62.7 % (37.0-80.0); Platelet Count 90 K/mm3 (142-424); Red Blood Count 4.83 M/mm3 (4.60-6.20); Red Cell Distribution Width 13.8 % (11.5-17.5); White Blood Count 9.2 K/mm3 (4.8-10.8)
[2023-08-17 10:29] LABS: Alanine Aminotransferase 27 U/L (12-78); Albumin Level 4.2 g/dl (3.5-5.0); Albumin/Globulin Ratio 1.4 (1.1-1.8); Alkaline Phosphatase 93 U/L (38-126); Anion Gap 13.3 mEq/L (5-15); Aspartate Amino Transferase 32 U/L (17-59); Bilirubin,Total 0.5 mg/dl (0.2-1.3); Blood Urea Nitrogen 13 mg/dl (9-20); Calcium 9.7 mg/dl (8.4-10.2); Carbon Dioxide 30 mmol/L (22.0-30.0); Chloride 100 mmol/L (98-107); Estimated Glomerular Filt Rate 85 ml/min (>60); GFR (African American) 102 ML/MIN (>60); Globulin 2.9 g/dL (1.3-3.2); Glucose 121 mg/dl (74-100); Potassium 4.3 mmoL/L (3.5-5.1); Sodium 139 mmol/L (136-145); Total Protein,Serum 7.1 g/dl (6.3-8.2)
[2023-08-17 10:35] LABS: C-Reactive Protein 5.4 mg/L (0-4)
[2023-08-17 11:48] LABS: Erythrocyte Sedimentation Rate 13 mm/hr (0-20)
[2023-08-17 11:54] LABS: Hemoglobin A1C 6.3 % (4.0-6.0)
== END 2023-08-17 23:59 | disposition home or self-care (01) ==
LOC: LAB 09:10
PROVIDERS: PCP Family Medicine; Visit Provider Podiatrist
DX: E11.621 Type 2 diabetes mellitus with foot ulcer (principal); L97.519 Non-pressure chronic ulcer of other part of right foot with unspecified severity; E11.9 Type 2 diabetes mellitus without complications
CPT/HCPCS: 36415; 73630; 80053; 83036; 85025; 85651; 86140

== ENCOUNTER → 2023-08-24 13:27 | Day surgery (SDC) | payer MEDICARE, SELFPAY ==
[2023-08-24 13:38] VITALS: BMI 23.6
[2023-08-24 13:46] VITALS: BP 130/77; PULSE 76; RESP 18; TEMP 36.1; O2SAT 98
[2023-08-24] MEDS: VANCOMYCIN 1000MG VIAL 1000 MG (14:28)
[2023-08-24] MEDS: GENTAMICIN 80 MG/2 ML VIAL (14:28)
[2023-08-24 14:55] VITALS: BP 109/66; PULSE 72; RESP 16; TEMP 36.6; O2SAT 96
[2023-08-24] MEDS: cefTRIAXone 1GM VIAL 1 GM IM (15:04)
--- NOTE | 2023-08-24 15:17 | EXP.OP.NOTE ---
Date of procedure: 08/24/23 Pre-op Diagnosis:: Right hallux DFU PAD Post-op Diagnosis:: Same Procedure performed:: Right foot wound debridement Application of wound graft (Organogenesis Apligraf) Surgeon:: Kristen Khalil DPM Anesthesia: none Estimated blood loss (mL): 5 Clinical Note:: Patient is a 63 DM male with a right hallux diabetic foot ulcer. The patient has no new signs of infection. The wound base appeared healthy in office and ready for skin graft substitute. We discussed continued local wound care versus application of graft. Organogenesis wound graft approved per insurance. Indications: 63M DM, PN, history of chronic diabetic foot ulcers, PAD. He has tried and failed conservative care including: Immobilization, offloading, RICE protocol, compression therapy, local wound care including antibiotics, wound debridements, wound dressings, and continues to present with the wound (infection resolved months ago). Adequate blood flow to heal. The patient has been instructed on the planned procedure, all risk versus benefits of the procedure discussed. These include but are not limited to: bleeding, infection, nerve and blood vessel damage, need for further surgery, delay in healing of soft tissue, prolonged pain and recovery, CRPS/RSD, DVT/PE and local anesthetic complications. No guarantees were given. All questions fully answered. The patient verbalized understanding and agreed to proceed with surgery. Written consent obtained. This is a planned staged wound debridement and graft application for the DFU. Operative findings:: Right hallux diabetic ulcer noted. Mild jacquie wound maceration and no erythema noted. No purulence, drainage or SOI noted. Sharp excisional debridement with curette, 15 blade and forceps full-thickness through skin, subcutaneous tissue into/including deep fascia. Bleeding noted. Wound itself had depth of 0.1cm but there was a small area inferiorly that extended 0.3cm deep. Post debridement: 90% granular, 10% fibrotic, 2.1 x 1.4 x 0.3cm. Operative note:: On this date and time patient was deemed an appropriate surgical candidate. With informed consent signed, the patient was taken to the local procedure operating theater room. The patient was positioned supine. No anesthesia was induced. No tourniquet used. The right lower extremity was prepped and draped in normal sterile fashion. 1g IM Rocephin given. Right hallux wound debridement: Sharp excisional full-thickness debridement with curette, 15 blade and forceps thru skin, subcutaneous tissue, down to/including deep fascia. No bone exposed. Minimal but some bleeding noted. Wound flushed with gentamicin irrigation. Skin cleansed with saline/gentamicin irrigation. Mastisol applied around the wound edges. Vanco powder applied over open wound. Application #1 of Apligraf (Organogenesis wound graft): Graft was prepared in standard fashion. The entire graft was utilized. The graft was placed over the open wound and secured with Steri-Strips. Vanco powder applied over graft. Adaptic was applied over the graft followed by dry sterile dressing to left foot/ankle. The patient tolerated the procedure well, without complications. Materials: Organogenesis Aligraf wound graft x1 Discharge/Plan: Ok to discharge home when ready and vss. Patient is to maintain dressing clean dry and intact. Elevate on 1-2 pillows. Partial weight bearing to the right lower extremity in post op shoe with walker. Follow up in one week for planned staged surgery: right foot wound debridement and graft application #2. Condition: stable Disposition: same day Complications:: None
[2023-08-25 10:27] LABS: POC Glucose,Bedside 131 (70-110)
== END | disposition home or self-care (01) ==
PROVIDERS: PCP Family Medicine; Visit Provider Podiatrist
PROC: (CPT 15275; principal; 2023-08-24 14:00)
PROC: (CPT 15275; 2023-08-24 14:00)
DX: E11.621 Type 2 diabetes mellitus with foot ulcer (principal); L97.412 Non-pressure chronic ulcer of right heel and midfoot with fat layer exposed; Z79.84 Long term (current) use of oral hypoglycemic drugs
CPT/HCPCS: 15275; 82962; J0696; J1580; J3370; Q4101

== ENCOUNTER 2023-08-31 08:02 | Day surgery (SDC) | payer MEDICARE, SELFPAY ==
[2023-08-30 08:38] VITALS: BMI 23.8
[2023-08-31 08:30] VITALS: BP 127/67; PULSE 70; RESP 18; TEMP 36.1; O2SAT 95
[2023-08-31 08:36] LABS: POC Glucose,Bedside 147 (70-110)
--- NOTE | 2023-08-31 09:37 | EXP.OP.NOTE ---
Date of procedure: 08/31/23 Pre-op Diagnosis:: Right hallux DFU PAD Post-op Diagnosis:: Same Procedure performed:: Right foot wound debridement Application of wound graft ([employer] Apligraf) Surgeon:: Kristen Khalil DPM Anesthesia: none Estimated blood loss (mL): 1 Clinical Note:: Patient is a 63 DM male with a right hallux diabetic foot ulcer. The patient has no new signs of infection. The wound base appeared healthy and ready for skin graft substitute. He had application #1: 08/24/23. We discussed continued local wound care versus application of graft. Organogenesis wound graft approved per insurance. Indications: 63M DM, PN, history of chronic diabetic foot ulcers, PAD. He has tried and failed conservative care including: Immobilization, offloading, RICE protocol, compression therapy, local wound care including antibiotics, wound debridements, wound dressings, and continues to present with the wound (infection resolved months ago). Adequate blood flow to heal. The patient has been instructed on the planned procedure, all risk versus benefits of the procedure discussed. These include but are not limited to: bleeding, infection, nerve and blood vessel damage, need for further surgery, delay in healing of soft tissue, prolonged pain and recovery, CRPS/RSD, DVT/PE and local anesthetic complications. No guarantees were given. All questions fully answered. The patient verbalized understanding and agreed to proceed with surgery. Written consent obtained. This is a planned staged wound debridement and graft application for DFU. Operative findings:: Right hallux diabetic ulcer noted. Minimal jacquie wound maceration and no erythema noted. No purulence, drainage or SOI noted. Sharp excisional debridement with curette, 15 blade and forceps full-thickness through skin, subcutaneous tissue into/including deep fascia. Bleeding noted. Wound itself had depth of 0.1cm and the small area inferiorly that extended 0.3cm deep last week has now filled in to 0.2cm. Post debridement: 90% granular, 10% fibrotic, 2.0 x 1.1 x 0.2cm. Operative note:: On this date and time patient was deemed an appropriate surgical candidate. With informed consent signed, the patient was taken to the local procedure operating theater room. The patient was positioned supine. No anesthesia was induced. No tourniquet used. The right lower extremity was prepped and draped in normal sterile fashion. 1g IM Rocephin given. Right hallux wound debridement: Sharp excisional full-thickness debridement with curette, 15 blade and forceps thru skin, subcutaneous tissue, down to/including deep fascia. No bone exposed. Minimal but some bleeding noted. Wound flushed with saline irrigation. Skin cleansed with saline. Mastisol applied around the wound edges. Application #2 of Apligraf ([employer]ogenesis wound graft): Graft was prepared in standard fashion. The entire graft was utilized. The graft was placed over the open wound and secured with Steri-Strips. Adaptic was applied over the graft followed by dry sterile dressing to left foot/ankle. The patient tolerated the procedure well, without complications. Materials: Organogenesis Aligraf wound graft x1 Discharge/Plan: Ok to discharge home when ready and vss. Patient is to maintain dressing clean dry and intact. Elevate on 1-2 pillows. Partial weight bearing to the right lower extremity in post op shoe with walker. [facility] for re-evaluation (for possible planned staged surgery: right foot wound debridement and graft application #3). Condition: stable Disposition: same day Complications:: None
[2023-08-31 09:40] VITALS: BP 126/61; PULSE 63; RESP 16; TEMP 36.7; O2SAT 96
[2023-08-31] MEDS: cefTRIAXone 1GM VIAL 1 GM IM (09:55)
[2023-08-31] MEDS: SODIUM CHLORIDE 0.9% 20ML VIAL 20 ML IV (10:07)
== END 2023-08-31 09:55 | disposition home or self-care (01) ==
PROVIDERS: PCP Family Medicine; Visit Provider Podiatrist
PROC: (CPT 15275; principal; 2023-08-31 09:00)
PROC: (CPT 15275; 2023-08-31 09:00)
DX: E11.621 Type 2 diabetes mellitus with foot ulcer (principal); L97.412 Non-pressure chronic ulcer of right heel and midfoot with fat layer exposed; Z79.84 Long term (current) use of oral hypoglycemic drugs
CPT/HCPCS: 15275; 82962; 96372; J0696; Q4101

== ENCOUNTER 2023-09-15 12:35 | Day surgery (SDC) | payer MEDICARE, SELFPAY ==
[2023-09-15 12:39] VITALS: BMI 23.9
[2023-09-15 12:50] VITALS: BP 141/69; PULSE 80; RESP 18; TEMP 36.3; O2SAT 98
[2023-09-15 13:01] LABS: POC Glucose,Bedside 142 (70-110)
[2023-09-15] MEDS: GENTAMICIN 80 MG/2 ML VIAL (13:45)
--- NOTE | 2023-09-15 13:57 | P.OP_ITS ---
Date of procedure: 09/15/23 Pre-op Diagnosis:: Right hallux DFU PAD Post-op Diagnosis:: Same Procedure performed:: Right foot wound debridement Application of wound graft ([employer] Apligraf) Surgeon:: Kristen Khalil DPM Anesthesia: none Estimated blood loss (mL): 1 Clinical Note:: Patient is a 63 DM male with a right hallux diabetic foot ulcer. The patient has no new signs of infection. The wound base appeared healthy and ready for skin graft substitute. He had application #1: 08/24/23, #2: 08/31/23. We discussed continued local wound care versus application of graft. Organogenesis wound graft approved per insurance. Indications: 63M DM, PN, history of chronic diabetic foot ulcers, PAD. He has tried and failed conservative care including: Immobilization, offloading, RICE protocol, compression therapy, local wound care including antibiotics, wound debridements, wound dressings, and continues to present with the wound (infection resolved months ago). Adequate blood flow to heal. The patient has been instructed on the planned procedure, all risk versus benefits of the procedure discussed. These include but are not limited to: bleeding, infection, nerve and blood vessel damage, need for further surgery, delay in healing of soft tissue, prolonged pain and recovery, CRPS/RSD, DVT/PE and local anesthetic complications. No guarantees were given. All questions fully answered. The patient verbalized understanding and agreed to proceed with surgery. Written consent obtained. This is a planned staged wound debridement and graft application for DFU. Operative findings:: Right hallux diabetic ulcer noted. Minimal jacquie wound maceration and no erythema noted. No purulence, drainage or SOI noted. Sharp excisional debridement with curette, 15 blade and forceps full-thickness through skin, subcutaneous tissue. No exposed deep fascia. Bleeding noted. Wound itself had depth of 0.1cm and the small area inferiorly that extended 0.3cm deep last week has now filled in to 0.2cm. Post debridement: 95% granular, 5% fibrotic, 1.9 x 0.9 x 0.2cm. Operative note:: On this date and time patient was deemed an appropriate surgical candidate. With informed consent signed, the patient was taken to the local procedure operating theater room. The patient was positioned supine. No anesthesia was induced. No tourniquet used. The right lower extremity was prepped and draped in normal s terile fashion. 1g IM Rocephin given. Right hallux wound debridement: Sharp excisional full-thickness debridement with curette, 15 blade and forceps thru skin, subcutaneous tissue, deep fascia no radha tori exposed. No bone exposed. Minimal but some bleeding noted. Wound flushed with gentamicin irrigation. Skin cleansed with saline. Mastisol applied around the wound edges. Application #3 of Apligraf ([employer]ogenesis wound graft): Graft was prepared in standard fashion. 3/4 graft was utilized. The graft was placed over the open wound and secured with Steri-Strips. Adaptic was applied over the graft followed by dry sterile dressing to rightt foot/ankle. The patient tolerated the procedure well, without complications. Materials: Organogenesis Aligraf wound graft x1 Discharge/Plan: Ok to discharge home when ready and vss. Patient is to maintain dressing clean dry and intact. Elevate on 1-2 pillows. Partial weight bearing to the right lower extremity in post op shoe with walker. Follow up in one week on 09/22/23 for office visit for re-evaluation and skin check. Condition: stable Disposition: same day Complications:: None
[2023-09-15 14:00] VITALS: BP 118/78; PULSE 97; RESP 18; TEMP 36.9; O2SAT 97
[2023-09-15] MEDS: cefTRIAXone 1GM VIAL 1 GM IM (14:05)
[2023-09-15 14:15] VITALS: BP 118/78; PULSE 97; O2SAT 97
== END 2023-09-15 14:15 | disposition home or self-care (01) ==
PROVIDERS: PCP Family Medicine; Visit Provider Podiatrist
PROC: (CPT 15275; principal; 2023-09-15 13:15)
PROC: (CPT 15275; 2023-09-15 13:15)
DX: E11.621 Type 2 diabetes mellitus with foot ulcer (principal); L97.412 Non-pressure chronic ulcer of right heel and midfoot with fat layer exposed; Z79.84 Long term (current) use of oral hypoglycemic drugs
CPT/HCPCS: 15275; 82962; J0696; J1580; Q4101

== ENCOUNTER 2023-10-06 13:32 | Day surgery (SDC) | payer MEDICARE, SELFPAY ==
[2023-10-05 12:34] VITALS: BMI 23.6
[2023-10-06 13:45] VITALS: BP 146/68; PULSE 73; RESP 16; TEMP 36.4; O2SAT 97
--- NOTE | 2023-10-06 16:04 | EXP.OP.NOTE ---
Date of procedure: 10/06/23 Pre-op Diagnosis:: Right hallux DFU PAD Post-op Diagnosis:: Same Procedure performed:: Right foot wound debridement Partial wound closure Application of wound graft (Organogenesis Apligraf) #4 Surgeon:: Kristen Khalil DPM Anesthesia: none Estimated blood loss (mL): 2 Clinical Note:: Patient is a 63 DM male with a right hallux diabetic foot ulcer. The patient has no new signs of infection. The wound base appeared healthy and ready for skin graft substitute. He had application #1: 08/24/23, #2: 08/31/23 #3: 09/15/23. We discussed continued local wound care versus application of graft. Organogenesis wound graft approved x5 applications per insurance. Indications: 63M DM, PN, history of chronic diabetic foot ulcers, PAD. He has tried and failed conservative care including: Immobilization, offloading, RICE protocol, compression therapy, local wound care including antibiotics, wound debridements, wound dressings, and continues to present with the wound (infection resolved months ago). Adequate blood flow to heal. The patient has been instructed on the planned procedure, all risk versus benefits of the procedure discussed. These include but are not limited to: bleeding, infection, nerve and blood vessel damage, need for further surgery, delay in healing of soft tissue, prolonged pain and recovery, CRPS/RSD, DVT/PE and local anesthetic complications. No guarantees were given. All questions fully answered. The patient verbalized understanding and agreed to proceed with surgery. Written consent obtained. This is a planned staged wound debridement and graft application for DFU. Operative findings:: Right hallux diabetic ulcer noted. Minimal jacquie wound maceration and no erythema noted. Inferiorly there is new bruising/dried blood noted. No purulence, drainage or SOI noted. Sharp excisional debridement with curette, 15 blade and forceps full-thickness through skin, subcutaneous tissue. No exposed deep fascia. Bleeding noted. Wound centrally had depth of 0.1cm and there was a small area inferiorly that extended 0.2cm. Post debridement: 95% granular, 5% fibrotic, 1.4 x 0.5 x 0.2cm. Operative note:: On this date and time patient was deemed an appropriate surgical candidate. With informed consent signed, the patient was taken to the local procedure operating theater room. The patient was positioned supine. No anesthesia was induced. No tourniquet used. The right lower extremity was prepped and draped in normal sterile fashion. 1g IM Rocephin given. Right hallux wound debridement: Sharp excisional full-thickness debridement with curette, 15 blade and forceps thru skin, subcutaneous tissue, deep fascia no longer exposed. No bone exposed. Some bleeding noted. Wound flushed with gentamicin irrigation. Skin cleansed with saline. Partial wound closure: The skin edges at the most distal and proximal edges were able to be reapproximated. 3-0 nylon used to reapproximate the outer edges with a simple suture at each end. This reduced the central width of the wound. Skin cleansed with saline. Mastisol applied around the wound edges. Application #4 of Apligraf ([employer]ogenesis wound graft): Graft was prepared in standard fashion. 1/2 graft was utilized. The graft was placed over the open wound and secured with Steri-Strips. Adaptic was applied over the graft followed by dry sterile dressing to right foot/ankle. The patient tolerated the procedure well, without complications. Materials: Organogenesis Aligraf wound graft x1 Condition: stable Disposition: same day Complications:: None
[2023-10-06 16:05] VITALS: BP 145/75; PULSE 72; RESP 17; TEMP 36.4; O2SAT 96
[2023-10-06] MEDS: cefTRIAXone 1GM VIAL 1 GM IM (16:25)
[2023-10-07 06:37] LABS: POC Glucose,Bedside 169 (70-110)
== END 2023-10-06 16:30 | disposition home or self-care (01) ==
PROVIDERS: PCP Family Medicine; Visit Provider Podiatrist
PROC: (CPT 15275; principal; 2023-10-06 14:15)
DX: E11.621 Type 2 diabetes mellitus with foot ulcer (principal); L97.412 Non-pressure chronic ulcer of right heel and midfoot with fat layer exposed; Z79.84 Long term (current) use of oral hypoglycemic drugs
CPT/HCPCS: 15275; 82962; J0696; Q4101

== ENCOUNTER 2023-10-19 10:37 | Day surgery (SDC) | payer MEDICARE, SELFPAY ==
[2023-10-14 14:44] VITALS: BMI 23.3
[2023-10-19 11:32] VITALS: BP 155/87; PULSE 93; RESP 18; TEMP 36.3; O2SAT 96
[2023-10-19] MEDS: GENTAMICIN 80 MG/2 ML VIAL (12:25)
[2023-10-19 12:26] VITALS: BP 158/84; PULSE 86; RESP 14; TEMP 36.4; O2SAT 97
--- NOTE | 2023-10-19 12:32 | EXP.OP.NOTE ---
Date of procedure: 10/19/23 Pre-op Diagnosis:: Right hallux DFU PAD Post-op Diagnosis:: Same Procedure performed:: Right foot wound debridement Partial wound closure Application of wound graft ([employer]ogenesis Apligraf) #5 Surgeon:: Kristen Khalil DPM Anesthesia: none Estimated blood loss (mL): 2 Clinical Note:: Patient is a 63 DM male with a right hallux diabetic foot ulcer. The patient has no new signs of infection. The wound base appeared healthy and ready for skin graft substitute. He had application #1: 08/24/23, #2: 08/31/23 #3: 09/15/23, 10/06/23: #4. We discussed continued local wound care versus application of graft. [employer] wound graft approved x5 applications per insurance. Indications: 63M DM, PN, history of chronic diabetic foot ulcers, PAD. He has tried and failed conservative care including: Immobilization, offloading, RICE protocol, compression therapy, local wound care including antibiotics, wound debridements, wound dressings, and continues to present with the wound (infection resolved months ago). Adequate blood flow to heal. The patient has been instructed on the planned procedure, all risk versus benefits of the procedure discussed. These include but are not limited to: bleeding, infection, nerve and blood vessel damage, need for further surgery, delay in healing of soft tissue, prolonged pain and recovery, CRPS/RSD, DVT/PE and local anesthetic complications. No guarantees were given. All questions fully answered. The patient verbalized understanding and agreed to proceed with surgery. Written consent obtained. This is a planned staged wound debridement and graft application for DFU. Operative findings:: Right hallux diabetic ulcer noted with sutures clean dry and intact to both ends of the wound. Sutures removed. Minimal jacquie wound maceration and no erythema noted. No purulence, drainage or SOI noted. Sharp excisional debridement with 15 blade and forceps full-thickness through skin, subcutaneous tissue. No exposed deep fascia. Bleeding noted. Post debridement: 100% granular, 1.3 x 0.4 x 0.2cm. Edges able to be reapproximated. Nylon to the wound edges both inferior and superiorly. Post partial delayed primary closure, central wound: 100% granular, 0.5 x 0.2 x 0.2cm. Operative note:: On this date and time patient was deemed an appropriate surgical candidate. With informed consent signed, the patient was taken to the local procedure operating theater room. The patient was positioned supine. No anesthesia was induced. No tourniquet used. The right lower extremity was prepped and draped in normal sterile fashion. Sutures removed. Skin re-prepped. 1g IM Rocephin given. Right hallux wound debridement: Sharp excisional full-thickness debridement with 15 blade and forceps thru skin, subcutaneous tissue. No bone exposed. Some bleeding noted. Wound flushed with gentamicin irrigation. Skin cleansed with saline. Partial wound closure: The skin edges at the most distal and proximal edges were able to be reapproximated. 3-0 nylon used to reapproximate the outer edges with a simple suture x2 at each end. This reduced the central width of the wound. Skin cleansed with saline. Mastisol applied around the wound edges. Application #5 of Apligraf ([employer] wound graft): Graft was prepared in standard fashion. 1/3 graft was utilized. The graft was placed over the open wound and secured with Steri-Strips. Adaptic was applied over the graft followed by dry sterile dressing to right foot/ankle. The patient tolerated the procedure well, without complications. Materials: Organogenesis Aligraf wound graft x1 Condition: stable Disposition: same day Complications:: None
[2023-10-19] MEDS: cefTRIAXone 1GM VIAL 1 GM IM (12:35)
[2023-10-19 13:23] LABS: POC Glucose,Bedside 167 (70-110)
== END 2023-10-19 12:38 | disposition home or self-care (01) ==
PROVIDERS: PCP Family Medicine; Visit Provider Podiatrist
PROC: (CPT 15275; principal; 2023-10-19 11:00)
DX: E11.621 Type 2 diabetes mellitus with foot ulcer (principal); L97.412 Non-pressure chronic ulcer of right heel and midfoot with fat layer exposed; Z79.84 Long term (current) use of oral hypoglycemic drugs
CPT/HCPCS: 15275; 82962; J0696; J1580; Q4101

== ENCOUNTER 2023-11-16 09:00 | Outpatient (CLI) | payer MEDICARE, SELFPAY ==
--- NOTE | 2023-11-16 09:06 | XR_ITS ---
FINAL REPORT TECHNIQUE: Cervical spine 5 views CLINICAL HISTORY: Cervicalgia COMPARISON: None FINDINGS: CERVICAL SPINE: There is reversal of the normal curvature of the cervical spine. The patient is noted to be edentulous. There is narrowing of the C5-6 and C6-7 disc spaces with multilevel anterior osteophytes. No acute bony abnormality is identified. IMPRESSION: Mild degenerative change at the C5-6 and C6-7 levels, without acute bony abnormality. Reviewed, Interpreted and Dictated by Gilberto Rod MD Transcribed by Shannen Wodos Authenticated and [facility][1]
== END 2023-11-16 23:59 | disposition home or self-care (01) ==
LOC: RAD 09:02
PROVIDERS: PCP Family Medicine; Visit Provider Family Medicine
DX: M54.2 Cervicalgia (principal)
CPT/HCPCS: 72050

== ENCOUNTER 2024-07-10 13:31 | Outpatient (CLI) | payer MEDICARE, SELFPAY ==
--- NOTE | 2024-07-10 13:48 | ECG_ITS ---
APPROVED REPORT Exam: Resting ECG HR:57 bpm ECG Measurements Heart Rate 57 AXES VT 180 P 73 QRSd 98 QRS 71 QT 463 T 60 QTc 458 Conclusion SINUS BRADYCARDIA PROBABLE INFERIOR MYOCARDIAL INFARCTION , PROBABLY OLD [35 ms Q WAVE IN II/aVF] ABNORMAL ECG UNCONFIRMED REPORT Electronically signed by : Clayton Garcia MD 07/11/2024 08:48:48
== END 2024-07-10 23:59 | disposition home or self-care (01) ==
LOC: RT 13:33
PROVIDERS: PCP Family Medicine; Visit Provider Emergency Medicine
DX: R00.1 Bradycardia, unspecified (principal); R94.31 Abnormal electrocardiogram [ECG] [EKG]
CPT/HCPCS: 93005

== ENCOUNTER 2024-08-27 08:30 | Day surgery (SDC) | payer MEDICARE, SELFPAY ==
[2024-08-27] VITALS (48 sets, daily range): BP systolic 102–172; BP diastolic 50–94; PULSE 52–67; RESP 10–20; TEMP 36.1; O2SAT 93–99; BMI 25.8
--- NOTE | 2024-08-27 07:26 | IR_ITS ---
APPROVED REPORT Patient Location: Outpatient PROCEDURES Left heart catheterization Left ventriculogram Selective coronary angiogram Selective engagement of left internal mammary artery to the LAD Selective engagement of saphenous vein graft to circumflex artery INDICATION Coronary artery disease, Angina pectoris, History of coronary artery bypass surgery, Worsening symptoms, Informed consent was obtained prior to the procedure. COMPLICATIONS none Estimated Blood Loss: less than 10ml TECHNIQUE One percent lidocaine used to anesthetize the right groin. The right femoral artery was accessed via the Seldinger technique and a 5 Taiwanese sheath was placed in the right femoral artery. A JL 4, JR4 catheter were used to perform left heart catheterization, left ventriculogram selective coronary angiography as well as selective engagement of the solitary vein graft and the left internal mammary artery. The 5 Taiwanese sheath was upsized to a 6 Taiwanese sheath was intentions to proceed with stenting of the proximal circumflex artery. After further review of the angiogram it was decided to abandon this procedure. At the end of the procedure the patient was transferred to the postop holding area in stable condition for sheath removal. ANGIOGRAPHIC RESULTS The left main artery Patent The left anterior descending artery Is proximally patent gives rise to a large septal managed care nurse which trifurcates and supplies the entire septum. The LAD is then occluded within the stent. The circumflex artery Is a dominant vessel and has a proximal 60 to 70% concentric stenosis and gives rise to a moderate-sized first obtuse marginal artery which has proximal 40% stenosis. Distal to the obtuse marginal artery the circumflex artery is then subtotally occluded. The circumflex artery is dominant and there are scant left to left collaterals filling the terminal obtuse marginal artery system The right coronary artery Proximally occluded The RENTERIA ventriculogram reveals Normal 65% The left ventricular end-diastolic pressure 10 mmHg TANNER to LAD is widely patent Saphenous to dominant circumflex artery ostially occluded within the stent IMPRESSION Patent TANNER to LAD Occluded proximal LAD within the stent Occluded saphenous vein graft within the stent Normal ejection fraction Normal LVEDP PLAN 1. At this point I favor medical management over trying to open a chronic totally occluded vessel especially given the proclivity to completely occluding drug-eluting stents 2. Maximize antianginal medications and encourage physical therapy and promotion of collateralization 3. LDL less than 55 to be achieved with high intensity statin 4. If patient is experiencing recalcitrant angina pectoris and is interested in SEAFOOD FARMER procedure, I would recommend he be evaluated at either the [facility] or [facility] with an batch mixing truck driver proficient and experienced in SEAFOOD FARMER's. I believe there is a high likelihood of complications from this SEAFOOD FARMER procedure involving the circumflex artery and/or the right coronary artery and I am also most concerned about patient's history of completely occluding drug-eluting stents. Even if the procedure was successful, he would be at increased risk for chronic in-stent occlusion. Will defer to primary cardiology treatment provider Electronically signed by : Mo Jaquez MD 08/27/2024 10:09:50
[2024-08-27 08:48] LABS: Hematocrit 44.9 % (42.0-52.0); Hemoglobin 15.4 g/dL (14.1-18.0); Immature Granulocytes % 0.1 %; Mean Corpuscular HGB Conc 34.3 g/dL (31.8-35.4); Mean Corpuscular Hemoglobin 32.4 pg (27.0-31.2); Mean Corpuscular Volume 94.3 fl (80-94); Nucleated Red Blood Cells % 0 %; Platelet Count 79 K/mm3 (142-424); Red Blood Count 4.76 M/mm3 (4.60-6.20); Red Cell Distribution Width-SD 42.6 fL; White Blood Count 11.5 K/mm3 (4.8-10.8)
[2024-08-27 08:56] LABS: Anion Gap 16.5 mEq/L (5-15); Blood Urea Nitrogen 11 mg/dl (9-20); Calcium 9.6 mg/dl (8.4-10.2); Carbon Dioxide 29 mmol/L (22.0-30.0); Chloride 99 mmol/L (98-107); Creatinine Clearance Estimated 82 mL/min (50-200); Creatinine,Serum 0.90 mg/dl (0.66-1.25); Estimated Glomerular Filt Rate 84 ml/min (>60); GFR (African American) 102 ML/MIN (>60); Glucose 118 mg/dl (74-100); Potassium 4.5 mmoL/L (3.5-5.1); Sodium 140 mmol/L (136-145)
[2024-08-27] MEDS: FENTANYL 100MCG/2ML VIAL 50 MCG IV (09:24)
[2024-08-27] MEDS: MIDAZOLAM HCL 1MG/ML 5ML VIAL 1 MG IV (09:24)
[2024-08-27] MEDS: 0.9 % SODIUM CHLORIDE 500 ML 25 ML IV (09:25)
[2024-08-27] MEDS: HEPARIN 1,000 UNITS/500ML NS (CATH LAB) 3000 UNIT IV (09:25)
[2024-08-27] MEDS: LIDOCAINE 1% 10ML MDV 10 ML IJ (09:25)
[2024-08-27] MEDS: HEPARIN 1,000 UNITS/ML 10ML VIAL (CATH LAB) 5000 UNIT IV (09:58)
[2024-08-27] MEDS: PROTAMINE SULFATE 50MG/5ML VIAL (CATH LAB) 50 MG IV (10:02)
--- NOTE | 2024-08-27 10:23 | SUR.PHASEII ---
spoke with Gayle, Cardiology Office for pt to have a consult/appointment with Dr. Bryant for COPD.
[2024-08-27] MEDS: IOPAMIDOL-370 (76%);100ML BOTTLE 105 ML IV (10:40)
--- NOTE | 2024-08-27 10:42 | SUR.PHASEII ---
ACT recheck 210
--- NOTE | 2024-08-27 11:17 | SUR.PHASEII ---
ACT recheck 167
[2024-08-27 14:41] LABS: CATHL Activated Clotting Time 392 SEC (74-125)
[2024-08-27 14:43] LABS: CATHL Activated Clotting Time 210 SEC (74-125)
== END 2024-08-27 17:33 | disposition home or self-care (01) ==
PROVIDERS: PCP Family Medicine; Visit Provider Internal Medicine
PROC: 4A023N7 Measurement of Cardiac Sampling and Pressure, Left Heart, Percutaneous Approach (ICD-10-PCS; CPT 93452; principal; 2024-08-27 08:00)
DX: T82.855A Stenosis of coronary artery stent, initial encounter (principal); I25.118 Atherosclerotic heart disease of native coronary artery with other forms of angina pectoris; I25.82 Chronic total occlusion of coronary artery; R94.31 Abnormal electrocardiogram [ECG] [EKG]; R68.84 Jaw pain; I10 Essential (primary) hypertension; E78.2 Mixed hyperlipidemia; E11.51 Type 2 diabetes mellitus with diabetic peripheral angiopathy without gangrene; I70.213 Atherosclerosis of native arteries of extremities with intermittent claudication, bilateral legs; I25.2 Old myocardial infarction; F17.210 Nicotine dependence, cigarettes, uncomplicated; Z95.1 Presence of aortocoronary bypass graft; Z95.5 Presence of coronary angioplasty implant and graft; Z95.828 Presence of other vascular implants and grafts; F11.90 Opioid use, unspecified, uncomplicated; Z79.02 Long term (current) use of antithrombotics/antiplatelets; Z79.82 Long term (current) use of aspirin; Z79.84 Long term (current) use of oral hypoglycemic drugs; Z79.85 Long-term (current) use of injectable non-insulin antidiabetic drugs; Z79.899 Other long term (current) drug therapy; Z88.5 Allergy status to narcotic agent; Z88.8 Allergy status to other drugs, medicaments and biological substances; Z82.49 Family history of ischemic heart disease and other diseases of the circulatory system; E66.9 Obesity, unspecified; K21.9 Gastro-esophageal reflux disease without esophagitis; I70.1 Atherosclerosis of renal artery; Y84.8 Other medical procedures as the cause of abnormal reaction of the patient, or of later complication, without mention of misadventure at the time of the procedure
CPT/HCPCS: 93459; 36415; 80048; 85025; 85347; 99152; C1725; C1769; C1894; J1644; J2003; J2720; J3010; J7040; Q9967

== ENCOUNTER 2024-12-19 09:33 | Outpatient (CLI) | payer MEDICARE, SELFPAY ==
--- OUTSIDE RECORDS SUMMARY | 2023-08-11 05:00 | XMS_ITS ---
Author Organization [facility] Address [address] [facility] [address] [place], [place] [id number] Care Team Providers Care Diesel Engine Specialist Name Role Phone Rakel Valenzuela Primary Care Provider Allergies Allergen (clinical drug ingredient) Drug/Non Drug [...] Interpretation: Performing Lab: Notes/Report: Test performed by [facility] , [address], [place] [address] Luan Fontanez MD, Sprinkler Repair Technician CLIA: [id number] Sodium 139 135-145 mmol/L Potassium 4.2 3.5-5.3 [...] Interpretation: Performing Lab: Notes/Report: Test performed by [facility], [address] , [address], [place] [address] Luan Fontanez MD, Sprinkler Repair Technician CLIA: [id number] Cholesterol 175 <200 mg/dL Triglycerides 318 <150 [...] B ed Time Active FreeStyle Christen 3 [place] - as directed 07/07/2023 Active FreeStyle Christen 14 Day [place] - as directed 06/21/2023 Active FreeStyle Christen [...] Status Risk Notes Problem Peripheral vascular disease (018687519) PAD (peripheral artery disease) (I73.9) Active confirmed Vital Signs Blood pressure systolic 98 mm Hg 08/11/19 24 Blood pressure diastolic 56 mm Hg 024 Heart Rate 90 /min 08/11/2023 Height 69 in 08/11/2023 Weight 163 lbs 08/11/2023 BMI 24.07 kg/m2 08/11/2023 Encounters Encounter Location Date Provider Diagnosis Nadine [address], [place] [phone] 08/11/2023 Rakel Valenzuela Diabetic polyneuropa thy associated [...] Name:Rakel Barnhart, 02/19/2025 11:45:00 AM, [address] [facility] [address] [facility], [address], [place], [place], [phone], Progress Notes * SHILA CHINGDOB:1960 (64 yo M)Acc No.[id number]:08/11/2023 Progress Notes Patient: SHILA MARTINEZ Provider: Rakel Valenzuela M.D. :1960 A ge:63 Y S ex:Male Date:08/11/2023 Address:[address] [place] [id number] Subjective: * Chief Complaints: * 1 . [...] s ee above , foot ulcers @ [facility] 10/26/18- 10/27/18, [facility]-STEMI, DM, CAD 01/08/2020, [facility] - NSTEMI 07/26/2022, Left common and external [...] week , Taking FreeStyle Christen 14 Day [place] - Device as directed , Taking FreeStyle Christen 14 Day Sensor - Miscellaneous as directed , Taking FreeStyle Christen 3 Sensor - Miscellaneous as directed change sensor every 14 days , Taking FreeStyle Christen 3 [place] - Device as directed , Taking metFORMIN [...] * Procedure Codes: 9 [address] [place], [address] CAPILLARY BLOOD DRAW, [address] GLYCATED HEMOGLOBIN TEST, Modifiers: QW * Follow Up: 0 11/10/23 * Images: Billing Information: * Visit Code: 31124 Office Visit, Est Pt., Level 4. * Procedure Codes: [address] [place]. [address] CAPILLARY BLOOD DRAW. 16296 GLYCATED HEMOGLOBIN TEST. Modifiers: QW * Electronic signature of Rakel Valenzuela MD on 12/21/2024 at 09:35 AM EST Sign off status: Pending * Provider: Rakel Valenzuela M.D. Date: 0 08/11/2023 Generated for Abebe rollins/Dwayne/Monico on: 1 02/21/2024 09:35 AM EST History and Physical Notes * Examination Category Sub-Category Detail Notes Category Not es Endocrinology Heart: RSR Lungs: clear to auscultatio n Extremities: no leg edema General Appearance: He is accompanied by his . Flat affect
--- OUTSIDE RECORDS SUMMARY | 2023-11-10 04:15 | XMS_ITS ---
Author Organization [facility] Address [facility]0 [facility] 36 [facility] [address] [place] [id number] Care Team Providers Care Business Taxes Specialist Name Role Phone Rakel Valenzuela Primary Care Provider Allergies Allergen (clinical drug ingredient) Drug/Non Drug Allergy documented on EMR Reaction Allergy Type Onset Date Status rosuvastatin Crestor Unknown Drug Allergy Acti ve atorvastatin Lipitor Unknown Drug Allergy Acti ve Reason For Referral Reason lesion on lip Diagnosis 1 Neoplasm of uncertai n behavior of skin (D48.5) [facility] Referring Provider First Name Rakel Soto Referring Provider Last Name Nicolas Referring Provider Speciality Family Pra ctice Referred Organization [facility] OP Referred Provider Xin Serrano Referred Address [address] [facility] [id number], Referred Provider Specialty Dermatology General Notes Tea Armstrong 11/14/19 24 9:45:41 AM > faxed referral to [facility] Referral Priority Routine REASON FOR VISIT 3 months Medications Medication SIG (Take, Route, Frequency, Duration) Notes Start Date End Date Status FreeStyle Christen 3 Sensor - as directed c hange sensor every 14 days 07/07/2023 Active FreeStyle Christen 3 [place] - as directed 07/07/2023 Active oxyCODONE HCl [...] Status Risk Notes Problem Diabetic foot ulcer (350636426) Diabetic foot ulcer (E11.621) Active confirmed Vital Signs Blood pressure systolic 124 mm Hg 11/10/19 24 Blood pressure diastolic 82 mm Hg 024 Heart Rate 75 /min 11/10/2023 Height 69 in 11/10/2023 Weight 161.4 lbs 11/10/2023 BMI 23.83 kg/m2 11/10/2023 Encounters Encounter Location Date Provider Diagnosis Nadine 1210 [facility] [address] TR[place] Arauz [id number] 11/10/2023 R Charles Valenzuela Cervicalgia M54.2 ; [...] lip, Xin Serrano, [address] [facility], [place], [place], [phone], Next Appt Details Follow Up: 3 Months, Reason: Provider Name:Rakel Barnhart, 02/19/2025 11:45:00 AM, [address] [facility], [address] , [place], [place], [phone], Progress Notes * MARNI CHING:1960 (64 yo M)Acc No.[id number]:11/10/2023 Progress Notes Patient: SHILA MARTINEZ Provider: Rakel Valenzuela M.D. :1960 A ge:63 Y S ex:Male Date:11/10/2023 Address:[address] , [place], [id number] Subjective: * Chief Complaints: * 1 . [...] and has been started on isosorbide. N jacile: He complains of worsening posterior neck pain, [...] s ee above , foot ulcers @ [facility] 10/26/18- 10/27/18, [facility], DM, CAD 01/08/2020, [facility] 07/26/2022, Left common [...] 14 days , Taking FreeStyle Christen 3 [place] - Device as directed , Taking SEROquel [...] of uncertain behavior of skin Referral To:[facility] Reason:lesion on lip 6. O thers Refill Famotidine Tablet, 40 mg, take 1 tablet 1 time each day, 90, Refills 1. Notes: Will return for fasting labs: BMP, lipid, A1c, PSA * Procedure Codes: 9 4760 PULSE OX * Follow Up: 3 Months * Images: Billing Information: * Visit Code: 89173 Office Visit, Est Pt., Level 4. * Procedure Codes: 34920 PULSE OX. * Electronic signature of Rakel Valenzuela MD on 12/21/2024 at 09:39 AM EST Sign off status: Pending * Provider: Rakel Valenzuela M.D. Date: 0 11/10/2023 Generated for Bernardai ayo/Dwayne/eTransmitting on: 1 02/21/2024 09:39 AM EST History and Physical Notes [...]
--- OUTSIDE RECORDS SUMMARY | 2024-02-14 05:45 | XMS_ITS ---
Author Organization [facility] Address [address] [facility] [address] [place], [place] [id number] Care Team Providers Care Item Repair Manager Name Role Phone Rakel Valenzuela Primary Care Provider [phone] Allergies Allergen (clinical drug ingredient) Drug/Non Drug Allergy documented on EMR Reaction Allergy Type Onset Date Status rosuvastatin Crestor Unknown Drug Allergy Acti ve atorvastatin Lipitor Unknown Drug Allergy Acti ve Results Component Value Reference Range Notes Glycohemoglobin A1c (in hous e) Reviewed date:02/21/2024 08:34:55 AM Interpretation:7.2 Performing Lab: Notes/Report: 7.2 glycohemoglobin 7.2% 5 - 6.5 % P-Comprehensive Metabolic Pa stefan (CMP) Reviewed date:02/21/2024 08:34:55 AM Interpretation:gluc 185, alk phos 149 Performing Lab: Notes/Report: Test performed by [facility] [address] [place] [address] , [address], [place] [address] Luan Fontanez MD, Biochemistry Teacher CLIA: [id number] Sodium 139 135-145 mmol/L Potassium 4.3 3.5-5.3 mmol/L Chloride 101 97-108 mmol/L CO2 27 22-32 mmol/L Glucose 185 65-99 mg/dL BUN 12 8-23 mg/dL Creatinine 0.93 0.70-1.30 mg/dL Calcium 9.5 8.6-10.4 mg/dL eGFR by Creatinine 91 >59 mL/min/1.73m2 Protein 7.2 6.0-8.3 g/dL Albumin 4.4 3.5-5.3 g/dL Alkaline Phosphatase 149 40-129 IU/L ALT (SGPT) 11 <5-55 IU/L AST (SGOT) 12 <5-46 IU/L Bilirubin, Total 0.3 <0.2-1.2 mg/dL A/G Ratio 1.6 1.1-2.5 P-Lipid Panel Reviewed date:02/21/2024 08:34:55 AM Interpretation:trigs 279, hdl 26, chol/hdl 6.12, non-hdl 133 Performing Lab: Notes/Report: Test performed by [facility], [address] , [address], [place] [address] Luan Fontanez MD, Biochemistry Teacher CLIA: [id number] Cholesterol 159 <200 mg/dL Triglycerides 279 <150 mg/dL HDL Cholesterol 26 >39 mg/dL Cholesterol / HDL Ratio 6.12 0.00-4.99 Ratio Non-HDL Cholesterol 133 <130 mg/dL LDL Cholesterol (Calculation) 77 <130 mg/dL LDL Cholesterol Levels* Less than 100 mg/dL Optimal 100 to 129 mg/dL Near Optimal/ Above Optimal 130 to 159 mg/dL Borderline High 160 to 189 mg/dL High 190 mg/dL and above Very High * Categories as recommended by the 2004 ATPIII guidelines LDL/HDL Ratio 3.0 <3.3 Ratio LDL Cholesterol Patient History Test Date: 11/11/2022 LDL Results: 96 Units: mg/dL % Change: - Test Date: 08/11/2023 LDL Results: 88 Units: mg/dL % Change: -8% Test Date: 02/14/2024 LDL Results: 77 Units: mg/dL % Change: -12% P-PSA Reviewed date:02/21/2024 08:34:55 AM Interpretation:Normal Performing Lab: Notes/Report: Test performed by [facility] [address] [place] [address] , [address], [place] [address] Luan Fontanez MD, Biochemistry Teacher CLIA: [id number] PSA 0.18 <4.00 ng/mL Please note this is an ultrasensitive PSA assay with a lower limit of detection of 0.014 ng/mL. This test is performed by the Agustina ECLIA methodology. Values obtained with different assay methods or kits cannot be directly compared. REASON FOR VISIT 3 months, Needs labs with PSA, diabetic eye exam, low dose chest CT Medications Medication SIG (Take, Route, Frequency, Duration) Notes Start Date End Date Status Trulicity 1.5 MG/0.5ML 1.5 mg Subcutaneo us once a week Active metFORMIN HCl 1000 MG 1 tab(s) orally 2 times a day Active Vitamin D 50 MCG (2000 UT) 1 capsule Ora lly Once a day; Duration: 30 day(s) Active Plavix 75 MG 1 tab(s) orally once a day Active Aspirin 81 MG 1 tab(s) orally once a day Active clonazePAM 0.5 MG 1 tab qam; 2 tabs qp m orally 02/14/2024 Active Isosorbide Mononitrate ER 30 MG 1 tablet in the morning Orally Once a day; Duration: 30 day(s) Active Multivitamin Adult - 1 tablet Orally Onc e a day; Duration: 30 day(s) Active Famotidine 40 mg take 1 tablet 1 time each day Active Gabapentin 300 MG 1 capsule Orally Fou r times a day Active FreeStyle Christen 3 Sensor - as directed c hange sensor every 14 days 07/07/2023 Active FreeStyle Christen 3 [place] - as directed 07/07/2023 Active SEROquel 100 MG 1 tab(s) orally At B ed Time Active Toprol XL 100 MG 1 tab(s) orally once a day Active oxyCODONE HCl 10 MG 1 tab(s) Orally ever y 6 hrs prn 03/15/2023 Active Farxiga 10 MG take 1 tablet daily Active Altace 10 MG 1 cap(s) orally once a day Active Social History Tobacco Use: Social History Observation Description Date Details (start date - stop date) Current Smoker NA - NA CURRENT TOBACCO USE: Question Answer Notes Are you a: current smoker Vital Signs Blood pressure systolic 130 mm Hg 02/14/20 24 Blood pressure diastolic 72 mm Hg 024 Heart Rate 70 /min 02/14/2024 Height 69 in 02/14/2024 Weight 167.2 lbs 02/14/2024 BMI 24.69 kg/m2 02/14/2024 Encounters Encounter Location Date Provider Diagnosis Nadine [address] [id number] 02/14/2024 Rakel Valenzuela Diabetic polyneuropa thy associated with type 2 diabetes mellitus E11.42 ; Type 2 diabetes mellitus with foot ulcer E11.621 ; Anxiety F41.9 ; Dyslipidemia E78.5 ; Essential (primary) hypertension I10 ; PAD (peripheral artery disease) I73.9 ; Diabetic foot ulcer E11.621 ; Screening for prostate cancer Z12.5 ; ASCVD (arteriosclerotic cardiovascular disease) I25.10 ; Neoplasm of uncertain behavior of skin D48.5 and Tobacco use disorder F17.200 Assessments Encounter Date Diagnosis (ICD Code) Assessment Notes Treatment Notes Treatment Clinical Notes Section Notes 02/14/2024 Diabetic polyneuropathy associated with type 2 diabetes mellitus (ICD-10 - E11.42) 02/14/2024 Type 2 diabetes mellitus with foot ulcer (ICD-10 - E11.621) 02/14/2024 Anxiety (ICD-10 - F41.9) 02/14/2024 Dyslipidemia (ICD-10 - E78.5) 02/14/2024 Essential (primary) hypertension (ICD-10 - I10) 02/14/2024 PAD (peripheral artery disease) (ICD-10 - I73.9) 02/14/2024 Diabetic foot ulcer (ICD-10 - E11.621) Continue f/u with Dr. Khalil 02/14/2024 Screening for prostate cancer (ICD-10 - Z12.5) 02/14/2024 ASCVD (arteriosclerotic cardiovascular disease) (ICD-10 - I25.10) 02/14/2024 Neoplasm of uncertain behavior of skin (ICD-10 - D48.5) I will have my staff reach out to the dermatology office regarding his appointment. 02/14/2024 Tobacco use disorder (ICD-10 - F17.200) Plan Of Treatment Medication Medication Name Sig Start Date Stop Date Notes Trulicity 1.5 MG/0.5ML 1.5 mg Subcutaneous once a week metFORMIN HCl 1000 MG 1 tab(s) orally 2 times a day clonazePAM 0.5 MG 1 tab qam; 2 tabs qpm orally 02/14/2024 SEROquel 100 MG 1 tab(s) orally At Bed Time Farxiga 10 MG take 1 tablet daily Treatment Notes Assessment Notes Diabetic foot ulcer Continue f/u with Dr Cheryl Khalil Neoplasm of uncertain behavior of skin I will have my staff reach out to the dermatology office regarding his appointment. Pending Test Test Name Order Date CT SCAN : CHEST, LUNG CANCER SCREENING L OW DOSE 02/14/2024 Next Appt Details Follow Up: 3 Months, Reason: Provider Name:Rakel Barnhart, 02/19/2025 11:45:00 AM, [address] [facility], [address], [place], [place], [id number], Progress Notes * SHILA CHINGDOB:1960 (64 yo M)Acc No.[id number]:02/14/2024 Progress Notes Patient: Luisito SHILA TRACEY Provider: Rakel Valenzuela M.D. :1960 A ge:64 Y S ex:Male Date:02/14/2024 Address:[address] , [place], [id number] Subjective: * Chief Complaints: * 1 . 3 months. 2. Needs labs with PSA, diabetic eye exam, low dose chest CT. * HPI: C ardiology: Pt is here today for a 3 month check up on Hypertension and Diabetes. Pt states he is having a lot of pain in his hands and feet. Pt states it is very difficult to even open a bottle of water. He continues to follow with pain management in [place] and they have restarted and are titrating his gabapentin. Pt is fasting. Pt states he is needing refills sent to [facility]. Denies : Chest Pain. D enies : Short of Breath. D enies : Dizziness. D enies : Palpitations. D ermatology: Referral was made to dermatology at his last office visit but he states he never heard from their office regarding an appointment. * ROS: D ERMATOLOGY: no R cesar. [...] s ee above , foot ulcers @ [facility] 10/26/18- 10/27/18, [facility], DM, CAD 01/08/2020, [facility] - [facility]STEMI 07/26/2022, Left common and external [...] frequency:daily. Alcohol: yes. * Medications: T aking Gabapentin 300 MG Capsule 1 capsule Orally Four times a day , Taking SEROquel 100 MG Tablet 1 tab(s) orally At Bed Time , Taking clonazePAM 0.5 MG Tablet 1 tab qam; 2 tabs qpm orally , Taking Trulicity 1.5 MG/0.5ML Solution Pen-injector 1.5 mg Subcutaneous once a week , Taking Isosorbide Mononitrate ER 30 MG Tablet Extended Release 24 Hour 1 tablet in the morning Orally Once a day , Taking Multivitamin Adult - Tablet 1 tablet Orally Once a day , Taking Vitamin D 50 MCG (2000 UT) Capsule 1 capsule Orally Once a [...] Orally every 6 hrs prn , Taking FreeStyle Christen 3 Sensor - Miscellaneous as directed change sensor every 14 days , Taking FreeStyle Christen 3 [place] - Device as directed , Taking metFORMIN HCl 1000 MG Tablet 1 tab(s) orally 2 times a day , Taking Farxiga 10 MG Tablet TAKE 1 TABLET DAILY , Taking Famotidine 40 mg Tablet take 1 tablet 1 time each day , Medication List reviewed and reconciled with the patient * Allergies: C restor, Lipitor. Objective: * Vitals: W t:167.2, Temp:97.8, BP:130/72, HR:70, O2 Sat:98% on RA, Nurse:DANTE, Ht: 69, BMI:24.69. * Examination: G eneral Examination: General Appearance: N AD. Affect is good. N jaciel: ?No adenopathy or bruits. H eart: R SR. L ungs: c lear to auscultation. E xtremities: A nkles show no deformity. No acute joint swelling, redness, or warmth. . ? Assessment: * Assessment: 1. D iabetic polyneuropathy associated with type 2 diabetes mellitus - E11.42 (Primary) ? 2 . T ype 2 diabetes mellitus with foot ulcer - E11.621 3 . A nxiety - F41.9 4 . D yslipidemia - E78.5 5 . E ssential (primary) hypertension - I10 6 . P AD (peripheral artery disease) - I73.9 ?7. D iabetic foot ulcer - E11.621 8 . S creening for prostate cancer - Z12.5 9 . A SCVD (arteriosclerotic cardiovascular disease) - I25.10 10. N eoplasm of uncertain behavior of skin - D48.5 1 1. T obacco use disorder - F17.200 Plan: * Treatment: 2. T ype 2 diabetes mellitus with foot ulcer Continue Trulicity Solution Pen-injector, 1.5 MG/0.5ML, 1.5 mg, Subcutaneous, once a week; C ontinue metFORMIN HCl Tablet, 1000 MG, 1 tab(s), orally, 2 times a day; C ontinue Farxiga Tablet, 10 MG, take 1 tablet daily. L AB: Glycohemoglobin A1c (in house) (Collection Date & Time - 02/14/2024) 7 .2 Value Reference Range g lycohemoglobin 7.2% 5 - 6.5 % * Jordyn Brunner 02/14/2024 12 :21:52 PM > Rakel Valenzuela 02/21/2024 8:34:48 AM >See phone encounter 3.?Anxiety? Refill clonazePAM Tablet, 0.5 MG, 1 tab qam; 2 tabs qpm, orally, 90, Refills 2.??4.?Dyslipidemia?LAB: P-Lipid Panel (Collection Date & Time - 02/14/2024 10:32 AM)?trigs 279, hdl 26, chol/hdl 6.12, non-hdl 133* Value Reference Range C holesterol / HDL Ratio 6.12 H 0.00-4.99 - Ratio * C holesterol 159 <200 - mg/dL * H DL Cholesterol 26 L >39 - mg/dL * L DL Cholesterol (Calculation) 77 <130 - mg/d L * L DL/HDL Ratio 3.0 <3.3 - Ratio * N on-HDL Cholesterol 133 H <130 - mg/dL * T riglycerides 279 H <150 - mg/dL * Rakel Valenzuela 02/21/2024 8: 34:48 AM >See phone encounter 5.?Essential (primary) hypertension?LAB: P-Comprehensive Metabolic Panel (CMP) (Collection Date & Time - 02/14/2024 10:32 AM)?gluc 185, alk phos 149* Value Reference Range A /G Ratio 1.6 1.1-2.5 - * A lbumin 4.4 3.5-5.3 - g/dL * A lkaline Phosphatase 149 H 40-129 - IU/L * A LT (SGPT) 11 <5-55 - IU/L * A ST (SGOT) 12 <5-46 - IU/L * B ilirubin, Total 0.3 <0.2-1.2 - mg/dL * B UN 12 8-23 - mg/dL * C alcium 9.5 8.6-10.4 - mg/dL * C hloride 101 97-108 - mmol/L * C O2 27 22-32 - mmol/L * C reatinine 0.93 0.70-1.30 - mg/dL * G lucose 185 H 65-99 - mg/dL * P otassium 4.3 3.5-5.3 - mmol/L * S odium 139 135-145 - mmol/L * P rotein 7.2 6.0-8.3 - g/dL * e GFR by Creatinine 91 >59 - mL/min/1.73m2 * Rakel Valenzuela 02/21/2024 8: 34:48 AM >See phone encounter 6.?Diabetic foot ulcer? Notes: Continue f/u with Dr. Khalil??7.?Screening for prostate cancer?LAB: P-PSA (Collection Date & Time - 02/14/2024 10:32 AM)?Normal* Value Reference Range P SA 0.18 <4.00 - ng/mL * Rakel Valenzuela 02/21/2024 8: 34:48 AM >See phone encounter 8.?Neoplasm of uncertain behavior of skin? Notes: I will have my staff reach out to the dermatology office regarding his appointment.? 9.?Tobacco use disorder?Imaging: CT SCAN : CHEST, LUNG CANCER SCREENING LOW DOSE* Tea Armstrong 02/16/2024 9:03:2 4 AM > no auth required; CPT code 87168; faxed to [facility] Scheduling; 03/01/2024 at 10:45am * Procedure Codes: G 2211 Complex e/[place], [address] GLYCATED HEMOGLOBIN TEST, Modifiers: QW , 3051F HG A1C>EQUAL 7.0%<8.0% * Follow Up: 3 Months * Images: Billing Information: * Visit Code: 96170 Office Visit, Est Pt., Level 4. * Procedure Codes: G2211 Complex e/[place]. [address] GLYCATED HEMOGLOBIN TEST. Modifiers: QW 3051F HG A1C>EQUAL 7.0%<8.0%. * Electronic signature of Rakel Valenzuela MD on 12/21/2024 at 09:38 AM EST Sign off status: Pending * Provider: Rakel Valenzuela M.D. Date: Generated for Abebe rollins/Dwayne/eTransmitting on: 02/21/2024 09:38 AM EST History and Physical Notes * HPI (History of Present Illness) Category Sub-Category Detail Notes Category Not es Cardiology Short of Breath Chest Pain Palpitations Dizziness Examination Category Sub-Category Detail Notes Category Not es General Examination Heart: RSR Lungs: clear to auscultatio n Extremities: Ankles show no defor mity. No acute joint swelling, redness, or warmth. General Appearance: NAD. Affect is good Neck: No adenopathy or bru its
--- OUTSIDE RECORDS SUMMARY | 2024-05-08 04:45 | XMS_ITS ---
Author Organization [facility] Address [address] [place] [id number] Care Team Providers Care Geoscience Professor Name Role Phone Rakel Valenzuela Primary Care Provider [phone] Allergies Allergen (clinical drug ingredient) Drug/Non Drug Allergy documented on EMR Reaction Allergy Type Onset Date Status rosuvastatin Crestor Unknown Drug Allergy Acti ve atorvastatin Lipitor Unknown Drug Allergy Acti ve REASON FOR VISIT 3 month checkup and Annual Wellness Visit, due for diabetic eye exam Medications Medication SIG (Take, Route, Frequency, Duration) Notes Start Date End Date Status FreeStyle Christen 3 Sensor - as directed change sensor every 14 days 07/07/2023 Active FreeStyle Christen 3 [place] - as directed 07/07/2023 Active Toprol XL 100 MG 1 tab(s) orally once a day Active Famotidine 40 mg take 1 tablet 1 time each day Active oxyCODONE HCl 10 MG 1 tab(s) Orally every 6 hrs prn 03/15/2023 Not-Taking Aspirin 81 MG 1 tab(s) orally once a day Active Altace 10 MG 1 cap(s) orally once a day Active Vitamin D 50 MCG (1999 UT) 1 capsule Orally Once a day; Duration: 30 day(s) Active Plavix 75 MG 1 tab(s) orally once a day Active Multivitamin Adult - 1 tablet Orally Onc e a day; Duration: 30 day(s) Active Methadone HCl 10 MG/5ML 5 mL Orally Once a day Pt sts he takes 85mg Active metFORMIN HCl 1000 MG 1 tab(s) orally 2 times a day Active Isosorbide Mononitrate ER 30 MG 1 tablet in the morning Orally Once a day; Duration: 30 day(s) Active Farxiga 10 MG take 1 tablet daily Active Trulicity 1.5 MG/0.5ML 1.5 mg Subcutaneous once a week Active SEROquel 100 MG 1 tab(s) orally At Bed Time Active Gabapentin 600 MG 1 capsule Orally Three times a day 05/08/2024 Active clonazePAM 0.5 MG 1 tab qam; 2 tabs qpm orally 05/08/2024 Active Immunizations Vaccine Route Administration Date Status Comme nts Prevnar (PCV20) IM Intramuscular 05/08/2024 Administered Social History Tobacco Use: Social History Observation Description Date Details (start date - stop date) Current Smoker NA - NA CURRENT TOBACCO USE: Question Answer Notes Are you a: current smoker Vital Signs Blood pressure systolic 130 mm Hg 05/09/19 Blood pressure diastolic 86 mm Hg 025 Heart Rate 72 /min 05/08/2024 Height 69 in 05/08/2024 Weight 169.0 lbs 05/08/2024 BMI 24.95 kg/m2 05/08/2024 Encounters Encounter Location Date Provider Diagnosis [facility] [address], [place] [id number] 05/08/2024 Rakel Valenzuela Adult general medica l examination Z00.00 ; Diabetic polyneuropathy associated with type 2 diabetes mellitus E11.42 ; Type 2 diabetes mellitus with foot ulcer E11.621 ; Anxiety F41.9 ; Dyslipidemia E78.5 ; Essential (primary) hypertension I10 ; PAD (peripheral artery disease) I73.9 ; Diabetic foot ulcer E11.621 ; ASCVD (arteriosclerotic cardiovascular disease) I25.10 ; Tobacco use disorder F17.200 ; Screening for colon cancer Z12.11 ; History of non-ST elevation myocardial infarction (NSTEMI) I25.2 ; 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 05/08/2024 Diabetic polyneuropathy associated with type 2 diabetes mellitus (ICD-10 - E11.42) 05/08/2024 Type 2 diabetes mellitus with foot ulcer (ICD-10 - E11.621) 05/08/2024 Anxiety (ICD-10 - F41.9) 05/08/2024 Dyslipidemia (ICD-10 - E78.5) 05/08/2024 Essential (primary) hypertension (ICD-10 - I10) 05/08/2024 PAD (peripheral artery disease) (ICD-10 - I73.9) 05/08/2024 Diabetic foot ulcer (ICD-10 - E11.621) Continue f/u with Dr. Khalil 05/08/2024 ASCVD (arteriosclerotic cardiovascular disease) (ICD-10 - I25.10) 05/08/2024 Tobacco use disorder (ICD-10 - F17.200) 05/08/2024 Screening for colon cancer (ICD-10 - Z12.11) 05/08/2024 History of non-ST elevation myocardial infarction (NSTEMI) (ICD-10 - I25.2) 05/08/2024 Coronary artery graft present (ICD-10 - Z95.5) 05/08/2024 Gastroesophageal reflux disease with esophagitis, unspecified whether hemorrhage (ICD-10 - K21.00) 05/08/2024 BMI 24.0-24.9, adult (ICD-10 - Z68.24) Plan Of Treatment Medication Medication Name Sig Start Date Stop Date Notes metFORMIN HCl 1000 MG 1 tab(s) orally 2 times a day Farxiga 10 MG take 1 tablet daily Trulicity 1.5 MG/0.5ML 1.5 mg Subcutaneous once a week SEROquel 100 MG 1 tab(s) orally At Bed Time Gabapentin 600 MG 1 capsule Orally Three times a day 05/08 clonazePAM 0.5 MG 1 tab qam; 2 tabs qpm orally 05/08/2024 Treatment Notes Assessment Notes Adult general medical examination Patien t instructed to return to office Annually for Annual Wellness Visits to include annual screenings of Pain assessment, Functional Ability assessment, Cognitive Ability assessment, Fall Risk assessment, Depression screening and Bladder control screening. Diabetic foot ulcer Continue f/u with Dr Cheryl Khalil Pending Test Test Name Order Date CT Scan : Chest, low dose 05/08/2024 Cologuard 05/08/2024 Next Appt Details Follow Up: 3 Months, Reason: Provider Name:Rakel Soto Floirdalmaalaina love, 02/19/2025 11:45:00 AM, [address], [address], [place], [place], [id number], Progress Notes * SHILA CHINGDOB:1960 (64 yo M)Acc No.[id number]:05/08/2024 Annual Wellness Visit Patient: YOANA MARTINEZRELL Provider: Rakel Valenzuela M.D. :1960 A ge:64 Y S ex:Male Date:05/08/2024 Address:[address] [place] [address] , [id number] Subjective: * Chief Complaints: * 1 . 3 month checkup and Annual Wellness Visit. 2. Due for diabetic eye exam. * HPI: H PI: Patient is here today for a scheduled 3 month check up?and a Medicare Annual Wellness Visit. Pt sts he would like his Gabapentin refilled today. Pt is fasting. N eurology: He is now following with pain management in [place] and is now on a higher dose of gabapentin and is titrating her dose of methadone. He states since starting this regimen, he has had almost complete relief of his symptoms for the first time in years. * ROS: O PTHALMOLOGY: Negative for d enies issues with vision. * Medical History: H ypertension, unspecified type, [...] s ee above , foot ulcers @ [facility] 10/26/18- 10/27/18, [facility], DM, CAD 01/08/2020, [facility]STEM[facility] 07/26/2022, Left common and [...] frequency:daily. Alcohol: yes. * Medications: T aking Methadone HCl 10 MG/5ML Solution 5 mL Orally Once a day , Notes to Pharmacist: Pt sts he takes 85mg, Taking SEROquel 100 MG Tablet 1 tab(s) orally At Bed Time , Taking clonazePAM 0.5 MG Tablet 1 tab qam; 2 tabs qpm orally , Taking Trulicity 1.5 MG/0.5ML Solution Pen-injector 1.5 mg Subcutaneous once a week , Taking metFORMIN HCl 1000 MG Tablet 1 tab(s) orally 2 times a day , Taking Farxiga 10 MG Tablet take 1 tablet daily , Taking Gabapentin 600 MG Tablet 1 capsule Orally Three times a day , Taking Isosorbide Mononitrate ER 30 MG [...] tab(s) orally once a day , Taking FreeStyle Christen 3 Sensor - Miscellaneous as directed change sensor every 14 days , Taking FreeStyle Christen 3 [place] - Device as directed , Taking Famotidine 40 mg Tablet take 1 tablet 1 time each day , Not-Taking oxyCODONE HCl 10 MG Tablet 1 tab(s) Orally every 6 hrs prn , Medication List reviewed and reconciled with the patient * Allergies: C restor, Lipitor. Objective: * Vitals: W t: 169.0, Temp: 97.7, BP: 130/86, HR: 72, Nurse: génesis, Ht: 69, BMI:24.95. * Examination: G eneral Examination: General Appearance: N AD. Affect is good. N jaciel: ?No adenopathy or bruits. H eart: R SR. L ungs: c lear to auscultation. E xtremities: N o leg edema. No acute joint swelling, redness, or warmth. . ? * Physical Examination: G ENERAL: Pain Assessment: P ain level: 8, on a scale of 0 to 10 (10 being extreme pain). F unctional Status Assessment: P atient response to how often physical health interferes with daiy activities: Occasionally Able to perform ADLs-including meal preparation, grocery shopping, housework, laundry, taking medications, or handling finances. Cognitive Status: Alert and oriented. Ambulation Status: Fully ambulatory. F all Risk Assessment: I ndependant in ambulation, adequate lighting in home. Patient has NOT fallen or had trouble walking within the past 12 months. D epression Screening: D enies depressed mood or anxiety. Describes emotional health as: calm. B ladder Control Screening: patricia velazco. Assessment: * Assessment: 1. A dult general medical examination - Z00.00 (Primary) 2 . D iabetic polyneuropathy associated with type 2 diabetes mellitus - E11.42 3 . T ype 2 diabetes mellitus with foot ulcer - E11.621 4 . A nxiety - F41.9 5 . Dyslipidemia - E78.5 6 . E ssential (primary) hypertension - I10 ?7. P AD (peripheral artery disease) - I73.9 8 . D iabetic foot ulcer - E11.621 9 . A SCVD (arteriosclerotic cardiovascular disease) - I25.10 1 0. T obacco use disorder - F17.200 1 1. S creening for colon cancer - Z12.11 1 2. H istory of non-ST elevation myocardial infarction (NSTEMI) - I25.2 1 3. C oronary artery graft present - Z95.5 1 4. G astroesophageal reflux disease with esophagitis, unspecified whether hemorrhage - K21.00 1 5. B [place] 24.0-24.9, adult - Z68.24 Plan: * Treatment: 2. D iabetic polyneuropathy associated with type 2 diabetes mellitus Refill SEROquel Tablet, 100 MG, 1 tab(s), orally, At Bed Time, 90, Refills 1; R efill Gabapentin Tablet, 600 MG, 1 capsule, Orally, Three times a day, 90, Refills 2. 3. T ype 2 diabetes mellitus with foot ulcer Continue Trulicity Solution Pen-injector, 1.5 MG/0.5ML, 1.5 mg, Subcutaneous, once a week; C ontinue metFORMIN HCl Tablet, 1000 MG, 1 tab(s), orally, 2 times a day; C ontinue Farxiga Tablet, 10 MG, take 1 tablet daily. 4. A nxiety Refill clonazePAM Tablet, 0.5 MG, 1 tab qam; 2 tabs qpm, orally, 90, Refills 2. 5. D iabetic foot ulcer Notes: Continue f/u with Dr. Khalil 6. T obacco use disorder I maging: CT Scan : Chest, low dose 7.?Screening for colon cancer?LAB: Cologryan* Maria E Betancourt 05/09/2024 04: 58:38 PM > order faxed * Immunizations: Prevnar (PCV20) : 0.5 mL (Route: Intramuscular) given by GÉNESIS Callahan on Right Deltoid (Adult general medical examination, Essential (primary) hypertension) * Procedure Codes: G 0438 ANNUAL WELLNES VST; PERSNL PPS INIT, G2211 Complex e/m visit add on, G0444 ANNUAL DEPRESSION SCREENING 15 MIN, 1090F PRES/ABSN URINE INCON ASSESS, 3288F FALL RISK ASSESSMENT DOCD, 1170F FXNL STATUS ASSESSED, 1159F MED LIST DOCD IN RCRD, 1003F LEVEL OF ACTIVITY ASSESS, 1125F AMNT PAIN NOTED PAIN PRSNT, 4040F PNEUMOC IMM ORDER/ADMIN, G8752 MOST RECENT SYSTOLIC BP < 140MM HG, G8754 MOST RECENT DIASTOLIC BP < 90MM HG * Preventive Medicine: Counseling: E motional health: D iscussed ways to improve socialization. B ladder control: D iscussed ways to control/manage leakage of urine. E xercise: A dvised to start, increase or maintain level of exercise/physical activity. I njury prevention: D iscussed fall prevention. Discussed need for cane/walker. Potential trip hazards discussed. Immunizations: T etanus u p to date. P neumococcal r ecommended. I nfluenza r ecommended seasonally. Screening / Special Tests: C olonoscopy R ecent history:, Cologuard ordered.?PSA 1 , normal. D iabetic Retinal Eye Exam R ecent history:, recommended today. L cate cancer screening Stable, recommended due to smoking history. A AA screening - mild dilatation, 06/23/2023 Aortagram. * Follow Up: 3 Months * Images: Billing Information: * Visit Code: 47009 Office Visit, Est Pt., Level 3. Modifiers: 25 * Procedure Codes: G0438 ANNUAL WELLNES VST; PERSNL PPS INIT. G2211 Complex e/m visit add on. G0444 ANNUAL DEPRESSION SCREENING 15 MIN. 1090F PRES/ABSN URINE INCON ASSESS. 3288F FALL RISK ASSESSMENT DOCD. 1170F FXNL STATUS ASSESSED. 1159F MED LIST DOCD IN RCRD. 1003F LEVEL OF ACTIVITY ASSESS. 1125F AMNT PAIN NOTED PAIN PRSNT. 4040F PNEUMOC IMM ORDER/ADMIN. G8752 MOST RECENT SYSTOLIC BP < 140MM HG. G8754 MOST RECENT DIASTOLIC BP < 90MM HG. * Electronic signature of Rakel Valenzuela MD on 12/21/2024 at 09:36 AM EST Sign off status: Pending * Provider: Rakel Valenzuela M.D. Date: 0 05/08/2024 Generated for Abebe rollins/Dwayne/eTransmitting on: 1 02/21/2024 09:36 AM EST History and Physical Notes * HPI (History of Present Illness) Category Sub-Category Detail Notes Category Not es HPI Patient is here today for a sche duled 3 month check up and a Medicare Annual Wellness Visit. Pt sts he would like his Gabapentin refilled today. Pt is fasting Physical Examination Category Sub-Category Detail Notes Section Note s GENERAL Pain Assessment: Pain level: 8, on a scale of 0 to 10 (10 being extreme pain) Functional Status Assessment: Patient response to how often physical health interferes with daiy activities: Occasionally Able to perform ADLs-including meal preparation, grocery shopping, housework, laundry, taking medications, or handling finances. Cognitive Status: Alert and oriented. Ambulation Status: Fully ambulatory Fall Risk Assessment: Independant in amb ulation, adequate lighting in home. Patient has NOT fallen or had trouble walking within the past 12 months Depression Screening: Denies depressed m ood or anxiety. Describes emotional health as: calm Bladder Control Screening: small problem s Examination Category Sub-Category Detail Notes Category Not es General Examination Heart: RSR Lungs: clear to auscultatio n Extremities: No leg edema. No acu te joint swelling, redness, or warmth. General Appearance: NAD. Affect is good Neck: No adenopathy or bru its
--- OUTSIDE RECORDS SUMMARY | 2024-05-22 06:00 | XMS_ITS ---
Author Organization [facility] Address [address] [facility] [address] [place] [phone] Care Team Providers Care Molder Sweep Name Role Phone Rakel Valenzuela Primary Care Provider Stephanie Rio Unavailable [phone] Allergies Allergen (clinical drug ingredient) Drug/Non Drug [...] time each day Active FreeStyle Christen 3 [place] - as directed 07/07/2023 Active Plavix 75 [...] Status Risk Notes Problem Disorder of neck (234533180) Disorder of neck (M53.82) Active confirmed Vital Signs Blood pressure systolic 160 mm Hg 05/23/19 25 Blood pressure diastolic 88 mm Hg 025 Heart Rate 80 /min 05/22/2024 Height 69 in 05/22/2024 Weight 167.6 lbs 05/22/2024 BMI 24.75 kg/m2 05/22/2024 Encounters Encounter Location Date Provider Diagnosis [facility] [address] [place], [place] [id number] 05/22/2024 Rio Brown Disorder of neck M53 [...] [address], [address], [place], [place], [id number], Progress Notes * SHILA CHINGDOB:1960 (64 yo M)Acc No.[id number]:05/22/2024 Progress Notes Patient: SHILA MARTINEZ Provider: Alberto Brown M.D. :1960 A ge:64 Y S ex:Male Date:05/22/2024 Address:[address] [place] [address] , [id number] Pcp:Rakel Valenzuela Subjective: * Chief Complaints: * [...] s ee above , foot ulcers @ [facility] 10/26/18- 10/27/18, [facility], DM, CAD 01/08/2020, [facility] 07/26/2022, Left common and [...] 14 days , Taking FreeStyle Christen 3 [place] - Device as directed , Taking Famotidine [...] * Images: Billing Information: * Visit Code: 63922 Office Visit, Est Pt., Level 3. * Procedure Codes: G2211 Complex e/m visit add on. * Electronic signature of Regi Brown MD on 12/21/2024 at 09:39 AM EST Sign off status: Pending * Provider: Alberto Brown M.D. Date: 0 05/22/2024 Generated for Abebe rollins/Dwayne/Snowitting on: 02/21/2024 09:39 AM EST History and Physical [...]
--- OUTSIDE RECORDS SUMMARY | 2024-08-09 05:00 | XMS_ITS ---
Author Organization [facility] Address [address] [place] [id number] Care Team Providers Care Restaurant Line Cook Name Role Phone Rakel Valenzuela Primary Care Provider Allergies Allergen (clinical drug ingredient) Drug/Non Drug Allergy documented on EMR Reaction Allergy Type Onset Date Status rosuvastatin Crestor Unknown Drug Allergy Acti ve atorvastatin Lipitor Unknown Drug Allergy Acti ve REASON FOR VISIT 3 month, Needs labs, colon cancer screening, low dose chest CT, & diabetic eye exam Social History Tobacco Use: Social History Observation Description Date Details (start date - stop date) Current Smoker NA - NA CURRENT TOBACCO USE: Question Answer Notes Are you a: current smoker Encounters Encounter Location Date Provider Diagnosis [place] [address] [facility] 36 [facility] [address] [place] [id number] 08/09/2024 Rakel Valenzuela Plan Of Treatment Next Appt Details Provider Name:Rakel Barnhart, 02/19/2025 11:45:00 AM, [address] [facility] 36 [facility], [address], [place], [phone], Progress Notes * SHILA CHINGDOB:1960 (64 yo M)Acc No.[id number]:08/09/2024 Progress Notes Patient: Luisito TRACEY SHILA Provider: Rakel Valenzuela M.D. :1960 A ge:64 Y S ex:Male Date:08/09/2024 Address:[facility] [address] , [id number] Subjective: * Chief Complaints: * 1 . 3 month. 2. Needs labs, colon cancer screening, low dose chest CT, & diabetic eye exam. * ROS: D ERMATOLOGY: no R cesar. [...] s ee above , foot ulcers @ [facility] 10/26/18- 10/27/18, [facility], DM, CAD 01/08/2020, [facility] 07/26/2022, Left common and [...] C affeine: yes, frequency:daily. Alcohol: yes. * Allergies: C restor, Lipitor. Objective: * Vitals: Assessment: Plan: * Treatment: * Images: Billing Information: * Visit Code: * Procedure Codes: * Electronic signature of Rakel Valenzuela MD on 12/21/2024 at 09:39 AM EST Sign off status: Pending * Provider: Rakel Valenzuela M.D. Date: 0 08/09/2024 Generated for Abebe rollins/Dwayne/Monico on: 1 02/21/2024 09:39 AM EST
--- OUTSIDE RECORDS SUMMARY | 2024-08-23 05:15 | XMS_ITS ---
Author Organization [facility] Address [address] [facility] [address] [place] [phone] Care Team Providers Care Commercial Photographer Name Role Phone Rakel Valenzuela Primary Care [...] 58 Performing Lab: Notes/Report: Test performed by [facility]0 [facility] , [address], [place] [address] Luan Fontanez MD, Landscape Foreman CLIA: [id number] Sodium 137 135-145 mmol/L Potassium 4.4 3.5-5.3 [...] 105 Performing Lab: Notes/Report: Test performed by [facility] [address] , [place] [address] Luan Fontanez MD, Landscape Foreman CLIA: [id number] Cholesterol 170 <200 mg/dL Triglycerides 206 <150 [...] once a week Active FreeStyle Christen 3 [place] - as directed 07/07/2023 Active FreeStyle Christen [...] current smoker Vital Signs Blood pressure systolic 116 mm Hg 08/24/19 25 Blood pressure diastolic 60 mm Hg 025 Heart Rate 84 /min 08/23/2024 Height 69 in 08/23/2024 Weight 174.2 lbs 08/23/2024 BMI 25.72 kg/m2 08/23/2024 Encounters Encounter Location Date Provider Diagnosis Nadine [address] TRISHA Arauz [phone] 08/23/2024 Rakel Valenzuela Diabetic polyneuropa thy associated [...] 02/19/2025 11:45:00 AM, [address] [facility], [address], [place], [place], [phone], Progress Notes * SHILA CHINGDOB:1960 (64 yo M)Acc No.[id number]:08/23/2024 Progress Notes Patient: Luisito ALEXYSHILA Provider: Rakel Valenzuela M.D. :1960 A ge:64 Y S ex:Male Date:08/23/2024 Address:[address] [place] [address] , [place], [id number] Subjective: * Chief Complaints: * 1 . [...] s ee above , foot ulcers @ [facility] 10/26/18- 10/27/18, [facility]-STEMI, DM, CAD 01/08/2020, [facility] - NSTEMI 07/26/2022, Left common and [...] 14 days , Taking FreeStyle Christen 3 [place] - Device as directed , Taking Famotidine [...] 84, O2 Sat: 98% on RA, [facility]: [facility], Ht: 69, BMI:25.72. Assessment: * Assessment: 1. [...] whether hemorrhage - K21.00 1 1. B UT 25.0-25.9,adult - Z68.25 Plan: * Treatment: Value [...] EDT > no auth required; CPT code 02888; faxed to [facility] Scheduling * Procedure Codes: G 2211 Complex e/[place], [address] GLYCATED HEMOGLOBIN TEST, Modifiers: QW , 3044F HG A1C LEVEL LT 7.0%, G8420 BMI<30 AND >=22 CALC & DOCU, G8950 PREHTN/HTN BP DOC INDCD F/U DOC, G8752 MOST RECENT SYSTOLIC BP < 140MM HG, G8754 MOST RECENT DIASTOLIC BP < 90MM HG * Follow Up: 3 Months * Images: Billing Information: * Visit Code: 11776 Office Visit, Est Pt., Level 4. * Procedure Codes: G2211 Complex e/[place]. [address] GLYCATED HEMOGLOBIN TEST. Modifiers: QW 3044F HG [...] 0 08/23/2024 Generated for Printi ng/Faxing/eTransmitting on: 02/21/2024 09:38 AM EST History and Physical Notes * HPI (History of Present Illness) Category Sub-Category Detail Notes Category Not es HPI Patient is here today for Pt is here today for a 3 month check. Pt sts he is doing well and has no conerns at this time. Pt is fasting
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
--- OUTSIDE RECORDS SUMMARY | 2024-12-06 06:30 | XMS_ITS ---
Author Organization [facility] Address [address] [place] [phone] Care Team Providers Care Application Security Engineer Name Role Phone Rakel Valenzuela Primary Care [...] time each day Active FreeStyle Christen 3 [place] - as directed 07/07/2023 Active Toprol XL [...] Status Risk Notes Problem Benign prostatic hyperplasia (333606180) BPH (benign prostatic hyperplasia) (N40.0) Active confirmed Vital Signs Blood pressure systolic 120 mm Hg 12/07/19 25 Blood pressure diastolic 70 mm Hg 025 Heart Rate 74 /min 12/06/2024 Height 69 in 12/06/2024 Weight 174.8 lbs 12/06/2024 BMI 25.81 kg/m2 12/06/2024 Encounters Encounter Location Date Provider Diagnosis [facility] [address] [place] [address] [address] [facility] [address] [place], [place] [phone] 12/06/2024 Rakel Valenzuela BPH (benign prostati c [...] Provider Name:Rakel Barnhart, 02/19/2025 11:45:00 AM, [address] [facility] 36 [facility], [address], [place], [place], [phone], Progress Notes * SHILA CHINGDOB:1960 (64 yo M)Acc No.[id number]:12/06/2024 Progress Notes Patient: SHILA MARTINEZ Provider: Rakel Valenzuela M.D. :1960 A ge:64 Y S ex:Male Date:12/06/2024 Address:[address] [place] [address] , [place], [id number] Subjective: * Chief Complaints: * 1 . [...] 14 days , Taking FreeStyle Christen 3 [place] - Device as directed , Taking Famotidine [...] - N40.0 (Primary) Plan: * Treatment: * Follow Up: a s scheduled * Images: Billing Information: * Visit Code: 33178 Office Visit, Est Pt., Level 3. * Procedure Codes: * Electronic signature of Rakel Valenzuela MD on 12/21/2024 at 09:38 AM EST Sign off status: Pending * Provider: Rakel Valenzuela M.D. Date: Generated for Abebe rollins/Dwayne/Snowitting on: 02/21/2024 09:38 AM EST
--- OUTSIDE RECORDS SUMMARY | 2024-12-21 09:37 | XMS_ITS | Encounter Summary ---
Author Organization Healthcare Address [address] [place] [address] Care Team Providers Care Delivery Truck Driver Heavy Name Role Phone Cesar Valenzuela MD Primary Care Provider + [phone] Mo Jaquez MD Unavailable [phone] Encounter Details Date Type Department Care Team (Late st Contact Info) Description 08/27/2024 Orders Only External Location [address] [place] [address] Provider, External Social History Tobacco Use Types Packs/Day Years Used Date Smoking Tobacco: Never Assessed Sex and Gender Information Value Date Recorded Sex Assigned at Not on file Legal Sex Male 8:41 PM EDT Gender Identity Not on file Sexual Orientation Not on file documented as of this encounter Plan of Treatment Not on file documented as of this encounter Procedures Procedure Name Priority Date/Time Associated Diagnosis Comments IR OUTSIDE IMAGES 08/27/2024 7:15 AM EDT documented in this encounter Results * IR OUTSIDE IMAGES (08/27/2024 7:15 AM EDT) Anatomical Region Laterality Modality X-Ray Angiograph y 08/27/2024 7:15 AM EDT us External Provider IMG IR PROCEDURES Final Result documented in this encounter Visit Diagnoses Not on filedocumented in this encounter Care Teams Delivery Truck Driver Heavy Relationship Specialty Start Date End Date Cesar Valenzuela MD [address] [place] [facility] [address] [address] PCP - General 06/27/20 Mo Jaquez MD [address] [place] [address] Referring Physician 09/04/24 documented as of this encounter
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
--- OUTSIDE RECORDS SUMMARY | 2024-12-21 09:38 | XMS_ITS | Encounter Summary ---
Author Organization Healthcare Address [address] [place] [address] Care Team Providers Care Male Model Name Role Phone Cesar Valenzuela MD Primary Care Provider + [phone] Mo Jaquez MD Unavailable [phone] Encounter Details Date Type Department Care Team (Late st Contact Info) Description 07/27/2022 Orders Only External Location [address] [place] [address] Jesus Alberto Do PA [address] [address] [place] [id number] Social History Tobacco Use Types Packs/Day Years [...] Procedure Name Priority Date/Time Associated Diagnosis Comments US OUTSIDE IMAGES 07/27/2022 6:20 AM EDT documented in this encounter Results * US OUTSIDE IMAGES (07/27/2022 6:20 AM EDT) Anatomical Region Laterality Modality Ultrasound 07/27/2022 6:20 AM EDT us Jesus Alberto BERGERON US PROCEDURES Final Result documented in this encounter Visit Diagnoses Not on filedocumented in this encounter Care Teams Male Model Relationship Specialty Start Date End Date Cesar Valenzuela MD [address] [facility] [address] [place] [address] PCP - General 06/27/20 Mo Jaquez MD [address] [place] [address] Referring Physician 09/04/24 documented as of this encounter
--- OUTSIDE RECORDS SUMMARY | 2024-12-21 09:38 | XMS_ITS | Clinical Summary ---
Author Organization [facility] Address [address] [place] [address] Care Team Providers Care Behavioral Technician Name Role Phone Clayton Garcia MD Primary Care Provider [phone] Allergies Active Allergy Reactions Criticality Noted Date Comments Propoxyphene GI Intolerance 04/22/2016 Medications clonazePAM (KlonoPIN) 0.5 MG tablet Take 0.5 mg by mouth 2 (Two) Times a Day As Needed for seizures. Active SITagliptin-Met FORMIN HCl ER (JANUMET XR) 100-1000 MG tablet sustained-relea se 24 hour Take 1 tablet by mouth Every Night. Active Multiple Vitamins-Minera ls (MULTI COMPLETE PO) Take 1 tablet by mouth Daily. Active Cholecalciferol (VITAMIN D-3) 1000 UNITS capsule Take 2,000 Units by mouth Daily. Active oxyCODONE-aceta minophen (PERCOCET) 10-325 MG per tablet Take 1 tablet by mouth Every 6 (Six) Hours As Needed for moderate pain (4-6). Active clopidogrel (PLAVIX) 75 MG tablet Take 75 mg by mouth Daily. Active metoprolol succinate XL (TOPROL-XL) 100 MG 24 hr tablet Take 100 mg by mouth Daily. Active atorvastatin (LIPITOR) 40 MG tablet Take 40 mg by mouth Every Night. Active ramipril (ALTACE) 10 MG capsule Take 10 mg by mouth Every Night. Active aspirin 81 MG EC tablet Take 81 mg by mouth Daily. Active amLODIPine (NORVASC) 5 MG tablet Take 5 mg by mouth Daily. Active Family History Medical History Relation Name Comments Heart disease Father Heart disease Mother Relation Name Status Comments Father Mother Social History Tobacco Use Types Packs/Day Years Used Date Smoking Tobacco: Every Day Cigarettes Smokeless Tobacco: Never Comments:Trying to quit Alcohol Use Standard Drinks/Week Comments No 0 (1 standard drink = 0.6 oz pur e alcohol) Abuse Screen Answer Date Recorded Unsafe at Home or Work/School Not on file Feels Threatened by Someone? Not on file 10/2022 Does Anyone Keep You from Co ntacting Others or Doint Things Outside the Home? Not on file 11/22/2022 Physical Sign of Abuse Present Not on file 1 Housing Stability Answer Date Recorded Current Living Arrangements Not on file 10/2022 Potentially Unsafe Housing Conditions Not on yvette e 11/22/2022 Family and Community Support Answer Arvind e Recorded Help with Day-to-Day Activities Not on file 11/22/2022 Lonely or Isolated Not on file 11/22/2022 Employment Answer Date Recorded Do you want help finding or keeping work or a sony b? Not on file 11/22/2022 Disabilities Answer Date Recorded Concentrating, Remembering, or Making Decisions Difficulty Not on file 11/22/2022 Doing Errands Independently Difficulty Not on fi le 11/22/2022 Education Answer Date Recorded Help with school or training? Not on file Preferred Language Not on file 11/22/2022 Sex and Gender Information Value Date Recorded Sex Assigned at Not on file Legal Sex Male 10:26 AM EDT Gender Identity Not on file Sexual Orientation Not on file Last Filed Vital Signs Vital Sign Reading Time Taken Comments Blood Pressure 165/81 04/22/2016 2:05 PM EST post abulatory BP Pulse 57 04/22/2016 1:45 PM EST Temperature 36.4 C (97.6 F) 04/22/2016 8:30 AM EST Respiratory Rate 16 04/22/2016 11:4 2 AM EST Oxygen Saturation 98% 04/22/2016 1:4 5 PM EST Inhaled Oxygen Concentration - - Weight 71.6 kg (157 lb 13.6 oz) 04/22/2016 8:30 AM EST Height 175.3 cm (5' 9 ) 04/22/2016 8:30 AM EST Body Mass Index 23.31 04/22/2016 8:30 AM EST Plan of Treatment Health Maintenance Due Date Last Done Comments TDAP/TD VACCINES (1 - Tdap) 1977 COLOGUARD 2003 COLON CANCER SCREENING 5 YEAR SIGMOIDOSCOPY 2003 COLONOSCOPY [address]CER SCREENING [address] COLONOGRAPHY 2003 FECAL OCCULT BLOOD TEST 2003 FIT Testing (1 year) 2003 Pneumococcal Vaccine 50+ (1 of 1 - PCV) 02/07/2008 ZOSTER VACCINE (1 of 2) 02/07/2008 ANNUAL PHYSICAL 03/22/2017 HEPATITIS C SCREENING 03/22/2017 AAA SCREEN ONCE 2023 INFLUENZA VACCINE 09/14/2024 COVID-19 Vaccine ( season) 2024 Insurance PPO Advance Directives * Full Code (Latest Code Status on File) Date Activated Date Inactivated Comments 04/22/2016 12:39 PM 04/22/2016 4:19 PM Care Teams Behavioral Technician Relationship Specialty Start Date End Date Clayton Garcia MD [address] [place] [address] [place] [address] PCP - General Adolescent Medicine 04/22/16
--- OUTSIDE RECORDS SUMMARY | 2024-12-21 09:38 | XMS_ITS | Clinical Summary ---
Author Organization [facility] Address [address] [place] [address] Care Team Providers Care Properties Supervisor Name Role Phone Cesar Valenzuela MD Primary Care Provider [phone] Mo Jaquez MD Unavailable [phone] Allergies Active Allergy Reactions Criticality Noted Date Comments Atorvastatin Unknown - Patient st ates they do not know rxn details Low 09/25/2024 Propoxyphene Other - please docum ent in the comment field Low 04/22/2016 Rosuvastatin Unknown - Patient st ates they do not know rxn details Low 09/25/2024 Medications aspirin 81 MG EC tablet Take 1 tablet by mouth daily. Active cholecalciferol (Vitamin D-3) 25 MCG (1000 UT) capsule Take 2 capsules by mouth 1 time each day. Active clonazePAM (KlonoPIN) 0.5 MG tablet 1 tab qam; 2 tabs qpm orally Active clopidogrel (Plavix) 75 MG tablet Take 1 tablet by mouth 1 time each day. Active dapagliflozin (Farxiga) 10 MG tablet Take 1 tablet by mouth daily. Active dulaglutide (Trulicity) 1.5 MG/0.5ML solution auto-injector 1.5 mg Subcutaneous once a week Active famotidine (Pepcid) 40 MG tablet Take 1 tablet by mouth daily. Active gabapentin (Neurontin) 600 MG tablet Take 1 tablet by mouth 3 times a day. Active isosorbide mononitrate ER (Imdur) 30 MG 24 hr tablet Take 1 tablet by mouth 1 (one) time each day at the same time. Active metFORMIN (Glucophage) 1000 MG tablet Take 1 tablet by mouth 2 times a day. Active methadone (Dolophine) 10 MG/5ML solution Take 2.5 mL by mouth every 6 hours as needed. Active metoprolol succinate XL (Toprol-XL) 100 MG 24 hr tablet Take 1 tablet by mouth 1 time each day. Active Multiple Vitamin (Multivitamin Adult) tablet 1 (one) time each day at the same time. Active QUEtiapine (SEROquel) 100 MG tablet Take 1 tablet by mouth nightly. Active ramipril (Altace) 10 MG capsule Take 1 capsule by mouth 1 time each day. Active ezetimibe (Zetia) 10 MG tablet Take 1 tablet by mouth daily. Active promethazine (Phenergan) 12.5 MG tablet Take 1 tablet by mouth every 6 hours as needed for nausea or vomiting. Active Immunizations Immunization Administration Dates Next Due Pneumococcal 20-madeleine Conj Vaccine 05/08/2024 Td (adult) 10/27/2018 Social History Tobacco Use Types Packs/Day Years Used Date Smoking Tobacco: Never Assessed Sex and Gender Information Value Date Recorded Sex Assigned at Not on file Legal Sex Male 8:41 PM EDT Gender Identity Not on file Sexual Orientation Not on file Last Filed Vital Signs Vital Sign Reading Time Taken Comments Blood Pressure 138/75 07/27/2022 7:54 AM EDT Pulse 86 07/27/2022 7:54 AM EDT Temperature - - Respiratory Rate - - Oxygen Saturation - - Inhaled Oxygen Concentration - - Weight 76.7 kg (169 lb) 07/27/2022 7:54 AM EDT Height 175.3 cm (5' 9 ) 07/27/2022 7:54 AM EDT Body Mass Index 24.96 07/27/2022 7:54 AM EDT Plan of Treatment Health Maintenance Due Date Last Done Comments [facility]-Depression Screening 1958 [facility]-Hepatitis C Screening 1958 [facility]-Medicare Annual Wellness (AWV) 1960 [facility]-Infant/Child/Adol SDOH Screenings 1960 [facility]- SDOH Screenings 02/07/1976 [facility]-Adult SDOH Screenings 02/07/1976 CT Colonography 2003 Colonoscopy 2003 FIT-DNA 2003 FIT 2003 FOBT 2003 Sigmoidoscopy 2003 [facility]-Colorectal Cancer Screening 2003 [facility]-Zoster Vaccines (1 of 2) 02/07/2008 [facility]-DTaP,Tdap,and Td Vaccine s (1 - Tdap) 10/28/2018 10/27/2018 [id number] Vaccine (4 - 2024- season) 2024 02/05/2021, 05/15/2020, 04/17/2020 [facility]-Influenza Vaccine (#1) 2024 [facility]-RSV Vaccine: 60+ Years o r (1 - 1-dose 75+ series) 2033 [facility]-Pneumococcal Vaccine: 50 + Years Completed 05/08/2024 HPV Vaccines Aged Out No longer eligi ble based on patient's age to complete this topic [facility]-HIB Vaccines Aged Out No longer e ligible based on patient's age to complete this topic [facility]-Hepatitis A Vaccines Aged Out No longer eligible based on patient's age to complete this topic [facility]-IPV Vaccines Aged Out No longer e ligible based on patient's age to complete this topic [facility]-Rotavirus Vaccines Aged Out No lo nger eligible based on patient's age to complete this topic Insurance MEDICARE [facility] MEDICARE Care Teams Properties Supervisor Relationship Specialty Start Date End Date Cesar Valenzuela MD [address] [facility] [address] [place] [address] PCP - General 06/27/20 Mo Jaquez MD [address] [place] [id number] Referring Physician 09/04/24
--- OUTSIDE RECORDS SUMMARY | 2024-12-21 09:38 | XMS_ITS | Encounter Summary ---
Author Organization [facility] Address [address] [place] [address] Care Team Providers Care Electrolytic De Scaler Name Role Phone Cesar Valenzuela MD Primary Care Provider [phone] Mo Jaquez MD Unavailable [phone] Encounter Details Date Type Department Care Team (Late st Contact Info) Description 05/21/2022 Orders Only External Location [address] [place] [address] Cesar Valenzuela MD [address] [place], [place] [id number] Social History Tobacco Use Types Packs/Day Years [...] Procedure Name Priority Date/Time Associated Diagnosis Comments CT OUTSIDE IMAGES 05/21/2022 12:02 PM EDT documented in this encounter Results * CT OUTSIDE IMAGES (05/21/2022 12:02 PM EDT) Anatomical Region Laterality Modality Computed Tomogra phy 05/21/2022 12:0 2 PM EDT Cesar Valenzuela MD IMG CT PROCEDURES Final Re sult documented in this encounter Visit Diagnoses Not on filedocumented in this encounter Care Teams Electrolytic De Scaler Relationship Specialty Start Date End Date Cesar Valenzuela MD [address] [place] [address] PCP - General 06/27/20 Mo Jaquez MD [address] [place] [address] Referring Physician 09/04/24 documented as of this encounter
== END 2024-12-19 23:59 ==
LOC: LAB.DROPOF 12-21 09:34
PROVIDERS: PCP Family Medicine; Visit Provider Nurse Practitioner
DX: L97.511 Non-pressure chronic ulcer of other part of right foot limited to breakdown of skin (principal)
CPT/HCPCS: 87070; 87205

== ENCOUNTER 2025-01-17 14:55 | Outpatient (CLI) | payer MEDICARE, SELFPAY ==
[2025-01-17 15:16] LABS: Hematocrit 43.6 % (42.0-52.0); Hemoglobin 14.8 g/dL (14.1-18.0); Immature Granulocytes % 0.4 %; Mean Corpuscular HGB Conc 33.9 g/dL (31.8-35.4); Mean Corpuscular Hemoglobin 32.9 pg (27.0-31.2); Mean Corpuscular Volume 96.9 fl (80-94); Nucleated Red Blood Cells % 0 %; Platelet Count 89 K/mm3 (142-424); Red Blood Count 4.50 M/mm3 (4.60-6.20); Red Cell Distribution Width-SD 42.9 fL; White Blood Count 10.9 K/mm3 (4.8-10.8)
[2025-01-17 16:00] LABS: Alanine Aminotransferase 41 U/L (12-78); Albumin Level 4.4 g/dl (3.5-5.0); Alkaline Phosphatase 62 U/L (38-126); Anion Gap 12.4 mEq/L (5-15); Aspartate Amino Transferase 52 U/L (17-59); Bilirubin,Direct 0.3 mg/dl (0.0-0.4); Bilirubin,Indirect 0.4 mg/dL (0.0-0.9); Bilirubin,Total 0.7 mg/dl (0.2-1.3); Bilirubin,Unconjugated 0.4 mg/dL (0.0-1.1); Blood Urea Nitrogen 28 mg/dl (9-20); Calcium 9.6 mg/dl (8.4-10.2); Carbon Dioxide 30 mmol/L (22.0-30.0); Chloride 96 mmol/L (98-107); Cholesterol 121 mg/dl (140-200); Creatinine,Serum 1.30 mg/dl (0.66-1.25); Estimated Glomerular Filt Rate 55 ml/min (>60); GFR (African American) 67 ML/MIN (>60); Glucose 148 mg/dl (74-100); HDL Cholesterol 21 mg/dl (40-60); Magnesium 1.9 mg/dl (1.6-2.3); Potassium 4.4 mmoL/L (3.5-5.1); Sodium 134 mmol/L (136-145); Total Protein,Serum 7.1 g/dl (6.3-8.2); Triglycerides 381 mg/dl (30-150)
[2025-01-17 16:18] LABS: Free T4 (Free Thyroxine) 1.35 ng/dl (0.78-2.19)
[2025-01-17 16:30] LABS: Thyroid Stimulating Hormone 1.57 uIU/mL (0.465-4.68)
== END 2025-01-17 23:59 | disposition home or self-care (01) ==
LOC: LAB 14:56
PROVIDERS: PCP Family Medicine; Visit Provider Nurse Practitioner Family
DX: I25.10 Atherosclerotic heart disease of native coronary artery without angina pectoris (principal); I10 Essential (primary) hypertension; E78.2 Mixed hyperlipidemia
CPT/HCPCS: 36415; 80048; 80061; 80076; 83735; 84439; 84443; 85025

== ENCOUNTER 2025-02-05 09:36 | Outpatient (CLI) | payer MEDICARE, SELFPAY ==
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
--- OUTSIDE RECORDS SUMMARY | 2023-11-10 04:15 | XMS_ITS ---
[facility] Address [facility]0 [facility] 36 [facility] [address] [place] [id number] Care Team Providers Care Acid Polymerization Operator Name Role Phone Rakel Valenzuela Primary Care Provider Allergies Allergen (clinical drug ingredient) Drug/Non Drug Allergy documented on EMR Reaction Allergy Type Onset Date Status rosuvastatin Crestor Unknown Drug Allergy Acti ve atorvastatin Lipitor Unknown Drug Allergy Acti ve Reason For Referral Reason lesion on lip Diagnosis 1 Neoplasm of uncertai n behavior of skin (D48.5) [facility] Referring Provider First Name Rakel Soto Referring Provider Last Name Nicolas Referring Provider Speciality Family Pra ctice Referred Organization [facility] OP Referred Provider Xin Srerano Referred Address [address] [facility] [id number], Referred Provider Specialty Dermatology General Notes Tea Armstrong 11/14/19 24 9:45:41 AM > faxed referral to [facility] Referral Priority Routine REASON FOR VISIT 3 months Medications Medication SIG (Take, Route, Frequency, Duration) Notes Start Date End Date Status FreeStyle Christen 3 Sensor - as directed c hange sensor every 14 days 07/07/2023 Active FreeStyle Christen 3 [place] - as directed 07/07/2023 Active oxyCODONE HCl 10 MG 1 tab(s) Orally ever y 6 hrs prn 03/15/2023 Active SEROquel 100 MG 1 tab(s) orally At B ed Time Active clonazePAM 0.5 MG 1 tab qam; 2 tabs qp m orally 11/10/2023 Active Toprol XL 100 MG 1 tab(s) orally once a day Active Altace 10 MG 1 cap(s) orally once a day Active Vitamin D 50 MCG (1999 [place]) 1 capsule Ora lly Once a day; Duration: 30 day(s) Active Plavix 75 MG 1 tab(s) orally once a day Active Aspirin 81 MG 1 tab(s) orally once a day Active Isosorbide Mononitrate ER 30 MG 1 tablet in the morning Orally Once a day; Duration: 30 day(s) Active metFORMIN HCl 1000 MG 1 tab(s) orally 2 times a day Active Farxiga 10 MG TAKE 1 TABLET DAILY; Duration: 90 days Active Famotidine 40 mg take 1 tablet 1 time each day Active Multivitamin Adult - 1 tablet Orally Onc e a day; Duration: 30 day(s) Active Trulicity 1.5 MG/0.5ML 1.5 mg Subcutaneo us once a week Active Social History Tobacco Use: Social History Observation Description Date Details (start date - stop date) Current Smoker NA - NA CURRENT TOBACCO USE: Question Answer Notes Are you a: current smoker Problems Problem Type SNOMED Code ICD Code Onset Dates Problem Status W/U Status Risk Notes Problem Diabetic foot ulcer (096729619) Diabetic foot ulcer (E11.621) Active confirmed Vital Signs Weight 161.4 lbs 11/10/2023 Blood pressure systolic 124 mm Hg 11/10/19 24 Blood pressure diastolic 82 mm Hg 024 Heart Rate 75 /min 11/10/2023 Height 69 in 11/10/2023 BMI 23.83 kg/m2 11/10/2023 Encounters Encounter Location Date Provider Diagnosis aNdine 1210 [facility] [address] TRISHA Arauz [id number] 11/10/2023 R Charles Valenzuela Cervicalgia M54.2 ; Diabetic polyneuropathy associated with type 2 diabetes mellitus E11.42 ; Type 2 diabetes mellitus with foot ulcer E11.621 ; Anxiety F41.9 ; Dyslipidemia E78.5 ; Essential (primary) hypertension I10 ; PAD (peripheral artery disease) I73.9 ; Diabetic foot ulcer E11.621 ; Screening for prostate cancer Z12.5 and Neoplasm of uncertain behavior of skin D48.5 Assessments Encounter Date Diagnosis (ICD Code) Assessment Notes Treatment Notes Treatment Clinical Notes Section Notes 11/10/2023 Cervicalgia (ICD-10 - M54.2) 11/10/2023 Diabetic polyneuropathy associated with type 2 diabetes mellitus (ICD-10 - E11.42) 11/10/2023 Type 2 diabetes mellitus with foot ulcer (ICD-10 - E11.621) 11/10/2023 Anxiety (ICD-10 - F41.9) 11/10/2023 Dyslipidemia (ICD-10 - E78.5) 11/10/2023 Essential (primary) hypertension (ICD-10 - I10) 11/10/2023 PAD (peripheral artery disease) (ICD-10 - I73.9) 11/10/2023 Diabetic foot ulcer (ICD-10 - E11.621) Continue f/u with Dr. Khalil 11/10/2023 Screening for prostate cancer (ICD-10 - Z12.5) 11/10/2023 Neoplasm of uncertain behavior of skin (ICD-10 - D48.5) 11/10/2023 Other Will return for fasting labs: BMP, lipid, A1c, PSA Plan Of Treatment Medication Medication Name Sig Start Date Stop Date Notes SEROquel 100 MG 1 tab(s) orally At Bed Time clonazePAM 0.5 MG 1 tab qam; 2 tabs qpm orally 11/10/2023 metFORMIN HCl 1000 MG 1 tab(s) orally 2 times a day Farxiga 10 MG TAKE 1 TABLET DAILY; Duration: 90 days Famotidine 40 mg take 1 tablet 1 time each day Trulicity 1.5 MG/0.5ML 1.5 mg Subcutaneous once a week Treatment Notes Assessment Notes Diabetic foot ulcer Continue f/u with Dr Cheryl Khalil Other Will return for fast ing labs: BMP, lipid, A1c, PSA Referrals Referral Date Details 11/13/2023 11/13/2023, lesion o n lip, Xin Serrano, [address] [facility], [place], [place], [id number], Next Appt Details Follow Up: 3 Months, Reason: Provider Name:Rakel Barnhart, 02/19/2025 11:45:00 AM, [address] [facility], [address] , [place], [place], [phone], Progress Notes * MARNI CHING:1960 (64 yo M)Acc No.[id number]:11/10/2023 Progress Notes Patient: SHILA MARTINEZ Provider: Rakel Valenzuela M.D. :1960 A ge:63 Y S ex:Male Date:11/10/2023 Address:[address] , [place], [id number] Subjective: * Chief Complaints: * 1 . 3 months. * HPI: E ndocrinology: Pt presents today for a 3 month check up. Pt sts that he is not fasting today. Pt sts that he did check his glucose this morning and it was 137. Pt sts that he needs refills today. C ardiology: He continues to follow with cardiology and has been started on isosorbide. N jaciel: He complains of worsening posterior neck pain, more on the right side. He thinks this has something to do with his lower extremity neuropathy. D ermatology: mole P t sts that he has a small mole or blister on his top lip that hurts when his mustache is growing through. * ROS: D ERMATOLOGY: no R cesar. [...] s ee above , foot ulcers @ [facility] 10/26/18- 10/27/18, [facility], DM, CAD 01/08/2020, [facility] - [facility] 07/26/2022, Left common and [...] frequency:daily. Alcohol: yes. * Medications: T aking Isosorbide Mononitrate ER 30 MG Tablet Extended Release 24 Hour 1 tablet in the morning Orally Once a day , Taking Multivitamin Adult - Tablet 1 tablet Orally [...] tab(s) orally once a day , Taking oxyCODONE HCl 10 MG Tablet 1 tab(s) Orally every 6 hrs prn , Taking Farxiga 10 MG Tablet TAKE 1 TABLET DAILY , Taking FreeStyle Christen 3 Sensor - Miscellaneous as directed change sensor every 14 days , Taking FreeStyle Christen 3 [place] - Device as directed , Taking SEROquel 100 MG Tablet 1 tab(s) orally At Bed Time , Taking clonazePAM 0.5 MG Tablet 1 tab qam; 2 tabs qpm orally , Taking Famotidine 40 mg Tablet take 1 tablet 1 time each day , Taking Trulicity 1.5 MG/0.5ML Solution Pen-injector 1.5 mg Subcutaneous once a week , Taking metFORMIN HCl 1000 MG Tablet 1 tab(s) orally 2 times a day , Medication List reviewed and reconciled with the patient * Allergies: C restor, Lipitor. Objective: * Vitals: W t:161.4, Temp:97.7, BP:124/82, HR:75, O2 Sat:98% on RA, Nurse:RAMÓN, Ht: 69, BMI:23.83. * Examination: G eneral Examination: General Appearance: N AD. Affect better today. N jaciel: N o adenopathy or bruits. Head forward posturing. Tender along right cervical paraspinal muscles. No tenderness over spinous processes. H eart: R SR. L ungs: clear to auscultation. S kin: 4 mm slightly raised, light brown lesion on upper lip near noemi border. E xtremities: n o leg edema. Assessment: * Assessment: 1. C ervicalgia - M54.2 (Primary) 2 . D iabetic polyneuropathy associated with type 2 diabetes mellitus - E11.42 3 . T ype 2 diabetes mellitus with foot ulcer - E11.621 4 . A nxiety - F41.9 5 . D yslipidemia - E78.5 6. E ssential (primary) hypertension - I10 7 . P AD (peripheral artery disease) - I73.9 8 . D iabetic foot ulcer - E11.621 ?9. S creening for prostate cancer - Z12.5 1 0. N eoplasm of uncertain behavior of skin - D48.5 Plan: * Treatment: 2. T ype 2 diabetes mellitus with foot ulcer Continue Trulicity Solution Pen-injector, 1.5 MG/0.5ML, 1.5 mg, Subcutaneous, once a week; R efill metFORMIN HCl Tablet, 1000 MG, 1 tab(s), orally, 2 times a day, 180, Refills 1; R efill Farxiga Tablet, 10 MG, TAKE 1 TABLET DAILY, 90 days, 90, Refills 1. 3. A nxiety Refill clonazePAM Tablet, 0.5 MG, 1 tab qam; 2 tabs qpm, orally, 90, Refills 2. 4. D iabetic foot ulcer Notes: Continue f/u with Dr. Khalil 5. N eoplasm of uncertain behavior of skin Referral To:[facility] Reason:lesion on lip 6. O thers Refill Famotidine Tablet, 40 mg, take 1 tablet 1 time each day, 90, Refills 1. Notes: Will return for fasting labs: BMP, lipid, A1c, PSA * Procedure Codes: 9 4760 PULSE OX * Follow Up: 3 Months * Images: Billing Information: * Visit Code: 38745 Office Visit, Est Pt., Level 4. * Procedure Codes: 74147 PULSE OX. * Electronic signature of Rakel Valenzuela MD on 02/05/2025 at 09:40 AM EST Sign off status: Pending * Provider: Rakel Valenzuela M.D. Date: 0 11/10/2023 Generated for Bernardai ayo/Dwayne/eTransmitting on: 1 04/08/2024 09:40 AM EST History and Physical Notes * HPI (History of Present Illness) Category Sub-Category Detail Notes Category Not es Dermatology mole Pt sts that he h as a small mole or blister on his top lip that hurts when his mustache is growing through Examination Category Sub-Category Detail Notes Category Not es General Examination Heart: RSR Lungs: clear to auscultatio n Extremities: no leg edema General Appearance: NAD. Affect better t rebekah Skin: 4 mm slightly raised , light brown lesion on upper lip near noemi border Neck: No adenopathy or bru its. Head forward posturing. Tender along right cervical paraspinal muscles. No tenderness over spinous processes Consultation Request Notes Referral Date Referring Provider Referred Provider Not es 11/13/2023 Rakel Valenzuela Audra lesion on lip
--- OUTSIDE RECORDS SUMMARY | 2024-02-14 05:45 | XMS_ITS ---
Author Organization [facility] Address [address] [facility] [address] [place], [place] [id number] Care Team Providers Care Sawdust Drier Name Role Phone Rakel Valenzuela Primary Care [...] 149 Performing Lab: Notes/Report: Test performed by [facility], [facility] [address] [place] [address] , [address], [place] [address] Luan Fontanez MD, Mannequin Wig Maker CLIA: [id number] Sodium 139 135-145 mmol/L Potassium 4.3 3.5-5.3 [...] 133 Performing Lab: Notes/Report: Test performed by [facility], [address] , [address], [place] [address] Luan Fontanez MD, Mannequin Wig Maker CLIA: [id number] Cholesterol 159 <200 mg/dL Triglycerides 279 <150 [...] Interpretation:Normal Performing Lab: Notes/Report: Test performed by [facility] [address] [place] [address] , [address], [place] [address] Luan Fontanez MD, Mannequin Wig Maker CLIA: [id number] PSA 0.18 <4.00 ng/mL Please note this [...] 14 days 07/07/2023 Active FreeStyle Christen 3 [facility] - as directed 07/07/2023 Active SEROquel 100 [...] Are you a: current smoker Vital Signs Weight 167.2 lbs 02/14/2024 Blood pressure systolic 130 mm Hg 02/14/20 24 Blood pressure diastolic 72 mm Hg 024 Heart Rate 70 /min 02/14/2024 Height 69 in 02/14/2024 BMI 24.69 kg/m2 02/14/2024 Encounters Encounter Location Date Provider Diagnosis [facility] [address] [phone] 02/14/2024 Rakel Valenzuela Diabetic polyneuropa thy associated [...] 02/19/2025 11:45:00 AM, [address] [facility], [address], [place], [place], [id number], Progress Notes * SHILA CHINGDOB:1960 (64 yo M)Acc No.[id number]:02/14/2024 Progress Notes Patient: Luisito SHILA TRACEY Provider: Rakel Valenzuela M.D. :1960 A ge:64 Y S ex:Male Date:02/14/2024 Address:[address] , [place], [id number] Subjective: * Chief Complaints: * 1 . [...] continues to follow with pain management in [place] and they have restarted and are titrating [...] above , foot ulcers @ [facility] 10/26/18- 10/27/18, [facility], DM, CAD 01/08/2020, [facility] - NSTEMI 07/26/2022, Left common and external [...] 14 days , Taking FreeStyle Christen 3 [facility] - Device as directed , Taking metFORMIN [...] AM > no auth required; CPT code 03815; faxed to [facility] Scheduling; 03/01/2024 at 10:45am * Procedure Codes: G 2211 Complex e/[place], [address] GLYCATED HEMOGLOBIN TEST, Modifiers: QW , 3051F HG A1C>EQUAL 7.0%<8.0% * Follow Up: 3 Months * Images: Billing Information: * Visit Code: 76885 Office Visit, Est Pt., Level 4. * Procedure Codes: G2211 Complex e/[place]. [address] GLYCATED HEMOGLOBIN TEST. Modifiers: QW 3051F HG A1C>EQUAL 7.0%<8.0%. * Electronic signature of Rakel Valenzuela MD on 02/05/2025 at 09:40 AM EST Sign off status: Pending * Provider: Rakel Valenzuela M.D. Date: Generated for Abebe rollins/Dwayne/eTransmitting on: 04/08/2024 09:40 AM EST History and Physical [...]
--- OUTSIDE RECORDS SUMMARY | 2024-05-08 04:45 | XMS_ITS ---
[facility] Address [address] [place] [id number] Care Team Providers Care Melt House Centrifugal Operator Name Role Phone Rakel Valenzuela Primary [...] 14 days 07/07/2023 Active FreeStyle Christen 3 [place] - as directed 07/07/2023 Active Toprol XL [...] you a: current smoker Vital Signs Weight 169.0 lbs 05/08/2024 Blood pressure systolic 130 mm Hg 05/09/19 Blood pressure diastolic 86 mm Hg 025 Heart Rate 72 /min 05/08/2024 Height 69 in 05/08/2024 BMI 24.95 kg/m2 05/08/2024 Encounters Encounter Location Date Provider Diagnosis [facility] [address], [place] [id number] 05/08/2024 R Charles Valenzuela Adult general medica l examination Z00.00 [...] Up: 3 Months, Reason: Provider Name:Rakel Soto Floridalmaalaina love, 02/19/2025 11:45:00 AM, [address], [address], [place], [place], [id number], Progress Notes * SHILA CHINGDOB:1960 (64 yo M)Acc No.[id number]:05/08/2024 Annual Wellness Visit Patient: YOANA MARTINEZRELL Provider: Rakel Valenzuela M.D. :1960 A ge:64 Y S ex:Male Date:05/08/2024 Address:[address] [place] [address] , [id number] Subjective: * Chief Complaints: * 1 . 3 month checkup and Annual Wellness Visit. 2. Due for diabetic eye exam. * HPI: H PI: Patient is here today for a scheduled 3 month check up?and a Medicare Annual Wellness Visit. Pt sts he would like his Gabapentin refilled today. Pt is fasting. N eurology: He is now following with pain management in [place] and is now on a higher dose [...] s ee above , foot ulcers @ [facility] 10/26/18- 10/27/18, [facility], DM, CAD 01/08/2020, [facility] 07/26/2022, Left common [...] 14 days , Taking FreeStyle Christen 3 [place] - Device as directed , Taking Famotidine [...] whether hemorrhage - K21.00 1 5. B [place] 24.0-24.9, adult - Z68.24 Plan: * Treatment: [...] * Images: Billing Information: * Visit Code: 10218 Office Visit, Est Pt., Level 3. Modifiers: [...] 05/08/2024 Generated for Abebe rollins/Dwayne/eTransmitting on: 1 04/08/2024 09:39 AM EST History [...]
--- OUTSIDE RECORDS SUMMARY | 2024-05-22 06:00 | XMS_ITS ---
Author Organization [facility] Address [address] [facility] [address] [place] [id number] Care Team Providers Care Vp Account Director Name Role Phone Rakel Valenzuela Primary Care Provider Stephanie Rio Unavailable [phone] Allergies Allergen (clinical drug ingredient) Drug/Non Drug [...] time each day Active FreeStyle Christen 3 [place] - as directed 07/07/2023 Active Plavix 75 [...] Status Risk Notes Problem Disorder of neck (969943779) Disorder of neck (M53.82) Active confirmed Vital Signs Weight 167.6 lbs 05/22/2024 Blood pressure systolic 160 mm Hg 05/23/19 25 Blood pressure diastolic 88 mm Hg 025 Heart Rate 80 /min 05/22/2024 Height 69 in 05/22/2024 BMI 24.75 kg/m2 05/22/2024 Encounters Encounter Location Date Provider Diagnosis [facility] [address] [place], [place] [phone] 05/22/2024 Rio Brown Disorder of neck M53 [...] [address], [address], [place], [place], [id number], Progress Notes * SHILA CHINGDOB:1960 (64 yo M)Acc No.[id number]:05/22/2024 Progress Notes Patient: SHILA MARTINEZ Provider: Alberto Brown M.D. :1960 A ge:64 Y S ex:Male Date:05/22/2024 Address:[address] [place] [address] , [id number] Pcp:Rakel Valenzuela Subjective: * [...] s ee above , foot ulcers @ [facility] 10/26/18- 10/27/18, [facility], DM, CAD 01/08/2020, [facility] 07/26/2022, Left common and external [...] 14 days , Taking FreeStyle Christen 3 [place] - Device as directed , Taking Famotidine [...] * Images: Billing Information: * Visit Code: 93338 Office Visit, Est Pt., Level 3. * Procedure Codes: G2211 Complex e/m visit add on. * Electronic signature of Regi Brown MD on 02/05/2025 at 09:39 AM EST Sign off status: Pending * Provider: Alberto Brown M.D. Date: 0 05/22/2024 Generated for Abebe rollins/Dwayne/Snowitting on: 1 04/08/2024 09:39 AM EST History [...]
--- OUTSIDE RECORDS SUMMARY | 2024-08-09 05:00 | XMS_ITS ---
Author Organization [facility] Address [address] [place] [phone] Care Team Providers Care Automobile Travel Club Counselor Name Role Phone Rakel Valenzuela Primary Care Provider [phone] Allergies Allergen (clinical drug ingredient) Drug/Non Drug [...] Encounter Location Date Provider Diagnosis [place] [address] [facility] 36 [facility] [address] [place] [phone] 08/09/2024 Rakel Valenzuela Plan Of Treatment Next Appt Details Provider Name:Rakel Barnhart, 02/19/2025 11:45:00 AM, [address] [facility] 36 [facility], [address], [place], [id number], Progress Notes * SHILA CHINGDOB:1960 (64 yo M)Acc No.[id number]:08/09/2024 Progress Notes Patient: Luisito TRACEYYOANASHILA Provider: Rakel Valenzuela M.D. :1960 A ge:64 Y S ex:Male Date:08/09/2024 Address:[facility] [address] , [place] [id number] Subjective: * Chief Complaints: * 1 . [...] s ee above , foot ulcers @ [facility] 10/26/18- 10/27/18, [facility], DM, CAD 01/08/2020, [facility] 07/26/2022, Left common and [...] 08/09/2024 Generated for Abebe rollins/Dwayne/Monico on: 1 04/08/2024 09:40 AM EST
--- OUTSIDE RECORDS SUMMARY | 2024-08-23 05:15 | XMS_ITS ---
Author Organization [facility] Address [address] [facility] [address] [place] [phone] Care Team Providers Care Foreign Policy Officer Name Role Phone Rakel Valenzuela Primary Care Provider [phone] Allergies Allergen (clinical drug ingredient) Drug/Non Drug Allergy documented on EMR Reaction Allergy Type Onset Date Status rosuvastatin Crestor Unknown Drug Allergy Acti ve atorvastatin Lipitor Unknown Drug Allergy Acti ve Results Component Value Reference Range Notes Glycohemoglobin A1c (in hous e) Reviewed date:08/27/2024 09:37:56 PM Interpretation:6.5% Performing Lab: Notes/Report: 6.5% glycohemoglobin 6.5% 5 - 6.5 % P-Comprehensive Metabolic Pa stefan (CMP) Reviewed date:08/27/2024 09:37:55 PM Interpretation:AST 58 Performing Lab: Notes/Report: Test performed by [email or web address] , [address], [place] [address] Luan Fontanez MD, Cash Management Clerk CLIA: [id number] Sodium 137 135-145 mmol/L Potassium 4.4 3.5-5.3 mmol/L Chloride 100 97-108 mmol/L CO2 28 20-32 mmol/L Glucose 117 65-99 mg/dL BUN 13 8-23 mg/dL Creatinine 0.95 0.70-1.30 mg/dL Calcium 9.7 8.6-10.4 mg/dL eGFR by Creatinine 88 >59 mL/min/1.73m2 Protein 7.1 6.0-8.3 g/dL Albumin 4.4 3.5-5.3 g/dL Alkaline Phosphatase 124 40-129 IU/L ALT (SGPT) 48 <5-55 IU/L AST (SGOT) 58 <5-46 IU/L Bilirubin, Total 0.4 <0.2-1.2 mg/dL A/G Ratio 1.6 1.1-2.5 P-Lipid Panel Reviewed date:08/27/2024 09:37:56 PM Interpretation:LDL 105 Performing Lab: Notes/Report: Test performed by [facility] [address] , [place] [address] Luan Fontanez MD, Cash Management Clerk CLIA: [id number] Cholesterol 170 <200 mg/dL Triglycerides 206 <150 mg/dL HDL Cholesterol 24 >39 mg/dL Cholesterol / HDL Ratio 7.08 0.00-4.99 Ratio Non-HDL Cholesterol 146 <130 mg/dL LDL Cholesterol (Calculation) 105 <130 mg/dL LDL Cholesterol Levels* Less than 100 mg/dL Optimal 100 to 129 mg/dL Near Optimal/ Above Optimal 130 to 159 mg/dL Borderline High 160 to 189 mg/dL High 190 mg/dL and above Very High * Categories as recommended by the 2004 ATPIII guidelines LDL/HDL Ratio 4.4 <3.3 Ratio LDL Cholesterol Patient History Test Date: 08/11/2023 LDL Results: 88 Units: mg/dL % Change: -8% Test Date: 02/14/2024 LDL Results: 77 Units: mg/dL % Change: -12% Test Date: 08/23/2024 LDL Results: 105 Units: mg/dL % Change: +36% REASON FOR VISIT 3 Month Check Up, Needs labs, colon cancer screening, low dose chest CT, & diabetic eye exam Medications Medication SIG (Take, Route, Frequency, Duration) Notes Start Date End Date Status Famotidine 40 mg take 1 tablet 1 time each day Active Farxiga 10 MG 1 tablet Orally Once a day; Duration: 90 days Active SEROquel 100 MG 1 tab(s) orally At B ed Time Active Gabapentin 600 MG 1 capsule Orally Thr ee times a day Active Farxiga 10 MG take 1 tablet daily Active clonazePAM 0.5 MG 1 tab qam; 2 tabs qp m orally Active Trulicity 1.5 MG/0.5ML 1.5 mg Subcutaneo us once a week Active FreeStyle Christen 3 [place] - as directed 07/07/2023 Active FreeStyle Christen 3 S[place] - as directed change sensor every 14 days 07/07/2023 Active metFORMIN HCl 1000 MG 1 tab(s) orally 2 times a day Active Toprol XL 100 MG 1 tab(s) orally once a day Active Aspirin 81 MG 1 tab(s) orally once a day Active Altace 10 MG 1 cap(s) orally once a day Active Vitamin D 50 MCG (2000 UT) 1 capsule Orally Once a day; Duration: 30 day(s) Active Plavix 75 MG 1 tab(s) orally once a day Active Methadone HCl 10 MG/5ML 5 mL Orally Once a day Pt sts he takes 85mg Active Isosorbide Mononitrate ER 30 MG 1 tablet in the morning Orally Once a day; Duration: 30 day(s) Active Multivitamin Adult - 1 tablet Orally Onc e a day; Duration: 30 day(s) Active Social History Tobacco Use: Social History Observation Description Date Details (start date - stop date) Current Smoker NA - NA CURRENT TOBACCO USE: Question Answer Notes Are you a: current smoker Vital Signs Weight 174.2 lbs 08/23/2024 Blood pressure systolic 116 mm Hg 08/24/19 25 Blood pressure diastolic 60 mm Hg 025 Heart Rate 84 /min 08/23/2024 Height 69 in 08/23/2024 BMI 25.72 kg/m2 08/23/2024 Encounters Encounter Location Date Provider Diagnosis Nadine [address] TRISHA Arauz [id number] 08/23/2024 Rakel Valenzuela Diabetic polyneuropa thy associated with type 2 diabetes mellitus E11.42 ; Anxiety F41.9 ; Dyslipidemia E78.5 ; Essential (primary) hypertension I10 ; PAD (peripheral artery disease) I73.9 ; ASCVD (arteriosclerotic cardiovascular disease) I25.10 ; Tobacco use disorder F17.200 ; History of non-ST elevation myocardial infarction (NSTEMI) I25.2 ; 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 ; Gastroesophageal reflux disease with esophagitis, unspecified whether hemorrhage K21.00 and BMI 25.0-25.9,adult Z68.25 Assessments Encounter Date Diagnosis (ICD Code) Assessment Notes Treatment Notes Treatment Clinical Notes Section Notes 08/23/2024 Diabetic polyneuropathy associated with type 2 diabetes mellitus (ICD-10 - E11.42) 08/23/2024 Anxiety (ICD-10 - F41.9) 08/23/2024 Dyslipidemia (ICD-10 - E78.5) 08/23/2024 Essential (primary) hypertension (ICD-10 - I10) 08/23/2024 PAD (peripheral artery disease) (ICD-10 - I73.9) 08/23/2024 ASCVD (arteriosclerotic cardiovascular disease) (ICD-10 - I25.10) 08/23/2024 Tobacco use disorder (ICD-10 - F17.200) 08/23/2024 History of non-ST elevation myocardial infarction (NSTEMI) (ICD-10 - I25.2) 08/23/2024 Coronary artery graft present (ICD-10 - Z95.5) 08/23/2024 Gastroesophageal reflux disease with esophagitis, unspecified whether hemorrhage (ICD-10 - K21.00) 08/23/2024 BMI 25.0-25.9,adult (ICD-10 - Z68.25) 08/23/2024 Other Plan Of Treatment Medication Medication Name Sig Start Date Stop Date Notes SEROquel 100 MG 1 tab(s) orally At Bed Time Gabapentin 600 MG 1 capsule Orally Three times a day Farxiga 10 MG take 1 tablet daily clonazePAM 0.5 MG 1 tab qam; 2 tabs qpm orally Trulicity 1.5 MG/0.5ML 1.5 mg Subcutaneous once a week metFORMIN HCl 1000 MG 1 tab(s) orally 2 times a day Pending Test Test Name Order Date CT Scan : Chest, low dose 08/23/2024 Next Appt Details Follow Up: 3 Months, Reason: Provider Name:Rakel Barnhart, 02/19/2025 11:45:00 AM, [address] [facility], [address], [place], [place], [phone], Progress Notes * SHILA CHINGDOB:1960 (64 yo M)Acc No.[id number]:08/23/2024 Progress Notes Patient: Luisito ALEXYSHILA Provider: Rakel Valenzuela M.D. :1960 A ge:64 Y S ex:Male Date:08/23/2024 Address:[address] [place] [address] , [place], [id number] Subjective: * Chief Complaints: * 1 . 3 Month Check Up. 2. Needs labs, colon cancer screening, low dose chest CT, & diabetic eye exam. * HPI: H PI: 64 year old male presents with c/o Patient is here today for?Pt is here today for a 3 month check. Pt sts he is doing well and has no conerns at this time. Pt is fasting. * ROS: D ERMATOLOGY: no R cesar. [...] s ee above , foot ulcers @ [facility] 10/26/18- 10/27/18, [facility]-STEM[facility], DM, CAD 01/08/2020, [facility] - NSTEMI 07/26/2022, Left common and [...] frequency:daily. Alcohol: yes. * Medications: T aking Trulicity 1.5 MG/0.5ML Solution Pen-injector 1.5 mg Subcutaneous once a week , Taking metFORMIN HCl 1000 MG Tablet 1 tab(s) orally 2 times a day , Taking Methadone HCl 10 MG/5ML Solution [...] 14 days , Taking FreeStyle Christen 3 [place] - Device as directed , Taking Famotidine 40 mg Tablet take 1 tablet 1 time each day , Taking SEROquel 100 MG Tablet 1 tab(s) orally At Bed Time , Taking Farxiga 10 MG Tablet 1 tablet Orally Once a day , Taking clonazePAM 0.5 MG Tablet 1 tab qam; 2 tabs qpm orally , Taking Gabapentin 600 MG Tablet 1 capsule Orally Three times a day , Medication List reviewed and reconciled with the patient * Allergies: C restor, Lipitor. Objective: * Vitals: W t: 174.2, Temp: 98.2, BP: 116/60, HR: 84, O2 Sat: 98% on RA, Nurse: [facility], Ht: 69, BMI:25.72. Assessment: * Assessment: 1. D iabetic polyneuropathy associated with type 2 diabetes mellitus - E11.42 (Primary) ? 2 . A nxiety - F41.9 3 . D yslipidemia - E78.5 4 .?Essential (primary) hypertension - I10 5 . P AD (peripheral artery disease) - I73.9 6 . A SCVD (arteriosclerotic cardiovascular disease) - I25.10 ? 7 . T obacco use disorder - F17.200 8 . H istory of non-ST elevation myocardial infarction (NSTEMI) - I25.2 9 . C oronary artery graft present - Z95.5 1 0. G astroesophageal reflux disease with esophagitis, unspecified whether hemorrhage - K21.00 1 1. B IN 25.0-25.9,adult - Z68.25 Plan: * Treatment: Value Reference Range g lycohemoglobin 6.5% 5 - 6.5 % * Susana Gamez 08/23/2024 11:0 7:57 AM EDT > Rakel Valenzuela 08/27/2024 09:37:42 PM EDT > See phone encounter 2.?Anxiety? Continue clonazePAM Tablet, 0.5 MG, 1 tab qam; 2 tabs qpm, orally.?? 3.?Dyslipidemia?LAB: P-Lipid Panel (Collection Date & Time - 08/23/2024 09:46 AM)?LDL 105* Value Reference Range C holesterol / HDL Ratio 7.08 H 0.00-4.99 - Ratio * C holesterol 170 <200 - mg/dL * H DL Cholesterol 24 L >39 - mg/dL * L DL Cholesterol (Calculation) 105 <130 - mg/d L * L DL/HDL Ratio 4.4 H <3.3 - Ratio * N on-HDL Cholesterol 146 H <130 - mg/dL * T riglycerides 206 H <150 - mg/dL * Nicolas Rakel Charles 08/27/2024 09:37:42 PM EDT > See phone encounter 4.?Essential (primary) hypertension?LAB: P-Comprehensive Metabolic Panel (CMP) (Collection Date & Time - 08/23/2024 09:46 AM)?AST 58* Value Reference Range A /G Ratio 1.6 1.1-2.5 - * A lbumin 4.4 3.5-5.3 - g/dL * A lkaline Phosphatase 124 40-129 - IU/L * A LT (SGPT) 48 <5-55 - IU/L * A ST (SGOT) 58 H <5-46 - IU/L * B ilirubin, Total 0.4 <0.2-1.2 - mg/dL * B UN 13 8-23 - mg/dL * C alcium 9.7 8.6-10.4 - mg/dL * C hloride 100 97-108 - mmol/L * C O2 28 20-32 - mmol/L * C reatinine 0.95 0.70-1.30 - mg/dL * G lucose 117 H 65-99 - mg/dL * P otassium 4.4 3.5-5.3 - mmol/L * S odium 137 135-145 - mmol/L * P rotein 7.1 6.0-8.3 - g/dL * e GFR by Creatinine 88 >59 - mL/min/1.73m2 * Rakel Valenzuela 08/27/2024 09:37:42 PM EDT > See phone encounter 5.?Tobacco use disorder?Imaging: CT Scan : Chest, low dose* Tea Armstrong 08/23/2024 12:5 9:38 PM EDT > no auth required; CPT code 09466; faxed to [facility] Scheduling * Procedure Codes: G 2211 Complex e/[place], [address] GLYCATED HEMOGLOBIN TEST, Modifiers: QW , 3044F HG A1C LEVEL LT 7.0%, G8420 BMI<30 AND >=22 CALC & DOCU, G8950 PREHTN/HTN BP DOC INDCD F/U DOC, G8752 MOST RECENT SYSTOLIC BP < 140MM HG, G8754 MOST RECENT DIASTOLIC BP < 90MM HG * Follow Up: 3 Months * Images: Billing Information: * Visit Code: 58739 Office Visit, Est Pt., Level 4. * Procedure Codes: G2211 Complex e/[place]. [address] GLYCATED HEMOGLOBIN TEST. Modifiers: QW 3044F HG A1C LEVEL LT 7.0%. G8420 BMI<30 AND >=22 CALC & DOCU. G8950 PREHTN/HTN BP DOC INDCD F/U DOC. G8752 MOST RECENT SYSTOLIC BP < 140MM HG. G8754 MOST RECENT DIASTOLIC BP < 90MM HG. * Electronic signature of Rakel Valenzuela MD on 02/05/2025 at 09:40 AM EST Sign off status: Pending * Provider: Rakel Valenzuela M.D. Date: 0 08/23/2024 Generated for Printi ng/Faxing/eTransmitting on: 1 04/08/2024 09:40 AM EST History and Physical Notes * HPI (History of Present Illness) Category Sub-Category Detail Notes Category Not es HPI Patient is here today for Pt is here today for a 3 month check. Pt sts he is doing well and has no conerns at this time. Pt is fasting
--- OUTSIDE RECORDS SUMMARY | 2024-11-15 10:00 | XMS_ITS ---
Author Organization [facility] Address [address] [facility] [address] [place] [phone] Care Team Providers Care Gardening Supervisor Name Role Phone Rakel Valenzuela Primary Care [...] 14 days 07/07/2023 Active FreeStyle Christen 3 [place] - as directed 07/07/2023 Active Famotidine 40 [...] you a: current smoker Vital Signs Weight 173.4 lbs 11/15/2024 Blood pressure systolic 130 mm Hg 11/16/19 25 Blood pressure diastolic 72 mm Hg 025 Heart Rate 68 /min 11/15/2024 Height 69 in 11/15/2024 BMI 25.6 kg/m2 11/15/2024 Encounters Encounter Location Date Provider [facility] [address] [phone] 11/15/2024 Rakel Valenzuela Anxiety F41.9 ; Diab [address], [place], [phone], Progress Notes * SHILA CHINGDOB:1960 (64 yo M)Acc No.[id number]:11/15/2024 Progress Notes Patient: SHILA MARTINEZ Provider: Rakel Valenzuela M.D. :1960 A ge:64 Y S ex:Male Date:11/15/2024 Address:[address] [place] [address] , [place], [id number] Subjective: * Chief Complaints: * 1 . [...] s ee above , foot ulcers @ [facility] 10/26/18- 10/27/18, [facility], DM, CAD 01/08/2020, [facility] - NSTEMI 07/26/2022, Left common [...] 14 days , Taking FreeStyle Christen 3 [place] - Device as directed , Taking Famotidine [...] * Images: Billing Information: * Visit Code: 13122 Office Visit, Est Pt., Level 3. * [...] of Rakel Valenzuela MD on 02/05/2025 at 09:38 AM EST Sign off status: Pending * Provider: Rakel Valenzuela M.D. Date: Generated for Abebe rollins/Dwayne/Snowitting on: 04/08/2024 09:38 AM EST History and Physical Notes * Examination Category Sub-Category Detail Notes Category Not es General Examination Heart: RSR Lungs: clear to auscultatio n Extremities: No leg edema. No acu te joint swelling, redness, or warmth. General Appearance: NAD. Affect is good Neck: No adenopathy or bru its
--- OUTSIDE RECORDS SUMMARY | 2024-12-06 06:30 | XMS_ITS ---
Author Organization [facility] Address [address] [place] [phone] Care Team Providers Care Crop Nutrition Scientist Name Role Phone Rakel Valenzuela Primary Care [...] time each day Active FreeStyle Christen 3 [place] - as directed 07/07/2023 Active Toprol XL [...] Status Risk Notes Problem Benign prostatic hyperplasia (402035357) BPH (benign prostatic hyperplasia) (N40.0) Active confirmed Vital Signs Weight 174.8 lbs 12/06/2024 Blood pressure systolic 120 mm Hg 12/07/19 25 Blood pressure diastolic 70 mm Hg 025 Heart Rate 74 /min 12/06/2024 Height 69 in 12/06/2024 BMI 25.81 kg/m2 12/06/2024 Encounters Encounter Location Date Provider Diagnosis [facility] [address] [place] [address] 36 [facility] [address] [place], [place] [phone] 12/06/2024 Rakel Valenzuela BPH (benign prostati c [...] Provider Name:Rakel Barnhart, 02/19/2025 11:45:00 AM, [address] [facility] 36 [facility], [address], [place], [place], [phone], Progress Notes * SHILA CHINGDOB:1960 (64 yo M)Acc No.[id number]:12/06/2024 Progress Notes Patient: SHILA MARTINEZ Provider: Rakel Valenzuela M.D. :1960 A ge:64 Y S ex:Male Date:12/06/2024 Address:[address] [place] [address] , [place], [id number] Subjective: * Chief Complaints: * 1 . [...] s ee above , foot ulcers @ [facility] 10/26/18- 10/27/18, [facility], DM, CAD 01/08/2020, [facility] NSTEMI 07/26/2022, Left common and [...] 14 days , Taking FreeStyle Christen 3 [place] - Device as directed , Taking Famotidine [...] * Images: Billing Information: * Visit Code: 57422 Office Visit, Est Pt., Level 3. * [...] Date: Generated for Abebe rollins/Dwayne/Snowitting on: 04/08/2024 09:39 AM EST
--- NOTE | 2025-02-05 09:30 | CA_ITS ---
APPROVED REPORT EXAM: Comprehensive 2D, Doppler, and color-flow Echocardiogram Gas System Operator: Tamara Hudson, BARBARA, RVS Ht: 5 ft 9 in Wt: 176lbs BSA: 1.96 BP: 99/60 mmHg Indications: CAD-CABG, HTN, SOB, Edema 2D Dimensions Left Atrium 3.44 cm M: 3.0 - 4.0 LA Volume 27.00 mL LA Volume Index 13.764797 mL/m2 (M/F) 16-34 M-Mode Dimensions RVDd 2.55 cm (0.9-2.6) LA Diam 3.55 cm (1.9-4.0) LVDd 4.08 cm (3.5-5.7) LVDs 2.66 cm (3.5-5.7) IVSd 1.49 cm (0.6-1.1) PWd 1.37 cm (0.6-1.1) EF (Teich) 64.60% EPSs 0.89 cm FS 34.80% EDV (Teich) 73.40 mL TAPSE 1.68 (<1.7) ESV (Teich) 26.00 mL LV Diastology E Decel Time 175 (160-240 msec) E/A Ratio 0.71 MED A' 10.80 cm/s LAT A' 7.60 cm/s Aortic Valve CURLY Index 1.85 cm2/m2 AoV Peak Norman. 86.0 (50-130 cm/s) AO Peak GR. 3.00 mmHg AO Mean GR. 1.40 (<5 mmHg) AO VTI 18.5 (18-25 cm) CURLY (VTI) 3.70 (2.5-4.5 cm2) Mitral Valve MV A Velocity 113.0 (40-130 cm/s) E/A Ratio 0.71 Pulmonary Valve PV Peak Velocity 81.0 (50-150 cm/s) Tricuspid Valve TR P. Velocity 257.00 cm/s RAP Estimate 10.00 mmHg RVSP 36.50 mmHg Left Ventricle The left ventricle is normal size. Left ventricular systolic function is normal. The left ventricular ejection fraction is within the normal range. There is increased left ventricular wall thickness. There is normal LV segmental wall motion. The left ventricular diastolic function is normal. LVEF is 55% Right Ventricle The right ventricle is normal size. The right ventricular systolic function is normal. Atria The left atrium size is normal. The right atrium size is normal. There is no color Doppler evidence of interatrial shunt. Aortic Valve The aortic valve is mildly thickened. There is no hemodynamically significant aortic valvular stenosis. Trace aortic regurgitation is present. Mitral Valve The mitral valve is normal in structure. No evidence of mitral valve stenosis. Trace mitral regurgitation is present. Tricuspid Valve The tricuspid valve leaflets are thin and pliable. Mild tricuspid regurgitation. RVSP is 20-25 mmHg. Pulmonic Valve The pulmonary valve is grossly normal in structure. Trace pulmonic valve regurgitation is present. Great Vessels The aortic root is normal in size. IVC is normal in size and collapses >50% with inspiration. Pericardium There is no pericardial effusion. Other Information Study Quality: Fair Conclusion Normal biventricular systolic function. Mild TR. Electronically signed by : Margarita Mejia MD 02/15/2025 13:28:36
--- OUTSIDE RECORDS SUMMARY | 2025-02-05 09:39 | XMS_ITS | Encounter Summary ---
Author Organization [facility] Address [address] [place] [address] Care Team Providers Care Flexographic Press Operator Name Role Phone Charles Valenzuela MD Primary Care Provider [phone] Mo Jaquez MD Unavailable [phone] Encounter Details Date Type Department Care Team (Late st Contact Info) Description 07/27/2022 Orders Only External Location [address] [place] [address] Jesus Alberto Do PA [address] [place] [address] Social History Tobacco Use Types Packs/Day Years [...] on filedocumented in this encounter Care Teams Flexographic Press Operator Relationship Specialty Start Date End Date Charles Valenzuela MD [facility] [address] PCP - General 06/27/20 Mo Jaquez MD [address] [place] [address] Referring Physician 09/04/24 documented as of this encounter
--- OUTSIDE RECORDS SUMMARY | 2025-02-05 09:39 | XMS_ITS | Patient Health Record ---
Author Organization [facility] Address [address] [facility] [address] [place] [id number] Care Team Providers Care Cad Programmer Name Role Phone Rakel Valenzuela Primary Care Provider [place] Unavailable [phone] Allergies Allergen (clinical drug ingredient) Drug/Non Drug [...] 149 Performing Lab: Notes/Report: Test performed by [facility], [employer] [facility] , [address], [place] [address] Luan Fontanez MD, Sales Agent [employer] CLIA: [id number] Sodium 139 135-145 mmol/L Potassium 4.3 3.5-5.3 [...] 133 Performing Lab: Notes/Report: Test performed by [facility] [address] [place] [address] , [place] [address] Luan Fontanez MD, Sales Agent [employer] CLIA: [id number] Cholesterol 159 <200 mg/dL Triglycerides 279 <150 [...] Interpretation:Normal Performing Lab: Notes/Report: Test performed by [facility] [address] [place] [address] [address], [place] [address] Luan Fontanez MD, Sales Agent [employer] CLIA: [id number] PSA 0.18 <4.00 ng/mL Please note this [...] 58 Performing Lab: Notes/Report: Test performed by [facility] [address] [place], [place] [address] [address], [place] [address] Luan Fontanez MD, Sales Agent [employer] CLIA: [id number] Sodium 137 135-145 mmol/L Potassium 4.4 3.5-5.3 [...] 105 Performing Lab: Notes/Report: Test performed by [facility], [address] , [address], [place] [address] Luan Fontanez MD, Sales Agent [employer] CLIA: [id number] Cholesterol 170 <200 mg/dL Triglycerides 206 <150 [...] time each day Active FreeStyle Christen 3 [place] - as directed 07/07/2023 Active Immunizations Vaccine [...] W/U Status Risk Notes Problem Essential hypertension (03721555) Essential (primary) hypertension (I10) Active confirmed Problem Coronary arteriosclerosis (77716876) ASCVD (arteriosclerotic cardiovascular disease) (I25.10) Active confirmed Problem Diabetic foot ulcer (985688195) Diabetic foot ulcer (E11.621) Active confirmed Problem Anxiety (96892668) Anxiety (F41.9) Active confi rmed Problem Acute non-ST segment elevation myocardial infarction (850938025) NSTEMI (non-ST elevated myocardial infarction) (I21.4) Active confirmed Problem Old myocardial infarction (8601989) History of non-ST elevation myocardial infarction (NSTEMI) (I25.2) Active confirmed Problem Benign prostatic hyperplasia (205210593) BPH (benign prostatic hyperplasia) (N40.0) Active confirmed Problem Disorder due to type 2 diabetes mellitus (751725296) Type 2 diabetes mellitus with unspecified complications (E11.8) Active confirmed Problem Foot ulcer due to type 2 diabetes mellitus (7281452612400) Type 2 diabetes mellitus with foot ulcer (E11.621) Active confirmed Problem Dermopathy due to type 2 diabetes mellitus (disorder) (5840726033804) Type 2 diabetes mellitus with other skin complications (E11.628) Active confirmed Problem Chronic pain syndrome (996284995) Chronic pain syndrome (G89.4) Active confirmed Problem Chronic ulcer of foot (477643177) Non-pressure chronic ulcer of other part of unspecified foot with unspecified severity (L97.509) Active confirmed Problem Inflammatory and toxic neuropathy (110931339) Peripheral polyneuropathy (G62.9) Active confirmed Problem Gastroesophageal reflux disease with esophagitis (815853769) Gastroesophageal reflux disease with esophagitis (K21.0) Active confirmed Problem Hyperlipidaemia (10717871) Hyperlipidemia, unspecified hyperlipidemia type (E78.5) Active confirmed Problem Polyneuropathy due to type 2 diabetes mellitus (062162794) Diabetic polyneuropathy associated with type 2 diabetes mellitus (E11.42) Active confirmed Problem Disorder of neck (092629484) Disorder of neck (M53.82) Active confirmed Problem STEMI - ST elevation myocardial infarction (418733316) ST elevation myocardial infarction (STEMI), unspecified artery (I21.3) Active confirmed Problem Dyslipidemia (729786464) Dyslipidemia (E78.5) Active confirmed Problem Stented coronary artery (477009381) Stented coronary artery (Z95.5) Active confirmed Problem Peripheral vascular disease (016124327) PAD (peripheral artery disease) (I73.9) Active confirmed Problem Abdominal aortic aneurysm without rupture (disorder) (67784845) Abdominal aortic aneurysm (AAA) without rupture (I71.4) Active confirmed Problem Atherosclerotic heart disease of kiana coronary artery without angina pectoris (102318653494408) Atherosclerosis of kiana coronary artery without angina pectoris, unspecified whether kiana or transplanted heart (I25.10) Active confirmed Problem Polyneuropathy due to type 2 diabetes mellitus (022531576) Type 2 diabetes mellitus with diabetic polyneuropathy, without long-term current use of insulin (E11.42) Active confirmed Problem Tobacco use (937182095) Tobacco use disorder (F17.200) Active confirmed Problem Type II diabetes mellitus without complication (366678878) Type 2 diabetes mellitus without complication, unspecified whether superintendent terminal insulin use (E11.9) Active confirmed Problem 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) Active confirmed Problem Gastroesophageal reflux disease (470482621) Gastroesophageal reflux disease, unspecified whether esophagitis present (K21.9) Active confirmed Problem Gastroesophageal reflux disease with esophagitis (disorder) (609144108) Gastroesophageal reflux disease with esophagitis, unspecified whether hemorrhage (K21.00) Active confirmed Vital Signs Heart Rate 74 /min 12/06/2024 Blood pressure diastolic 70 mm Hg 12/06/2024 Height 69 in 12/06/2024 Blood pressure systolic 120 mm Hg 12/06/2024 Weight 174.8 lbs 12/06/2024 BMI 25.81 kg/m2 12/06/2024 Encounters Encounter Location Date Provider Diagnosis [facility] [address] [facility] [address] [facility] [address] [place] [id number] 02/14/2024 Rakel Valenzuela Diabetic polyneuropa thy associated [...] skin D48.5 and Tobacco use disorder F17.200 [facility] [address] [facility] [address] [place] [id number] 05/08/2024 Rakel Valenzuela Adult general medica l [...] hemorrhage K21.00 and BMI 24.0-24.9, adult Z68.24 [facility] [address] [facility] [address] [place] [id number] 05/22/2024 [place] Disorder of neck M53 .82 ; Muscle spasms of neck M62.838 ; Chronic pain syndrome G89.4 ; 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 and BMI 24.0-24.9, adult Z68.24 [facility] [address] [place] [id number] 08/23/2024 Rakel Valenzuela Diabetic polyneuropa thy associated [...] whether hemorrhage K21.00 and BMI 25.0-25.9,adult Z68.25 [facility] [address] [facility] [address] [place] [id number] 11/15/2024 Rakel Valenzuela Anxiety F41.9 ; Diab etic polyneuropathy associated with type 2 diabetes mellitus E11.42 ; ASCVD (arteriosclerotic cardiovascular disease) I25.10 ; Essential (primary) hypertension I10 and BMI 25.0-25.9,adult Z68.25 [facility] [address] [facility] [address] [place] [id number] 12/06/2024 Rakel Valenzuela BPH (benign prostati c hyperplasia) N40.0 [facility] [address] [place] [id number] 02/21/2024 R Charles Nicolas Type 2 diabetes radha itus with foot ulcer E11.621 [facility] [address] [place], [place] [id number] 05/08/2024 R Charles Nicolas Diabetic polyneuropa thy associated with type 2 diabetes mellitus E11.42 [facility] [address] [place], [place] [id number] 08/08/2024 R Charles Nicolas [facility] [address] [place], [place] [id number] 08/16/2024 R Charles Nicolas Anxiety F41.9 and Diabetic polyneuropathy associated with type 2 diabetes mellitus E11.42 [facility] [address] [place], [place] [id number] 08/16/2024 R Charles Nicolas [facility] [address] [place], [place] [id number] 08/27/2024 R Charles Nicolas [facility] [address] [place], [place] [id number] 09/11/2024 R Charles Nicolas Screening for colon cancer Z12.11 [facility] [address] [place], [place] [id number] 10/16/2024 R Charles Nicolas Diabetic polyneuropa thy associated with type 2 diabetes mellitus E11.42 [facility] [address] [place], [place] [id number] 11/14/2024 R Charles Nicolas Diabetic polyneuropa thy associated with type 2 diabetes mellitus E11.42 [facility] [address] [place], [place] [id number] 01/18/2025 R Charles Nicolas Assessments Encounter Date Diagnosis (ICD Code) Assessment [...] [address], [place], [place], [id number], Insurance Providers Payer Name Payer Address Payer Phone Subscriber Number Group Number Insured Name Patient Relationship to Insured Coverage Start Date Coverage End Date [employer] (MEDICAR E) [address] [address] [place] [phone] [id number] SHILA CHING Self - patient is the insured Medical (General) History Medical History History ICD Code Hypertension, unspecified type I10 High cholesterol E78.00 Diabetes ASCVD Chronic back pain - followed by pain cli olena - Dr. Hernandez Disabled from chronic back pain due to [...] st enoses/ s/p stent x 2 07/2023 [facility] - NSTEMI 07/26/2022 [facility]-STEMI, DM, CAD 01/08/2020 foot ulcers @ [facility] 10/26/18- 10/27/18 see above
--- OUTSIDE RECORDS SUMMARY | 2025-02-05 09:39 | XMS_ITS | Encounter Summary ---
Author Organization [facility] Address [address] [place] [address] Care Team Providers Care Spindle Carver Name Role Phone Charles Valenzuela MD Primary Care Provider [phone] Mo Jaquez MD Unavailable [phone] Encounter Details Date Type Department Care Team (Late st Contact Info) Description 05/21/2022 Orders Only External Location [address] [place] [address] [place] [address] Social History Tobacco Use Types Packs/Day [...] Tomogra phy 05/21/2022 12:0 2 PM EDT Charles Valenzuela MD IMG CT PROCEDURES Final Result documented in this encounter Visit Diagnoses Not on filedocumented in this encounter Care Teams Spindle Carver Relationship Specialty Start Date End Date Charles Valenzuela MD [facility] [id number] PCP - General 06/27/20 Mo Jaquez MD [address] [place] [address] Referring Physician 09/04/24 documented as of this encounter
--- OUTSIDE RECORDS SUMMARY | 2025-02-05 09:39 | XMS_ITS ---
Author Organization Unknown Results OrderDate OrderTestName ResultName ResultDate Value Units Range AbnormalFlag ResultStatus ObservationNotes TestCode ResultCode DateRecorded AccessionNumber DiagnosticSectionCode DiagnosticSectionName Sequence Interpretation Custom CollectionStartDate CollectionEndDate 02/14/2024 00:00:00 P-PSA PSA [id number]:00:00 0.18 ng/mL <4.00 - ng/mL Reviewed Rakel Valenzuela 02/21/2024 8:34:48 AM > See phone encounter P-PSA Coding PSA 02/14/2024 00:00: 00:00:00P-Lipid PanelTriglycerides 8435-55-21Q30:00:86290xb/dL<150 - mg/dLRakel Zavala 02/21/2024 8:34:48 AM > See phone encounter Coding P-Lipid Panel Coding Triglycerides 02/14/2024 00:00: 00:00:00P-Lipid PanelNon-HDL Cholesterol 2885-92-79E33:00:38357gq/dL<130 - mg/dLRakel Zavala 02/21/2024 8:34:48 AM > See phone encounter Coding P-Lipid Panel Coding Non-HDL Cholesterol 02/14/2024 00:00: 00:00:00P-Lipid PanelLDL/HDL Ratio 1188-77-92F68:00:003.0Ratio<3.3 - RatioRakel Avalos 02/21/2024 8:34:48 AM > See phone encounter Coding P-Lipid Panel Coding LDL/HDL Ratio 02/14/2024 00:00: 00:00:00P-Lipid PanelLDL Cholesterol (Calculation) 3638-51-38F91:00:0077mg/dL<130 - mg/dLRakel Avalos 02/21/2024 8:34:48 AM > See phone encounter Coding P-Lipid Panel Coding LDL Cholesterol (Calculation ) 02/14/2024 00:00: 00:00:00P-Lipid PanelHDL Cholesterol 8966-62-12E76:00:0026mg/dL>39 - mg/dLRakel Mcneill 02/21/2024 8:34:48 AM > See phone encounter Coding P-Lipid Panel Coding HDL Cholesterol 02/14/2024 00:00: 00:00:00P-Lipid PanelCholesterol 0295-64-16Y84:00:78193oi/dL<200 - mg/dLRakel Avalos 02/21/2024 8:34:48 AM > See phone encounter Coding P-Lipid Panel Coding Cholesterol 02/14/2024 00:00: 00:00:00P-Lipid PanelCholesterol / HDL Ratio 1892-69-94T48:00:006.89Thymv1.00-4.99 - RatioRakel Zavala 02/21/2024 8:34:48 AM > See phone encounter Coding P-Lipid Panel Coding Cholesterol / HDL Ratio 02/14/2024 00:00: 00:00:00P-Comprehensive Metabolic Panel (CMP)eGFR by Ynjjpsbqki5761-94-91O61:00:0091mL/min/1.73m2>59 - mL/min/1.92q8SuowfsevRakel Waddell 02/21/2024 8:34:48 AM > See phone encounter Coding P-Comprehensive Metabolic Pa stefan (CMP) 02/14/2024 00:00: 00:00:00P-Comprehensive Metabolic Panel (CMP) Khbqyjp4832-46-97Q75:00:007.2g/dL6.0-8.3 - g/dLRakel Avalos 02/21/2024 8:34:48 AM > See phone encounter Coding P-Comprehensive Metabolic Pa stefan (CMP) Coding Protein 02/14/2024 00:00: 00:00:00P-Comprehensive Metabolic Panel (CMP) Tuxhmd2181-58-67H24:00:78224eluz/F056-191 - mmol/LRevDimitriorfRakel pereira 02/21/2024 8:34:48 AM > See phone encounter Coding P-Comprehensive Metabolic Pa stefan (CMP) Coding Sodium 02/14/2024 00:00: 00:00:00P-Comprehensive Metabolic Panel (CMP) Vdhoejqta2561-77-91F23:00:004.3mmol/L3.5-5.3 - mmol/LRevRakel Vaughn 02/21/2024 8:34:48 AM > See phone encounter Coding P-Comprehensive Metabolic Pa stefan (CMP) Coding Potassium 02/14/2024 00:00: 00:00:00P-Comprehensive Metabolic Panel (CMP) Lccnlhz5497-19-59U12:00:55724ow/dL65-99 - mg/dLHRRakel Ríos 02/21/2024 8:34:48 AM > See phone encounter Coding P-Comprehensive Metabolic Pa stefan (CMP) Coding Glucose 02/14/2024 00:00: 00:00:00P-Comprehensive Metabolic Panel (CMP) Xotqikcswn0916-02-63A33:00:000.93mg/dL0.70-1.30 - mg/dLReRakel Lofton 02/21/2024 8:34:48 AM > See phone encounter Coding P-Comprehensive Metabolic Pa stefan (CMP) Coding Creatinine 02/14/2024 00:00: 00:00:00P-Comprehensive Metabolic Panel (CMP)CO2 6462-28-57M64:00:0027mmol/L22-32 - mmol/LRevDimitriorfRakel pereira 02/21/2024 8:34:48 AM > See phone encounter Coding P-Comprehensive Metabolic Pa stefan (CMP) Coding CO2 02/14/2024 00:00: 00:00:00P-Comprehensive Metabolic Panel (CMP) Fnypxqqj2583-94-82H77:00:48779odzw/L97-108 - mmol/LRRakel Ríos 02/21/2024 8:34:48 AM > See phone encounter Coding P-Comprehensive Metabolic Pa stefan (CMP) Coding Chloride 02/14/2024 00:00: 00:00:00P-Comprehensive Metabolic Panel (CMP) Awrofoh5889-54-80O06:00:009.5mg/dL8.6-10.4 - mg/dLRakel Avalos 02/21/2024 8:34:48 AM > See phone encounter Coding P-Comprehensive Metabolic Pa stefan (CMP) Coding Calcium 02/14/2024 00:00: 00:00:00P-Comprehensive Metabolic Panel (CMP)BUN 2631-17-63H60:00:0012mg/dL8-23 - mg/dLRakel Avalos 02/21/2024 8:34:48 AM > See phone encounter Coding P-Comprehensive Metabolic Pa stefan (CMP) Coding BUN 02/14/2024 00:00: 00:00:00P-Comprehensive Metabolic Panel (CMP) Bilirubin, Xedjp6453-09-06C86:00:000.3mg/dL<0.2-1.2 - mg/dLRakel Avalos 02/21/2024 8:34:48 AM > See phone encounter Coding P-Comprehensive Metabolic Pa stefan (CMP) Coding Bilirubin, Total 02/14/2024 00:00: 00:00:00P-Comprehensive Metabolic Panel (CMP)AST (SGOT)6442-58-84I42:00:0012IU/L<5-46 - IU/Rakel Mcneill 02/21/2024 8:34:48 AM > See phone encounter Coding P-Comprehensive Metabolic Pa stefan (CMP) Coding AST (SGOT) 02/14/2024 00:00: 00:00:00P-Comprehensive Metabolic Panel (CMP)ALT (SGPT)4375-45-66W54:00:0011IU/L<5-55 - IU/Rakel Mcneill 02/21/2024 8:34:48 AM > See phone encounter Coding P-Comprehensive Metabolic Pa stefan (CMP) Coding ALT (SGPT) 02/14/2024 00:00: 00:00:00P-Comprehensive Metabolic Panel (CMP) Alkaline Vlzzehphnyy3521-80-09W15:00:40962RZ/L40-129 - IU/LHRakel Avalos 02/21/2024 8:34:48 AM > See phone encounter Coding P-Comprehensive Metabolic Pa stefan (CMP) Coding Alkaline Phosphatase 02/14/2024 00:00: 00:00:00P-Comprehensive Metabolic Panel (CMP) Dcedyeu5156-64-24P24:00:004.4g/dL3.5-5.3 - g/dLRakel Avalos 02/21/2024 8:34:48 AM > See phone encounter Coding P-Comprehensive Metabolic Pa stefan (CMP) Coding Albumin 02/14/2024 00:00: 00:00:00P-Comprehensive Metabolic Panel (CMP)A/G Ohfqr4463-08-53M51:00:001.61.1-2.5 -Rakel Avalos 02/21/2024 8:34:48 AM > See phone encounter Coding P-Comprehensive Metabolic Pa stefan (CMP) Coding A/G Ratio 02/14/2024 00:00: 00:00:00Glycohemoglobin A1c (in house) mxkfxilbbmlvibr0114-13-28V06:00:007.2%%5 - 6.5 %Jordyn Petit 02/14/2024 12:21:52 PM > Rakel Valenzuela 02/21/2024 8:34:48 AM > See phone encou nter Coding Glycohemoglobin A1c (in hous e) Coding glycohemoglobin 02/14/2024 00:00: 00:00:00P-Lipid PanelTriglycerides 0746-77-38U93:00:33543dj/dL<150 - mg/dLRakel Zavala 08/27/2024 09:37:42 PM EDT > See phone encounter Coding P-Lipid Panel Coding Triglycerides 08/23/2024 00:00: 00:00:00P-Lipid PanelNon-HDL Cholesterol 7875-91-35P67:00:71552qo/dL<130 - mg/dLRakel Zavala 08/27/2024 09:37:42 PM EDT > See phone encounter Coding P-Lipid Panel Coding Non-HDL Cholesterol 08/23/2024 00:00: 00:00:00P-Lipid PanelLDL/HDL Ratio 2256-39-92M31:00:004.4Ratio<3.3 - RatioRakel Zavala 08/27/2024 09:37:42 PM EDT > See phone encounter Coding P-Lipid Panel Coding LDL/HDL Ratio 08/23/2024 00:00: 00:00:00P-Lipid PanelLDL Cholesterol (Calculation) 0909-32-10Z84:00:77980sp/dL<130 - mg/dLRakel Avalos 08/27/2024 09:37:42 PM EDT > See phone encounter Coding P-Lipid Panel Coding LDL Cholesterol (Calculation ) 08/23/2024 00:00: 00:00:00P-Lipid PanelHDL Cholesterol 6958-93-54N45:00:0024mg/dL>39 - mg/dLRakel Mcneill 08/27/2024 09:37:42 PM EDT > See phone encounter Coding P-Lipid Panel Coding HDL Cholesterol 08/23/2024 00:00: 00:00:00P-Lipid PanelCholesterol 8862-12-79Y06:00:11275od/dL<200 - mg/dLRakel Avalos 08/27/2024 09:37:42 PM EDT > See phone encounter Coding P-Lipid Panel Coding Cholesterol 08/23/2024 00:00: 00:00:00P-Lipid PanelCholesterol / HDL Ratio 7269-56-36K92:00:007.03Uwpxf9.00-4.99 - RatioHRRakel Ríos 08/27/2024 09:37:42 PM EDT > See phone encounter Coding P-Lipid Panel Coding Cholesterol / HDL Ratio 08/23/2024 00:00: 00:00:00P-Comprehensive Metabolic Panel (CMP)eGFR by Mgxlkhrhst6266-72-34H16:00:0088mL/min/1.73m2>59 - mL/min/1.56i5FrvvrufwRakel Vaca 08/27/2024 09:37:42 PM EDT > See phone encounter Coding P-Comprehensive Metabolic Pa stefan (CMP) 08/23/2024 00:00: 00:00:00P-Comprehensive Metabolic Panel (CMP) Kxfyozy8706-76-88T21:00:007.1g/dL6.0-8.3 - g/dLRakel Avalos 08/27/2024 09:37:42 PM EDT > See phone encounter Coding P-Comprehensive Metabolic Pa stefan (CMP) Coding Protein 08/23/2024 00:00: 00:00:00P-Comprehensive Metabolic Panel (CMP) Ifpcmx6099-37-00J51:00:07497hnca/I182-431 - mmol/LRevRakel Vaughn 08/27/2024 09:37:42 PM EDT > See phone encounter Coding P-Comprehensive Metabolic Pa stefan (CMP) Coding Sodium 08/23/2024 00:00: 00:00:00P-Comprehensive Metabolic Panel (CMP) Nxcuscxgl6180-51-50I35:00:004.4mmol/L3.5-5.3 - mmol/LRevRakel Vaughn 08/27/2024 09:37:42 PM EDT > See phone encounter Coding P-Comprehensive Metabolic Pa stefan (CMP) Coding Potassium 08/23/2024 00:00: 00:00:00P-Comprehensive Metabolic Panel (CMP) Dgbmpie7775-11-42X99:00:63639iw/dL65-99 - mg/dLHRevRakel Vaughn 08/27/2024 09:37:42 PM EDT > See phone encounter Coding P-Comprehensive Metabolic Pa stefan (CMP) Coding Glucose 08/23/2024 00:00: 00:00:00P-Comprehensive Metabolic Panel (CMP) Hjrnxyluwo0929-30-39T43:00:000.95mg/dL0.70-1.30 - mg/dLRakel Avalos 08/27/2024 09:37:42 PM EDT > See phone encounter Coding P-Comprehensive Metabolic Pa stefan (CMP) Coding Creatinine 08/23/2024 00:00: 00:00:00P-Comprehensive Metabolic Panel (CMP)CO2 9497-88-94D85:00:0028mmol/L20-32 - mmol/LRRakel Ríos 08/27/2024 09:37:42 PM EDT > See phone encounter Coding P-Comprehensive Metabolic Pa stefan (CMP) Coding CO2 08/23/2024 00:00: 00:00:00P-Comprehensive Metabolic Panel (CMP) Doxzkzma7094-29-39V74:00:26619ntyq/L97-108 - mmol/LRevieRakel Chand 08/27/2024 09:37:42 PM EDT > See phone encounter Coding P-Comprehensive Metabolic Pa stefan (CMP) Coding Chloride 08/23/2024 00:00: 00:00:00P-Comprehensive Metabolic Panel (CMP) Fmhqszb2812-39-22F56:00:009.7mg/dL8.6-10.4 - mg/dLRakel Avalos 08/27/2024 09:37:42 PM EDT > See phone encounter Coding P-Comprehensive Metabolic Pa stefan (CMP) Coding Calcium 08/23/2024 00:00: 00:00:00P-Comprehensive Metabolic Panel (CMP)BUN 1552-76-16K08:00:0013mg/dL8-23 - mg/dLRakel Avalos 08/27/2024 09:37:42 PM EDT > See phone encounter Coding P-Comprehensive Metabolic Pa stefan (CMP) Coding BUN 08/23/2024 00:00: 00:00:00P-Comprehensive Metabolic Panel (CMP) Bilirubin, Mxiyt8793-32-61V97:00:000.4mg/dL<0.2-1.2 - mg/dLRakel Avalos 08/27/2024 09:37:42 PM EDT > See phone encounter Coding P-Comprehensive Metabolic Pa stefan (CMP) Coding Bilirubin, Total 08/23/2024 00:00: 00:00:00P-Comprehensive Metabolic Panel (CMP)AST (SGOT)9860-34-63F47:00:0058IU/L<5-46 - IU/LHRakel Avalos 08/27/2024 09:37:42 PM EDT > See phone encounter Coding P-Comprehensive Metabolic Pa stefan (CMP) Coding AST (SGOT) 08/23/2024 00:00: 00:00:00P-Comprehensive Metabolic Panel (CMP)ALT (SGPT)1571-29-65J12:00:0048IU/L<5-55 - IU/LRevDimitriorfRakel pereira 08/27/2024 09:37:42 PM EDT > See phone encounter Coding P-Comprehensive Metabolic Pa stefan (CMP) Coding ALT (SGPT) 08/23/2024 00:00: 00:00:00P-Comprehensive Metabolic Panel (CMP) Alkaline Accnwhjimlz9880-65-37U95:00:64476JV/L40-129 - IU/LReviearlinedNorfRakel pereira 08/27/2024 09:37:42 PM EDT > See phone encounter Coding P-Comprehensive Metabolic Pa stefan (CMP) Coding Alkaline Phosphatase 08/23/2024 00:00: 00:00:00P-Comprehensive Metabolic Panel (CMP) Kzxjkcn9210-67-71Z30:00:004.4g/dL3.5-5.3 - g/dLRakel Avalos 08/27/2024 09:37:42 PM EDT > See phone encounter Coding P-Comprehensive Metabolic Pa stefan (CMP) Coding Albumin 08/23/2024 00:00: 00:00:00P-Comprehensive Metabolic Panel (CMP)A/G Bruxp0028-87-31Y64:00:001.61.1-2.5 -Rakel Avalos 08/27/2024 09:37:42 PM EDT > See phone encounter Coding P-Comprehensive Metabolic Pa stefan (CMP) Coding A/G Ratio 08/23/2024 00:00: 00:00:00Glycohemoglobin A1c (in house) yjlgboykdqtytsa5342-39-65D04:00:006.5%%5 - 6.5 %Susana Vasquez 08/23/2024 11:07:57 AM EDT > Rakel Valenzuela 08/27/2024 09:37:42 PM EDT > See phone encounter Coding Glycohemoglobin A1c (in hous e) Coding glycohemoglobin 08/23/2024 00:00:00
--- OUTSIDE RECORDS SUMMARY | 2025-02-05 09:39 | XMS_ITS | Clinical Summary ---
Author Organization [facility] Address [address] [place] [address] Care Team Providers Care Manager Steel Name Role Phone Charles Valenzuela MD Primary Care Provider [phone] Mo Jaquez MD Unavailable [phone] Allergies Active Allergy Reactions Criticality Noted Date [...] Screening 1960 [facility]-Medicare Annual Wellness (AWV) 1960 [facility]-/Child/Adol SDOH Screenings 1960 [facility]- SDOH Screenings 02/07/1976 [facility]-Adult SDOH Screenings 02/07/1976 CT Colonography 2003 Colonoscopy 2003 FIT-DNA 2003 FIT 2003 FOBT 2003 Sigmoidoscopy 2003 [facility]-Colorectal Cancer Screening 2003 [facility]-Zoster Vaccines (1 of 2) 02/07/2008 [facility]-DTaP,Tdap,and Td Vaccine s (1 - Tdap) 10/28/2018 10/27/2018 [id number] Vaccine (4 - 2024- season) 2024 02/05/2021, 05/15/2020, 04/17/2020 [facility]-Influenza Vaccine (#1) 2024 [facility]-RSV Vaccine: 60+ Years o r (1 - 1-dose 75+ series) 2033 [facility]-Pneumococcal Vaccine: 50 + Years Completed 05/08/2024 HPV Vaccines (No Doses Required) Completed [facility]-HIB Vaccines Aged Out No longer e [...] age to complete this [place] [address] [employer] Care Teams Manager Steel Relationship Specialty Start Date End Date Charles Valenzuela MD [facility] [address] PCP - General 06/27/20 Mo Jaquez MD [facility] [address] [address] Referring Physician 09/04/24
--- OUTSIDE RECORDS SUMMARY | 2025-02-05 09:39 | XMS_ITS | Encounter Summary ---
Author Organization [facility] Address [address] [place] [address] Care Team Providers Care Automobile Service Writer Name Role Phone Charles Valenzuela MD Primary Care Provider [phone] Mo Jaquez MD Unavailable [phone] Encounter Details Date Type Department Care Team (Late st Contact Info) Description 08/27/2024 Orders Only External Location [address] [place] [address] Provider, External Social History Tobacco Use Types [...] on filedocumented in this encounter Care Teams Automobile Service Writer Relationship Specialty Start Date End Date Charles Valenzuela MD [facility] [address] PCP - General 06/27/20 Mo Jaquez MD [address] [facility] [place] [address] [place] [address] Referring Physician 09/04/24 documented as of this encounter
--- OUTSIDE RECORDS SUMMARY | 2025-02-05 09:40 | XMS_ITS | Clinical Summary ---
Author Organization [facility] Address [address] [place] [address] Care Team Providers Care Client Onboarding Analyst Name Role Phone Clayton Garcia MD Primary Care Provider [phone] Allergies Active Allergy Reactions Criticality Noted Date [...] 12:39 PM 04/22/2016 4:19 PM Care Teams Client Onboarding Analyst Relationship Specialty Start Date End Date Clayton Garcia MD [address] [place] [address] [place] [address] PCP - General Adolescent Medicine 04/22/16
== END 2025-02-05 23:59 | disposition home or self-care (01) ==
LOC: RT 09:37
PROVIDERS: PCP Family Medicine; Visit Provider Physician Assistant
DX: I07.1 Rheumatic tricuspid insufficiency (principal); I10 Essential (primary) hypertension; I25.10 Atherosclerotic heart disease of native coronary artery without angina pectoris; R60.9 Edema, unspecified; Z95.1 Presence of aortocoronary bypass graft
CPT/HCPCS: 93306

== ENCOUNTER 2025-02-13 07:21 | Outpatient (CLI) | payer MEDICARE, SELFPAY ==
--- OUTSIDE RECORDS SUMMARY | 2023-11-10 04:15 | XMS_ITS ---
Author Organization [facility] Address [facility]0 [facility] 36 [facility] [address] [place] [phone] Care Team Providers Care [place] Consultant Name Role Phone Rakel Valenzuela Primary Care Provider [phone] Allergies Allergen (clinical drug ingredient) Drug/Non Drug Allergy documented on EMR Reaction Allergy Type Onset Date Status rosuvastatin Crestor Unknown Drug Allergy Acti ve atorvastatin Lipitor Unknown Drug Allergy Acti ve Reason For Referral Reason lesion on lip Diagnosis 1 Neoplasm of uncertai n behavior of skin (D48.5) [facility] Referring Provider First Name Rakel Soto Referring Provider Last Name Nicolas Referring Provider Speciality Family Pra ctice Referred Organization [facility] OP Referred Provider Xin Serrano Referred Address [address] [facility] [id number], Referred Provider Specialty Dermatology General Notes Tea Armstrong 11/14/19 24 9:45:41 AM > faxed referral to [facility] Referral Priority Routine REASON FOR VISIT 3 months Medications Medication SIG (Take, Route, Frequency, Duration) Notes Start Date End Date Status FreeStyle Christen 3 Sensor - as directed c hange sensor every 14 days 07/07/2023 Active FreeStyle Christen 3 [place] - as directed 07/07/2023 Active oxyCODONE HCl [...] Status Risk Notes Problem Diabetic foot ulcer (343626333) Diabetic foot ulcer (E11.621) Active confirmed Vital Signs Blood pressure systolic 124 mm Hg 11/10/19 24 Blood pressure diastolic 82 mm Hg 024 Heart Rate 75 /min 11/10/2023 Height 69 in 11/10/2023 Weight 161.4 lbs 11/10/2023 BMI 23.83 kg/m2 11/10/2023 Encounters Encounter Location Date Provider Diagnosis Nadine 1210 [facility] [address] [place] Arauz [phone] 11/10/2023 R Charles Valenzuela Cervicalgia M54.2 ; [...] lip, Xin Serrano, [address] [facility], [place], [place], [id number], Next Appt Details Follow Up: 3 Months, Reason: Provider Name:Rakel Barnhart, 02/19/2025 11:45:00 AM, [address] [facility], [address] , [place], [place], [phone], Progress Notes * Kenya CHING:1960 (65 yo M)Acc No.[id number]:11/10/2023 Progress Notes Patient: Darryn MARTINEZ Provider: Rakel Valenzuela M.D. :1960 A ge:63 Y S ex:Male Date:11/10/2023 Address:[address] , [place], [id number] Subjective: * Chief Complaints: * 1 . [...] s ee above , foot ulcers @ [facility] 10/26/18- 10/27/18, [facility], DM, CAD 01/08/2020, [facility] 07/26/2022, Left common and external [...] 14 days , Taking FreeStyle Christen 3 [place] - Device as directed , Taking SEROquel [...] * Images: Billing Information: * Visit Code: 55902 Office Visit, Est Pt., Level 4. * Procedure Codes: 28351 PULSE OX. * Electronic signature of Rakel Valenzuela MD on 02/13/2025 at 07:25 AM EST Sign off status: Pending * Provider: Rakel Valenzuela M.D. Date: 0 11/10/2023 Generated for Bernardai ayo/Dwayne/eTransmitting on: 1 07:25 AM EST History and Physical Notes * [...]
--- OUTSIDE RECORDS SUMMARY | 2024-02-14 05:45 | XMS_ITS ---
Author Organization [facility] Address [address] [facility] [place] [id number] Care Team Providers Care Grip Name Role Phone Rakel Valenzuela Primary Care [...] 149 Performing Lab: Notes/Report: Test performed by [facility], [employer] [facility] , [address], [place] [address] Luan Fontanez MD, Pulp Mill Team Leader CLIA: [id number] Sodium 139 135-145 mmol/L Potassium 4.3 3.5-5.3 [...] 133 Performing Lab: Notes/Report: Test performed by [facility], [address] , [address], [place] [address] Luan Fontanez MD, Pulp Mill Team Leader CLIA: [id number] Cholesterol 159 <200 mg/dL Triglycerides 279 <150 mg/dL HDL Cholesterol 26 >39 mg/dL Cholesterol / HDL Ratio 6.12 0.00-4.99 Ratio Non-HDL Cholesterol 133 <130 mg/dL LDL Cholesterol (Calculation) 77 <130 mg/dL LDL Cholesterol Levels* Less than 100 mg/dL Optimal 100 to 129 mg/dL Near Optimal/ Above Optimal 160 to 189 mg/dL High 190 mg/dL and above Very High * Categories as recommended by the 2004 ATPIII guidelines 130 to 159 mg/dL Borderline High LDL/HDL Ratio 3.0 <3.3 Ratio LDL Cholesterol Patient History Test Date: 11/11/2022 LDL Results: 96 Units: mg/dL % Change: - Test Date: 08/11/2023 LDL Results: 88 Units: mg/dL % Change: -8% Test Date: 02/14/2024 LDL Results: 77 Units: mg/dL % Change: -12% P-PSA Reviewed date:02/21/2024 08:34:55 AM Interpretation:Normal Performing Lab: Notes/Report: Test performed by [facility] [address] [place] [address] , [address], [place] [address] Luan Fontanez MD, Pulp Mill Team Leader CLIA: [id number] PSA 0.18 <4.00 ng/mL Please note this [...] 14 days 07/07/2023 Active FreeStyle Christen 3 [place] - as directed 07/07/2023 Active SEROquel 100 [...] Provider Diagnosis Nadine [address] [phone] 02/14/2024 Rakel Valenzuela Diabetic polyneuropa thy associated [...] 02/19/2025 11:45:00 AM, [address] [facility], [address], [place], [place], [id number], Progress Notes * Darryn CHINGDOB:1960 (65 yo M)Acc No.[id number]:02/14/2024 Progress Notes Patient: Darryn MARTINEZ Provider: Rakel Valenzuela M.D. :1960 A ge:64 Y S ex:Male Date:02/14/2024 Address:[address] , [place], [id number] Subjective: * Chief Complaints: * 1 . [...] continues to follow with pain management in [place] and they have restarted and are titrating [...] s ee above , foot ulcers @ [facility] 10/26/18- 10/27/18, [facility], DM, CAD 01/08/2020, [facility] - [facility] 07/26/2022, Left common and external [...] 14 days , Taking FreeStyle Christen 3 [place] - Device as directed , Taking metFORMIN [...] AM > no auth required; CPT code 13676; faxed to [facility] Scheduling; 03/01/2024 at 10:45am * Procedure Codes: G 2211 Complex e/[place], [address] GLYCATED HEMOGLOBIN TEST, Modifiers: QW , 3051F HG A1C>EQUAL 7.0%<8.0% * Follow Up: 3 Months * Images: Billing Information: * Visit Code: 68651 Office Visit, Est Pt., Level 4. * Procedure Codes: G2211 Complex e/[place]. [address] GLYCATED HEMOGLOBIN TEST. Modifiers: QW 3051F HG A1C>EQUAL 7.0%<8.0%. * Electronic signature of Rakel Valenzuela MD on 02/13/2025 at 07:24 AM EST Sign off status: Pending * Provider: Rakel Valenzuela M.D. Date: Generated for Abebe rollins/Dwayne/eTransmitting on: 07:24 AM EST History and Physical Notes * [...]
--- OUTSIDE RECORDS SUMMARY | 2024-05-08 04:45 | XMS_ITS ---
Author Organization [facility] Address [address] [place] [id number] Care Team Providers Care Ent Physician Name Role Phone Rakel Valenzuela Primary Care [...] 14 days 07/07/2023 Active FreeStyle Christen 3 [place] - as directed 07/07/2023 Active Toprol XL [...] Provider Diagnosis [facility] [address], [place] [phone] 05/08/2024 Rakel Valenzuela Adult general medica l [...] 3 Months, Reason: Provider Name:Rakel Soto Floridalmaalaina aleman, 02/19/2025 11:45:00 AM, [address], [address], [place], [place], [id number], Progress Notes * Darryn CHINGDOB:1960 (65 yo M)Acc No.[id number]:05/08/2024 Annual Wellness Visit Patient: Joesph MARTINEZrell Provider: Rakel Valenzuela M.D. :1960 A ge:64 Y S ex:Male Date:05/08/2024 Address:[address] [place] [address] , [id number] Subjective: * Chief Complaints: * 1 . 3 month checkup and Annual Wellness Visit. 2. Due for diabetic eye exam. * HPI: H PI: Patient is here today for a scheduled 3 month check up?and a Medicare Annual Wellness Visit. Pt sts he would like his Gabapentin refilled today. Pt is fasting. N eurology: He is now following with pain management in [place] and is now on a higher dose [...] s ee above , foot ulcers @ [facility] 10/26/18- 10/27/18, [facility], DM, CAD 01/08/2020, [facility] 07/26/2022, Left common and [...] 14 days , Taking FreeStyle Christen 3 [place] - Device as directed , Taking Famotidine [...] whether hemorrhage - K21.00 1 5. B [place] 24.0-24.9, adult - Z68.24 Plan: * Treatment: [...] * Images: Billing Information: * Visit Code: 11739 Office Visit, Est Pt., Level 3. Modifiers: [...] of Rakel Valenzuela MD on 02/13/2025 at 07:23 AM EST Sign off status: Pending * Provider: Rakel Valenzuela M.D. Date: 0 05/08/2024 Generated for Abebe rollins/Dwayne/eTransmitting on: 1 07:23 AM EST History and Physical Notes * [...]
--- OUTSIDE RECORDS SUMMARY | 2024-05-22 06:00 | XMS_ITS ---
Author Organization [facility] Address [address] [facility] [address] [place] [id number] Care Team Providers Care Bit Sharpener Name Role Phone Rakel Valenzuela Primary Care Provider Stephanie Rio Unavailable [phone] Allergies Allergen (clinical drug ingredient) Drug/Non Drug Allergy documented on EMR Reaction Allergy Type Onset Date Status rosuvastatin Crestor Unknown Drug Allergy Acti ve atorvastatin Lipitor Unknown Drug Allergy Acti ve REASON FOR VISIT stiff neck after a shot last week Medications Medication SIG (Take, Route, Frequency, Duration) Notes Start Date End Date Status Gabapentin 600 MG 1 capsule Orally Thr ee times a day 05/08/2024 Active SEROquel 100 MG 1 tab(s) orally At B ed Time Active Famotidine 40 mg take 1 tablet 1 time each day Active FreeStyle Christen 3 [place] - as directed 07/07/2023 Active Plavix 75 MG 1 tab(s) orally once a day Active FreeStyle Christen 3 Sensor - as directed change sensor every 14 days 07/07/2023 Active Toprol XL 100 MG 1 tab(s) orally once a day Active Altace 10 MG 1 cap(s) orally once a day Active Aspirin 81 MG 1 tab(s) orally once a day Active Vitamin D 50 MCG (1999 UT) 1 capsule Orally Once a day; Duration: 30 day(s) Active Multivitamin Adult - 1 tablet Orally Onc e a day; Duration: 30 day(s) Active Isosorbide Mononitrate ER 30 MG 1 tablet in the morning Orally Once a day; Duration: 30 day(s) Active Methadone HCl 10 MG/5ML 5 mL Orally Once a day Pt sts he takes 85mg Active Farxiga 10 MG take 1 tablet daily Active metFORMIN HCl 1000 MG 1 tab(s) orally 2 times a day Active Trulicity 1.5 MG/0.5ML 1.5 mg Subcutaneo us once a week Active clonazePAM 0.5 MG 1 tab qam; 2 tabs qp m orally 05/08/2024 Active Social History Tobacco Use: Social History Observation Description Date Details (start date - stop date) Current Smoker NA - NA CURRENT TOBACCO USE: Question Answer Notes Are you a: current smoker Problems Problem Type SNOMED Code ICD Code Onset Dates Problem Status W/U Status Risk Notes Problem Disorder of neck (483772377) Disorder of neck (M53.82) Active confirmed Vital Signs Blood pressure systolic 160 mm Hg 05/23/19 25 Blood pressure diastolic 88 mm Hg 025 Heart Rate 80 /min 05/22/2024 Height 69 in 05/22/2024 Weight 167.6 lbs 05/22/2024 BMI 24.75 kg/m2 05/22/2024 Encounters Encounter Location Date Provider Diagnosis [facility] [address] [place], [place] [id number] 05/22/2024 Rio Brown Disorder of neck M53 .82 ; Muscle spasms of neck M62.838 ; Chronic pain syndrome G89.4 ; 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 and BMI 24.0-24.9, adult Z68.24 Assessments Encounter Date Diagnosis (ICD Code) Assessment Notes Treatment Notes Treatment Clinical Notes Section Notes 05/22/2024 Disorder of neck (ICD-10 - M53.82) 05/22/2024 Muscle spasms of neck (ICD-10 - M62.838) Home exercise program provided to patient, heating pad to affected areas 2 to 3 times a day 05/22/2024 Chronic pain syndrome (ICD-10 - G89.4) 05/22/2024 Non-pressure chronic ulcer of other part of unspecified foot with unspecified severity (ICD-10 - L97.509) 05/22/2024 BMI 24.0-24.9, adult (ICD-10 - Z68.24) Plan Of Treatment Treatment Notes Assessment Notes Muscle spasms of neck Home exercise prog giana provided to patient, heating pad to affected areas 2 to 3 times a day Next Appt Details Follow Up: via phone to repo rt progress, Reason: Provider Name:Rakel Barnhart, 02/19/2025 11:45:00 AM, [address], [address], [place], [place], [id number], Progress Notes * Darryn CHINGDOB:1960 (65 yo M)Acc No.[id number]:05/22/2024 Progress Notes Patient: Darryn MARTINEZ Provider: Alberto Brown M.D. :1960 A ge:64 Y S ex:Male Date:05/22/2024 Address:[address] [place] [address] , [id number] Pcp:Rakel Valenzuela Subjective: * Chief Complaints: * 1 . Stiff neck after a shot last week. * HPI: N jaciel: 64 year old male presents with c/o pain P t complains of pain on rt side of neck for a couple weeks. Pt states he is unable to move his neck. Pt states pain is miserable during the day but at night it does improve. * ROS: D ERMATOLOGY: no R cesar. n o H adonis. G ASTROENTEROLOGY: no N ausea. n o V omiting. U ROLOGY: no D ifficulty urinating. n [...] s ee above , foot ulcers @ [facility] 10/26/18- 10/27/18, [facility], DM, CAD 01/08/2020, [facility] 07/26/2022, Left common and external [...] frequency:daily. Alcohol: yes. * Medications: T aking clonazePAM 0.5 MG Tablet 1 tab qam; 2 tabs qpm orally , Taking Trulicity 1.5 MG/0.5ML Solution Pen-injector 1.5 mg Subcutaneous once a week , Taking metFORMIN HCl 1000 MG Tablet 1 tab(s) orally 2 times a day , Taking Farxiga 10 MG Tablet take 1 tablet daily , Taking Methadone HCl 10 MG/5ML Solution 5 mL Orally Once a day , Notes to Pharmacist: Pt sts he takes 85mg, Taking Isosorbide Mononitrate ER 30 MG Tablet [...] 14 days , Taking FreeStyle Christen 3 [place] - Device as directed , Taking Famotidine 40 mg Tablet take 1 tablet 1 time each day , Taking SEROquel 100 MG Tablet 1 tab(s) orally At Bed Time , Taking Gabapentin 600 MG Tablet 1 capsule Orally Three times a day , Discontinued oxyCODONE HCl 10 MG Tablet 1 tab(s) Orally every 6 hrs prn , Medication List reviewed and reconciled with the patient * Allergies: C restor, Lipitor. Objective: * Vitals: W t: 167.6, Temp: 98.0, BP: 160/88, HR: 80, O2 Sat: 98% on RA, Nurse: miladys, Ht: 69, BMI:24.75. * Examination: N jaciel: Vertebral spine tenderness: a bsent. P araspinal muscle spasm: present on right side. T rapezius tenderness: present on right side. ? G eneral Examination: General Appearance: N AD. Assessment: * Assessment: 1. D isorder of neck - M53.82 (Primary) 2 . M uscle spasms of neck - M62.838 3 . C hronic pain syndrome - G89.4 4 . N on-pressure chronic ulcer of other part of unspecified foot with unspecified severity - L97.509 5 . BMI 24.0-24.9, adult - Z68.24 Plan: * Treatment: * Procedure Codes: G 2211 Complex e/m visit add on * Follow Up: v ia phone to report progress * Images: Billing Information: * Visit Code: 96011 Office Visit, Est Pt., Level 3. * Procedure Codes: G2211 Complex e/m visit add on. * Electronic signature of Regi Brown MD on 02/13/2025 at 07:25 AM EST Sign off status: Pending * Provider: Alberto Brown M.D. Date: 0 05/22/2024 Generated for Abebe rollins/Dwayne/Snowitting on: 07:25 AM EST History and Physical Notes * HPI (History of Present Illness) Category Sub-Category Detail Notes Category Not es Neck pain Pt complains of pain on rt side of neck for a couple weeks. Pt states he is unable to move his neck. Pt states pain is miserable during the day but at night it does improve Examination Category Sub-Category Detail Notes Category Not es General Examination General Appearance: NAD Neck Vertebral spine tenderness: absent Paraspinal muscle spasm: present on righ t side Trapezius tenderness: present on right s mirna
--- OUTSIDE RECORDS SUMMARY | 2024-08-09 05:00 | XMS_ITS ---
Author Organization [facility] Address [address] [facility] 36 [facility] [address] [place] [phone] Care Team Providers Care Clinical Informatics Educator Name Role Phone Rakel Valenzuela Primary Care [...] Encounter Location Date Provider Diagnosis [place] [address] [facility] 36 [facility] [address] [place] [phone] 08/09/2024 Rakel Valenzuela Plan Of Treatment Next Appt Details Provider Name:Rakel Barnhart, 02/19/2025 11:45:00 AM, [address] [facility] 36 [facility], [address], [place], [phone], Progress Notes * Darryn CHINGDOB:1960 (65 yo M)Acc No.[id number]:08/09/2024 Progress Notes Patient: Luisito TRACEY Darryn Provider: Rakel Valenzuela M.D. :1960 A ge:64 Y S ex:Male Date:08/09/2024 Address:[address] , [id number] Subjective: * Chief Complaints: * 1 . [...] s ee above , foot ulcers @ [facility] 10/26/18- 10/27/18, [facility], DM, CAD 01/08/2020, [facility] 07/26/2022, Left common [...] 08/09/2024 Generated for Abebe rollins/Dwayne/Monico on: 1 07:25 AM EST
--- OUTSIDE RECORDS SUMMARY | 2024-08-23 05:15 | XMS_ITS ---
Author Organization [facility] Address [address] [facility] [address] [place] [phone] Care Team Providers Care Billing Coordinator Name Role Phone Rakel Valenzuela Primary Care [...] 58 Performing Lab: Notes/Report: Test performed by [facility] , [address], [place] [address] Luan Fontanez MD, Wool Sacker CLIA: [id number] Sodium 137 135-145 mmol/L Potassium 4.4 3.5-5.3 [...] 105 Performing Lab: Notes/Report: Test performed by [facility] [address] , [place] [address] Luan Fontanez MD, Wool Sacker CLIA: [id number] Cholesterol 170 <200 mg/dL Triglycerides 206 <150 [...] once a week Active FreeStyle Christen 3 [place] - as directed 07/07/2023 Active FreeStyle Christen [...] Provider Diagnosis Nadine [address] TRISHA Arauz [id number] 08/23/2024 Rakel Valenzuela Diabetic polyneuropa thy associated [...] 02/19/2025 11:45:00 AM, [address] [facility], [address], [place], [place], [phone], Progress Notes * Darryn CHINGDOB:1960 (65 yo M)Acc No.[id number]:08/23/2024 Progress Notes Patient: Luisito ALEXY Darryn Provider: Rakel Valenzuela M.D. :1960 A ge:64 Y S ex:Male Date:08/23/2024 Address:[address] [place] [address] , [place], [id number] Subjective: * Chief Complaints: * 1 . [...] s ee above , foot ulcers @ [facility] 10/26/18- 10/27/18, [facility]-STEMI, DM, CAD 01/08/2020, [facility] - NSTEMI 07/26/2022, Left common [...] 14 days , Taking FreeStyle Christen 3 [place] - Device as directed , Taking Famotidine [...] 84, O2 Sat: 98% on RA, Nurse: [facility] [place], Ht: 69, BMI:25.72. Assessment: * Assessment: 1. [...] whether hemorrhage - K21.00 1 1. B AR 25.0-25.9,adult - Z68.25 Plan: * Treatment: Value [...] EDT > no auth required; CPT code 80227; faxed to [facility] Scheduling * Procedure Codes: G 2211 Complex e/[place], [address] GLYCATED HEMOGLOBIN TEST, Modifiers: QW , 3044F HG A1C LEVEL LT 7.0%, G8420 BMI<30 AND >=22 CALC & DOCU, G8950 PREHTN/HTN BP DOC INDCD F/U DOC, G8752 MOST RECENT SYSTOLIC BP < 140MM HG, G8754 MOST RECENT DIASTOLIC BP < 90MM HG * Follow Up: 3 Months * Images: Billing Information: * Visit Code: 94007 Office Visit, Est Pt., Level 4. * Procedure Codes: G2211 Complex e/[place]. [address] GLYCATED HEMOGLOBIN TEST. Modifiers: QW 3044F HG [...] 08/23/2024 Generated for Printi ng/Faxing/eTransmitting on: 1 07:25 AM EST History and Physical Notes * HPI (History of Present Illness) Category Sub-Category Detail Notes Category Not es HPI Patient is here today for Pt is here today for a 3 month check. Pt sts he is doing well and has no conerns at this time. Pt is fasting
--- OUTSIDE RECORDS SUMMARY | 2024-11-15 10:00 | XMS_ITS ---
Author Organization [facility] Address [address] [facility] [address] [place] [phone] Care Team Providers Care Disabilities Services Officer Name Role Phone Rakel Valenzuela Primary [...] 14 days 07/07/2023 Active FreeStyle Christen 3 [place] - as directed 07/07/2023 Active Famotidine 40 [...] 11/15/2024 Encounters Encounter Location Date Provider [facility] [address] [phone] 11/15/2024 Rakel Valenzuela Anxiety F41.9 ; Diab [address], [place], [phone], Progress Notes * Darryn CHINGDOB:1960 (65 yo M)Acc No.[id number]:11/15/2024 Progress Notes Patient: Darryn MARTINEZ Provider: Rakel Valenzuela M.D. :1960 A ge:64 Y S ex:Male Date:11/15/2024 Address:[address] [place] [address] , [place], [id number] Subjective: * Chief Complaints: * 1 . [...] s ee above , foot ulcers @ [facility] 10/26/18- 10/27/18, [facility], DM, CAD 01/08/2020, [facility] - NSTEMI 07/26/2022, Left common and external [...] 14 days , Taking FreeStyle Christen 3 [place] - Device as directed , Taking Famotidine [...] * Images: Billing Information: * Visit Code: 06872 Office Visit, Est Pt., Level 3. * [...] M.D. Date: Generated for Abebe rollins/Dwayne/Snowitting on: 07:24 AM EST History and Physical Notes * Examination Category Sub-Category Detail Notes Category Not es General Examination Heart: RSR Lungs: clear to auscultatio n Extremities: No leg edema. No acu te joint swelling, redness, or warmth. General Appearance: NAD. Affect is good Neck: No adenopathy or bru its
--- OUTSIDE RECORDS SUMMARY | 2024-12-06 06:30 | XMS_ITS ---
Author Organization [facility] Address [address] [place] [phone] Care Team Providers Care Dinkey Operator Slate Name Role Phone Rakel Valenzuela Primary Care Provider Allergies Allergen (clinical drug ingredient) Drug/Non Drug Allergy documented on EMR Reaction Allergy Type Onset Date Status rosuvastatin Crestor Unknown Drug Allergy Acti ve atorvastatin Lipitor Unknown Drug Allergy Acti ve REASON FOR VISIT PSA Medications Medication SIG (Take, Route, Frequency, Duration) Notes Start Date End Date Status Gabapentin 600 MG 1 capsule Orally Thr ee times a day 11/15/2024 Active clonazePAM 0.5 MG 1 tab qam; 2 tabs qp m orally 11/15/2024 Active Farxiga 10 MG 1 tablet Orally Once a day; Duration: 90 days Active metFORMIN HCl 1000 MG 1 tab(s) orally 2 times a day; Duration: 90 days Active Zetia 10 MG 1 tablet Orally Once a day; Duration: 30 days 08/27/2024 Active FreeStyle Christen 3 Sensor - as directed change sensor every 14 days 07/07/2023 Active Tamsulosin HCl 0.4 MG 1 capsule Orally O nce a day; Duration: 30 day(s) 12/06/2024 Active Trulicity 1.5 MG/0.5ML 1.5 mg Subcutaneo us once a week Active Famotidine 40 mg take 1 tablet 1 time each day Active FreeStyle Christen 3 [place] - as directed 07/07/2023 Active Toprol XL 100 MG 1 tab(s) orally once a day Active Altace 10 MG 1 cap(s) orally once a day Active Aspirin 81 MG 1 tab(s) orally once a day Active Plavix 75 MG 1 tab(s) orally once a day Active Vitamin D 50 MCG (1999 [place]) 1 capsule Orally Once a day; Duration: 30 day(s) Active SEROquel 100 MG 1 tab(s) orally At B ed Time Active Multivitamin Adult - 1 tablet Orally Onc e a day; Duration: 30 day(s) Active Isosorbide Mononitrate ER 30 MG 1 tablet in the morning Orally Once a day; Duration: 30 day(s) Active Methadone HCl 10 MG/5ML 5 mL Orally Once a day Pt sts he takes 85mg Active Social History Tobacco Use: Social History Observation Description Date Details (start date - stop date) Current Smoker NA - NA CURRENT TOBACCO USE: Question Answer Notes Are you a: current smoker Problems Problem Type SNOMED Code ICD Code Onset Dates Problem Status W/U Status Risk Notes Problem Benign prostatic hyperplasia (863879271) BPH (benign prostatic hyperplasia) (N40.0) Active confirmed Vital Signs Blood pressure systolic 120 mm Hg 12/07/19 25 Blood pressure diastolic 70 mm Hg 025 Heart Rate 74 /min 12/06/2024 Height 69 in 12/06/2024 Weight 174.8 lbs 12/06/2024 BMI 25.81 kg/m2 12/06/2024 Encounters Encounter Location Date Provider Diagnosis [facility] [address] [place] [address] [address] [facility] [address] [place], [place] [phone] 12/06/2024 Rakel Valenzuela BPH (benign prostati c hyperplasia) N40.0 Assessments Encounter Date Diagnosis (ICD Code) Assessment Notes Treatment Notes Treatment Clinical Notes Section Notes 12/06/2024 BPH (benign prostatic hyperplasia) (ICD-10 - N40.0) Will start trial of tamsulosin. Plan Of Treatment Medication Medication Name Sig Start Date Stop Date Notes Tamsulosin HCl 0.4 MG 1 capsule Orally O nce a day; Duration: 30 day(s) 12/06/2024 Treatment Notes Assessment Notes BPH (benign prostatic hyperplasia) Will start trial of tamsulosin. Next Appt Details Follow Up: as scheduled, Natasha son: Provider Name:Rakel Barnhart, 02/19/2025 11:45:00 AM, [address] [facility] [address] [facility], [address], [place], [place], [phone], Progress Notes * Darryn CHINGDOB:1960 (65 yo M)Acc No.[id number]:12/06/2024 Progress Notes Patient: Darryn MARTINEZ Provider: Rakel Valenzuela M.D. :1960 A ge:64 Y S ex:Male Date:12/06/2024 Address:[address] [place] [address] , [place], [id number] Subjective: * Chief Complaints: * 1 . PSA. * HPI: Luisito sandhu Reproductive: He presents with complaints of urinary hesitancy, increased urinary frequency, and nocturia once per night. No dysuria or hematuria. He had a normal PSA months ago. * ROS: D ERMATOLOGY: no R cesar. [...] s ee above , foot ulcers @ [facility] 10/26/18- 10/27/18, [facility], DM, CAD 01/08/2020, [facility] 07/26/2022, Left common and [...] 14 days , Taking FreeStyle Christen 3 [place] - Device as directed , Taking Famotidine 40 mg Tablet take 1 tablet 1 time each day , Taking Trulicity 1.5 MG/0.5ML Solution Pen-injector 1.5 mg Subcutaneous once a week , Taking Zetia 10 MG Tablet 1 [...] Orally Three times a day , Taking SEROquel 100 MG Tablet 1 tab(s) orally At Bed Time , Medication List reviewed and reconciled with the patient * Allergies: C restor, Lipitor. Objective: * Vitals: W t: 174.8, Temp: 98.7, BP: 120/70, HR: 74, O2 Sat: 97% on RA, Nurse: vesna, Ht: 69, BMI:25.81. Assessment: * Assessment: 1. B PH (benign prostatic hyperplasia) - N40.0 (Primary) Plan: * Treatment: * Procedure Codes: G 2211 Complex e/m visit add on, G8783 BP SCR PRFRM RCMDD DEFIND SCR INTVL, G8752 MOST RECENT SYSTOLIC BP < 140MM HG, G8754 MOST RECENT DIASTOLIC BP < 90MM HG, 3074F SYST BP LT 130 MM HG, 3078F DIAST BP < 80 MM HG * Follow Up: a s scheduled * Images: Billing Information: * Visit Code: 69706 Office Visit, Est Pt., Level 3. * Procedure Codes: G2211 Complex e/m visit add on. G8783 BP SCR PRFRM RCMDD DEFIND SCR INTVL. G8752 MOST RECENT SYSTOLIC BP < 140MM HG. G8754 MOST RECENT DIASTOLIC BP < 90MM HG. 3074F SYST BP LT 130 MM HG. 3078F DIAST BP < 80 MM HG. * Electronic signature of Rakel Valenzuela MD on 02/13/2025 at 07:24 AM EST Sign off status: Pending * Provider: Rakel Valenzuela M.D. Date: Generated for Abebe rollins/Dwayne/Snowitting on: 07:24 AM EST
--- OUTSIDE RECORDS SUMMARY | 2025-02-13 07:24 | XMS_ITS | Encounter Summary ---
Author Organization [facility] Address [address] [place] [address] Care Team Providers Care Metal Cans Supervisor Name Role Phone Charles Valenzuela MD Primary Care Provider [phone] Mo Jaquez MD Unavailable [phone] Encounter Details Date Type Department Care Team (Late st Contact Info) Description 05/21/2022 Orders Only External Location [address] [place] [address] [place] [address] Social History Tobacco [...] on filedocumented in this encounter Care Teams Metal Cans Supervisor Relationship Specialty Start Date End Date Charles Valenzuela MD [facility] [id number] PCP - General 06/27/20 Mo Jaquez MD [address] [place] [address] Referring Physician 09/04/24 documented as of this encounter
--- OUTSIDE RECORDS SUMMARY | 2025-02-13 07:24 | XMS_ITS | Patient Health Record ---
[facility] Address [address] [facility] [address] [place] [id number] Care Team Providers Care Net Ui Developer Name Role Phone Rakel Valenzuela Primary Care Provider Rio Brown Unavailable [phone] Allergies Allergen (clinical drug ingredient) Drug/Non Drug [...] 149 Performing Lab: Notes/Report: Test performed by [facility], Risk I/O [facility] , [address], [place] [address] Luan Fontanez MD, Social Security Specialist CLIA: [id number] Sodium 139 135-145 mmol/L Potassium 4.3 3.5-5.3 [...] 133 Performing Lab: Notes/Report: Test performed by [facility] [address] [place] [address] , [place] [address] Luan Fontanez MD, Social Security Specialist CLIA: [id number] Cholesterol 159 <200 mg/dL Triglycerides 279 <150 [...] Interpretation:Normal Performing Lab: Notes/Report: Test performed by [facility] [address] [place] [address] [address], [place] [address] Luan Fontanez MD, Social Security Specialist CLIA: [id number] PSA 0.18 <4.00 ng/mL Please note this [...] 58 Performing Lab: Notes/Report: Test performed by [facility] [address] [place], [place] [address] [place] [address], [place] [address] Luan Fontanez MD, Social Security Specialist CLIA: [id number] Sodium 137 135-145 mmol/L Potassium 4.4 3.5-5.3 [...] 105 Performing Lab: Notes/Report: Test performed by [facility], [address] , [address], [place] [address] Luan Fontanez MD, Social Security Specialist CLIA: [id number] Cholesterol 170 <200 mg/dL Triglycerides 206 <150 [...] time each day Active FreeStyle Christen 3 Emblem - as directed 07/07/2023 Active Immunizations Vaccine [...] W/U Status Risk Notes Problem Essential hypertension (08918612) Essential (primary) hypertension (I10) Active confirmed Problem Coronary arteriosclerosis (62123959) ASCVD (arteriosclerotic cardiovascular disease) (I25.10) Active confirmed Problem Diabetic foot ulcer (533252054) Diabetic foot ulcer (E11.621) Active confirmed Problem Anxiety (26234463) Anxiety (F41.9) Active confi rmed Problem Acute non-ST segment elevation myocardial infarction (750259471) NSTEMI (non-ST elevated myocardial infarction) (I21.4) Active confirmed Problem Old myocardial infarction (2278312) History of non-ST elevation myocardial infarction (NSTEMI) (I25.2) Active confirmed Problem Benign prostatic hyperplasia (905051173) BPH (benign prostatic hyperplasia) (N40.0) Active confirmed Problem Disorder due to type 2 diabetes mellitus (325730012) Type 2 diabetes mellitus with unspecified complications (E11.8) Active confirmed Problem Foot ulcer due to type 2 diabetes mellitus (8585634446458) Type 2 diabetes mellitus with foot ulcer (E11.621) Active confirmed Problem Dermopathy due to type 2 diabetes mellitus (disorder) (8248512778154) Type 2 diabetes mellitus with other skin complications (E11.628) Active confirmed Problem Chronic pain syndrome (719210326) Chronic pain syndrome (G89.4) Active confirmed Problem Chronic ulcer of foot (482171224) Non-pressure chronic ulcer of other part of unspecified foot with unspecified severity (L97.509) Active confirmed Problem Inflammatory and toxic neuropathy (015191246) Peripheral polyneuropathy (G62.9) Active confirmed Problem Gastroesophageal reflux disease with esophagitis (191557785) Gastroesophageal reflux disease with esophagitis (K21.0) Active confirmed Problem Hyperlipidaemia (13072210) Hyperlipidemia, unspecified hyperlipidemia type (E78.5) Active confirmed Problem Polyneuropathy due to type 2 diabetes mellitus (809406726) Diabetic polyneuropathy associated with type 2 diabetes mellitus (E11.42) Active confirmed Problem Disorder of neck (060143221) Disorder of neck (M53.82) Active confirmed Problem STEMI - ST elevation myocardial infarction (134660849) ST elevation myocardial infarction (STEMI), unspecified artery (I21.3) Active confirmed Problem Dyslipidemia (350994420) Dyslipidemia (E78.5) Active confirmed Problem Stented coronary artery (248977903) Stented coronary artery (Z95.5) Active confirmed Problem Peripheral vascular disease (496498228) PAD (peripheral artery disease) (I73.9) Active confirmed Problem Abdominal aortic aneurysm without rupture (disorder) (65498323) Abdominal aortic aneurysm (AAA) without rupture (I71.4) Active confirmed Problem Atherosclerotic heart disease of [place] coronary artery without angina pectoris (773133440579168) Atherosclerosis of [place] coronary artery without angina pectoris, unspecified whether [place] or transplanted heart (I25.10) Active confirmed Problem Polyneuropathy due to type 2 diabetes mellitus (910025165) Type 2 diabetes mellitus with diabetic polyneuropathy, without long-term current use of insulin (E11.42) Active confirmed Problem Tobacco use (611476706) Tobacco use disorder (F17.200) Active confirmed Problem Type II diabetes mellitus without complication (043888921) Type 2 diabetes mellitus without complication, unspecified whether roll on man insulin use (E11.9) Active confirmed Problem 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) Active confirmed Problem Gastroesophageal reflux disease (043243967) Gastroesophageal reflux disease, unspecified whether esophagitis present (K21.9) Active confirmed Problem Gastroesophageal reflux disease with esophagitis (disorder) (229745814) Gastroesophageal reflux disease with esophagitis, unspecified whether hemorrhage (K21.00) Active confirmed Vital Signs Heart Rate 74 /min 12/06/2024 Blood pressure diastolic 70 mm Hg 12/06/2024 Height 69 in 12/06/2024 Blood pressure systolic 120 mm Hg 12/06/2024 Weight 174.8 lbs 12/06/2024 BMI 25.81 kg/m2 12/06/2024 Encounters Encounter Location Date Provider Diagnosis [facility] [address] [facility] [address] [place] [id number] 02/14/2024 Rakel Valenzuela Diabetic polyneuropa thy associated [...] skin D48.5 and Tobacco use disorder F17.200 [facility] [address] [facility] [address] [place] [id number] 05/08/2024 Rakel Valenzuela Adult general medica l [...] hemorrhage K21.00 and BMI 24.0-24.9, adult Z68.24 [facility] [address] [place] [id number] 05/22/2024 Rio Boyle Disorder of neck M53 .82 ; Muscle spasms of neck M62.838 ; Chronic pain syndrome G89.4 ; 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 and BMI 24.0-24.9, adult Z68.24 [facility] [address] [place] [id number] 08/23/2024 Rakel Valenzuela Diabetic polyneuropa thy associated [...] whether hemorrhage K21.00 and BMI 25.0-25.9,adult Z68.25 [facility] [address] [place] [id number] 11/15/2024 Rakel Valenzuela Anxiety F41.9 ; Diab etic polyneuropathy associated with type 2 diabetes mellitus E11.42 ; ASCVD (arteriosclerotic cardiovascular disease) I25.10 ; Essential (primary) hypertension I10 and BMI 25.0-25.9,adult Z68.25 [facility] [address] [place] [id number] 12/06/2024 Rakel Valenzuela BPH (benign prostati c hyperplasia) N40.0 [facility] [address] [place] [id number] 02/21/2024 R Charles Nicolas Type 2 diabetes ardha itus with foot ulcer E11.621 [facility] [address] [place], [place] [id number] 05/08/2024 R Charles Nicolas Diabetic polyneuropa thy associated with type 2 diabetes mellitus E11.42 [facility] [address] [place], [place] [id number] 08/08/2024 R Charles Nicolas [facility] [address] [place], [place] [id number] 08/16/2024 R Charles Nicolas Anxiety F41.9 and Diabetic polyneuropathy associated with type 2 diabetes mellitus E11.42 [facility] [address] [place], [place] [id number] 08/16/2024 R Charles Nicolas [facility] [address] [place] [id number] 08/27/2024 R Charles Nicolas [facility] [address] [place] [id number] 09/11/2024 R Charles Nicolas Screening for colon cancer Z12.11 [facility] [address] [place] [id number] 10/16/2024 R Charles Nicolas Diabetic polyneuropa thy associated with type 2 diabetes mellitus E11.42 [facility] [address] [place] [id number] 11/14/2024 R Charles Nicolas Diabetic polyneuropa thy associated with type 2 diabetes mellitus E11.42 [facility] [address] [place], [place] [id number] 01/18/2025 R Charles Nicolas Assessments Encounter Date [...] [address], [address], [place], [place], [id number], Insurance Providers Payer Name Payer Address Payer Phone Subscriber Number Group Number Insured Name Patient Relationship to Insured Coverage Start Date Coverage End Date [employer] (MEDICAR E) [address] [address] [place] [phone] [id number] Darryn Ching Self - patient is the insured Medical [...] st enoses/ s/p stent x 2 07/2023 [facility] - NSTEMI 07/26/2022 [facility]-STEMI, DM, CAD 01/08/2020 foot ulcers @ [facility] 10/26/18- 10/27/18 see above
--- OUTSIDE RECORDS SUMMARY | 2025-02-13 07:24 | XMS_ITS | Clinical Summary ---
Author Organization [facility] Address [address] [place] [address] Care Team Providers Care Cemetery Counselor Name Role Phone Charles Valenzuela MD Primary Care Provider [phone] Mo Jaquez MD Unavailable [phone] Allergies Active Allergy Reactions Criticality Noted Date [...] Vaccine s (1 - Tdap) 10/28/2018 10/27/2018 [id number] Vaccine (4 - 2024- season) 2024 02/05/2021, [...] age to complete [place] [phone] [employer] Care Teams Cemetery Counselor Relationship Specialty Start Date End Date Charles Valenzuela MD [facility] [address] PCP - General 06/27/20 Mo Jaquez MD [facility] [address] [address] Referring Physician 09/04/24
--- OUTSIDE RECORDS SUMMARY | 2025-02-13 07:24 | XMS_ITS | Clinical Summary ---
Author Organization [facility] Address [address] [place] [address] Care Team Providers Care Student Services Dean Name Role Phone Clayton Garcia MD Primary Care Provider [phone] Allergies Active Allergy Reactions Criticality Noted Date [...] 12:39 PM 04/22/2016 4:19 PM Care Teams Student Services Dean Relationship Specialty Start Date End Date Clayton Garcia MD [address] [place] [address] [place] [address] PCP - General Adolescent Medicine 04/22/16
--- OUTSIDE RECORDS SUMMARY | 2025-02-13 07:24 | XMS_ITS | Encounter Summary ---
Author Organization [facility] Address [address] [place] [address] Care Team Providers Care Roundhouse Worker Name Role Phone Charles Valenzuela MD Primary Care Provider [phone] Mo Jaquez MD Unavailable [phone] Encounter Details Date Type Department Care Team (Late st Contact Info) Description 07/27/2022 Orders Only External Location [address] [place] [address] Jesus Alberto Do PA [address] [place] [address] Social History Tobacco Use Types Packs/Day [...] on filedocumented in this encounter Care Teams Roundhouse Worker Relationship Specialty Start Date End Date Charles Valenzuela MD [facility] [address] PCP - General 06/27/20 Mo Jaquez MD [address] [place] [address] Referring Physician 09/04/24 documented as of this encounter
--- OUTSIDE RECORDS SUMMARY | 2025-02-13 07:24 | XMS_ITS | Encounter Summary ---
Author Organization [facility] Address [address] [place] [address] Care Team Providers Care Pipelines Superintendent Name Role Phone Charles Valenzuela MD Primary Care Provider [phone] Mo Jaquez MD Unavailable [phone] Encounter Details Date Type Department Care Team (Late st Contact Info) Description 08/27/2024 Orders Only External Location [address] [place] [address] Provider, External Social History Tobacco Use Types [...] on filedocumented in this encounter Care Teams Pipelines Superintendent Relationship Specialty Start Date End Date Charles Valenzuela MD [facility] [address] PCP - General 06/27/20 Mo [facility]aquez MD [address] [facility] [address] [place] [address] Referring Physician 09/04/24 documented as of this encounter
--- NOTE | 2025-02-13 07:30 | CT_ITS ---
FINAL REPORT TECHNIQUE: Thin section axial images were obtained through the lungs using a low-dose technique per lung cancer screening protocol. Reconstruction images were obtained using the axial data. This study was performed with techniques to keep radiation doses as low as reasonably achievable, (ALARA). Individualized dose reduction techniques using automated exposure control or adjustment of mA and/or kV according to the patient's size were employed. CLINICAL HISTORY: lung cancer screening smokes 3/4 packs per day x 30 years cad CTDI vol : 2.90 DLP:106.55 COMPARISON: 05/21/2022 FINDINGS: CTDLvol: 2.90 DLP: 106.55 Current smoker 22.5 pack year history Lungs: There are bilateral stable less than 5 mm upper lobe pulmonary nodules. No new nodules are identified. There are changes of emphysema. Lymph nodes: No lymphadenopathy. Mediastinum: Heart size is normal. There are prominent coronary artery calcifications. Pleura/pericardium: No pleural or pericardial effusion. Other: Limited images of the upper abdomen reveal a stable left adrenal nodule without acute abnormality. IMPRESSION: Stable bilateral pulmonary nodules. Prominent coronary artery calcifications. Stable left adrenal nodule. Lung RADS: 2S Recommendation: 12-month follow-up low-dose chest CT. Reviewed, Interpreted and Dictated by Julia Parnell MD Transcribed by Joaquina Castano Authenticated and [facility]
[2025-02-13 08:15] VITALS: PULSE 68; PULSE 70
[2025-02-13] MEDS: ALBUTEROL 0.083% 2.5 MG/3 ML NEB IH (08:15)
== END 2025-02-13 23:59 | disposition home or self-care (01) ==
LOC: RAD 07:22
PROVIDERS: PCP Family Medicine; Visit Provider Internal Medicine Pulmonary Disease
DX: R06.09 Other forms of dyspnea (principal); F17.210 Nicotine dependence, cigarettes, uncomplicated; Z12.2 Encounter for screening for malignant neoplasm of respiratory organs
CPT/HCPCS: 71271; 94060; 94618; 94640; 94726; 94729